=== PATIENT | male | born 1945 | race Caucasian/White ===

== ENCOUNTER 2019-02-12 09:58 | Inpatient (IN) | payer OTHER ==
[~2019-02-12] VITALS: Ht 182.9 cm; Wt 79.4 kg
[2019-02-12] MEDS ORDERED: SODIUM CHLORIDE 0.9% 1L BAG IV* STA (10:20)
[2019-02-12] MEDS ORDERED: ALBUTEROL 0.083% (NEB) 2.5 MG/3 ML AMP HHN STA (10:26)
[2019-02-12] MEDS ORDERED: METHYLPREDNISOLONE 125 MG INJ IV ONE (11:00)
[2019-02-12] MEDS ORDERED: CLOP75TA27 PO (12:46)
[2019-02-12] MEDS ORDERED: GABA100C14 PO (12:47)
[2019-02-12] MEDS ORDERED: DOCU250C58 PO (12:47)
[2019-02-12] MEDS ORDERED: LACT20SO2 PO (12:48)
[2019-02-12] MEDS ORDERED: ATOR20TA38 PO (12:49)
[2019-02-12] MEDS ORDERED: MAGN400O19 PO (12:49)
[2019-02-12] MEDS ORDERED: METF500T24 PO (12:49)
[2019-02-12] MEDS ORDERED: SENN-120 PO (12:50)
[2019-02-12] MEDS ORDERED: TERA1CAP3 PO (12:51)
[2019-02-12] MEDS ORDERED: ONDA4TAB14 PO (12:52)
[2019-02-12] MEDS ORDERED: ALBUTEROL 0.5% (NEB) 2.5 MG/0.5 ML AMP INH STA (12:53)
[2019-02-12] MEDS ORDERED: IPRATROPIUM (NEB) 0.5 MG/2.5 ML AMP INH STA (12:53)
[2019-02-12] MEDS ORDERED: SERT100T PO (12:55)
[2019-02-12] MEDS ORDERED: AMIN30LI PO (12:57)
[2019-02-12] MEDS ORDERED: URSO250T10 PO (12:57)
[2019-02-12] MEDS ORDERED: RANI300T3 PO (12:58)
[2019-02-12] MEDS ORDERED: ACET-2047 PO (12:58)
[2019-02-12] MEDS ORDERED: ATEN50TA PO (12:59)
[2019-02-12] MEDS ORDERED: BISA10SU55 RC (13:00)
[2019-02-12] MEDS ORDERED: NA P133E10 RC (13:01)
[2019-02-12] MEDS ORDERED: VANCOMYCIN 1 GM (PMX) 250 ML IVPB STA (13:11)
[2019-02-12] MEDS ORDERED: PIPER-TAZO 3.375 GM IV (PMX) 100 ML IVPB STA (13:11)
[2019-02-12] MEDS ORDERED: ACETAMINOPHEN 325 MG TAB PO PRN ×2 (14:00→14:30)
[2019-02-12] MEDS ORDERED: ONDANSETRON 4 MG INJ IV PRN (14:00)
[2019-02-12] MEDS ORDERED: morphine 2 MG INJ IV PRN (14:30)
[2019-02-12] MEDS ORDERED: ALBUTEROL/IPRATROPIUM (NEB) 3 ML AMP HHN PRN (14:30)
[2019-02-12] MEDS ORDERED: HYDROCODONE/APAP (5/325) TAB PO PRN (14:30)
[2019-02-12] MEDS ORDERED: NACL 0.9% 3 ML SYG IV SCH (14:30)
[2019-02-12] MEDS ORDERED: ASPIRIN 325 MG TAB PO ONE (14:30)
[2019-02-12] MEDS ORDERED: NITROGLYCERIN (SL) 0.4 MG TAB SL PRN (14:30)
--- NOTE | 2019-02-12 14:38 | ERD ---
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 The patient presented to the emergency department from [facility]. The patient was in severe respiratory distress. The patient had experienced desaturation and became acutely hypoxic satting at 78%. His blood sugar at that time was 267. His blood pressure was 120/64. Nursing staff placed the patient on 4 L nasal cannula. This did not improve his pulse ox and therefore he was placed on a nonrebreather at 15 L and improved his pulse ox to 93%. Patient has a history of aspiration pneumonia. The patient is also DO NOT RESUSCITATE with comfort measures only ROS All systems reviewed and are negative except as per history of present illness. Medications Home Meds Reported Medications Na Phos,M-B/Na Phos,Di-Ba (ENEMA [id number]) 133 Ml Enema, 133 ML RC EVERY 48 HOURS PRN for CONSTIPATION, ENEMA 02/12/19 Bisacodyl (Dulcolax) 10 Mg Supp.rect, 10 MG RC EVERY 48 HOURS PRN for CONSTIPATION, SUPP.RECT 02/12/19 Atenolol* (Atenolol*) 50 Mg Tablet, 50 MG PO BID, #60 TAB HOLD FOR SBP<110 OR HR <60 02/12/19 Acetaminophen* (Acetaminophen*) 650 Mg Tablet, 650 MG PO Q6H PRN for MILD PAIN LEVEL 1-3, #30 TAB 02/12/19 Ranitidine Hcl* (Zantac*) 300 Mg Tablet, 300 MG PO HS, #30 TAB 02/12/19 Amino Acids/Protein Hydrolys (PRO-STAT LIQUID) 30 Ml Liquid.pkt, 30 ML PO DAILY 02/12/19 Ursodiol* (Ursodiol*) 250 Mg Tablet, 250 MG PO BID, TAB 02/12/19 Sertraline Hcl* (Zoloft*) 100 Mg Tablet, 150 MG PO DAILY, #30 TAB 02/12/19 Ondansetron (Ondansetron Odt) 4 Mg Tab.rapdis, 4 MG PO Q6H PRN for NAUSEA AND/OR VOMITING, TAB 02/12/19 Terazosin Hcl* (Terazosin Hcl*) 1 Mg Capsule, 1 MG PO BID, CAP 02/12/19 Sennosides* (Senna Lax*) 8.6 Mg Tablet, 1 TAB PO QHS, TAB 02/12/19 Magnesium Hydroxide* (Milk Of Magnesia*) 400 Mg/5 Ml Oral.susp, 30 ML PO DAILY PRN for CONSTIPATION, ML 02/12/19 Metformin Hcl* (Metformin Hcl*) 500 Mg Tablet, 500 MG PO WITH BREAKFAST DINNE, #60 TAB 02/12/19 Atorvastatin Calcium* (Atorvastatin Calcium*) 20 Mg Tablet, 20 MG PO QHS, #30 TAB 02/12/19 Lactulose* (Lactulose*) 20 Gm/30 Ml Solution, 20 GM PO DAILY, ML 02/12/19 Gabapentin* (Gabapentin*) 100 Mg Capsule, 100 MG PO TID, #90 CAP 02/12/19 Docusate Sodium* (Colace*) 250 Mg Capsule, 250 MG PO BID, #60 CAP 02/12/19 Clopidogrel Bisulfate (Clopidogrel) 75 Mg Tablet, 75 MG PO DAILY, #30 TAB 02/12/19 Allergies Allergies: Coded Allergies: alendronate sodium (Unverified Allergy, Unknown, 02/12/19) cholecalciferol (vitamin D3) (Unverified Allergy, Unknown, 02/12/19) PMhx/Soc History of Surgery: Yes (left below knee amputation ) Hx Respiratory Disorders: Yes (copd ) Hx Cardiac Disorders: Yes (htn, chf, pvd) Hx Miscellaneous Medical Probl: Yes (bladder ca, generalized weakness, DM, chronic kidney disease ) Hx Alcohol Use: No Hx Substance Use: No Hx Tobacco Use: No Smoking Status: Never smoker Physical Exam Vitals Vital Signs Date Temp Pulse Resp B/P (MAP) Pulse Ox O2 O2 Flow FiO2 Time Delivery Rate 02/12/19 92 26 96 13:42 02/12/19 96 100 12:49 02/12/19 87 29 98/59 (72) 97 11:26 02/12/19 Simple 11:17 Mask 02/12/19 88 100 11:14 02/12/19 86 36 86 Non 15.0 100 10:52 Rebreather Mask 02/12/19 98.9 91 24 92/60 (71) 88 Non 15.0 10:17 Rebreather 02/12/19 Non 15.0 10:12 Rebreather 02/12/19 98.8 91 28 104/64 88 10:11 (77) Physical Exam Constitutional:Well-developed. Patient in severe respiratory distress HEENT:Normocephalic. Atraumatic.Pupils were equal round reactive to light. Moist mucous membranes.No tonsillar exudates. Neck: No nuchal rigidity. No lymphadenopathy. No posterior cervical spine tenderness or step-offs. Respiratory: Patient using accessory muscles of respiration. Unable to speak due to severe respiratory distress. Wheezing on end auscultation bilaterally. No stridor. Cardiovascular: Tachycardic with regular rhythm.No murmurs. No rubs were appreci ated.S1, S2 normal. Distal pulses are palpable 2+ on the right lower extreme knee. Patient has a left below the knee amputation GI: Abdomen was soft. Nontender. Non Distended. No pulsatile abdominal masses or bruits. No rebound. No guarding. Bowel sounds were present and normal. Muscle skeletal: Patient has a left below the knee amputation and stump is clean dry and intact. Patient is full range of motion the bilateral upper extremities. Skin: No petechia, no purpura. No lesions on the palms or the soles of the feet. No maculopapular rash. NEURO: Patient was alert, awake, to person place and time. Gait not observed. Result Diagram: 02/12/19 1012 02/12/19 1012 Results 24 hrs Laboratory Tests Test 02/12/19 10:12 02/12/19 10:14 02/12/19 10:26 02/12/19 14:12 White Blood Count 12.9 10^3/ul Red Blood Count 5.69 10^6/ul Hemoglobin 15.9 g/dl Hematocrit 49.5 % Mean Corpuscular 87.0 fl Volume Mean Corpuscular 27.9 pg Hemoglobin Mean Corpuscular 32.1 g/dl Hemoglobin Concen t Red Cell 14.2 % Distribution Width Platelet Count 227 10^3/UL Mean Platelet 10.6 fl Volume Immature 0.200 % Granulocytes % Neutrophils % 82.7 % Segmented 47 % Neutrophils % (Manual) Band Neutrophils 31 % % (Manual) Lymphocytes % 5.8 % Lymphocytes % 5 % (Manual) Reactive 1 % Lymphocytes % (Manual) Monocytes % 10.8 % Monocytes % 16 % (Manual) Eosinophils % 0.0 % Basophils % 0.5 % Nucleated Red 0.0 /100WBC Blood Cells % Immature 0.030 10^3/ul Granulocytes # Neutrophils # 10.6 10^3/ul Neutrophils # 6.6 10^3/ul (Manual) Band Neutrophils 3.9 10^3/ul # Lymphocytes 0.6 10^3/ul (Manual) Lymphocytes # 0.7 10^3/ul Reactive 0.1 10^3/ul Lymphocytes # Monocytes # 1.4 10^3/ul Monocytes # 2.0 10^3/ul (Manual) Eosinophils # 0.0 10^3/ul Basophils # 0.1 10^3/ul Nucleated Red 0.0 10^3/ul Blood Cells # Platelet Estimate NORMAL Giant Platelets 3 % Poikilocytosis 1+ Anisocytosis 1+ Microcytosis 1+ Prothrombin Time 13.5 Sec Prothrombin Time 1.1 Ratio INR International 1.02 Normalized Ratio Activated 34.2 Sec Partial Thrombopl ast Time Sodium Level 140 mmol/L Potassium Level 4.3 mmol/L Chloride Level 103 mmol/L Carbon Dioxide 22 mmol/L Level Anion Gap 15 Blood Urea 31 mg/dl Nitrogen Creatinine 1.43 mg/dl Est Glomerular mL/min Filtrat Rate mL/min Glucose Level 334 mg/dl Calcium Level 10.2 mg/dl Total Bilirubin 0.4 mg/dl Direct Bilirubin 0.00 mg/dl Indirect 0.4 mg/dl Bilirubin Aspartate Amino 18 IU/L Transf (AST/SGOT) Alanine 12 IU/L Aminotransferase (ALT/SGPT) Alkaline 107 IU/L Phosphatase Troponin I 0.531 ng/ml B-Type 6430 PG/ML Natriuretic Peptide Total Protein 8.1 g/dl Albumin 4.4 g/dl Globulin 3.70 g/dl Albumin/Globulin 1.18 Ratio POC Venous 2.4 mmol/L 3.4 mmol/L Lactate Blood Gas Blood arterial Specimen Source Arterial Blood 02/12/2019 11:16:02 Date Drawn AM Arterial Blood pH 7.392 (Temp corrected) Arterial Blood 35.9 mmhg pCO2 (Temp correct) Arterial Blood 68.2 mmHG pO2 (Temp corrected) Arterial Blood 21.3 mmol/L HCO3 Arterial Blood -2.9 mmol/L Base Excess Arterial Blood 93.9 mmHG Oxygen Saturation Caesar Test ACCEPTAB Arterial Blood Right Brachial Gas Puncture Site Arterial 0.5 % Blood Carboxyhemo globin Arterial Blood 0.2 % Methemoglobin Blood Gas A-a O2 608.9 mmHg Differential Oxyhemoglobin 93.2 % Percent Blood Gas 37.0 C Temperature Blood Gas Actual 35 Respiration Rate Blood Gas HFNC Modality FiO2 100.0 % Blood Gas MarlonYADIEL RT Notified Whom Blood Gas 02/12/2019 11:32:52 Notified Time AM Test 02/12/19 14:15 02/12/19 14:20 02/12/19 15:08 Lactic Acid Level 4.6 mmol/L Bedside Urine pH 6.0 (LAB) Bedside Urine 1+ Protein (LAB) Bedside Urine Negative Glucose (UA) Bedside Urine 3+ Ketones (LAB) Bedside Urine 2+ Blood Bedside Urine Negative Nitrite (LAB) Bedside Urine Trace Leukocyte Esteras e (L White Blood Count Pending Red Blood Count Pending Hemoglobin Pending Hematocrit Pending Mean Corpuscular Pending Volume Mean Corpuscular Pending Hemoglobin Mean Corpuscular Pending Hemoglobin Concen t Red Cell Pending Distribution Width Platelet Count Pending Mean Platelet Pending Volume Current Medications Medications Dose Sig/Moriah Start Time Status Last (Trade) Ordered Route PRN Stop Time Admin Dose Reason Admin Sodium 2,520 ml BOLUS OVER 2 02/12/19 DC 02/12/19 Chloride HOURS STAT 10:20 02/12/19 10:59 (NS) IV* 10:44 Albuterol 10 mg ONCE STAT 02/12/19 DC 02/12/19 (Proventil HHN 10:26 02/12/19 10:51 0.083% (Neb)) 10:44 125 mg ONCE ONCE 02/12/19 DC 02/12/19 Methylprednis IV 11:00 02/12/19 10:59 olone Sodium 11:01 Succinate (Solu-Medrol) Albuterol 10 mg ONCE STAT 02/12/19 DC (Proventil INH 12:53 02/12/19 0.5% (Neb)) 12:57 Ipratropium 1 mg ONCE STAT 02/12/19 DC [place] INH 12:53 02/12/19 (Atrovent 12:57 0.02% (Neb)) Vancomycin 250 ml @ ONCE STAT 02/12/19 DC 02/12/19 HCl 125 mls/hr IVPB 13:11 02/12/19 15:19 15:10 Piperacillin 100 ml @ ONCE STAT 02/12/19 DC 02/12/19 Sod/ 200 mls/hr IVPB 13:11 02/12/19 13:53 Tazobactam 13:40 Sod Ondansetron 4 mg BRIDGE ORDER 02/12/19 HCl (Zofran PRN IV 14:00 02/13/19 Inj) NAUSEA/VOMITI 13:59 NG 650 mg ER BRIDGE 02/12/19 DC Acetaminophen PRN PO 14:00 02/12/19 (Tylenol .MILD PAIN 14:53 Tab) 1-3 OR TEMP IV Flush 3 ml PER 02/12/19 (NS 3 ml) PROTOCOL IV 14:30 1 tab Q5M PRN 02/12/19 Nitroglycerin SL .CHEST 14:30 PAIN (Nitroglyceri n (Sl Tab) 0.4 Mg) 650 mg Q6H PRN 02/12/19 Acetaminophen PO .PAIN 1-3 14:30 (Tylenol OR TEMP Tab) 1 tab Q6H PRN 02/12/19 Acetaminophen PO .PAIN 4-6 14:30 / Hydrocodone Bitart (Sallis (5/325)) Morphine 2 mg Q4H PRN 02/12/19 Sulfate IV .PAIN 14:30 (morphine) 7-10 40 mg DAILY@06 02/13/19 Pantoprazole IV 06:00 (Protonix Iv) 80 mg QHS PO 02/12/19 Atorvastatin 21:00 Calcium (Lipitor) Clopidogrel 75 mg DAILY PO 02/13/19 Bisulfate 09:00 (plaVIX) Docusate 250 mg BID PO 02/12/19 Sodium 21:00 (Colace) Sertraline 150 mg DAILY PO 02/13/19 HCl 09:00 (Zoloft) Terazosin 1 mg BID PO 02/12/19 HCl 21:00 (Hytrin) Ursodiol 250 mg BID PO 02/12/19 (Pili) 21:00 Aspirin 325 mg ONCE ONCE 02/12/19 DC (Aspirin) PO 14:30 02/12/19 14:54 Aspirin 81 mg DAILY PO 02/13/19 (Aspirin) 09:00 Piperacillin 100 ml @ Q6 IVPB 02/12/19 Sod/ 200 mls/hr 18:00 Tazobactam Sod Albuterol/ 3 ml Q6HWA RESP 02/12/19 Ipratropium THERAPY HHN 20:00 (Duoneb) Albuterol/ 3 ml Q2H RESP 02/12/19 Ipratropium THERAPY PRN 14:30 (Duoneb) HHN shortness of breath Budesonide 0.5 mg BID RESP 02/12/19 (Pulmicort THERAPY HHN 20:00 (Neb)) Discontinue ONCE ONCE 02/12/19 DC Miscellaneous current oral XX 15:00 02/12/19 sulfonylur... 15:01 Information (* Miscellaneous Pharmacy Order) Diagnostic 1 ea 02 XX 02/13/19 Test (Pha) 02:00 (Accu-Chek) ONCE ONCE 02/12/19 DC Miscellaneous HYPOGLYCEMIA XX 15:00 02/12/19 PROTOCOL 15:01 Information w... (* Miscellaneous Pharmacy Order) Insulin NOVOLOG WITH MEALS 02/12/19 Aspart *MILD* BEDTIME SC 18:00 (Novolog ALGORITHM Insulin Pen) Discontinue ONCE ONCE 02/12/19 DC Miscellaneous all previ... XX 15:00 02/12/19 15:01 Information (* Miscellaneous Pharmacy Order) DC ONCE ONCE 02/12/19 DC Miscellaneous previous XX 15:00 02/12/19 hepa... 15:01 Information (* Miscellaneous Pharmacy Order) Heparin 4,000 unit ONCE ONCE 02/12/19 DC Sodium IV 15:00 02/12/19 (Porcine) 15:01 (Heparin (1000 Units/ml)) Heparin 4,000 unit PER PROTOCOL 02/12/19 Sodium PRN IV 15:00 (Porcine) aPTT<47 (Heparin (1000 Units/ml)) Heparin 250 ml @ 0 PER 02/12/19 Sodium mls/hr PROTOCOL IV 15:00 (Porcine) 1 ea NOTE XX 02/12/19 Miscellaneous 15:00 Information Glucose 15 gm Q15M PRN 02/12/19 (Glutose) PO DECREASED 15:00 GLUCOSE Glucose 22.5 gm Q15M PRN 02/12/19 (Glutose) PO DECREASED 15:00 GLUCOSE Dextrose 25 ml Q15M PRN 02/12/19 (D50w IV DECREASED 15:00 Syringe) GLUCOSE Dextrose 50 ml Q15M PRN 02/12/19 (D50w IV DECREASED 15:00 Syringe) GLUCOSE Glucagon 1 mg Q15M PRN 02/12/19 (Glucagen) IM DECREASED 15:00 GLUCOSE Glucose 15 gm Q15M PRN 02/12/19 (Glutose) BUCCAL 15:00 DECREASED GLUCOSE Procedures/MDM The patient presented to the emergency department with dyspnea. My differential diagnosis included but was not limited to upper airway obstruction, CHF, pulmonary embolism, cardiac ischemia, pneumonia, pneumothorax, anemia, drug overdose, pulmonary edema, COPD or asthma. The patient was immediately placed on a hospital monitor continuous pulse oximetry and IV access was established by nursing staff. 12 Lead EKG tracing ordered and reviewed by myself showed: Normal sinus rhythm of 85 bpm and no arrhythmia. ND interval normal. QRS duration widened at 144 ms with an RSR prime pattern in lead V1 V2 consistent with a right bundle branch block No ST segment elevation No ST segment depression. No changes consistent with acute ischemia. I obtained a 1 view chest radiograph and there is no infiltrates no pneumothorax or pleural effusions. There is no pulmonary edema. I did feel the patient symptoms could be a result of a severe COPD exacerbation. He was immediately placed on BiPAP continuous nebulizer treatment and also given 125 mg of Solu- Medrol. The patient did meet Sirs criteria. His lactic acid was elevated. The patient therefore was treated for sepsis. The concern for the patient's source of sepsis was suspected aspiration pneumonia as the patient did have an episode of non-bloody nonbilious emesis in the emergency department. Therefore BiPAP was not placed on to the patient but rather Vapotherm. The patient was hyperglycemic without ketosis. This was treated with IV fluids. Patient's infectious symptoms have not stabilized and the patient is at risk of rapid decompensation. The patient will be admitted for careful hydration, antibiotic therapy, and infectious source control. Severe Sepsis Assessment: Infectious Source: Aspiration pneumonia End organ damage indicated by: Lactate > 2.0 mmol/L Hypotension( SBP < 90 or >40 mmHG drop or MAP < 65) Severe Sepsis Managment: Blood Cultures X 2 before broad spectrum antibiotics initiated within 3 hours of recognition. 30 ml/kg NS bolus Completed Initial Lactate: 2.4 Repeat Lactate 3.4 Septic Shock Assessment (1 hour post 30 ml/kg fluid bolus): Hypotension (SBP < 90 or 40 mmHg drop, MAP < 65): No Lactic acid > 4.0 No I considered further perfusion assessment with CVP measurement, SCVO2, bedside ultrasound volume assessment, passive leg raise, trial of further fluid bolus. And preceded with IV fluids The patient had an elevated troponin of 0.531. The patient was given aspirin. He never complained of any chest discomfort. The patient's BNP was also elevated at 6430. I spoke with the [facility]. He indicates that the patient does not have a history of congestive heart failure. The patient had an echocardiogram performed roughly 1 year ago with a map of 55%. Therefore the patient was treated with a 30 cc/kg bolus of normal saline as there was low risk for fluid overload. The patient had acute kidney injury with BUN of 31 and a creatinine of 1.43. Please note when the patient initially arrived orders have been placed by nursing staff for sepsis given that he had Sirs criteria with a POC lactate that was elevated. I currently was the only physician on staff at the time and had a CODE BLUE, and subcutaneously when this patient initially arrived and speaking with family of another patient who had . Therefore I had nursing staff place a sepsis order bundle for me. However the antibiotics had not been ordered. Therefore there will be a delay in the antibiotics being administered as I had accidentally not placed in order for the antibiotics. Once I realize the antibiotcis had not been ordered I immediately ordered vancomycin and Zosyn for the patient for suspected aspiration pneumonia. I also spoke with [facility]. They did not feel the patient was stable enough for transfer and did give authorization for the patient to be admitted to our panel physician. The pulse form is on the patient's chart that indicates comfort measures only with no shock no pressors no CPR no intubation but did agree for IV fluids and IV antibiotics. The patient became much more alert awake and was now talking after receiving the Vapotherm treatment. His arterial blood gas did not show a severe respiratory acidosis. Critical Care: Time: 70 minutes Treatments/Evaluations: Close monitoring and treatment of unstable vital signs, cardiorespiratory, and neurologic status, while maintaining tight balance of fluid, respiratory, and cardiac interventions. Time does not include performing any of the above billable procedures. Departure Diagnosis: Primary Impression: Sepsis Sepsis type: sepsis due to unspecified organism Qualified Codes: A41.9 - Sepsis, unspecified organism Additional Impressions: Aspiration pneumonia Aspiration pneumonia type: due to vomit Laterality: unspecified laterality Lung location: unspecified part of lung Qualified Codes: J69.0 - Pneumonitis due to inhalation of food and vomit Hyperglycemia without ketosis Condition: Serious DONATO WINTER MD February 12, 2019 14:27
--- NOTE | 2019-02-12 14:54 | HP ---
Date/Time of Note Date/Time of Note DATE: 02/12/19 TIME: 14:53 Assessment/Plan VTE Prophylaxis Pharmacological prophylaxis: other Lines/Catheters IV Catheter Type (from Nrs): Saline Lock Assessment/Plan Hospital Course Patient is a male with a past medical history significant for left BKA, diabetes mellitus, hypertension, COPD, CVA with residual left-sided weakness who presents to [facility] for hypoxia. Patient was at his jail facility, had an episode of emesis and subsequently had hypoxia. Currently patient is doing well on high flow nasal cannula with no respiratory issues as long as the high flow is on. Patient is DO NOT RESUSCITATE but will continue all full medical treatment. Currently patient denies any shortness of breath, chest pain, dizziness, abdominal pain, leg pain. Objective Physical exam General: Patient is laying in bed and answers questions appropriately Mentation: Patient is alert and oriented 3, Head: Normocephalic atraumatic Eyes: EOMI, pupils reactive to light Neck: Supple, nontender, midline Respiratory: mildly coarse to auscultation bilaterally Cardiovascular: regular rate, no obvious murmurs Gastrointestinal: non-tender to palpation, bowel sounds heard. Neurological: Moves all extremities spontaneously, left lower extremity BKA, left upper extremity moderately weaker than right Skin: No new skin lesions Assessment and plan Acute hypoxic respiratory distress -Doing well on high flow nasal cannula -Occurred after emesis event at jail facility, patient likely aspirated -Pulmonary on board, Likely aspiration pneumonia -IV antibiotic -Cultures -Nebulizers COPD exacerbation -Likely secondary to above possible aspiration pneumonia -Hold off on beta-ignacio Sepsis -IV fluid, however will need to be careful as patient's BNP is elevated and poss ible volume overload -IV antibiotic -Cultures Non-ST elevated myocardial infarction -Cardiology consulted, Dr. Chambers -Trend troponins -Statin -Aspirin -Heparin drip -According to son at bedside, patient does not have any bleeding disorders that would contraindicate heparin drip. Diabetes mellitus -Insulin while in house Hypertension -Continue home meds, holding beta-ignacio due to possible COPD exacerbation History of CVA -Residual left sided weakness, patient can eat with his right hand -Mild chronic encephalopathy but more or less oriented per son Acute kidney injury versus chronic kidney disease -Possibly baseline however will follow up with creatinine tomorrow morning Disposition -We will stabilize, cardiology to see patient, trend troponins, will transfer to [facility] when patient is stable for transfer. -Patient is DO NOT RESUSCITATE, however medical measures are okay. Patient is not comfort measures only Result Diagram: 02/12/19 1012 02/12/19 1012 Results 24hrs Laboratory Tests Test 02/12/19 10:12 02/12/19 10:14 02/12/19 10:26 02/12/19 14:12 White Blood Count 12.9 H Red Blood Count 5.69 Hemoglobin 15.9 Hematocrit 49.5 Mean Corpuscular 87.0 Volume Mean Corpuscular 27.9 L Hemoglobin Mean Corpuscular 32.1 Hemoglobin Concent Red Cell 14.2 Distribution Width Platelet Count 227 Mean Platelet 10.6 H Volume Immature 0.200 Granulocytes % Neutrophils % 82.7 H Segmented 47 Neutrophils % (Manual) Band Neutrophils % 31 H (Manual) Lymphocytes % 5.8 L Lymphocytes % 5 L (Manual) Reactive 1 H Lymphocytes % (Manual) Monocytes % 10.8 Monocytes % 16 H (Manual) Eosinophils % 0.0 Basophils % 0.5 Nucleated Red 0.0 Blood Cells % Immature 0.030 Granulocytes # Neutrophils # 10.6 H Neutrophils # 6.6 (Manual) Band Neutrophils # 3.9 H Lymphocytes 0.6 L (Manual) Lymphocytes # 0.7 L Reactive 0.1 H Lymphocytes # Monocytes # 1.4 H Monocytes # 2.0 H (Manual) Eosinophils # 0.0 Basophils # 0.1 Nucleated Red 0.0 Blood Cells # Platelet Estimate NORMAL Giant Platelets 3 H Poikilocytosis 1+ Anisocytosis 1+ Microcytosis 1+ Prothrombin Time 13.5 Prothrombin Time 1.1 Ratio INR International 1.02 Normalized Ratio Activated 34.[address] Time Sodium Level 140 Potassium Level 4.3 Chloride Level 103 Carbon Dioxide 22 Level Anion Gap 15 H Blood Urea 31 H Nitrogen Creatinine 1.43 H Est Glomerular Filtrat Rate mL/min Glucose Level 334 H Calcium Level 10.2 Total Bilirubin 0.4 Direct Bilirubin 0.00 Indirect Bilirubin 0.4 Aspartate Amino 18 Transf (AST/SGOT) Alanine 12 L Aminotransferase ( ALT/SGPT) Alkaline 107 Phosphatase Troponin I 0.531 *H B-Type Natriuretic 6430 H Peptide Total Protein 8.1 Albumin 4.4 Globulin 3.70 H Albumin/Globulin 1.18 Ratio POC Venous Lactate 2.4 *H 3.4 *H Blood Gas Specimen Blood arterial Source Arterial Blood 02/12/2019 11:16:02 Date Drawn AM Arterial Blood pH 7.392 (Temp corrected) Arterial Blood 35.9 pCO2 (Temp correct) Arterial Blood pO2 68.2 L (Temp corrected) Arterial Blood 21.3 L HCO3 Arterial Blood -2.9 Base Excess Arterial Blood 93.9 L Oxygen Saturation Caesar Test ACCEPTAB Arterial Blood Gas Right Brachial Puncture Site Arterial 0.5 Blood Carboxyhemog lobin Arterial Blood 0.2 Methemoglobin Blood Gas A-a O2 608.9 H Differential Oxyhemoglobin 93.2 Percent Blood Gas 37.0 Temperature Blood Gas Actual 35 Respiration Rate Blood Gas Modality HFNC FiO2 100.0 Blood Gas Notified CRISTIANO HINDS Whom Blood Gas Notified 02/12/2019 11:32:52 Time AM Test 02/12/19 14:15 02/12/19 14:20 Lactic Acid Level 4.6 *H Bedside Urine pH 6.0 (LAB) Bedside Urine 1+ H Protein (LAB) Bedside Urine Negative Glucose (UA) Bedside Urine 3+ H Ketones (LAB) Bedside Urine 2+ H Blood Bedside Urine Negative Nitrite (LAB) Bedside Urine Trace H Leukocyte Esterase (L HPI/ROS Admit Date/Time Admit Date/Time PMH/Family/Social Past Medical History Medications Current Medications Vancomycin HCl 250 ml @ 125 mls/hr ONCE STAT IVPB ; Start 02/12/19 at 13:11; Stop 02/12/19 at 15:10 Ondansetron HCl (Zofran Inj) 4 mg BRIDGE ORDER PRN IV NAUSEA/VOMITING; Start 02/12/19 at 14:00; Stop 02/13/19 at 13:59 Acetaminophen (Tylenol Tab) 650 mg ER BRIDGE PRN PO .MILD PAIN 1-3 OR TEMP; Start 02/12/19 at 14:00; Stop 02/13/19 at 13:59 IV Flush (NS 3 ml) 3 ml PER PROTOCOL IV ; Start 02/12/19 at 14:30; Status UNV Nitroglycerin (Nitroglycerin (Sl Tab) 0.4 Mg) 1 tab Q5M PRN SL .CHEST PAIN; Start 02/12/19 at 14:30; Status UNV Acetaminophen (Tylenol Tab) 650 mg Q6H PRN PO .PAIN 1-3 OR TEMP; Start 02/12/19 at 14:30; Status UNV Acetaminophen/ Hydrocodone Bitart ([place] (5/325)) 1 tab Q6H PRN PO .PAIN 4-6; Start 02/12/19 at 14:30; Status UNV Morphine Sulfate (morphine) 2 mg Q4H PRN IV .PAIN 7-10; Start 02/12/19 at 14:30; Status UNV Pantoprazole (Protonix Iv) 40 mg DAILY@06 IV ; Start 02/13/19 at 06:00; Status UNV Atorvastatin Calcium (Lipitor) 80 mg QHS PO ; Start 02/12/19 at 21:00; Status UNV Clopidogrel Bisulfate (plaVIX) 75 mg DAILY PO ; Start 02/13/19 at 09:00; Status UNV Docusate Sodium (Colace) 250 mg BID PO ; Start 02/12/19 at 21:00; Status UNV Sertraline HCl (Zoloft) 150 mg DAILY PO ; Start 02/13/19 at 09:00; Status UNV Terazosin HCl (Hytrin) 1 mg BID PO ; Start 02/12/19 at 21:00; Status UNV Ursodiol (Pili) 250 mg BID PO ; Start 02/12/19 at 21:00; Status UNV Aspirin (Aspirin) 325 mg ONCE ONCE PO ; Start 02/12/19 at 14:30; Stop 02/12/19 at 14:31; Status UNV Aspirin (Aspirin) 81 mg DAILY PO ; Start 02/13/19 at 09:00; Status UNV Coded Allergies: alendronate sodium (Unverified Allergy, Unknown, 02/12/19) cholecalciferol (vitamin D3) (Unverified Allergy, Unknown, 02/12/19) Social History Smoking Status: Never smoker Exam/Review of Systems Vital Signs Vitals Vital Signs Date Temp Pulse Resp B/P (MAP) Pulse Ox O2 O2 Flow FiO2 Time Delivery Rate 02/12/19 92 26 96 13:42 02/12/19 100 12:49 02/12/19 98/59 (72) 11:26 02/12/19 Simple 11:17 Mask 02/12/19 15.0 10:52 02/12/19 98.9 10:17 YOLETTE RICH February 12, 2019 14:53
[2019-02-12] MEDS ORDERED: HEPARIN 1000 UNITS/ML 10 ML INJ IV PRN (15:00)
[2019-02-12] MEDS ORDERED: DEXTROSE 50% 50 ML SYRINGE IV PRN ×2 (15:00)
[2019-02-12] MEDS ORDERED: HEPARIN 1000 UNITS/ML 10 ML INJ IV ONE (15:00)
[2019-02-12] MEDS ORDERED: GLUCAGON 1 MG INJ IM PRN (15:00)
[2019-02-12] MEDS ORDERED: GLUCOSE GEL 15 GRAM TUBE PO PRN ×2 (15:00)
[2019-02-12] MEDS ORDERED: HEPARIN 25000 UNITS/250 ML 250 ML IV SCH (15:00)
[2019-02-12] MEDS ORDERED: GLUCOSE GEL 15 GRAM TUBE BUCCAL PRN (15:00)
--- NOTE | 2019-02-12 15:57 | CONS ---
Assessment/Plan Assessment/Plan Hospital Course (Demo Recall) Mildly abnormal troponin: Consistent with non-ST elevation myocardial infarction probably type II Acute hypoxemic respiratory failure History of multiple CVA diabetes hypertension History of severe peripheral vascular disease History of congestive heart failure: currently does not appear to be fluid overloaded to Dyslipidemia Peripheral vascular disease status post BKA Encephalopathy Renal insufficiency Recommendations: We will repeat the cardiac enzymes including ck ckmb cont home plavix will hold off on heparin now that pt has no angina cont resp care O2 abx as per IM REC CONT DM control echo Thank you for this referral. We will continue to follow along with you PIPPA MACIAS MD FAC Consultation Date/Type/Reason Admit Date/Time Date of Consultation: February 12, 2019 Type of Consult Cardiology Reason for Consultation + trop Requesting Provider: YOLETTE RICH Date/Time of Note DATE: 02/12/19 TIME: 15:48 Hx of Present Illness Interventional cardiology consultation note Chief complaint: Hypoxemia Reason for consult: Abnormal troponin History of present illness: Thank you for this referral. History was obtained from the patient from discussion with his son view of his old chart This is a pleasant 73-year-old gentleman multiple complicated medical history was past referred from his detention because of hypoxemia according to the son patient apparently choked on eating and has been short of breath since then. Noted patient was severely hypoxemic. He denies any left-sided chest pain or pressure to me but was noted to be having slightly abnormal troponin. CODE STATUS is DNR. 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 Diabetes Dyslipidemia Diabetic retinopathy Congestive heart failure COPD Review of system: Patient denies all others except for above-mentioned Past Medical History Home Meds Reported Medications Na Phos,M-B/Na Phos,Di-Ba (ENEMA [id number]) 133 Ml Enema, 133 ML RC EVERY 48 HOURS PRN for CONSTIPATION, ENEMA 02/12/19 Bisacodyl (Dulcolax) 10 Mg Supp.rect, 10 MG RC EVERY 48 HOURS PRN for CONSTIPATION, SUPP.RECT 02/12/19 Atenolol* (Atenolol*) 50 Mg Tablet, 50 MG PO BID, #60 TAB HOLD FOR SBP<110 OR HR <60 02/12/19 Acetaminophen* (Acetaminophen*) 650 Mg Tablet, 650 MG PO Q6H PRN for MILD PAIN LEVEL 1-3, #30 TAB 02/12/19 Ranitidine Hcl* (Zantac*) 300 Mg Tablet, 300 MG PO HS, #30 TAB 02/12/19 Amino Acids/Protein Hydrolys (PRO-STAT LIQUID) 30 Ml Liquid.pkt, 30 ML PO DAILY 02/12/19 Ursodiol* (Ursodiol*) 250 Mg Tablet, 250 MG PO BID, TAB 02/12/19 Sertraline Hcl* (Zoloft*) 100 Mg Tablet, 150 MG PO DAILY, #30 TAB 02/12/19 Ondansetron (Ondansetron Odt) 4 Mg Tab.rapdis, 4 MG PO Q6H PRN for NAUSEA AND/OR VOMITING, TAB 02/12/19 Terazosin Hcl* (Terazosin Hcl*) 1 Mg Capsule, 1 MG PO BID, CAP 02/12/19 Sennosides* (Senna Lax*) 8.6 Mg Tablet, 1 TAB PO QHS, TAB 02/12/19 Magnesium Hydroxide* (Milk Of Magnesia*) 400 Mg/5 Ml Oral.susp, 30 ML PO DAILY PRN for CONSTIPATION, ML 02/12/19 Metformin Hcl* (Metformin Hcl*) 500 Mg Tablet, 500 MG PO WITH BREAKFAST DINNE, #60 TAB 02/12/19 Atorvastatin Calcium* (Atorvastatin Calcium*) 20 Mg Tablet, 20 MG PO QHS, #30 TAB 02/12/19 Lactulose* (Lactulose*) 20 Gm/30 Ml Solution, 20 GM PO DAILY, ML 02/12/19 Gabapentin* (Gabapentin*) 100 Mg Capsule, 100 MG PO TID, #90 CAP 02/12/19 Docusate Sodium* (Colace*) 250 Mg Capsule, 250 MG PO BID, #60 CAP 02/12/19 Clopidogrel Bisulfate (Clopidogrel) 75 Mg Tablet, 75 MG PO DAILY, #30 TAB 02/12/19 Medications Current Medications Ondansetron HCl (Zofran Inj) 4 mg BRIDGE ORDER PRN IV NAUSEA/VOMITING; Start 02/12/19 at 14:00; Stop 02/13/19 at 13:59 IV Flush (NS 3 ml) 3 ml PER PROTOCOL IV ; Start 02/12/19 at 14:30 Nitroglycerin (Nitroglycerin (Sl Tab) 0.4 Mg) 1 tab Q5M PRN SL .CHEST PAIN; Start 02/12/19 at 14:30 Acetaminophen (Tylenol Tab) 650 mg Q6H PRN PO .PAIN 1-3 OR TEMP; Start 02/12/19 at 14:30 Acetaminophen/ Hydrocodone Bitart ([place] (5/325)) 1 tab Q6H PRN PO .PAIN 4-6; Start 02/12/19 at 14:30 Morphine Sulfate (morphine) 2 mg Q4H PRN IV .PAIN 7-10; Start 02/12/19 at 14:30 Pantoprazole (Protonix Iv) 40 mg DAILY@06 IV ; Start 02/13/19 at 06:00 Atorvastatin Calcium (Lipitor) 80 mg QHS PO ; Start 02/12/19 at 21:00 Clopidogrel Bisulfate (plaVIX) 75 mg DAILY PO ; Start 02/13/19 at 09:00 Docusate Sodium (Colace) 250 mg BID PO ; Start 02/12/19 at 21:00 Sertraline HCl (Zoloft) 150 mg DAILY PO ; Start 02/13/19 at 09:00 Terazosin HCl (Hytrin) 1 mg BID PO ; Start 02/12/19 at 21:00 Ursodiol (Pili) 250 mg BID PO ; Start 02/12/19 at 21:00 Aspirin (Aspirin) 81 mg DAILY PO ; Start 02/13/19 at 09:00 Piperacillin Sod/ Tazobactam Sod 100 ml @ 200 mls/hr Q6 IVPB ; Start 02/12/19 at 18:00 Albuterol/ Ipratropium (Duoneb) 3 ml Q6HWA RESP THERAPY HHN ; Start 02/12/19 at 20:00 Albuterol/ Ipratropium (Duoneb) 3 ml Q2H RESP THERAPY PRN HHN shortness of raj th; Start 02/12/19 at 14:30 Budesonide (Pulmicort (Neb)) 0.5 mg BID RESP THERAPY HHN ; Start 02/12/19 at 20:00 Diagnostic Test (Pha) (Accu-Chek) 1 ea 02 XX ; Start 02/13/19 at 02:00 Insulin Aspart (Novolog Insulin Pen) NOVOLOG *MILD* ALGORITHM WITH MEALS BEDTIME SC ; Start 02/12/19 at 18:00 Heparin Sodium (Porcine) (Heparin (1000 Units/ml)) 4,000 unit PER PROTOCOL PRN IV aPTT<47; Start 02/12/19 at 15:00 Heparin Sodium (Porcine) 250 ml @ 0 mls/hr PER PROTOCOL IV ; Start 02/12/19 at 15:00 Miscellaneous Information 1 ea NOTE XX ; Start 02/12/19 at 15:00 Glucose (Glutose) 15 gm Q15M PRN PO DECREASED GLUCOSE; Start 02/12/19 at 15:00 Glucose (Glutose) 22.5 gm Q15M PRN PO DECREASED GLUCOSE; Start 02/12/19 at 15:00 Dextrose (D50w Syringe) 25 ml Q15M PRN IV DECREASED GLUCOSE; Start 02/12/19 at 15:00 Dextrose (D50w Syringe) 50 ml Q15M PRN IV DECREASED GLUCOSE; Start 02/12/19 at 15:00 Glucagon (Glucagen) 1 mg Q15M PRN IM DECREASED GLUCOSE; Start 02/12/19 at 15:00 Glucose (Glutose) 15 gm Q15M PRN BUCCAL DECREASED GLUCOSE; Start 02/12/19 at 15:00 Allergies: Coded Allergies: alendronate sodium (Unverified Allergy, Unknown, 02/12/19) cholecalciferol (vitamin D3) (Unverified Allergy, Unknown, 02/12/19) Social History Smoking Status: Never smoker Exam/Review of Systems Vital Signs Vitals Vital Signs Date Temp Pulse Resp B/P (MAP) Pulse Ox O2 O2 Flow FiO2 Time Delivery Rate 02/12/19 92 26 96 13:42 02/12/19 100 12:49 02/12/19 98/59 (72) 11:26 02/12/19 Simple 11:17 Mask 02/12/19 15.0 10:52 02/12/19 98.9 10:17 Exam Exam General: no acute distress but on high flow oxygen 100% HEENT: NC/AT. pupils are equal. round. NECK: NO JVD. no stridor. CV: RRR. systolic murmur; no gallop or rubs. PULM: no wheezing or rhonchi. GI: SOFT, NT, ND, no rebound or guarding Extremity: Left BKA neuro: awake and alert, OX2. Psych: calm and pleasant rectal: deferred EKG normal sinus rhythm right bundle branch with nonspecific ST-T wave abnormalities X-ray done 02/12/2019 shows: No acute disease. Calcified aorta consistent with atherosclerotic disease. Labs Result Diagram: 02/12/19 1508 02/12/19 1012 Results 24hrs Laboratory Tests Test 02/12/19 10:12 02/12/19 10:14 02/12/19 10:26 02/12/19 14:12 White Blood Count 12.9 H Red Blood Count 5.69 Hemoglobin 15.9 Hematocrit 49.5 Mean Corpuscular 87.0 Volume Mean Corpuscular 27.9 L Hemoglobin Mean Corpuscular 32.1 Hemoglobin Concent Red Cell 14.2 Distribution Width Platelet Count 227 Mean Platelet 10.6 H Volume Immature 0.200 Granulocytes % Neutrophils % 82.7 H Segmented 47 Neutrophils % (Manual) Band Neutrophils % 31 H (Manual) Lymphocytes % 5.8 L Lymphocytes % 5 L (Manual) Reactive 1 H Lymphocytes % (Manual) Monocytes % 10.8 Monocytes % 16 H (Manual) Eosinophils % 0.0 Basophils % 0.5 Nucleated Red 0.0 Blood Cells % Immature 0.030 Granulocytes # Neutrophils # 10.6 H Neutrophils # 6.6 (Manual) Band Neutrophils # 3.9 H Lymphocytes 0.6 L (Manual) Lymphocytes # 0.7 L Reactive 0.1 H Lymphocytes # Monocytes # 1.4 H Monocytes # 2.0 H (Manual) Eosinophils # 0.0 Basophils # 0.1 Nucleated Red 0.0 Blood Cells # Platelet Estimate NORMAL Giant Platelets 3 H Poikilocytosis 1+ Anisocytosis 1+ Microcytosis 1+ Prothrombin Time 13.5 Prothrombin Time 1.1 Ratio INR International 1.02 Normalized Ratio Activated 34.[address] Time Sodium Level 140 Potassium Level 4.3 Chloride Level 103 Carbon Dioxide 22 Level Anion Gap 15 H Blood Urea 31 H Nitrogen Creatinine 1.43 H Est Glomerular Filtrat Rate mL/min Glucose Level 334 H Calcium Level 10.2 Total Bilirubin 0.4 Direct Bilirubin 0.00 Indirect Bilirubin 0.4 Aspartate Amino 18 Transf (AST/SGOT) Alanine 12 L Aminotransferase ( ALT/SGPT) Alkaline 107 Phosphatase Troponin I 0.531 *H B-Type Natriuretic 6430 H Peptide Total Protein 8.1 Albumin 4.4 Globulin 3.70 H Albumin/Globulin 1.18 Ratio POC Venous Lactate 2.4 *H 3.4 *H Blood Gas Specimen Blood arterial Source Arterial Blood 02/12/2019 11:16:02 Date Drawn AM Arterial Blood pH 7.392 (Temp corrected) Arterial Blood 35.9 pCO2 (Temp correct) Arterial Blood pO2 68.2 L (Temp corrected) Arterial Blood 21.3 L HCO3 Arterial Blood -2.9 Base Excess Arterial Blood 93.9 L Oxygen Saturation Caesar Test ACCEPTAB Arterial Blood Gas Right Brachial Puncture Site Arterial 0.5 Blood Carboxyhemog lobin Arterial Blood 0.2 Methemoglobin Blood Gas A-a O2 608.9 H Differential Oxyhemoglobin 93.2 Percent Blood Gas 37.0 Temperature Blood Gas Actual 35 Respiration Rate Blood Gas Modality HFNC FiO2 100.0 Blood Gas Notified CRISTIANO RT Whom Blood Gas Notified 02/12/2019 11:32:52 Time AM Test 02/12/19 14:15 02/12/19 14:20 02/12/19 15:02 02/12/19 15:08 Lactic Acid Level 4.6 *H Bedside Urine pH 6.0 (LAB) Bedside Urine 1+ H Protein (LAB) Bedside Urine Negative Glucose (UA) Bedside Urine 3+ H Ketones (LAB) Bedside Urine 2+ H Blood Bedside Urine Negative Nitrite (LAB) Bedside Urine Trace H Leukocyte Esterase (L Creatine Kinase 53 Creatine Kinase Pending Index Creatinine Kinase Pending MB (Mass) Troponin I Pending White Blood Count 11.2 H Red Blood Count 5.58 Hemoglobin 15.5 Hematocrit 51.6 Mean Corpuscular 92.5 Volume Mean Corpuscular 27.8 L Hemoglobin Mean Corpuscular 30.0 L Hemoglobin Concent Red Cell 14.4 Distribution Width Platelet Count 180 # Mean Platelet 10.6 H Volume Immature 0.300 Granulocytes % Neutrophils % Lymphocytes % Monocytes % Eosinophils % Basophils % Nucleated Red 0.0 Blood Cells % Immature 0.030 Granulocytes # Neutrophils # Lymphocytes # Monocytes # Eosinophils # Basophils # Nucleated Red Blood Cells # Medications Medications Current Medications Ondansetron HCl (Zofran Inj) 4 mg BRIDGE ORDER PRN IV NAUSEA/VOMITING; Start 02/12/19 at 14:00; Stop 02/13/19 at 13:59 IV Flush (NS 3 ml) 3 ml PER PROTOCOL IV ; Start 02/12/19 at 14:30 Nitroglycerin (Nitroglycerin (Sl Tab) 0.4 Mg) 1 tab Q5M PRN SL .CHEST PAIN; Start 02/12/19 at 14:30 Acetaminophen (Tylenol Tab) 650 mg Q6H PRN PO .PAIN 1-3 OR TEMP; Start 02/12/19 at 14:30 Acetaminophen/ Hydrocodone Bitart ([place] (5/325)) 1 tab Q6H PRN PO .PAIN 4-6; Start 02/12/19 at 14:30 Morphine Sulfate (morphine) 2 mg Q4H PRN IV .PAIN 7-10; Start 02/12/19 at 14:30 Pantoprazole (Protonix Iv) 40 mg DAILY@06 IV ; Start 02/13/19 at 06:00 Atorvastatin Calcium (Lipitor) 80 mg QHS PO ; Start 02/12/19 at 21:00 Clopidogrel Bisulfate (plaVIX) 75 mg DAILY PO ; Start 02/13/19 at 09:00 Docusate Sodium (Colace) 250 mg BID PO ; Start 02/12/19 at 21:00 Sertraline HCl (Zoloft) 150 mg DAILY PO ; Start 02/13/19 at 09:00 Terazosin HCl (Hytrin) 1 mg BID PO ; Start 02/12/19 at 21:00 Ursodiol (Pili) 250 mg BID PO ; Start 02/12/19 at 21:00 Aspirin (Aspirin) 81 mg DAILY PO ; Start 02/13/19 at 09:00 Piperacillin Sod/ Tazobactam Sod 100 ml @ 200 mls/hr Q6 IVPB ; Start 02/12/19 at 18:00 Albuterol/ Ipratropium (Duoneb) 3 ml Q6HWA RESP THERAPY HHN ; Start 02/12/19 at 20:00 Albuterol/ Ipratropium (Duoneb) 3 ml Q2H RESP THERAPY PRN HHN shortness of breath; Start 02/12/19 at 14:30 Budesonide (Pulmicort (Neb)) 0.5 mg BID RESP THERAPY HHN ; Start 02/12/19 at 20:00 Diagnostic Test (Pha) (Accu-Chek) 1 ea 02 XX ; Start 02/13/19 at 02:00 Insulin Aspart (Novolog Insulin Pen) NOVOLOG *MILD* ALGORITHM WITH MEALS BEDTIM E SC ; Start 02/12/19 at 18:00 Heparin Sodium (Porcine) (Heparin (1000 Units/ml)) 4,000 unit PER PROTOCOL PRN IV aPTT<47; Start 02/12/19 at 15:00 Heparin Sodium (Porcine) 250 ml @ 0 mls/hr PER PROTOCOL IV ; Start 02/12/19 at 15:00 Miscellaneous Information 1 ea NOTE XX ; Start 02/12/19 at 15:00 Glucose (Glutose) 15 gm Q15M PRN PO DECREASED GLUCOSE; Start 02/12/19 at 15:00 Glucose (Glutose) 22.5 gm Q15M PRN PO DECREASED GLUCOSE; Start 02/12/19 at 15:00 Dextrose (D50w Syringe) 25 ml Q15M PRN IV DECREASED GLUCOSE; Start 02/12/19 at 15:00 Dextrose (D50w Syringe) 50 ml Q15M PRN IV DECREASED GLUCOSE; Start 02/12/19 at 15:00 Glucagon (Glucagen) 1 mg Q15M PRN IM DECREASED GLUCOSE; Start 02/12/19 at 15:00 Glucose (Glutose) 15 gm Q15M PRN BUCCAL DECREASED GLUCOSE; Start 02/12/19 at 15:00 PIPPA MACIAS MD February 12, 2019 15:57
[2019-02-12] MEDS: INSULIN ASPART [NOVOLOG] 3 ML PEN SC SCH ×2 (18:00→22:23)
--- NOTE | 2019-02-12 18:45 | RADRPT ---
Echocardiogram Report Patient Name: PIERO DUARTEPatient ID: [id number] : 1945 (73y 3m)Study Date: 02/12/2019 3:54:26 PM Gender: MAccession #: [id number] Tech: Oswaldo Sampson [facility] Location: [facility] Ref.Physician: PIPPA CHAMBERS Height(Cm): BSA: Weight(Kg): Quality: Technically Difficult StudyAccount #: Procedures: Echocardiographic Report: Transthoracic echocardiogram with complete 2D, M-Mode, and doppler examination. Indications: Positive troponin. Measurements: 2D/M Mode Doppler Measurement Value Normal Range Measurement Value Normal Range LVIDd 2D 4.4 [ 4.2 - 5.8 ] cm AV Peak Christos 1.0 [ 100.0 - 170.0 ] cm/sec LVIDs 2D 3.0 [ 2.5 - 4.0 ] cm AV Peak PG 4.0 [ 2.0 - 9.0 ] mmHg LVPWd 2D 0.9 [ 0.6 - 1.0 ] cm LVOT Peak Christos 0.8 [ 70.0 - 110.0 ] cm/sec IVSd 2D 1.6 [ 0.6 - 1.0 ] cm LVOT Peak PG 3.0 [ 2.0 - 6.0 ] mmHg AoR Diam 2D 2.7 [ 2.6 - 3.4 ] cm MV E Peak Christos 0.5 [ 60.0 - 130.0 ] cm/sec EDV 2D 89.6 [ 62.0 - 150.0 ] ml MV A Peak Christos 0.8 [ 100.0 - 120.0 ] cm/sec ESV 2D 34.4 [ 21.0 - 61.0 ] ml MV E/A 0.7 [ 0.8 - 1.5 ] ratio EF 2D 61.6 [ 52.0 - 72.0 ] percent MV Decel Time 268 [ 104 - 258 ] msec LA Dimen 2D 4.0 [ 3.0 - 4.0 ] cm Lat E` Christos 0.1 [ 10.0 - 15.0 ] cm/sec Lateral E/E` 6.5 [ 1.0 - 2.0 ] ratio MV E/A 0.7 [ 0.8 - 1.5 ] ratio TR Peak Christos 1.8 [ 100.0 - 280.0 ] cm/sec TR Peak PG 13.0 mmHg RVSP 23.0 [ 10.0 - 36.0 ] mmHg Findings: Left Ventricle: Normal left ventricular systolic function. Normal left ventricular cavity size. Moderate asymmetric septal hypertrophy. Ejection fraction is visually estimated at 55-60 %. Tissue Doppler/Mitral Doppler indices are consistent with impaired relaxation (Stage I diastolic dysfunction). Right Ventricle: Normal right ventricular size. Normal right ventricular systolic function. Left Atrium: The left atrium is normal in size. Right Atrium: The right atrium is normal in size. Mitral Valve: Mild mitral leaflet calcification. Mild mitral annular calcification. Trace mitral regurgitation. Aortic Valve: Aortic sclerosis without significant stenosis. Tricuspid Valve: Normal appearance of the tricuspid valve. Estimated peak PA systolic pressure 23 mmHg. There is trace tricuspid regurgitation. Pulmonic Valve: Pulmonic valve not well visualized. Pericardium: Normal pericardium with no significant pericardial effusion. Aorta: Normal aortic root. IVC: Inferior vena cava without respiratory collapse, however, patient on ventilator. Conclusions: Normal left ventricular systolic function. Normal left ventricular cavity size. Moderate asymmetric septal hypertrophy. Ejection fraction is visually estimated at 55-60 %. Tissue Doppler/Mitral Doppler indices are consistent with impaired relaxation (Stage I diastolic dysfunction). ). The left atrium is normal in size. Mild mitral leaflet calcification. Mild mitral annular calcification. Trace mitral regurgitation. Aortic sclerosis without significant stenosis. Normal appearance of the tricuspid valve. Estimated peak PA systolic pressure 23 mmHg. There is trace tricuspid regurgitation. Electronically Signed By: Pippa Chambers 2019-02-12 18:44:28 PDT
[2019-02-12] MEDS: BUDESONIDE (NEB) 0.5MG/2ML AMP HHN SCH (20:00)
[2019-02-12] MEDS: ALBUTEROL/IPRATROPIUM (NEB) 3 ML AMP HHN SCH (20:00)
[2019-02-12] MEDS: PIPER-TAZO 3.375 GM IV (PMX) 100 ML IVPB SCH (20:06)
[2019-02-12 20:49] VITALS: PULSE 69
[2019-02-12 21:00] VITALS: Ht 182.9 cm; Wt 79.4 kg
[2019-02-12] MEDS: URSODIOL 250 MG TAB PO SCH (21:00)
[2019-02-12] MEDS: TERAZOSIN 1 MG CAP PO SCH (21:00)
[2019-02-12 21:19] VITALS: BP 98/53; PULSE 72; RESP 20
[2019-02-12] MEDS: DOCUSATE SODIUM 250 MG CAP PO SCH (21:25)
[2019-02-12] MEDS: ATORVASTATIN 20 MG TAB PO SCH (21:26)
[2019-02-13] VITALS (15 sets, daily range): BP systolic 109–202; BP diastolic 53–88; PULSE 63–123; RESP 18–49
[2019-02-13] MEDS: PIPER-TAZO 3.375 GM IV (PMX) 100 ML IVPB SCH ×4 (00:31→18:22)
[2019-02-13] MEDS ORDERED: ACCU-CHEK XX SCH (02:00)
[2019-02-13] MEDS: PANTOPRAZOLE 40 MG INJ IV SCH (06:28)
--- NOTE | 2019-02-13 07:15 | CONS ---
Assessment/Plan Assessment/Plan Assessment/Plan (Daily) Acute hypoxic respiratory distress Appears end stage -aspiration pneumonia COPD exacerbation History of CVA Dementia Malnutrition deconditioning Establish code status with proxy Consultation Date/Type/Reason Admit Date/Time Date/Time of Note DATE: 02/13/19 TIME: 07:13 Hx of Present Illness . This is a 73-year-old gentleman I am asked to see in palliative care consultation. Patient was transferred to [facility] [place] with hypoxemia after an episode of emesis. Currently on 80% fio2 and a nono histori an. all information taken from medical records.Pt with a history of CVA, COPD an dementia.He is a full code but appears to be very debilitated and appropriate for consideration for a lower level of care in the this admit or at the time of dc. Past Medical History Home Meds Reported Medications Na Phos,M-B/Na Phos,Di-Ba (ENEMA [id number]) 133 Ml Enema, 133 ML RC EVERY 48 HOURS PRN for CONSTIPATION, ENEMA 02/12/19 Bisacodyl (Dulcolax) 10 Mg Supp.rect, 10 MG RC EVERY 48 HOURS PRN for CONSTIPATION, SUPP.RECT 02/12/19 Atenolol* (Atenolol*) 50 Mg Tablet, 50 MG PO BID, #60 TAB HOLD FOR SBP<110 OR HR <60 02/12/19 Acetaminophen* (Acetaminophen*) 650 Mg Tablet, 650 MG PO Q6H PRN for MILD PAIN LEVEL 1-3, #30 TAB 02/12/19 Ranitidine Hcl* (Zantac*) 300 Mg Tablet, 300 MG PO HS, #30 TAB 02/12/19 Amino Acids/Protein Hydrolys (PRO-STAT LIQUID) 30 Ml Liquid.pkt, 30 ML PO DAILY 02/12/19 Ursodiol* (Ursodiol*) 250 Mg Tablet, 250 MG PO BID, TAB 02/12/19 Sertraline Hcl* (Zoloft*) 100 Mg Tablet, 150 MG PO DAILY, #30 TAB 02/12/19 Ondansetron (Ondansetron Odt) 4 Mg Tab.rapdis, 4 MG PO Q6H PRN for NAUSEA AND/OR VOMITING, TAB 02/12/19 Terazosin Hcl* (Terazosin Hcl*) 1 Mg Capsule, 1 MG PO BID, CAP 02/12/19 Sennosides* (Senna Lax*) 8.6 Mg Tablet, 1 TAB PO QHS, TAB 02/12/19 Magnesium Hydroxide* (Milk Of Magnesia*) 400 Mg/5 Ml Oral.susp, 30 ML PO DAILY PRN for CONSTIPATION, ML 02/12/19 Metformin Hcl* (Metformin Hcl*) 500 Mg Tablet, 500 MG PO WITH BREAKFAST DINNE, #60 TAB 02/12/19 Atorvastatin Calcium* (Atorvastatin Calcium*) 20 Mg Tablet, 20 MG PO QHS, #30 TAB 02/12/19 Lactulose* (Lactulose*) 20 Gm/30 Ml Solution, 20 GM PO DAILY, ML 02/12/19 Gabapentin* (Gabapentin*) 100 Mg Capsule, 100 MG PO TID, #90 CAP 02/12/19 Docusate Sodium* (Colace*) 250 Mg Capsule, 250 MG PO BID, #60 CAP 02/12/19 Clopidogrel Bisulfate (Clopidogrel) 75 Mg Tablet, 75 MG PO DAILY, #30 TAB 02/12/19 Medications Current Medications Ondansetron HCl (Zofran Inj) 4 mg BRIDGE ORDER PRN IV NAUSEA/VOMITING; Start at 14:00; Stop 02/13/19 at 13:59 IV Flush (NS 3 ml) 3 ml PER PROTOCOL IV ; Start 02/12/19 at 14:30 Nitroglycerin (Nitroglycerin (Sl Tab) 0.4 Mg) 1 tab Q5M PRN SL .CHEST PAIN; Start 02/12/19 at 14:30 Acetaminophen (Tylenol Tab) 650 mg Q6H PRN PO .PAIN 1-3 OR TEMP; Start 02/12/19 at 14:30 Acetaminophen/ Hydrocodone Bitart ([place] (5/325)) 1 tab Q6H PRN PO .PAIN 4-6; Start 02/12/19 at 14:30 Morphine Sulfate (morphine) 2 mg Q4H PRN IV .PAIN 7-10; Start 02/12/19 at 14:30 Pantoprazole (Protonix Iv) 40 mg DAILY@06 IV Last administered on 02/13/19at 06:28; Admin Dose 40 MG; Start 02/13/19 at 06:00 Atorvastatin Calcium (Lipitor) 80 mg QHS PO Last administered on 02/12/19at 21:26; Admin Dose 80 MG; Start 02/12/19 at 21:00 Clopidogrel Bisulfate (plaVIX) 75 mg DAILY PO ; Start 02/13/19 at 09:00 Docusate Sodium (Colace) 250 mg BID PO Last administered on 02/12/19at 21:25; Admin Dose 250 MG; Start 02/12/19 at 21:00 Sertraline HCl (Zoloft) 150 mg DAILY PO ; Start 02/13/19 at 09:00 Terazosin HCl (Hytrin) 1 mg BID PO ; Start 02/12/19 at 21:00 Ursodiol (Pili) 250 mg BID PO ; Start 02/12/19 at 21:00 Aspirin (Aspirin) 81 mg DAILY PO ; Start 02/13/19 at 09:00 Piperacillin Sod/ Tazobactam Sod 100 ml @ 200 mls/hr Q6 IVPB Last administered on 02/13/19at 06:28; Admin Dose 200 MLS/HR; Start 02/12/19 at 18:00 Albuterol/ Ipratropium (Duoneb) 3 ml Q6HWA RESP THERAPY HHN ; Start 02/12/19 at 20:00 Albuterol/ Ipratropium (Duoneb) 3 ml Q2H RESP THERAPY PRN HHN shortness of breath; Start 02/12/19 at 14:30 Budesonide (Pulmicort (Neb)) 0.5 mg BID RESP THERAPY HHN ; Start 02/12/19 at 20:00 Diagnostic Test (Pha) (Accu-Chek) 1 ea 02 XX Last administered on 02/13/19at 01:35; Admin Dose 1 EA; Start 02/13/19 at 02:00 Insulin Aspart (Novolog Insulin Pen) NOVOLOG *MILD* ALGORITHM WITH MEALS BEDTIME SC Last administered on 02/12/19at 22:23; Admin Dose 2 UNIT; Start 02/12/19 at 18:00 Miscellaneous Information 1 ea NOTE XX ; Start 02/12/19 at 15:00 Glucose (Glutose) 15 gm Q15M PRN PO DECREASED GLUCOSE; Start 02/12/19 at 15:00 Glucose (Glutose) 22.5 gm Q15M PRN PO DECREASED GLUCOSE; Start 02/12/19 at 15:00 Dextrose (D50w Syringe) 25 ml Q15M PRN IV DECREASED GLUCOSE; Start 02/12/19 at 15:00 Dextrose (D50w Syringe) 50 ml Q15M PRN IV DECREASED GLUCOSE; Start 02/12/19 at 15:00 Glucagon (Glucagen) 1 mg Q15M PRN IM DECREASED GLUCOSE; Start 02/12/19 at 15:00 Glucose (Glutose) 15 gm Q15M PRN BUCCAL DECREASED GLUCOSE; Start 02/12/19 at 15:00 Allergies: Coded Allergies: alendronate sodium (Unverified Allergy, Unknown, 02/12/19) cholecalciferol (vitamin D3) (Unverified Allergy, Unknown, 02/12/19) Social History Smoking Status: Former smoker Exam/Review of Systems Exam Vitals Vital Signs Date Temp Pulse Resp B/P (MAP) Pulse Ox O2 O2 Flow FiO2 Time Delivery Rate 02/13/19 98.0 66 20 122/57 94 High Flow 04:41 (78) 02/13/19 80 00:27 02/12/19 15.0 20:26 Intake and Output 02/12/19 02/12/19 02/13/19 1515:00 23:00 07:00 IntakeIntake Total 1350 ml 200 ml BalanceBalance 1350 ml 200 ml Constitutional: frail Psych: anxiety, confusion Head: normocephalic, atraumatic Eyes: nl conjunctiva, EOMI, nl lids, nl sclera, PERRL ENMT: nl external ears & nose, nl lips & teeth, nl nasal mucosa & septum Neck: supple, non-tender; No jvd, No bruits, No masses, No thyromegaly, No nuchal rigidity, No other Respiratory: congested cough, crackles/rales, diminished breath sounds Cardiovascular: regular rate and rhythm, nl pulses Gastrointestinal: soft, nl liver, spleen, non-tender; No ascites, No bowel sounds, No distended, No firm, No hepatomegaly, No mass, No rebound or guarding, No splenomegaly, No surgical scars, No tender, No other Neurological: PARENT [employer]ACH II-XII intact, nl speech, confused Results Result Diagram: 02/12/19 1508 02/12/19 1012 Results 24hrs Laboratory Tests Test 02/12/19 10:12 02/12/19 10:14 02/12/19 10:26 02/12/19 14:12 White Blood Count 12.9 H Red Blood Count 5.69 Hemoglobin 15.9 Hematocrit 49.5 Mean Corpuscular 87.0 Volume Mean Corpuscular 27.9 L Hemoglobin Mean Corpuscular 32.1 Hemoglobin Concent Red Cell 14.2 Distribution Width Platelet Count 227 Mean Platelet 10.6 H Volume Immature 0.200 Granulocytes % Neutrophils % 82.7 H Segmented 47 Neutrophils % (Manual) Band Neutrophils % 31 H (Manual) Lymphocytes % 5.8 L Lymphocytes % 5 L (Manual) Reactive 1 H Lymphocytes % (Manual) Monocytes % 10.8 Monocytes % 16 H (Manual) Eosinophils % 0.0 Basophils % 0.5 Nucleated Red 0.0 Blood Cells % Immature 0.030 Granulocytes # Neutrophils # 10.6 H Neutrophils # 6.6 (Manual) Band Neutrophils # 3.9 H Lymphocytes 0.6 L (Manual) Lymphocytes # 0.7 L Reactive 0.1 H Lymphocytes # Monocytes # 1.4 H Monocytes # 2.0 H (Manual) Eosinophils # 0.0 Basophils # 0.1 Nucleated Red 0.0 Blood Cells # Platelet Estimate NORMAL Giant Platelets 3 H Poikilocytosis 1+ Anisocytosis 1+ Microcytosis 1+ Prothrombin Time 13.5 Prothrombin Time 1.1 Ratio INR International 1.02 Normalized Ratio Activated 34.[address] Time Sodium Level 140 Potassium Level 4.3 Chloride Level 103 Carbon Dioxide 22 Level Anion Gap 15 H Blood Urea 31 H Nitrogen Creatinine 1.43 H Est Glomerular Filtrat Rate mL/min Glucose Level 334 H Calcium Level 10.2 Total Bilirubin 0.4 Direct Bilirubin 0.00 Indirect Bilirubin 0.4 Aspartate Amino 18 Transf (AST/SGOT) Alanine 12 L Aminotransferase ( ALT/SGPT) Alkaline 107 Phosphatase Troponin I 0.531 *H B-Type Natriuretic 6430 H Peptide Total Protein 8.1 Albumin 4.4 Globulin 3.70 H Albumin/Globulin 1.18 Ratio POC Venous Lactate 2.4 *H 3.4 *H Blood Gas Specimen Blood arterial Source Arterial Blood 02/12/2019 11:16:02 Date Drawn AM Arterial Blood pH 7.392 (Temp corrected) Arterial Blood 35.9 pCO2 (Temp correct) Arterial Blood pO2 68.2 L (Temp corrected) Arterial Blood 21.3 L HCO3 Arterial Blood -2.9 Base Excess Arterial Blood 93.9 L Oxygen Saturation Caesar Test ACCEPTAB Arterial Blood Gas Right Brachial Puncture Site Arterial 0.5 Blood Carboxyhemog lobin Arterial Blood 0.2 Methemoglobin Blood Gas A-a O2 608.9 H Differential Oxyhemoglobin 93.2 Percent Blood Gas 37.0 Temperature Blood Gas Actual 35 Respiration Rate Blood Gas Modality HFNC FiO2 100.0 Blood Gas Notified CRISTIANO RT Whom Blood Gas Notified 02/12/2019 11:32:52 Time AM Test 02/12/19 14:15 02/12/19 14:20 02/12/19 15:02 02/12/19 15:08 Lactic Acid Level 4.6 *H Bedside Urine pH 6.0 (LAB) Bedside Urine 1+ H Protein (LAB) Bedside Urine Negative Glucose (UA) Bedside Urine 3+ H Ketones (LAB) Bedside Urine 2+ H Blood Bedside Urine Negative Nitrite (LAB) Bedside Urine Trace H Leukocyte Esterase (L Creatine Kinase 53 Creatine Kinase 2.6 Index Creatinine Kinase 1.38 MB (Mass) Troponin I 0.935 *H White Blood Count 11.2 H Red Blood Count 5.58 Hemoglobin 15.5 Hematocrit 51.6 Mean Corpuscular 92.5 Volume Mean Corpuscular 27.8 L Hemoglobin Mean Corpuscular 30.0 L Hemoglobin Concent Red Cell 14.4 Distribution Width Platelet Count 180 # Mean Platelet 10.6 H Volume Immature 0.300 Granulocytes % Neutrophils % Segmented 52 Neutrophils % (Manual) Band Neutrophils % 37 H (Manual) Lymphocytes % Lymphocytes % 5 L (Manual) Monocytes % Monocytes % 4 (Manual) Eosinophils % Basophils % Metamyelocytes % 2 H (manual) Nucleated Red 0.0 Blood Cells % Immature 0.030 Granulocytes # Neutrophils # Neutrophils # 6.3 (Manual) Band Neutrophils # 4.1 H Lymphocytes 0.5 L (Manual) Lymphocytes # Monocytes # Monocytes # 0.4 (Manual) Eosinophils # Basophils # Metamyelocytes # 0.2 H Nucleated Red Blood Cells # Platelet Estimate NORMAL Giant Platelets 5 H Prothrombin Time 13.6 Prothrombin Time 1.1 Ratio INR International 1.03 Normalized Ratio Activated 36.[address] Time Test 02/12/19 22:11 02/12/19 22:19 02/13/19 01:32 Troponin I 1.040 *H Bedside Glucose 250 H 235 H Medications Medication Current Medications Ondansetron HCl (Zofran Inj) 4 mg BRIDGE ORDER PRN IV NAUSEA/VOMITING; Start 02/12/19 at 14:00; Stop 02/13/19 at 13:59 IV Flush (NS 3 ml) 3 ml PER PROTOCOL IV ; Start 02/12/19 at 14:30 Nitroglycerin (Nitroglycerin (Sl Tab) 0.4 Mg) 1 tab Q5M PRN SL .CHEST PAIN; Start 02/12/19 at 14:30 Acetaminophen (Tylenol Tab) 650 mg Q6H PRN PO .PAIN 1-3 OR TEMP; Start 02/12/19 at 14:30 Acetaminophen/ Hydrocodone Bitart ([place] (5/325)) 1 tab Q6H PRN PO .PAIN 4-6; Start 02/12/19 at 14:30 Morphine Sulfate (morphine) 2 mg Q4H PRN IV .PAIN 7-10; Start 02/12/19 at 14:30 Pantoprazole (Protonix Iv) 40 mg DAILY@06 IV Last administered on 02/13/19at 06:28; Admin Dose 40 MG; Start 02/13/19 at 06:00 Atorvastatin Calcium (Lipitor) 80 mg QHS PO Last administered on 02/12/19at 21:26; Admin Dose 80 MG; Start 02/12/19 at 21:00 Clopidogrel Bisulfate (plaVIX) 75 mg DAILY PO ; Start 02/13/19 at 09:00 Docusate Sodium (Colace) 250 mg BID PO Last administered on 02/12/19at 21:25; Admin Dose 250 MG; Start 02/12/19 at 21:00 Sertraline HCl (Zoloft) 150 mg DAILY PO ; Start 02/13/19 at 09:00 Terazosin HCl (Hytrin) 1 mg BID PO ; Start 02/12/19 at 21:00 Ursodiol (Pili) 250 mg BID PO ; Start 02/12/19 at 21:00 Aspirin (Aspirin) 81 mg DAILY PO ; Start 02/13/19 at 09:00 Piperacillin Sod/ Tazobactam Sod 100 ml @ 200 mls/hr Q6 IVPB Last administered on 02/13/19at 06:28; Admin Dose 200 MLS/HR; Start 02/12/19 at 18:00 Albuterol/ Ipratropium (Duoneb) 3 ml Q6HWA RESP THERAPY HHN ; Start 02/12/19 at 20:00 Albuterol/ Ipratropium (Duoneb) 3 ml Q2H RESP THERAPY PRN HHN shortness of breath; Start 02/12/19 at 14:30 Budesonide (Pulmicort (Neb)) 0.5 mg BID RESP THERAPY HHN ; Start 02/12/19 at 20:00 Diagnostic Test (Pha) (Accu-Chek) 1 ea 02 XX Last administered on 02/13/19at 01:35; Admin Dose 1 EA; Start 02/13/19 at 02:00 Insulin Aspart (Novolog Insulin Pen) NOVOLOG *MILD* ALGORITHM WITH MEALS BEDTIME SC Last administered on 02/12/19at 22:23; Admin Dose 2 UNIT; Start 02/12/19 at 18:00 Miscellaneous Information 1 ea NOTE XX ; Start 02/12/19 at 15:00 Glucose (Glutose) 15 gm Q15M PRN PO DECREASED GLUCOSE; Start 02/12/19 at 15:00 Glucose (Glutose) 22.5 gm Q15M PRN PO DECREASED GLUCOSE; Start 02/12/19 at 15:00 Dextrose (D50w Syringe) 25 ml Q15M PRN IV DECREASED GLUCOSE; Start 02/12/19 at 15:00 Dextrose (D50w Syringe) 50 ml Q15M PRN IV DECREASED GLUCOSE; Start 02/12/19 at 15:00 Glucagon (Glucagen) 1 mg Q15M PRN IM DECREASED GLUCOSE; Start 02/12/19 at 15:00 Glucose (Glutose) 15 gm Q15M PRN BUCCAL DECREASED GLUCOSE; Start 02/12/19 at 15:00 AUDRA BECKETT February 13, 2019 07:15
[2019-02-13] MEDS: ALBUTEROL/IPRATROPIUM (NEB) 3 ML AMP HHN SCH ×3 (08:00→20:28)
[2019-02-13] MEDS: TERAZOSIN 1 MG CAP PO SCH ×2 (08:14→21:33)
[2019-02-13] MEDS: SERTRALINE 100 MG TAB PO SCH (08:14)
[2019-02-13] MEDS: DOCUSATE SODIUM 250 MG CAP PO SCH ×2 (08:15→21:28)
[2019-02-13] MEDS: ASPIRIN 81 MG TAB PO SCH (08:15)
[2019-02-13] MEDS: CLOPIDOGREL 75 MG TAB PO SCH (08:15)
[2019-02-13] MEDS: BUDESONIDE (NEB) 0.5MG/2ML AMP HHN SCH ×2 (09:00→20:29)
[2019-02-13] MEDS: URSODIOL 250 MG TAB PO SCH ×2 (09:00→21:00)
[2019-02-13] MEDS: INSULIN ASPART [NOVOLOG] 3 ML PEN SC SCH ×4 (10:14→22:02)
--- NOTE | 2019-02-13 10:17 | CONS ---
Consult Date/Type/Reason Admit Date/Time February 12, 2019 at 13:35 Initial Consult Date 02/12/19 Type of Consultation: cv Requesting Provider: YOLETTE RICH Date/Time of Note DATE: 02/13/19 TIME: 10:14 Subjective Cardiology follow-up progress note Subjective: Case discussed with staff telemetry was reviewed patient remains in normal sinus rhythm has occasional PAC and PVCs He denies any left-sided chest pain or pressure to me. He is still on high flow oxygen Objective: General: no acute distress but on high flow oxygen 80% HEENT: NC/AT. pupils are equal. round. NECK: NO JVD. no stridor. CV: RRR. systolic murmur; no gallop or rubs. PULM: no wheezing or rhonchi. GI: SOFT, NT, ND, no rebound or guarding Extremity: Left BKA neuro: awake and alert, OX2. Psych: calm and pleasant rectal: deferred EKG normal sinus rhythm right bundle branch with nonspecific ST-T wave abnormalities X-ray done 02/12/2019 shows: No acute disease. Calcified aorta consistent with atherosclerotic disease. Echocardiogram done February 12, 2019 which was personally reviewed shows: Normal left ventricular systolic function. Normal left ventricular cavity size. Moderate asymmetric septal hypertrophy. Ejection fraction is visually estimated at 55-60 %. Tissue Doppler/Mitral Doppler indices are consistent with impaired relaxation (Stage I diastolic dysfunction). The left atrium is normal in size. Mild mitral leaflet calcification. Mild mitral annular calcification. Trace mitral regurgitation. Aortic sclerosis without significant stenosis. Normal appearance of the tricuspid valve. Estimated peak PA systolic pressure 23 mmHg. There is trace tricuspid regurgitation. Objective Vitals Vital Signs Date Temp Pulse Resp B/P (MAP) Pulse Ox O2 O2 Flow FiO2 Time Delivery Rate 02/13/19 98.0 67 18 124/60 98 08:01 (81) 02/13/19 High Flow 04:41 02/13/19 80 00:27 02/12/19 15.0 20:26 Intake and Output 02/12/19 02/12/19 02/13/19 1515:00 23:00 07:00 IntakeIntake Total 1350 ml 200 ml BalanceBalance 1350 ml 200 ml Results/Medications Result Diagram: 02/13/19 0704 02/13/19 0704 Results 24 hrs Laboratory Tests Test 02/12/19 10:26 02/12/19 14:12 02/12/19 14:15 02/12/19 14:20 Blood Gas Specimen Blood arterial Source Arterial Blood 02/12/2019 11:16:02 Date Drawn AM Arterial Blood pH 7.392 (Temp corrected) Arterial Blood 35.9 pCO2 (Temp correct) Arterial Blood pO2 68.2 L (Temp corrected) Arterial Blood 21.3 L HCO3 Arterial Blood -2.9 Base Excess Arterial Blood 93.9 L Oxygen Saturation Caesar Test ACCEPTAB Arterial Blood Gas Right Brachial Puncture Site Arterial 0.5 Blood Carboxyhemog lobin Arterial Blood 0.2 Methemoglobin Blood Gas A-a O2 608.9 H Differential Oxyhemoglobin 93.2 Percent Blood Gas 37.0 Temperature Blood Gas Actual 35 Respiration Rate Blood Gas Modality HFNC FiO2 100.0 Blood Gas Notified CRISTIANO RT Whom Blood Gas Notified 02/12/2019 11:32:52 Time AM POC Venous Lactate 3.4 *H Lactic Acid Level 4.6 *H Bedside Urine pH 6.0 (LAB) Bedside Urine 1+ H Protein (LAB) Bedside Urine Negative Glucose (UA) Bedside Urine 3+ H Ketones (LAB) Bedside Urine 2+ H Blood Bedside Urine Negative Nitrite (LAB) Bedside Urine Trace H Leukocyte Esterase (L Test 02/12/19 15:02 02/12/19 15:08 02/12/19 22:11 02/12/19 22:19 Creatine Kinase 53 Creatine Kinase 2.6 Index Creatinine Kinase 1.38 MB (Mass) Troponin I 0.935 *H 1.040 *H White Blood Count 11.2 H Red Blood Count 5.58 Hemoglobin 15.5 Hematocrit 51.6 Mean Corpuscular 92.5 Volume Mean Corpuscular 27.8 L Hemoglobin Mean Corpuscular 30.0 L Hemoglobin Concent Red Cell 14.4 Distribution Width Platelet Count 180 # Mean Platelet 10.6 H Volume Immature 0.300 Granulocytes % Neutrophils % Segmented 52 Neutrophils % (Manual) Band Neutrophils % 37 H (Manual) Lymphocytes % Lymphocytes % 5 L (Manual) Monocytes % Monocytes % 4 (Manual) Eosinophils % Basophils % Metamyelocytes % 2 H (manual) Nucleated Red 0.0 Blood Cells % Immature 0.030 Granulocytes # Neutrophils # Neutrophils # 6.3 (Manual) Band Neutrophils # 4.1 H Lymphocytes 0.5 L (Manual) Lymphocytes # Monocytes # Monocytes # 0.4 (Manual) Eosinophils # Basophils # Metamyelocytes # 0.2 H Nucleated Red Blood Cells # Platelet Estimate NORMAL Giant Platelets 5 H Prothrombin Time 13.6 Prothrombin Time 1.1 Ratio INR International 1.03 Normalized Ratio Activated 36.[address] Time Bedside Glucose 250 H Test 02/13/19 01:32 02/13/19 07:04 02/13/19 08:53 Bedside Glucose 235 H 187 White Blood Count 9.4 Red Blood Count 5.42 Hemoglobin 14.9 Hematocrit 46.9 Mean Corpuscular 86.5 Volume Mean Corpuscular 27.5 L Hemoglobin Mean Corpuscular 31.8 L Hemoglobin Concent Red Cell 14.9 H Distribution Width Platelet Count 200 Mean Platelet 10.6 H Volume Immature 0.300 Granulocytes % Neutrophils % 78.5 H Segmented 28 L Neutrophils % (Manual) Band Neutrophils % 51 H (Manual) Lymphocytes % 8.1 L Lymphocytes % 11 L (Manual) Reactive 4 H Lymphocytes % (Manual) Monocytes % 12.4 H Monocytes % 6 (Manual) Eosinophils % 0.4 Basophils % 0.3 Nucleated Red 0.0 Blood Cells % Immature 0.030 Granulocytes # Neutrophils # 7.3 Neutrophils # 3.1 (Manual) Band Neutrophils # 4.7 H Lymphocytes 1.0 (Manual) Lymphocytes # 0.8 Reactive 0.3 H Lymphocytes # Monocytes # 1.2 H Monocytes # 0.5 (Manual) Eosinophils # 0.0 Basophils # 0.0 Nucleated Red 0.0 Blood Cells # Platelet Estimate NORMAL Polychromasia 3+ Poikilocytosis 1+ Anisocytosis 2+ Microcytosis 2+ Spherocytes 1+ Sodium Level 142 Potassium Level 4.0 Chloride Level 106 Carbon Dioxide 24 Level Anion Gap 12 Blood Urea 50 H Nitrogen Creatinine 1.96 H Est Glomerular Filtrat Rate mL/min Glucose Level 197 # Hemoglobin A1c 8.0 H Calcium Level 9.3 Magnesium Level 1.8 Total Bilirubin 0.3 Direct Bilirubin 0.00 Indirect Bilirubin 0.3 Aspartate Amino 19 Transf (AST/SGOT) Alanine 8 L Aminotransferase ( ALT/SGPT) Alkaline 66 Phosphatase Total Protein 6.9 # Albumin 3.7 Globulin 3.20 Albumin/Globulin 1.15 Ratio Triglycerides 118 Level Cholesterol Level 104 LDL Cholesterol, 45 Calculated HDL Cholesterol 35 Cholesterol/HDL 2.9 Ratio Thyroid 1.320 Stimulating Hormone (TSH) Home Meds Reported Medications Na Phos,M-B/Na Phos,Di-Ba (ENEMA [id number]) 133 Ml Enema, 133 ML RC EVERY 48 HOURS PRN for CONSTIPATION, ENEMA 02/12/19 Bisacodyl (Dulcolax) 10 Mg Supp.rect, 10 MG RC EVERY 48 HOURS PRN for CONSTIPATION, SUPP.RECT 02/12/19 Atenolol* (Atenolol*) 50 Mg Tablet, 50 MG PO BID, #60 TAB HOLD FOR SBP<110 OR HR <60 02/12/19 Acetaminophen* (Acetaminophen*) 650 Mg Tablet, 650 MG PO Q6H PRN for MILD PAIN LEVEL 1-3, #30 TAB 02/12/19 Ranitidine Hcl* (Zantac*) 300 Mg Tablet, 300 MG PO HS, #30 TAB 02/12/19 Amino Acids/Protein Hydrolys (PRO-STAT LIQUID) 30 Ml Liquid.pkt, 30 ML PO DAILY 02/12/19 Ursodiol* (Ursodiol*) 250 Mg Tablet, 250 MG PO BID, TAB 02/12/19 Sertraline Hcl* (Zoloft*) 100 Mg Tablet, 150 MG PO DAILY, #30 TAB 02/12/19 Ondansetron (Ondansetron Odt) 4 Mg Tab.rapdis, 4 MG PO Q6H PRN for NAUSEA AND/OR VOMITING, TAB 02/12/19 Terazosin Hcl* (Terazosin Hcl*) 1 Mg Capsule, 1 MG PO BID, CAP 02/12/19 Sennosides* (Senna Lax*) 8.6 Mg Tablet, 1 TAB PO QHS, TAB 02/12/19 Magnesium Hydroxide* (Milk Of Magnesia*) 400 Mg/5 Ml Oral.susp, 30 ML PO DAILY PRN for CONSTIPATION, ML 02/12/19 Metformin Hcl* (Metformin Hcl*) 500 Mg Tablet, 500 MG PO WITH BREAKFAST DINNE, #60 TAB 02/12/19 Atorvastatin Calcium* (Atorvastatin Calcium*) 20 Mg Tablet, 20 MG PO QHS, #30 TAB 02/12/19 Lactulose* (Lactulose*) 20 Gm/30 Ml Solution, 20 GM PO DAILY, ML 02/12/19 Gabapentin* (Gabapentin*) 100 Mg Capsule, 100 MG PO TID, #90 CAP 02/12/19 Docusate Sodium* (Colace*) 250 Mg Capsule, 250 MG PO BID, #60 CAP 02/12/19 Clopidogrel Bisulfate (Clopidogrel) 75 Mg Tablet, 75 MG PO DAILY, #30 TAB 02/12/19 Medications Current Medications Ondansetron HCl (Zofran Inj) 4 mg BRIDGE ORDER PRN IV NAUSEA/VOMITING; Start 02/12/19 at 14:00; Stop 02/13/19 at 13:59 IV Flush (NS 3 ml) 3 ml PER PROTOCOL IV ; Start 02/12/19 at 14:30 Nitroglycerin (Nitroglycerin (Sl Tab) 0.4 Mg) 1 tab Q5M PRN SL .CHEST PAIN; Start 02/12/19 at 14:30 Acetaminophen (Tylenol Tab) 650 mg Q6H PRN PO .PAIN 1-3 OR TEMP; Start 02/12/19 at 14:30 Acetaminophen/ Hydrocodone Bitart ([place] (5/325)) 1 tab Q6H PRN PO .PAIN 4-6; Start 02/12/19 at 14:30 Morphine Sulfate (morphine) 2 mg Q4H PRN IV .PAIN 7-10; Start 02/12/19 at 14:30 Pantoprazole (Protonix Iv) 40 mg DAILY@06 IV Last administered on 02/13/19at 06:28; Admin Dose 40 MG; Start 02/13/19 at 06:00 Atorvastatin Calcium (Lipitor) 80 mg QHS PO Last administered on 02/12/19at 21:26; Admin Dose 80 MG; Start 02/12/19 at 21:00 Clopidogrel Bisulfate (plaVIX) 75 mg DAILY PO Last administered on 02/13/19at 08:15; Admin Dose 75 MG; Start 02/13/19 at 09:00 Docusate Sodium (Colace) 250 mg BID PO Last administered on 02/13/19at 08:15; Admin Dose 250 MG; Start 02/12/19 at 21:00 Sertraline HCl (Zoloft) 150 mg DAILY PO Last administered on 02/13/19at 08:14; Admin Dose 150 MG; Start 02/13/19 at 09:00 Terazosin HCl (Hytrin) 1 mg BID PO Last administered on 02/13/19at 08:14; Admin Dose 1 MG; Start 02/12/19 at 21:00 Ursodiol (Pili) 250 mg BID PO ; Start 02/12/19 at 21:00 Aspirin (Aspirin) 81 mg DAILY PO Last administered on 02/13/19at 08:15; Admin Dose 81 MG; Start 02/13/19 at 09:00 Piperacillin Sod/ Tazobactam Sod 100 ml @ 200 mls/hr Q6 IVPB Last administered on 02/13/19at 06:28; Admin Dose 200 MLS/HR; Start 02/12/19 at 18:00 Albuterol/ Ipratropium (Duoneb) 3 ml Q6HWA RESP THERAPY HHN ; Start 02/12/19 at 20:00 Albuterol/ Ipratropium (Duoneb) 3 ml Q2H RESP THERAPY PRN HHN shortness of breath; Start 02/12/19 at 14:30 Budesonide (Pulmicort (Neb)) 0.5 mg BID RESP THERAPY HHN ; Start 02/12/19 at 20:00 Diagnostic Test (Pha) (Accu-Chek) 1 ea 02 XX Last administered on 02/13/19at 01:35; Admin Dose 1 EA; Start 02/13/19 at 02:00 Insulin Aspart (Novolog Insulin Pen) NOVOLOG *MILD* ALGORITHM WITH MEALS BEDTIME SC Last administered on 02/12/19at 22:23; Admin Dose 2 UNIT; Start 02/12/19 at 18:00 Miscellaneous Information 1 ea NOTE XX ; Start 02/12/19 at 15:00 Glucose (Glutose) 15 gm Q15M PRN PO DECREASED GLUCOSE; Start 02/12/19 at 15:00 Glucose (Glutose) 22.5 gm Q15M PRN PO DECREASED GLUCOSE; Start 02/12/19 at 15:00 Dextrose (D50w Syringe) 25 ml Q15M PRN IV DECREASED GLUCOSE; Start 02/12/19 at 15:00 Dextrose (D50w Syringe) 50 ml Q15M PRN IV DECREASED GLUCOSE; Start 02/12/19 at 15:00 Glucagon (Glucagen) 1 mg Q15M PRN IM DECREASED GLUCOSE; Start 02/12/19 at 15:00 Glucose (Glutose) 15 gm Q15M PRN BUCCAL DECREASED GLUCOSE; Start 02/12/19 at 15:00 Assessment/Plan Hospital Course (Demo Recall) Mildly abnormal troponin: Consistent with non-ST elevation myocardial infarction probably type II Acute hypoxemic respiratory failure History of multiple CVA diabetes hypertension History of congestive heart failure: currently does not appear to be fluid overloaded to Dyslipidemia Peripheral vascular disease status post BKA Encephalopathy Renal insufficiency; probably acute on chronic Recommendations: cont home plavix will hold off on heparin now that pt has no angina cont resp care O2 abx as per IM REC CONT DM control echo shows normal LV systolic function Medical therapy from the cardiac standpoint is recommended at this point given the fact that the patient has normal ejection fraction no angina is and is DNR Thank you for this referral. We will continue to follow along with you PIPPA MACIAS MD [facility] PIPPA MACIAS MD February 13, 2019 10:17
--- NOTE | 2019-02-13 14:07 | PN ---
Date/Time of Note Date/Time of Note DATE: 02/13/19 TIME: 14:05 Objective Vitals Vital Signs Date Temp Pulse Resp B/P (MAP) Pulse Ox O2 O2 Flow FiO2 Time Delivery Rate 02/13/19 90 116/55 13:25 (75) 02/13/19 98.0 18 98 12:39 02/13/19 Nasal 08:15 Cannula 02/13/19 80 00:27 02/12/19 15.0 20:26 Intake and Output 02/12/19 02/12/19 02/13/19 1515:00 23:00 07:00 IntakeIntake Total 1350 ml 200 ml BalanceBalance 1350 ml 200 ml Results Result Diagram: 02/13/1904 02/13/19 07 Medications Medications Current Medications IV Flush (NS 3 ml) 3 ml PER PROTOCOL IV ; Start 02/12/19 at 14:30 Nitroglycerin (Nitroglycerin (Sl Tab) 0.4 Mg) 1 tab Q5M PRN SL .CHEST PAIN; Start 02/12/19 at 14:30 Acetaminophen (Tylenol Tab) 650 mg Q6H PRN PO .PAIN 1-3 OR TEMP; Start 02/12/19 at 14:30 Acetaminophen/ Hydrocodone Bitart ([place] (5/325)) 1 tab Q6H PRN PO .PAIN 4-6; Start 02/12/19 at 14:30 Morphine Sulfate (morphine) 2 mg Q4H PRN IV .PAIN 7-10; Start 02/12/19 at 14:30 Pantoprazole (Protonix Iv) 40 mg DAILY@06 IV Last administered on 02/13/19at 06:28; Admin Dose 40 MG; Start 02/13/19 at 06:00 Atorvastatin Calcium (Lipitor) 80 mg QHS PO Last administered on 02/12/19at 21:26; Admin Dose 80 MG; Start 02/12/19 at 21:00 Clopidogrel Bisulfate (plaVIX) 75 mg DAILY PO Last administered on 02/13/19at 08:15; Admin Dose 75 MG; Start 02/13/19 at 09:00 Docusate Sodium (Colace) 250 mg BID PO Last administered on 02/13/19at 08:15; Admin Dose 250 MG; Start 02/12/19 at 21:00 Sertraline HCl (Zoloft) 150 mg DAILY PO Last administered on 02/13/19at 08:14; Admin Dose 150 MG; Start 02/13/19 at 09:00 Terazosin HCl (Hytrin) 1 mg BID PO Last administered on 02/13/19at 08:14; Admin Dose 1 MG; Start 02/12/19 at 21:00 Ursodiol (Pili) 250 mg BID PO ; Start 02/12/19 at 21:00 Aspirin (Aspirin) 81 mg DAILY PO Last administered on 02/13/19at 08:15; Admin Dose 81 MG; Start 02/13/19 at 09:00 Piperacillin Sod/ Tazobactam Sod 100 ml @ 200 mls/hr Q6 IVPB Last administered on 02/13/19at 12:34; Admin Dose 200 MLS/HR; Start 02/12/19 at 18:00 Albuterol/ Ipratropium (Duoneb) 3 ml Q6HWA RESP THERAPY HHN ; Start 02/12/19 at 20:00 Albuterol/ Ipratropium (Duoneb) 3 ml Q2H RESP THERAPY PRN HHN shortness of breath; Start 02/12/19 at 14:30 Budesonide (Pulmicort (Neb)) 0.5 mg BID RESP THERAPY HHN ; Start 02/12/19 at 20:00 Diagnostic Test (Pha) (Accu-Chek) 1 ea 02 XX Last administered on 02/13/19at 01:35; Admin Dose 1 EA; Start 02/13/19 at 02:00 Insulin Aspart (Novolog Insulin Pen) NOVOLOG *MILD* ALGORITHM WITH MEALS BEDTIME SC Last administered on 02/13/19at 11:10; Admin Dose 2 UNIT; Start 02/12/19 at 18:00 Miscellaneous Information 1 ea NOTE XX ; Start 02/12/19 at 15:00 Glucose (Glutose) 15 gm Q15M PRN PO DECREASED GLUCOSE; Start 02/12/19 at 15:00 Glucose (Glutose) 22.5 gm Q15M PRN PO DECREASED GLUCOSE; Start 02/12/19 at 15:00 Dextrose (D50w Syringe) 25 ml Q15M PRN IV DECREASED GLUCOSE; Start 02/12/19 at 15:00 Dextrose (D50w Syringe) 50 ml Q15M PRN IV DECREASED GLUCOSE; Start 02/12/19 at 15:00 Glucagon (Glucagen) 1 mg Q15M PRN IM DECREASED GLUCOSE; Start 02/12/19 at 15:00 Glucose (Glutose) 15 gm Q15M PRN BUCCAL DECREASED GLUCOSE; Start 02/12/19 at 15:00 VTE Prophylaxis Risk score (from Ns)>0 risk: 8 SCD applied (from [facility] [place]): Yes Lines/Catheters IV Catheter Type: Kim in Place: No Assessment/Plan Hospital Course Subjective Patient doing well, no chest pain, no shortness of breath, on high flow nasal cannula Objective Physical exam General: Patient is laying in bed and answers questions appropriately Mentation: Patient is alert and oriented 3, Head: Normocephalic atraumatic Eyes: EOMI, pupils reactive to light Neck: Supple, nontender, midline Respiratory: mildly coarse to auscultation bilaterally Cardiovascular: regular rate, no obvious murmurs Gastrointestinal: non-tender to palpation, bowel sounds heard. Neurological: Moves all extremities spontaneously, left lower extremity BKA, l eft upper extremity moderately weaker than right Skin: No new skin lesions Assessment and plan Acute hypoxic respiratory distress -Doing well on high flow nasal cannula -Occurred after emesis event at [facility] facility, patient likely aspirated -Pulmonary on board, Likely aspiration pneumonia -IV antibiotic -Cultures -Nebulizers COPD exacerbation -Likely secondary to above possible aspiration pneumonia -Hold off on beta-ignacio Sepsis -IV fluid, however will need to be careful as patient's BNP is elevated and possible volume overload -IV antibiotic -Cultures Non-ST elevated myocardial infarction -Cardiology consulted, Dr. Chambers -Troponins noted, -Statin -Aspirin -Heparin drip stopped per cardiology as patient has no angina. Diabetes mellitus -Insulin while in house Hypertension -Continue home meds, holding beta-ignacio due to possible COPD exacerbation History of CVA -Residual left sided weakness, patient can eat with his right hand -Mild chronic encephalopathy but more or less oriented per son Acute kidney injury versus chronic kidney disease -Nephrology on board Disposition -Continue follow-up from pulmonology, transfer when patient on better respiratory status. -Patient is DO NOT RESUSCITATE, however medical measures are okay. Patient is not comfort measures only YOLETTE RICH February 13, 2019 14:07
[2019-02-13] MEDS: METHYLPREDNISOLONE 125 MG INJ IV SCH ×2 (14:34→18:22)
--- NOTE | 2019-02-13 15:30 | CONS ---
DATE OF ADMISSION: 02/12/2019 DATE OF CONSULTATION: TYPE OF CONSULTATION: Pulmonary. REASON FOR CONSULTATION: Shortness of breath. Thank you, Dr. Rich, for this consultation. HISTORY OF PRESENT ILLNESS: This is with a 73-year-old gentleman admitted from home yesterday with i ncreasing respiratory distress, congestion, hypoxemia, found to minimal changes on chest x-ray; [facility], profound hypoxemia was noted. Currently on high flow O2. Of note, the patient also had an aspir ation event. On arrival, the patient was noted to be DNR/DNI. PAST MEDICAL HISTORY: Includes CVA, hypertension, hyperlipidemia, diabetes mellitus. MEDICATIONS: Per chart. ALLERGIES: NONE. SOCIAL HISTORY: Nonsmoker, no alcohol, no history of drug use. FAMILY HISTORY: Noncontributory. SYSTEMS REVIEW: A 12-point review of systems was negative other than that mentioned above. PHYSICAL EXAMINATION: GENERAL: Well-nourished, well-developed gentleman, appears comfortable at rest on high flow O2. VITAL SIGNS: Currently afebrile, pulse is 90, blood pressure 116/55, O2 saturation 96% on high flow. NECK: Supple. No JVD or lymphadenopathy. CARDIAC: S1, S2. No added sounds or murmurs. CHEST: Diminished air entry bilaterally with few rales. ABDOMEN: Soft, nontender. No guarding or rebound. EXTREMITIES: No cyanosis, clubbing or edema. NEUROLOGIC: Generalized weakness. LABORATORY DATA: White count 9.4, hemoglobin 14.9. BUN 50, creatinine 1.96. INR 1.03. IMPRESSION AND PLAN: 1. Possible aspiration pneumonitis. 2. Acute hypoxemic respiratory failure. 3. History of cerebrovascular accident. 4. Questionable underlying disease. 5. Questionable pulmonary embolus. The patient will require: 1. Antibiotics. 2. Bronchodilators. 3. Trial of steroids. 4. DVT and GI prophylaxis. 5. Lower extremity Dopplers to rule out DVT. Dictated By: FREDDIE MURILLO MD SV/LOREN Conf#: [id number] DID#: [id number] CC: YOLETTE RICH MD;*EndCC*
[2019-02-13] MEDS ORDERED: ONDANSETRON 4 MG INJ IV PRN (16:30)
[2019-02-13] MEDS: LABETALOL HCL 20MG INJ IV PRN (16:47)
[2019-02-13] MEDS: ATORVASTATIN 20 MG TAB PO SCH (21:27)
[2019-02-14] VITALS (12 sets, daily range): BP systolic 126–163; BP diastolic 58–77; PULSE 58–94; RESP 2–22
[2019-02-14] MEDS: METHYLPREDNISOLONE 125 MG INJ IV SCH ×5 (00:24→23:22)
[2019-02-14] MEDS: PIPER-TAZO 3.375 GM IV (PMX) 100 ML IVPB SCH ×3 (00:24→11:26)
[2019-02-14] MEDS: ACCU-CHEK XX SCH (01:47)
[2019-02-14] MEDS: PANTOPRAZOLE 40 MG INJ IV SCH (05:46)
--- NOTE | 2019-02-14 06:52 | CONS ---
DATE OF ADMISSION: 02/12/2019 DATE OF CONSULTATION: 02/13/2019 TYPE OF CONSULTATION: Renal. REASON FOR CONSULTATION: Acute kidney injury and chronic kidney disease. REQUESTING PHYSICIAN: Wyatt Mixon MD HISTORY OF PRESENT ILLNESS: This is a 73-year-old male with a past medical history of diabetes, hist ory of peripheral vascular disease, status post left BKA, history of hypertension, COPD, history of C VA with left-sided residual weakness, who presents to [facility] for shortness of b reath. The patient was at a skilled nurse facility where he had episodes of emesis and subsequent hy poxia, as a result was transferred to [facility]. Upon arrival, patient had a ches t x-ray which showed findings of no acute disease. The patient in the Emergency Room was hypoxemic. He was placed on nasal cannula and eventually high flow oxygen, admitted to telemetry. While on tel emetry, the patient was started on antibiotic therapy for sepsis and possible aspiration pneumonia. The patient is also receiving nebulizers for COPD exacerbation. In terms of patient's renal history, on admission, the patient had a creatinine of 1.43 mg/dL. The p atient's creatinine increased to 1.9 mg/dL q.24h. The patient noted to have episodes of hemodynamic fluctuations. There was no hemoptysis, hematemesis or hematochezia. The patient's urinary output cabrera s been unmeasured as he is incontinent. PAST MEDICAL HISTORY: History of chronic obstructive pulmonary disease, history of diabetes, history of peripheral vascular disease, history of hypertension, history of CVA. PAST SURGICAL HISTORY: Status post left below the knee amputation. FAMILY HISTORY: No family history of kidney disease. SOCIAL HISTORY: Former smoker. MEDICATIONS: The patient's medications have been reviewed. ALLERGIES: Have been reviewed. REVIEW OF SYSTEMS: A 14-point review of systems conducted. Pertinent positives stated in HPI, other carmona negative. PHYSICAL EXAMINATION: VITAL SIGNS: Blood pressure is 115/55, respiration 18, pulse 80, temperature 98.0. HEENT: Head is normocephalic. NECK: Supple. HEART: Regular rate. LUNGS: Show diminished breath sounds at base. ABDOMEN: Soft, nontender to palpation without rebound or guarding. EXTREMITIES: Negative for clubbing, cyanosis, trace edema. DERMATOLOGIC: No rashes. MUSCULOSKELETAL: No joint effusions. NEUROLOGIC: Neurologically, patient has left-sided nataly-deficit. LABORATORY DATA: Has been reviewed. IMAGING STUDIES: Have been reviewed. ABG was reviewed. Urinalysis was reviewed. ASSESSMENT AND PLAN: This is a 73-year-old male who presents with: 1. Nonoliguric acute kidney injury with unknown baseline creatinine, possible chronic disease. Etio logy of acute kidney injury is unclear, possibly hemodynamics, possible tubular injury. Other possib ilities such as interstitial nephritis is a consideration. Plan at this point is to do a full evalua tion. Will repeat a UA with microanalysis, urine under microscopy. We will check a renal ultrasound renal parenchyma. Would otherwise continue , renally dose all meds, consider adjusting antibiotic regimen, possible to discontinue vancomycin without any acute kidney injury. 3. Mineral bone disorder, monitor calcium and phosphorus levels. 4. Acute hypoxemic respiratory failure. Etiology is likely secondary to chronic obstructive pulmona ry disease exacerbation. Continue current medical management. Continue nebulizers. Continue high f low oxygen. Continue antibiotic therapy. 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 5. Systemic inflammatory response syndrome, secondary to pneumonia. Continue current antibiotic reg imen as stated above. Continue vancomycin. Follow up cultures. 6. Non-ST elevation myocardial infarction. Continue current medical management. Followup troponin. Cardiology is following. 2D echo was reviewed. 7. Diabetes. Continue current insulin regimen. 8. Hypertension. Continue blood pressure regimen. 9. CVA. Continue medical management. 10. Peripheral vascular disease. . Continue to monitor. Thank you, Dr. Mixon, for this interesting consult. It will be a pleasure to follow patient with you t hroughout the hospital course. Dictated By: BRANDY CLEVELAND DO NR/NTS Conf#: [id number] DID#: [id number]
[2019-02-14] MEDS: INSULIN ASPART [NOVOLOG] 3 ML PEN SC SCH ×5 (08:14→21:25)
[2019-02-14] MEDS: ALBUTEROL/IPRATROPIUM (NEB) 3 ML AMP HHN SCH ×3 (08:49→19:50)
[2019-02-14] MEDS: URSODIOL 250 MG TAB PO SCH ×3 (09:00→23:36)
[2019-02-14] MEDS: DOCUSATE SODIUM 250 MG CAP PO SCH ×2 (09:07→21:13)
[2019-02-14] MEDS: SERTRALINE 100 MG TAB PO SCH (09:07)
[2019-02-14] MEDS: CLOPIDOGREL 75 MG TAB PO SCH (09:08)
[2019-02-14] MEDS: TERAZOSIN 1 MG CAP PO SCH ×2 (09:08→21:14)
[2019-02-14] MEDS: ASPIRIN 81 MG TAB PO SCH (09:08)
--- NOTE | 2019-02-14 09:13 | PN ---
DATE: 02/14/2019 SUBJECTIVE: The patient is stable, remains on high flow oxygen. No other acute events noted overnig ht. No fevers, chills, nausea, or vomiting. OBJECTIVE: VITAL SIGNS: Blood pressure is 132/77, respirations 22, pulse 94, temperature 98.9. HEENT: Head is normocephalic. NECK: Supple. HEART: Regular rate. LUNGS: Show diminished breath sounds at the base. ABDOMEN: Soft, nontender to palpation without rebound or guarding. EXTREMITIES: Negative for clubbing, cyanosis, no edema. DERMATOLOGIC: No rashes. MUSCULOSKELETAL: No joint effusion. NEUROLOGIC: No change in exam. MEDICATIONS: Reviewed. LABORATORY DATA: Reviewed. Urinalysis was reviewed. ASSESSMENT AND PLAN: 1. Nonoliguric acute kidney injury with unknown baseline creatinine. Etiology of acute kidney injur y is secondary to hemodynamics, possible volume depletion. The patient's urinalysis shows FENa less than 1%. However, there is noted pyuria, which can also be seen in urinary tract infection, intersti tial nephritis. The patient's renal panel is pending for this morning. Recommendation is to continu e current medical management. Continue supportive care, continue to renally dose all medicines. We will give the patient a gentle fluid challenge as he clinically appears to be euvolemic to hypovolemi c. Otherwise, continue supportive care, renally dose all medicines. 2. Mineral bone disorder. Monitor calcium and phosphorus levels. 3. Acute hypoxemic respiratory failure, etiology is secondary to chronic obstructive pulmonary disea se exacerbation. Continue medical management. Continue nebulizers, high flow oxygen. Continue anti biotic therapy. 3. Systemic inflammatory response syndrome, possible sepsis secondary to pneumonia. Continue curren t antibiotic regimen. 4. Non-ST elevation myocardial infarction. Continue medical management. Followup with cardiology. 5. Diabetes. Continue current insulin regimen. 6. Hypertension. Blood pressure is controlled. 7. History of cerebrovascular accident. Continue medical management. 8. History of peripheral vascular disease. Continue current treatment plan. Dictated By: BRANDY CLEVELAND DO NR/NTS Conf#: [id number] DID#: [id number] CC: YOLETTE RICH MD; FREDDIE MURILLO MD;*End*
--- NOTE | 2019-02-14 09:15 | CONS ---
Consult Date/Type/Reason Admit Date/Time February 12, 2019 at 13:35 Initial Consult Date 02/12/19 Type of Consultation: cv Requesting Provider: YOLETTE RICH Date/Time of Note DATE: 02/14/19 TIME: 09:14 Subjective Cardiology follow-up progress note Subjective: Case discussed with staff telemetry was reviewed patient remains in normal sinus rhythm has occasional PAC and PVCs and short episode of proximal atrial fibrillation noted as well He denies any left-sided chest pain or pressure to me. He is still on high flow oxygen Objective: General: no acute distress but on high flow oxygen 75% HEENT: NC/AT. pupils are equal. round. NECK: NO JVD. no stridor. CV: RRR. systolic murmur; no gallop or rubs. PULM: no wheezing or rhonchi. GI: SOFT, NT, ND, no rebound or guarding Extremity: Left BKA neuro: awake and alert, OX2. Psych: calm and pleasant rectal: deferred EKG normal sinus rhythm right bundle branch with nonspecific ST-T wave abnormalities X-ray done 02/12/2019 shows: No acute disease. Calcified aorta consistent with atherosclerotic disease. Echocardiogram done February 12, 2019 which was personally reviewed shows: Normal left ventricular systolic function. Normal left ventricular cavity size. Moderate asymmetric septal hypertrophy. Ejection fraction is visually estimated at 55-60 %. Tissue Doppler/Mitral Doppler indices are consistent with impaired relaxation (Stage I diastolic dysfunction). The left atrium is normal in size. Mild mitral leaflet calcification. Mild mitral annular calcification. Trace mitral regurgitation. Aortic sclerosis without significant stenosis. Normal appearance of the tricuspid valve. Estimated peak PA systolic pressure 23 mmHg. There is trace tricuspid regurgitation. Objective Vitals Vital Signs Date Temp Pulse Resp B/P (MAP) Pulse Ox O2 O2 Flow FiO2 Time Delivery Rate 02/14/19 73 09:10 02/14/19 24 98 08:59 02/14/19 98.9 132/77 08:00 (95) 02/14/19 Nasal 07:27 Cannula 02/14/19 100 05:22 02/12/19 15.0 20:26 Intake and Output 02/13/19 02/13/19 02/14/19 1515:00 23:00 07:00 IntakeIntake Total 700 ml BalanceBalance 700 ml Results/Medications Result Diagram: 02/13/19 0704 02/13/19 0704 Results 24 hrs Laboratory Tests Test 02/13/19 11:04 02/13/19 15:00 02/13/19 15:05 02/13/19 17:12 Bedside Glucose 194 260 H Blood Gas Specimen Blood arterial Source Arterial Blood 02/13/2019 4:20:01 Date Drawn PM Arterial Blood pH 7.283 *L (Temp corrected) Arterial Blood 52.4 H pCO2 (Temp correct) Arterial Blood pO2 85.4 (Temp corrected) Arterial Blood 24.2 HCO3 Arterial Blood -3.3 L Base Excess Arterial Blood 95.7 Oxygen Saturation Caesar Test ACCEPTAB Arterial Blood Gas Right Radial Puncture Site Arterial 0.4 Blood Carboxyhemog lobin Arterial Blood 0.2 Methemoglobin Blood Gas A-a O2 575.2 H Differential Oxyhemoglobin 95.1 Percent Blood Gas 37.0 Temperature Blood Gas Modality HFNC FiO2 100.0 Blood Gas Critical Rj BAÑUELOS [employer] Value Read Back Blood Gas Notified Hamida VALENZUELA RCP Whom Blood Gas Notified 02/13/2019 4:39:14 Time PM Troponin I 0.552 *H Test 02/13/19 21:27 02/14/19 00:37 02/14/19 01:39 02/14/19 08:11 Bedside Glucose 248 H 297 H 270 H Urine Color YELLOW Urine Clarity CLOUDY A Urine pH 5.0 Urine Specific 1.024 [place] Urine Ketones NEGATIVE Urine Nitrite NEGATIVE Urine Bilirubin NEGATIVE Urine Urobilinogen NEGATIVE Urine Leukocyte 2+ H Esterase Urine Microscopic 2 RBC Urine Microscopic 66 H WBC Urine Amorphous FEW A Crystals Urine Bacteria FEW A Urine Hemoglobin 1+ H Urine Random 121.52 Creatinine Urine Random 16 L Sodium Urine Glucose NEGATIVE Urine Total 157.0 H Protein Home Meds Reported Medications Na Phos,M-B/Na Phos,Di-Ba (ENEMA [id number]) 133 Ml Enema, 133 ML RC EVERY 48 HOURS PRN for CONSTIPATION, ENEMA 02/12/19 Bisacodyl (Dulcolax) 10 Mg Supp.rect, 10 MG RC EVERY 48 HOURS PRN for CONSTIPATION, SUPP.RECT 02/12/19 Atenolol* (Atenolol*) 50 Mg Tablet, 50 MG PO BID, #60 TAB HOLD FOR SBP<110 OR HR <60 02/12/19 Acetaminophen* (Acetaminophen*) 650 Mg Tablet, 650 MG PO Q6H PRN for MILD PAIN LEVEL 1-3, #30 TAB 02/12/19 Ranitidine Hcl* (Zantac*) 300 Mg Tablet, 300 MG PO HS, #30 TAB 02/12/19 Amino Acids/Protein Hydrolys (PRO-STAT LIQUID) 30 Ml Liquid.pkt, 30 ML PO DAILY 02/12/19 Ursodiol* (Ursodiol*) 250 Mg Tablet, 250 MG PO BID, TAB 02/12/19 Sertraline Hcl* (Zoloft*) 100 Mg Tablet, 150 MG PO DAILY, #30 TAB 02/12/19 Ondansetron (Ondansetron Odt) 4 Mg Tab.rapdis, 4 MG PO Q6H PRN for NAUSEA AND/OR VOMITING, TAB 02/12/19 Terazosin Hcl* (Terazosin Hcl*) 1 Mg Capsule, 1 MG PO BID, CAP 02/12/19 Sennosides* (Senna Lax*) 8.6 Mg Tablet, 1 TAB PO QHS, TAB 02/12/19 Magnesium Hydroxide* (Milk Of Magnesia*) 400 Mg/5 Ml Oral.susp, 30 ML PO DAILY PRN for CONSTIPATION, ML 02/12/19 Metformin Hcl* (Metformin Hcl*) 500 Mg Tablet, 500 MG PO WITH BREAKFAST DINNE, #60 TAB 02/12/19 Atorvastatin Calcium* (Atorvastatin Calcium*) 20 Mg Tablet, 20 MG PO QHS, #30 TAB 02/12/19 Lactulose* (Lactulose*) 20 Gm/30 Ml Solution, 20 GM PO DAILY, ML 02/12/19 Gabapentin* (Gabapentin*) 100 Mg Capsule, 100 MG PO TID, #90 CAP 02/12/19 Docusate Sodium* (Colace*) 250 Mg Capsule, 250 MG PO BID, #60 CAP 02/12/19 Clopidogrel Bisulfate (Clopidogrel) 75 Mg Tablet, 75 MG PO DAILY, #30 TAB 02/12/19 Medications Current Medications IV Flush (NS 3 ml) 3 ml PER PROTOCOL IV ; Start 02/12/19 at 14:30 Nitroglycerin (Nitroglycerin (Sl Tab) 0.4 Mg) 1 tab Q5M PRN SL .CHEST PAIN; Start 02/12/19 at 14:30 Acetaminophen (Tylenol Tab) 650 mg Q6H PRN PO .PAIN 1-3 OR TEMP Last administered on 02/13/19 16:30; Admin Dose 650 MG; Start 02/12/19 at 14:30 Acetaminophen/ Hydrocodone Bitart ([place] (5/325)) 1 tab Q6H PRN PO .PAIN 4-6; Start 02/12/19 at 14:30 Morphine Sulfate (morphine) 2 mg Q4H PRN IV .PAIN 7-10; Start 02/12/19 at 14:30 Pantoprazole (Protonix Iv) 40 mg DAILY@06 IV Last administered on 02/14/19 05:46; Admin Dose 40 MG; Start 02/13/19 at 06:00 Atorvastatin Calcium (Lipitor) 80 mg QHS PO Last administered on 02/13/19 21:27; Admin Dose 80 MG; Start 02/12/19 at 21:00 Clopidogrel Bisulfate (plaVIX) 75 mg DAILY PO Last administered on 02/14/19 09:08; Admin Dose 75 MG; Start 02/13/19 at 09:00 Docusate Sodium (Colace) 250 mg BID PO Last administered on 02/14/19 09:07; Admin Dose 250 MG; Start 02/12/19 at 21:00 Sertraline HCl (Zoloft) 150 mg DAILY PO Last administered on 02/14/19 09:07; Admin Dose 150 MG; Start 02/13/19 at 09:00 Terazosin HCl (Hytrin) 1 mg BID PO Last administered on 02/14/19 09:08; Admin Dose 1 MG; Start 02/12/19 at 21:00 Ursodiol (Pili) 250 mg BID PO ; Start 02/12/19 at 21:00 Aspirin (Aspirin) 81 mg DAILY PO Last administered on 02/14/19 09:08; Admin Dose 81 MG; Start 02/13/19 at 09:00 Piperacillin Sod/ Tazobactam Sod 100 ml @ 200 mls/hr Q6 IVPB Last administered on 02/14/19 05:50; Admin Dose 200 MLS/HR; Start 02/12/19 at 18:00 Albuterol/ Ipratropium (Duoneb) 3 ml Q6HWA RESP THERAPY HHN Last administered on 02/14/19 08:49; Admin Dose 3 ML; Start 02/12/19 at 20:00 Albuterol/ Ipratropium (Duoneb) 3 ml Q2H RESP THERAPY PRN HHN shortness of breath; Start 02/12/19 at 14:30 Budesonide (Pulmicort (Neb)) 0.5 mg BID RESP THERAPY HHN Last administered on 02/13/19at 20:29; Admin Dose 0.5 MG; Start 02/12/19 at 20:00 Miscellaneous Information 1 ea NOTE XX ; Start 02/12/19 at 15:00 Glucose (Glutose) 15 gm Q15M PRN PO DECREASED GLUCOSE; Start 02/12/19 at 15:00 Glucose (Glutose) 22.5 gm Q15M PRN PO DECREASED GLUCOSE; Start 02/12/19 at 15:00 Dextrose (D50w Syringe) 25 ml Q15M PRN IV DECREASED GLUCOSE; Start 02/12/19 at 15:00 Dextrose (D50w Syringe) 50 ml Q15M PRN IV DECREASED GLUCOSE; Start 02/12/19 at 15:00 Glucagon (Glucagen) 1 mg Q15M PRN IM DECREASED GLUCOSE; Start 02/12/19 at 15:00 Glucose (Glutose) 15 gm Q15M PRN BUCCAL DECREASED GLUCOSE; Start 02/12/19 at 15:00 Methylprednisolone Sodium Succinate (Solu-Medrol) 60 mg Q6 IV Last administered on 02/14/19at 05:47; Admin Dose 60 MG; Start 02/13/19 at 14:21 Ondansetron HCl (Zofran Inj) 4 mg Q6H PRN IV NAUSEA AND/OR VOMITING; Start 02/13/19 at 16:30 Diagnostic Test (Pha) (Accu-Chek) 1 ea 02 XX Last administered on 02/14/19at 01:47; Admin Dose 1 EA; Start 02/14/19 at 02:00 Insulin Aspart (Novolog Insulin Pen) NOVOLOG *MODERATE* ALGORITHM WITH MEALS BEDTIME SC Last administered on 02/14/19at 08:14; Admin Dose 8 UNIT; Start 02/13/19 at 17:55 Labetalol HCl (Labetalol) 10 mg Q4H PRN IV sbp >160 Last administered on 02/13/19at 16:47; Admin Dose 10 MG; Start 02/13/19 at 16:42 Assessment/Plan Hospital Course (Demo Recall) Mildly abnormal troponin: Consistent with non-ST elevation myocardial infarction probably type II Acute hypoxemic respiratory failure History of multiple CVA diabetes hypertension History of congestive heart failure: currently does not appear to be fluid overloaded to Dyslipidemia Peripheral vascular disease status post BKA Encephalopathy Renal insufficiency; probably acute on chronic Paroxysmal atrial fibrillation Recommendations: cont home plavix. I will add Eliquis 2.5 mg p.o. twice daily given his short episode of maximal atrial fibrillation will hold off on heparin now that pt has no angina cont resp care O2 abx as per IM REC CONT DM control echo shows normal LV systolic function Medical therapy from the cardiac standpoint is recommended at this point given the fact that the patient has normal ejection fraction no angina is and is DNR Thank you for this referral. We will continue to follow along with you PIPPA MACIAS MD [facility] PIPPA MACIAS MD February 14, 2019 09:15
[2019-02-14] MEDS: BUDESONIDE (NEB) 0.5MG/2ML AMP HHN SCH ×2 (09:33→19:50)
--- NOTE | 2019-02-14 12:04 | CONS ---
Consult Date/Type/Reason Admit Date/Time February 12, 2019 at 13:35 Initial Consult Date 02/12/19 Type of Consult Pulmonary Requesting Provider: YOLETTE RICH Date/Time of Note DATE: 02/14/19 TIME: 12:02 Subjective Patient slowly improving. Decreased oxygen requirements more awake and alert. Objective Vital Signs Date Temp Pulse Resp B/P (MAP) Pulse Ox O2 O2 Flow FiO2 Time Delivery Rate 02/14/19 95 80 11:30 02/14/19 73 09:10 02/14/19 24 08:59 02/14/19 98.9 132/77 08:00 (95) 02/14/19 Nasal 07:27 Cannula 02/12/19 15.0 20:26 Intake and Output 02/13/19 02/13/19 02/14/19 1515:00 23:00 07:00 IntakeIntake Total 700 ml BalanceBalance 700 ml Exam PHYSICAL EXAMINATION: GENERAL: Well-nourished, well-developed gentleman, appears comfortable at rest on high flow O2. VITAL SIGNS: NECK: Supple. No JVD or lymphadenopathy. CARDIAC: S1, S2. No added sounds or murmurs. CHEST: Diminished air entry bilaterally with few rales. ABDOMEN: Soft, nontender. No guarding or rebound. EXTREMITIES: No cyanosis, clubbing or edema. NEUROLOGIC: Generalized weakness. . Vent Setting Fraction of Inspired Oxygen pe: 80 Results/Medications Result Diagram: 02/13/19 0704 02/14/19 0737 Results 24 hrs Laboratory Tests Test 02/13/19 15:00 02/13/19 15:05 02/13/19 17:12 02/13/19 21:27 Blood Gas Specimen Blood arterial Source Arterial Blood 02/13/2019 4:20:01 Date Drawn PM Arterial Blood pH 7.283 *L (Temp corrected) Arterial Blood 52.4 H pCO2 (Temp correct) Arterial Blood pO2 85.4 (Temp corrected) Arterial Blood 24.2 HCO3 Arterial Blood -3.3 L Base Excess Arterial Blood 95.7 Oxygen Saturation Caesar Test ACCEPTAB Arterial Blood Gas Right Radial Puncture Site Arterial 0.4 Blood Carboxyhemog lobin Arterial Blood 0.2 Methemoglobin Blood Gas A-a O2 575.2 H Differential Oxyhemoglobin 95.1 Percent Blood Gas 37.0 Temperature Blood Gas Modality HFNC FiO2 100.0 Blood Gas Critical Rj BAÑUELOS [facility] Value Read Back Blood Gas Notified HarinderBianca VALENZUELA [facility] Whom Blood Gas Notified 02/13/2019 4:39:14 Time PM Troponin I 0.552 *H Bedside Glucose 260 H 248 H Test 02/14/19 00:37 02/14/19 01:39 02/14/19 07:37 02/14/19 08:11 Urine Color YELLOW Urine Clarity CLOUDY A Urine pH 5.0 Urine Specific 1.024 [place] Urine Ketones NEGATIVE Urine Nitrite NEGATIVE Urine Bilirubin NEGATIVE Urine Urobilinogen NEGATIVE Urine Leukocyte 2+ H Esterase Urine Microscopic 2 RBC Urine Microscopic 66 H WBC Urine Amorphous FEW A Crystals Urine Bacteria FEW A Urine Hemoglobin 1+ H Urine Random 121.52 Creatinine Urine Random 16 L Sodium Urine Glucose NEGATIVE Urine Total 157.0 H Protein Bedside Glucose 297 H 270 H Sodium Level 143 Potassium Level 4.0 Chloride Level 106 Carbon Dioxide 24 Level Anion Gap 13 Blood Urea 59 H Nitrogen Creatinine 2.20 H Est Glomerular Filtrat Rate mL/min Glucose Level 294 H Calcium Level 9.1 Phosphorus Level 4.1 Magnesium Level 2.1 Test 02/14/19 10:00 02/14/19 11:27 Blood Gas Specimen Blood arterial Source Arterial Blood 02/14/2019 10:06:15 Date Drawn AM Arterial Blood pH 7.382 (Temp corrected) Arterial Blood 35.4 pCO2 (Temp correct) Arterial Blood pO2 92.3 H (Temp corrected) Arterial Blood 20.6 L HCO3 Arterial Blood -3.8 L Base Excess Arterial Blood 97.2 Oxygen Saturation Caesar Test N/A Arterial Blood Gas LB Puncture Site Arterial 0.2 Blood Carboxyhemog lobin Arterial Blood 0.2 Methemoglobin Blood Gas A-a O2 368.8 H Differential Oxyhemoglobin 96.8 Percent Blood Gas 37.0 Temperature Blood Gas Modality HFNC FiO2 70.0 Blood Gas Notified TM Whom Blood Gas Notified 02/14/2019 10:16:55 Time AM Bedside Glucose 307 H Medications Current Medications IV Flush (NS 3 ml) 3 ml PER PROTOCOL IV ; Start 02/12/19 at 14:30 Nitroglycerin (Nitroglycerin (Sl Tab) 0.4 Mg) 1 tab Q5M PRN SL .CHEST PAIN; Start 02/12/19 at 14:30 Acetaminophen (Tylenol Tab) 650 mg Q6H PRN PO .PAIN 1-3 OR TEMP Last administered on 5/7/19at 16:30; Admin Dose 650 MG; Start 02/12/19 at 14:30 Acetaminophen/ Hydrocodone Bitart ([place] (5/325)) 1 tab Q6H PRN PO .PAIN 4-6; Start 02/12/19 at 14:30 Morphine Sulfate (morphine) 2 mg Q4H PRN IV .PAIN 7-10; Start 02/12/19 at 14:30 Pantoprazole (Protonix Iv) 40 mg DAILY@06 IV Last administered on 02/14/19 05:46; Admin Dose 40 MG; Start 02/13/19 at 06:00 Atorvastatin Calcium (Lipitor) 80 mg QHS PO Last administered on 02/13/19 21:27; Admin Dose 80 MG; Start 02/12/19 at 21:00 Clopidogrel Bisulfate (plaVIX) 75 mg DAILY PO Last administered on 02/14/19 09 :08; Admin Dose 75 MG; Start 02/13/19 at 09:00 Docusate Sodium (Colace) 250 mg BID PO Last administered on 02/14/19 09:07; Admin Dose 250 MG; Start 02/12/19 at 21:00 Sertraline HCl (Zoloft) 150 mg DAILY PO Last administered on 02/14/19 09:07; Admin Dose 150 MG; Start 02/13/19 at 09:00 Terazosin HCl (Hytrin) 1 mg BID PO Last administered on 02/14/19 09:08; Admin Dose 1 MG; Start 02/12/19 at 21:00 Ursodiol (Pili) 250 mg BID PO ; Start 02/12/19 at 21:00 Piperacillin Sod/ Tazobactam Sod 100 ml @ 200 mls/hr Q6 IVPB Last administered on 02/14/19 11:26; Admin Dose 200 MLS/HR; Start 02/12/19 at 18:00 Albuterol/ Ipratropium (Duoneb) 3 ml Q6HWA RESP THERAPY HHN Last administered on 02/14/19 08:49; Admin Dose 3 ML; Start 02/12/19 at 20:00 Albuterol/ Ipratropium (Duoneb) 3 ml Q2H RESP THERAPY PRN HHN shortness of breath; Start 02/12/19 at 14:30 Budesonide (Pulmicort (Neb)) 0.5 mg BID RESP THERAPY HHN Last administered on 02/14/19at 09:33; Admin Dose 0.5 MG; Start 02/12/19 at 20:00 Miscellaneous Information 1 ea NOTE XX ; Start 02/12/19 at 15:00 Glucose (Glutose) 15 gm Q15M PRN PO DECREASED GLUCOSE; Start 02/12/19 at 15:00 Glucose (Glutose) 22.5 gm Q15M PRN PO DECREASED GLUCOSE; Start 02/12/19 at 15:00 Dextrose (D50w Syringe) 25 ml Q15M PRN IV DECREASED GLUCOSE; Start 02/12/19 at 15:00 Dextrose (D50w Syringe) 50 ml Q15M PRN IV DECREASED GLUCOSE; Start 02/12/19 at 15:00 Glucagon (Glucagen) 1 mg Q15M PRN IM DECREASED GLUCOSE; Start 02/12/19 at 15:00 Glucose (Glutose) 15 gm Q15M PRN BUCCAL DECREASED GLUCOSE; Start 02/12/19 at 15:00 Methylprednisolone Sodium Succinate (Solu-Medrol) 60 mg Q6 IV Last administered on 02/14/19at 11:26; Admin Dose 60 MG; Start 02/13/19 at 14:21 Ondansetron HCl (Zofran Inj) 4 mg Q6H PRN IV NAUSEA AND/OR VOMITING; Start 02/13/19 at 16:30 Diagnostic Test (Pha) (Accu-Chek) 1 ea 02 XX Last administered on 02/14/19at 01:47; Admin Dose 1 EA; Start 02/14/19 at 02:00 Insulin Aspart (Novolog Insulin Pen) NOVOLOG *MODERATE* ALGORITHM WITH MEALS BEDTIME SC Last administered on 02/14/19at 11:30; Admin Dose 10 UNIT; Start 02/13/19 at 17:55 Labetalol HCl (Labetalol) 10 mg Q4H PRN IV sbp >160 Last administered on 02/13/19at 16:47; Admin Dose 10 MG; Start 02/13/19 at 16:42 Apixaban (Eliquis) 2.5 mg BID PO ; Start 02/14/19 at 21:00 Insulin Glargine (Lantus) 10 units DAILY@0800 SC ; Start 02/15/19 at 08:00; Status UNV Insulin Glargine (Lantus) 10 units ONCE ONCE SC ; Start 02/14/19 at 12:00; Stop 02/14/19 at 12:01; Status UNV Insulin Aspart (Novolog Insulin Pen) 4 unit WITH MEALS SC ; Start 02/14/19 at 17:55; Status UNV Assessment/Plan Hospital Course (Demo Recall) IMPRESSION AND PLAN: 1. Possible aspiration pneumonitis. Possible component of COPD exacerbation 2. Acute hypoxemic respiratory failure. Slowly improving 3. History of cerebrovascular accident. 4. Questionable underlying disease. 5. Acute on chronic kidney disease Plan 1. Antibiotics. 2. Bronchodilators. 3. Trial of steroids. 4. DVT and GI prophylaxis. 5. Dopplers negative for deep vein thrombosis 6. Renal recommendations FREDDIE MURILLO MD, [facility] February 14, 2019 12:04
[2019-02-14] MEDS ORDERED: INSULIN GLARGINE [LANTus] (100 UNITS/ML) SYG SC ONE (13:30)
--- NOTE | 2019-02-14 15:09 | PN ---
Date/Time of Note Date/Time of Note DATE: 02/14/19 TIME: 15:08 Objective Vitals Vital Signs Date Temp Pulse Resp B/P (MAP) Pulse Ox O2 O2 Flow FiO2 Time Delivery Rate 02/14/19 95 75 13:29 02/14/19 79 20 13:29 02/14/19 98.0 131/58 High Flow 12:06 (82) 02/12/19 15.0 20:26 Intake and Output 02/13/19 02/13/19 02/14/19 1414:59 22:59 06:59 IntakeIntake Total 700 ml BalanceBalance 700 ml Results Result Diagram: 02/13/19 0704 02/14/19 0737 Medications Medications Current Medications IV Flush (NS 3 ml) 3 ml PER PROTOCOL IV ; Start 02/12/19 at 14:30 Nitroglycerin (Nitroglycerin (Sl Tab) 0.4 Mg) 1 tab Q5M PRN SL .CHEST PAIN; Start 02/12/19 at 14:30 Acetaminophen (Tylenol Tab) 650 mg Q6H PRN PO .PAIN 1-3 OR TEMP Last administered on 02/13/19at 16:30; Admin Dose 650 MG; Start 02/12/19 at 14:30 Acetaminophen/ Hydrocodone Bitart ([place] (5/325)) 1 tab Q6H PRN PO .PAIN 4-6; Start 02/12/19 at 14:30 Morphine Sulfate (morphine) 2 mg Q4H PRN IV .PAIN 7-10; Start 02/12/19 at 14:30 Pantoprazole (Protonix Iv) 40 mg DAILY@06 IV Last administered on 02/14/19at 05:46; Admin Dose 40 MG; Start 02/13/19 at 06:00 Atorvastatin Calcium (Lipitor) 80 mg QHS PO Last administered on 02/13/19at 21:27; Admin Dose 80 MG; Start 02/12/19 at 21:00 Clopidogrel Bisulfate (plaVIX) 75 mg DAILY PO Last administered on 02/14/19at 09:08; Admin Dose 75 MG; Start 02/13/19 at 09:00 Docusate Sodium (Colace) 250 mg BID PO Last administered on 02/14/19at 09:07; Admin Dose 250 MG; Start 02/12/19 at 21:00 Sertraline HCl (Zoloft) 150 mg DAILY PO Last administered on 02/14/19 09:07; Admin Dose 150 MG; Start 02/13/19 at 09:00 Terazosin HCl (Hytrin) 1 mg BID PO Last administered on 02/14/19 09:08; Admin Dose 1 MG; Start 02/12/19 at 21:00 Ursodiol (Pili) 250 mg BID PO ; Start 02/12/19 at 21:00 Piperacillin Sod/ Tazobactam Sod 100 ml @ 200 mls/hr Q6 IVPB Last administered on 02/14/19 11:26; Admin Dose 200 MLS/HR; Start 02/12/19 at 18:00 Albuterol/ Ipratropium (Duoneb) 3 ml Q6HWA RESP THERAPY HHN Last administered on 02/14/19 13:18; Admin Dose 3 ML; Start 02/12/19 at 20:00 Albuterol/ Ipratropium (Duoneb) 3 ml Q2H RESP THERAPY PRN HHN shortness of breath; Start 02/12/19 at 14:30 Budesonide (Pulmicort (Neb)) 0.5 mg BID RESP THERAPY HHN Last administered on 02/14/19 09:33; Admin Dose 0.5 MG; Start 02/12/19 at 20:00 Miscellaneous Information 1 ea NOTE XX ; Start 02/12/19 at 15:00 Glucose (Glutose) 15 gm Q15M PRN PO DECREASED GLUCOSE; Start 02/12/19 at 15:00 Glucose (Glutose) 22.5 gm Q15M PRN PO DECREASED GLUCOSE; Start 02/12/19 at 15:00 Dextrose (D50w Syringe) 25 ml Q15M PRN IV DECREASED GLUCOSE; Start 02/12/19 at 15:00 Dextrose (D50w Syringe) 50 ml Q15M PRN IV DECREASED GLUCOSE; Start 02/12/19 at 15:00 Glucagon (Glucagen) 1 mg Q15M PRN IM DECREASED GLUCOSE; Start 02/12/19 at 15:00 Glucose (Glutose) 15 gm Q15M PRN BUCCAL DECREASED GLUCOSE; Start 02/12/19 at 15:00 Methylprednisolone Sodium Succinate (Solu-Medrol) 60 mg Q6 IV Last administered on 02/14/19 11:26; Admin Dose 60 MG; Start 02/13/19 at 14:21 Ondansetron HCl (Zofran Inj) 4 mg Q6H PRN IV NAUSEA AND/OR VOMITING; Start 02/13/19 at 16:30 Diagnostic Test (Pha) (Accu-Chek) 1 ea 02 XX Last administered on 02/14/19at 01:47; Admin Dose 1 EA; Start 02/14/19 at 02:00 Insulin Aspart (Novolog Insulin Pen) NOVOLOG *MODERATE* ALGORITHM WITH MEALS BEDTIME SC Last administered on 02/14/19at 11:30; Admin Dose 10 UNIT; Start 02/13/19 at 17:55 Labetalol HCl (Labetalol) 10 mg Q4H PRN IV sbp >160 Last administered on 02/13/19at 16:47; Admin Dose 10 MG; Start 02/13/19 at 16:42 Apixaban (Eliquis) 2.5 mg BID PO ; Start 02/14/19 at 21:00 Insulin Glargine (Lantus) 10 units DAILY@0800 SC ; Start 02/15/19 at 08:00 Insulin Aspart (Novolog Insulin Pen) 4 unit WITH MEALS SC ; Start 02/14/19 at 17:55 VTE Prophylaxis Risk score (from Nsg)>0 risk: 8 SCD applied (from Nsg): Yes Lines/Catheters IV Catheter Type: Kim in Place: No Assessment/Plan Hospital Course Subjective Patient doing well, no chest pain, no shortness of breath, on high flow nasal cannula Objective Physical exam General: Patient is laying in bed and answers questions appropriately Mentation: Patient is alert and oriented 3, Head: Normocephalic atraumatic Eyes: EOMI, pupils reactive to light Neck: Supple, nontender, midline Respiratory: mildly coarse to auscultation bilaterally Cardiovascular: regular rate, no obvious murmurs Gastrointestinal: non-tender to palpation, bowel sounds heard. Neurological: Moves all extremities spontaneously, left lower extremity BKA, left upper extremity moderately weaker than right Skin: No new skin lesions Assessment and plan Acute hypoxic respiratory distress, resolving -Doing well on high flow nasal cannula -Occurred after emesis event at intermediate facility, patient likely aspirated -Pulmonary on board, Likely aspiration pneumonia -IV antibiotic -Cultures -Nebulizers COPD exacerbation -Likely secondary to above possible aspiration pneumonia -Hold off on beta-ignacio -Steroids Sepsis -IV fluids stopped -IV antibiotic -Cultures Non-ST elevated myocardial infarction -Cardiology consulted, Dr. Chambers -Troponins noted, -Statin -Aspirin -Heparin drip stopped per cardiology as patient has no angina. No immediate karen ns for cardiac catheterization Diabetes mellitus -Insulin while in house Hypertension -Continue home meds, holding beta-ignacio due to possible COPD exacerbation History of CVA -Residual left sided weakness, patient can eat with his right hand -Mild chronic encephalopathy but more or less oriented per son Acute kidney injury versus chronic kidney disease -Nephrology on board Disposition -Continue follow-up from pulmonology, transfer when patient on better respiratory status. -Patient is DO NOT RESUSCITATE, however medical measures are okay. DO NOT INTUBATE as indicated in patients DNR form and as well as confirmed with patient and patient's son. YOLETTE RICH February 14, 2019 15:09
[2019-02-14] MEDS: PIPER-TAZO 2.25 GM (PMX) 50 ML IVPB SCH ×2 (17:30→23:24)
[2019-02-14] MEDS: ATORVASTATIN 20 MG TAB PO SCH (21:13)
[2019-02-14] MEDS: APIXABAN 5 MG TABLET PO SCH (21:15)
[2019-02-14] MEDS: LABETALOL HCL 20MG INJ IV PRN (23:35)
[2019-02-15] VITALS (12 sets, daily range): BP systolic 138–166; BP diastolic 63–79; PULSE 64–85; RESP 16–19
[2019-02-15] MEDS: ACCU-CHEK XX SCH (00:38)
[2019-02-15] MEDS: METHYLPREDNISOLONE 125 MG INJ IV SCH ×3 (05:16→18:09)
[2019-02-15] MEDS: PANTOPRAZOLE 40 MG INJ IV SCH (05:17)
[2019-02-15] MEDS: PIPER-TAZO 2.25 GM (PMX) 50 ML IVPB SCH ×3 (05:20→18:33)
[2019-02-15] MEDS ORDERED: INSULIN GLARGINE [LANTus] (100 UNITS/ML) SYG SC SCH (08:00)
[2019-02-15] MEDS: DOCUSATE SODIUM 250 MG CAP PO SCH ×2 (08:09→21:20)
[2019-02-15] MEDS: TERAZOSIN 1 MG CAP PO SCH ×2 (08:09→21:21)
[2019-02-15] MEDS: APIXABAN 5 MG TABLET PO SCH ×2 (08:09→21:20)
[2019-02-15] MEDS: CLOPIDOGREL 75 MG TAB PO SCH (08:09)
[2019-02-15] MEDS: URSODIOL 250 MG TAB PO SCH ×2 (08:10→21:20)
[2019-02-15] MEDS: SERTRALINE 100 MG TAB PO SCH (08:10)
[2019-02-15] MEDS: INSULIN ASPART [NOVOLOG] 3 ML PEN SC SCH ×7 (08:20→21:36)
[2019-02-15] MEDS ORDERED: SOD CHLORIDE 0.9% 1,000 ML IV SCH (08:30)
--- NOTE | 2019-02-15 08:54 | CONS ---
Consult Date/Type/Reason Admit Date/Time February 12, 2019 at 13:35 Initial Consult Date 02/12/19 Type of Consultation: cv Requesting Provider: YOLETTE RICH Date/Time of Note DATE: 02/15/19 TIME: 08:49 Subjective Cardiology follow-up progress note Subjective: Case discussed with staff telemetry was reviewed patient remains in normal sinus rhythm has occasional PAC and PVCs He denies any left-sided chest pain or pressure to me. He is still on high flow oxygen Objective: General: no acute distress but on high flow oxygen 80% HEENT: NC/AT. pupils are equal. round. NECK: NO JVD. no stridor. CV: RRR. systolic murmur; no gallop or rubs. PULM: no wheezing or rhonchi. GI: SOFT, NT, ND, no rebound or guarding Extremity: Left BKA neuro: awake and alert, OX2. Psych: calm and pleasant rectal: deferred EKG normal sinus rhythm right bundle branch with nonspecific ST-T wave abnormalities X-ray done 02/12/2019 shows: No acute disease. Calcified aorta consistent with atherosclerotic disease. Echocardiogram done February 12, 2019 which was personally reviewed shows: Normal left ventricular systolic function. Normal left ventricular cavity size. Moderate asymmetric septal hypertrophy. Ejection fraction is visually estimated at 55-60 %. Tissue Doppler/Mitral Doppler indices are consistent with impaired relaxation (Stage I diastolic dysfunction). The left atrium is normal in size. Mild mitral leaflet calcification. Mild mitral annular calcification. Trace mitral regurgitation. Aortic sclerosis without significant stenosis. Normal appearance of the tricuspid valve. Estimated peak PA systolic pressure 23 mmHg. There is trace tricuspid regurgitation. Objective Vitals Vital Signs Date Temp Pulse Resp B/P (MAP) Pulse Ox O2 O2 Flow FiO2 Time Delivery Rate 02/15/19 98.1 64 16 148/70 94 High Flow 07:43 (96) 02/15/19 60 04:10 02/12/19 15.0 20:26 Intake and Output 02/14/19 02/14/19 02/15/19 1414:59 22:59 06:59 IntakeIntake Total 300 ml 1080 ml 400 ml OutputOutput Total 300 ml BalanceBalance 0 ml 1080 ml 400 ml Results/Medications Result Diagram: 02/13/19 0704 02/14/19 0737 Results 24 hrs Laboratory Tests Test 02/14/19 10:00 02/14/19 11:27 02/14/19 17:28 02/14/19 21:12 Blood Gas Specimen Blood arterial Source Arterial Blood 02/14/2019 10:06:15 Date Drawn AM Arterial Blood pH 7.382 (Temp corrected) Arterial Blood 35.4 pCO2 (Temp correct) Arterial Blood pO2 92.3 H (Temp corrected) Arterial Blood 20.6 L HCO3 Arterial Blood -3.8 L Base Excess Arterial Blood 97.2 Oxygen Saturation Caesar Test N/A Arterial Blood Gas LB Puncture Site Arterial 0.2 Blood Carboxyhemog lobin Arterial Blood 0.2 Methemoglobin Blood Gas A-a O2 368.8 H Differential Oxyhemoglobin 96.8 Percent Blood Gas 37.0 Temperature Blood Gas Modality HFNC FiO2 70.0 Blood Gas Notified TM Whom Blood Gas Notified 02/14/2019 10:16:55 Time AM Bedside Glucose 307 H 314 H 249 H Test 02/15/19 00:32 02/15/19 08:07 Bedside Glucose 258 H 302 H Home Meds Reported Medications Na Phos,M-B/Na Phos,Di-Ba (ENEMA [id number]) 133 Ml Enema, 133 ML RC EVERY 48 HOURS PRN for CONSTIPATION, ENEMA 02/12/19 Bisacodyl (Dulcolax) 10 Mg Supp.rect, 10 MG RC EVERY 48 HOURS PRN for CONSTIPATION, SUPP.RECT 02/12/19 Atenolol* (Atenolol*) 50 Mg Tablet, 50 MG PO BID, #60 TAB HOLD FOR SBP<110 OR HR <60 02/12/19 Acetaminophen* (Acetaminophen*) 650 Mg Tablet, 650 MG PO Q6H PRN for MILD PAIN LEVEL 1-3, #30 TAB 02/12/19 Ranitidine Hcl* (Zantac*) 300 Mg Tablet, 300 MG PO HS, #30 TAB 02/12/19 Amino Acids/Protein Hydrolys (PRO-STAT LIQUID) 30 Ml Liquid.pkt, 30 ML PO DAILY 02/12/19 Ursodiol* (Ursodiol*) 250 Mg Tablet, 250 MG PO BID, TAB 02/12/19 Sertraline Hcl* (Zoloft*) 100 Mg Tablet, 150 MG PO DAILY, #30 TAB 02/12/19 Ondansetron (Ondansetron Odt) 4 Mg Tab.rapdis, 4 MG PO Q6H PRN for NAUSEA AND/OR VOMITING, TAB 02/12/19 Terazosin Hcl* (Terazosin Hcl*) 1 Mg Capsule, 1 MG PO BID, CAP 02/12/19 Sennosides* (Senna Lax*) 8.6 Mg Tablet, 1 TAB PO QHS, TAB 02/12/19 Magnesium Hydroxide* (Milk Of Magnesia*) 400 Mg/5 Ml Oral.susp, 30 ML PO DAILY PRN for CONSTIPATION, ML 02/12/19 Metformin Hcl* (Metformin Hcl*) 500 Mg Tablet, 500 MG PO WITH BREAKFAST DINNE, #60 TAB 02/12/19 Atorvastatin Calcium* (Atorvastatin Calcium*) 20 Mg Tablet, 20 MG PO QHS, #30 TAB 02/12/19 Lactulose* (Lactulose*) 20 Gm/30 Ml Solution, 20 GM PO DAILY, ML 02/12/19 Gabapentin* (Gabapentin*) 100 Mg Capsule, 100 MG PO TID, #90 CAP 02/12/19 Docusate Sodium* (Colace*) 250 Mg Capsule, 250 MG PO BID, #60 CAP 02/12/19 Clopidogrel Bisulfate (Clopidogrel) 75 Mg Tablet, 75 MG PO DAILY, #30 TAB 02/12/19 Medications Current Medications IV Flush (NS 3 ml) 3 ml PER PROTOCOL IV ; Start 02/12/19 at 14:30 Nitroglycerin (Nitroglycerin (Sl Tab) 0.4 Mg) 1 tab Q5M PRN SL .CHEST PAIN; Start 02/12/19 at 14:30 Acetaminophen (Tylenol Tab) 650 mg Q6H PRN PO .PAIN 1-3 OR TEMP Last administered on 02/13/19at 16:30; Admin Dose 650 MG; Start 02/12/19 at 14:30 Acetaminophen/ Hydrocodone Bitart ([place] (5/325)) 1 tab Q6H PRN PO .PAIN 4-6; Start 02/12/19 at 14:30 Morphine Sulfate (morphine) 2 mg Q4H PRN IV .PAIN 7-10; Start 02/12/19 at 14:30 Pantoprazole (Protonix Iv) 40 mg DAILY@06 IV Last administered on 02/15/19at 05:17; Admin Dose 40 MG; Start 02/13/19 at 06:00 Atorvastatin Calcium (Lipitor) 80 mg QHS PO Last administered on 02/14/19 21:13; Admin Dose 80 MG; Start 02/12/19 at 21:00 Clopidogrel Bisulfate (plaVIX) 75 mg DAILY PO Last administered on 02/15/19 08:09; Admin Dose 75 MG; Start 02/13/19 at 09:00 Docusate Sodium (Colace) 250 mg BID PO Last administered on 02/15/19 08:09; Admin Dose 250 MG; Start 02/12/19 at 21:00 Sertraline HCl (Zoloft) 150 mg DAILY PO Last administered on 02/15/19 08:10; A dmin Dose 150 MG; Start 02/13/19 at 09:00 Terazosin HCl (Hytrin) 1 mg BID PO Last administered on 02/15/19 08:09; Admin Dose 1 MG; Start 02/12/19 at 21:00 Ursodiol (Pili) 250 mg BID PO Last administered on 02/15/19 08:10; Admin Dose 250 MG; Start 02/12/19 at 21:00 Albuterol/ Ipratropium (Duoneb) 3 ml Q6HWA RESP THERAPY HHN Last administered on 02/14/19 19:50; Admin Dose 3 ML; Start 02/12/19 at 20:00 Albuterol/ Ipratropium (Duoneb) 3 ml Q2H RESP THERAPY PRN HHN shortness of breath; Start 02/12/19 at 14:30 Budesonide (Pulmicort (Neb)) 0.5 mg BID RESP THERAPY HHN Last administered on 02/14/19 19:50; Admin Dose 0.5 MG; Start 02/12/19 at 20:00 Miscellaneous Information 1 ea NOTE XX ; Start 02/12/19 at 15:00 Glucose (Glutose) 15 gm Q15M PRN PO DECREASED GLUCOSE; Start 02/12/19 at 15:00 Glucose (Glutose) 22.5 gm Q15M PRN PO DECREASED GLUCOSE; Start 02/12/19 at 15:00 Dextrose (D50w Syringe) 25 ml Q15M PRN IV DECREASED GLUCOSE; Start 02/12/19 at 15:00 Dextrose (D50w Syringe) 50 ml Q15M PRN IV DECREASED GLUCOSE; Start 02/12/19 at 15:00 Glucagon (Glucagen) 1 mg Q15M PRN IM DECREASED GLUCOSE; Start 02/12/19 at 15:00 Glucose (Glutose) 15 gm Q15M PRN BUCCAL DECREASED GLUCOSE; Start 02/12/19 at 1 5:00 Methylprednisolone Sodium Succinate (Solu-Medrol) 60 mg Q6 IV Last administered on 02/15/19 05:16; Admin Dose 60 MG; Start 02/13/19 at 14:21 Ondansetron HCl (Zofran Inj) 4 mg Q6H PRN IV NAUSEA AND/OR VOMITING; Start 02/13/19 at 16:30 Diagnostic Test (Pha) (Accu-Chek) 1 ea 02 XX Last administered on 02/15/19at 00:38; Admin Dose 1 EA; Start 02/14/19 at 02:00 Insulin Aspart (Novolog Insulin Pen) NOVOLOG *MODERATE* ALGORITHM WITH MEALS BEDTIME SC Last administered on 02/15/19 08:20; Admin Dose 10 UNIT; Start 02/13/19 at 17:55 Labetalol HCl (Labetalol) 10 mg Q4H PRN IV sbp >160 Last administered on 02/14/19at 23:35; Admin Dose 10 MG; Start 02/13/19 at 16:42 Apixaban (Eliquis) 2.5 mg BID PO Last administered on 02/15/19 08:09; Admin Dose 2.5 MG; Start 02/14/19 at 21:00 Insulin Glargine (Lantus) 10 units DAILY@0800 SC Last administered on 02/15/19 08:13; Admin Dose 10 UNITS; Start 02/15/19 at 08:00 Insulin Aspart (Novolog Insulin Pen) 4 unit WITH MEALS SC Last administered on 02/15/19 08:24; Admin Dose 4 UNIT; Start 02/14/19 at 17:55 Piperacillin Sod/ Tazobactam Sod 50 ml @ 200 mls/hr Q6 IVPB Last administered on 02/15/19 05:20; Admin Dose 200 MLS/HR; Start 02/14/19 at 18:00 Sodium Chloride 1,000 ml @ 50 mls/hr Q20H IV ; Start 02/15/19 at 08:30; Status UNV Assessment/Plan Hospital Course (Demo Recall) Mildly abnormal troponin: Consistent with non-ST elevation myocardial infarction probably type II Acute hypoxemic respiratory failure History of multiple CVA diabetes hypertension History of congestive heart failure: currently does not appear to be fluid overloaded to Dyslipidemia Peripheral vascular disease status post BKA Encephalopathy Renal insufficiency; probably acute on chronic Paroxysmal atrial fibrillation Recommendations: cont home plavix. CONT Eliquis 2.5 mg p.o. twice daily given his short episode of P atrial fibrillation AND HX OF CVA will hold off on heparin now that pt has no angina cont resp care O2 abx as per IM REC CONT DM control echo shows normal LV systolic function Medical therapy from the cardiac standpoint is recommended at this point given the fact that the patient has normal ejection fraction no angina is and is DNR Thank you for this referral. We will continue to follow along with you PIPPA MACIAS MD [facility] PIPPA MACIAS MD February 15, 2019 08:54
[2019-02-15] MEDS ORDERED: POTASSIUM CHLORIDE (SR) 20 MEQ TAB PO STA (09:41)
[2019-02-15] MEDS: ALBUTEROL/IPRATROPIUM (NEB) 3 ML AMP HHN SCH ×3 (09:48→19:26)
[2019-02-15] MEDS: BUDESONIDE (NEB) 0.5MG/2ML AMP HHN SCH ×2 (10:05→19:26)
--- NOTE | 2019-02-15 10:32 | PN ---
DATE: 02/15/2019 SUBJECTIVE: The patient remains stable. No events overnight. No fevers, chills, nausea, vomiting. OBJECTIVE: VITAL SIGNS: Blood pressure is 148/70, respirations 16, pulse 64, temperature 98.1. HEENT: Head is normocephalic. NECK: Supple. HEART: Regular rate. LUNGS: Show diminished breath sounds at the base. ABDOMEN: Soft, nontender to palpation without rebound or guarding. EXTREMITIES: Negative for clubbing, cyanosis. No edema. DERMATOLOGIC: No rashes. MUSCULOSKELETAL: No joint effusions. Positive BKA is noted. NEUROLOGIC: No change in exam. MEDICATIONS: Reviewed. LABORATORY DATA: Has been reviewed. The patient's urinalysis reviewed. It shows FENa less than 1%. ASSESSMENT AND PLAN: 1. Nonoliguric acute kidney injury with unknown baseline creatinine. Etiology of acute kidney injur y is secondary to hemodynamics, possible volume depletion. The patient's urinalysis, urine electroly last were reviewed. The patient's renal function continues to decline. Plan is to give the patient a fluid challenge. Will start the patient on normal saline. Will monitor renal function and electrol ytes closely. 2. Mineral bone disorder. Monitor calcium and phosphorus levels. 3. Acute hypoxemic respiratory failure secondary to chronic obstructive pulmonary disease exacerbati on. Continue medical management. Continue nebulizers. Continue high-flow oxygen. 4. SIRS secondary to sepsis, pneumonia. Continue current antibiotic regimen. 5. Non-ST elevation myocardial infarction. Continue medical management. 6. Diabetes. Continue current insulin regimen. 7. Hypertension. Continue current blood pressure regimen. 8. History of CVA. 9. Peripheral vascular disease. Continue medical management. Dictated By: BRANDY CLEVELAND DO NR/NTS Conf#: [id number] DID#: [id number] CC: YOLETTE RICH MD;*EndCC*
[2019-02-15] MEDS: ALBUMIN HUMAN 25% 100 ML IV SCH ×2 (10:50→18:09)
--- NOTE | 2019-02-15 12:27 | PN ---
Date/Time of Note Date/Time of Note DATE: 02/15/19 TIME: 12:25 Objective Vitals Vital Signs Date Temp Pulse Resp B/P (MAP) Pulse Ox O2 O2 Flow FiO2 Time Delivery Rate 02/15/19 97 80 11:00 02/15/19 83 16 10:06 02/15/19 98.1 148/70 High Flow 07:43 (96) 02/12/19 15.0 20:26 Intake and Output 02/14/19 02/14/19 02/15/19 1515:00 23:00 07:00 IntakeIntake Total 300 ml 1080 ml 400 ml OutputOutput Total 300 ml BalanceBalance 0 ml 1080 ml 400 ml Results Result Diagram: 02/15/1944 02/15/1944 Medications Medications Current Medications IV Flush (NS 3 ml) 3 ml PER PROTOCOL IV ; Start 02/12/19 at 14:30 Nitroglycerin (Nitroglycerin (Sl Tab) 0.4 Mg) 1 tab Q5M PRN SL .CHEST PAIN; Start 02/12/19 at 14:30 Acetaminophen (Tylenol Tab) 650 mg Q6H PRN PO .PAIN 1-3 OR TEMP Last administered on 02/13/19at 16:30; Admin Dose 650 MG; Start 02/12/19 at 14:30 Acetaminophen/ Hydrocodone Bitart ([place] (5/325)) 1 tab Q6H PRN PO .PAIN 4-6; Start 02/12/19 at 14:30 Morphine Sulfate (morphine) 2 mg Q4H PRN IV .PAIN 7-10; Start 02/12/19 at 14:30 Pantoprazole (Protonix Iv) 40 mg DAILY@06 IV Last administered on 02/15/19at 05:17; Admin Dose 40 MG; Start 02/13/19 at 06:00 Atorvastatin Calcium (Lipitor) 80 mg QHS PO Last administered on 02/14/19at 21:13; Admin Dose 80 MG; Start 02/12/19 at 21:00 Clopidogrel Bisulfate (plaVIX) 75 mg DAILY PO Last administered on 02/15/19at 08:09; Admin Dose 75 MG; Start 02/13/19 at 09:00 Docusate Sodium (Colace) 250 mg BID PO Last administered on 02/15/19at 08:09; Admin Dose 250 MG; Start 02/12/19 at 21:00 Sertraline HCl (Zoloft) 150 mg DAILY PO Last administered on 02/15/19 08:10; Admin Dose 150 MG; Start 02/13/19 at 09:00 Terazosin HCl (Hytrin) 1 mg BID PO Last administered on 02/15/19at 08:09; Admin Dose 1 MG; Start 02/12/19 at 21:00 Ursodiol (Pili) 250 mg BID PO Last administered on 02/15/19at 08:10; Admin Dose 250 MG; Start 02/12/19 at 21:00 Albuterol/ Ipratropium (Duoneb) 3 ml Q6HWA RESP THERAPY HHN Last administered on 02/15/19at 09:48; Admin Dose 3 ML; Start 02/12/19 at 20:00 Albuterol/ Ipratropium (Duoneb) 3 ml Q2H RESP THERAPY PRN HHN shortness of breath; Start 02/12/19 at 14:30 Budesonide (Pulmicort (Neb)) 0.5 mg BID RESP THERAPY HHN Last administered on 02/15/19at 10:05; Admin Dose 0.5 MG; Start 02/12/19 at 20:00 Miscellaneous Information 1 ea NOTE XX ; Start 02/12/19 at 15:00 Glucose (Glutose) 15 gm Q15M PRN PO DECREASED GLUCOSE; Start 02/12/19 at 15:00 Glucose (Glutose) 22.5 gm Q15M PRN PO DECREASED GLUCOSE; Start 02/12/19 at 15:00 Dextrose (D50w Syringe) 25 ml Q15M PRN IV DECREASED GLUCOSE; Start 02/12/19 at 15:00 Dextrose (D50w Syringe) 50 ml Q15M PRN IV DECREASED GLUCOSE; Start 02/12/19 at 15:00 Glucagon (Glucagen) 1 mg Q15M PRN IM DECREASED GLUCOSE; Start 02/12/19 at 15:00 Glucose (Glutose) 15 gm Q15M PRN BUCCAL DECREASED GLUCOSE; Start 02/12/19 at 15:00 Methylprednisolone Sodium Succinate (Solu-Medrol) 60 mg Q6 IV Last administered on 02/15/19at 05:16; Admin Dose 60 MG; Start 02/13/19 at 14:21 Ondansetron HCl (Zofran Inj) 4 mg Q6H PRN IV NAUSEA AND/OR VOMITING; Start 02/13/19 at 16:30 Diagnostic Test (Pha) (Accu-Chek) 1 ea 02 XX Last administered on 02/15/19at 00:38; Admin Dose 1 EA; Start 02/14/19 at 02:00 Insulin Aspart (Novolog Insulin Pen) NOVOLOG *MODERATE* ALGORITHM WITH MEALS BEDTIME SC Last administered on 02/15/19 11:52; Admin Dose 10 UNIT; Start 02/13/19 at 17:55 Labetalol HCl (Labetalol) 10 mg Q4H PRN IV sbp >160 Last administered on 02/14/19 23:35; Admin Dose 10 MG; Start 02/13/19 at 16:42 Apixaban (Eliquis) 2.5 mg BID PO Last administered on 02/15/19 08:09; Admin Dose 2.5 MG; Start 02/14/19 at 21:00 Piperacillin Sod/ Tazobactam Sod 50 ml @ 200 mls/hr Q6 IVPB Last administered on 02/15/19 05:20; Admin Dose 200 MLS/HR; Start 02/14/19 at 18:00 Albumin Human 100 ml @ 100 mls/hr Q8H IV Last administered on 02/15/19at 10:50; Admin Dose 100 MLS/HR; Start 02/15/19 at 10:00; Stop 02/16/19 at 02:59 Insulin Aspart (Novolog Insulin Pen) 7 unit WITH MEALS SC Last administered on 02/15/19at 11:52; Admin Dose 7 UNIT; Start 02/15/19 at 11:50 Insulin Glargine (Lantus) 15 units DAILY@0800 SC ; Start 02/16/19 at 08:00 Insulin Glargine (Lantus) 5 units ONCE ONCE SC ; Start 02/15/19 at 12:30; Stop 02/15/19 at 12:31 VTE Prophylaxis Risk score (from Nsg)>0 risk: 8 SCD applied (from Nsg): Yes Lines/Catheters IV Catheter Type: Kim in Place: No Assessment/Plan Hospital Course Subjective Patient doing well, no chest pain Objective Physical exam General: Patient is laying in bed and answers questions appropriately Mentation: Patient is alert and oriented 3, Head: Normocephalic atraumatic Eyes: EOMI, pupils reactive to light Neck: Supple, nontender, midline Respiratory: mildly coarse to auscultation bilaterally Cardiovascular: regular rate, no obvious murmurs Gastrointestinal: non-tender to palpation, bowel sounds heard. Neurological: Moves all extremities spontaneously, left lower extremity BKA, left upper extremity moderately weaker than right Skin: No new skin lesions Assessment and plan Acute hypoxic respiratory distress, resolving -Doing well on high flow nasal cannula -Occurred [facility], patient likely aspirated -Pulmonary on board, -CT was ordered a few days ago stat, was done today, barrier according to nursing staff was high O2 requirement with high flow, CT done however official read not done. Will await Likely aspiration pneumonia -IV antibiotic -Cultures -Nebulizers COPD exacerbation -Likely secondary to above possible aspiration pneumonia -Hold off on beta-ignacio -Steroids Sepsis -IV fluids stopped -IV antibiotic -Cultures Non-ST elevated myocardial infarction -Cardiology consulted, Dr. Chambers -Troponins noted, -Statin -Aspirin -Heparin drip stopped per cardiology as patient has no angina, DNR, normal ejection fraction. No immediate plans for cardiac catheterization here [facility] Atrial fibrillation -Eliquis started per cardiology Diabetes mellitus -Insulin while in house Hypertension -Continue home meds, holding beta-ignacio due to possible COPD exacerbation History of CVA -Residual left sided weakness, patient can eat with his right hand -Mild chronic encephalopathy but more or less oriented per son Acute kidney injury versus chronic kidney disease -Nephrology on board Disposition -Continue follow-up from pulmonology, transfer when patient on better respiratory status. -Patient is DO NOT RESUSCITATE, however medical measures are okay. DO NOT INTUBATE as indicated in patients DNR form and as well as confirmed with patient and patient's son. YOLETTE RICH February 15, 2019 12:27
[2019-02-15] MEDS ORDERED: INSULIN GLARGINE [LANTus] (100 UNITS/ML) SYG SC ONE (12:30)
--- NOTE | 2019-02-15 12:50 | CONS ---
Consult Date/Type/Reason Admit Date/Time February 12, 2019 at 13:35 Initial Consult Date 02/12/19 Type of Consult Pulmonary Requesting Provider: YOLETTE RICH Date/Time of Note DATE: 02/15/19 TIME: 12:49 Subjective Patient states he feels better today. CT chest demonstrates bilateral infiltrates right greater than left. No significant pleural effusion. Objective Vital Signs Date Temp Pulse Resp B/P (MAP) Pulse Ox O2 O2 Flow FiO2 Time Delivery Rate 02/15/19 97 80 11:00 02/15/19 83 16 10:06 02/15/19 98.1 148/70 High Flow 07:43 (96) 02/12/19 15.0 20:26 Intake and Output 02/14/19 02/14/19 02/15/19 1515:00 23:00 07:00 IntakeIntake Total 300 ml 1080 ml 400 ml OutputOutput Total 300 ml BalanceBalance 0 ml 1080 ml 400 ml Exam PHYSICAL EXAMINATION: GENERAL: Well-nourished, well-developed gentleman, appears comfortable at rest on high flow O2. VITAL SIGNS: NECK: Supple. No JVD or lymphadenopathy. CARDIAC: S1, S2. No added sounds or murmurs. CHEST: Diminished air entry bilaterally with few rales. ABDOMEN: Soft, nontender. No guarding or rebound. EXTREMITIES: No cyanosis, clubbing or edema. NEUROLOGIC: Generalized weakness. . Vent Setting Fraction of Inspired Oxygen pe: 80 Results/Medications Result Diagram: 02/15/19 0844 02/15/19 0844 Results 24 hrs Laboratory Tests Test 02/14/19 17:28 02/14/19 21:12 02/15/19 00:32 02/15/19 08:07 Bedside Glucose 314 H 249 H 258 H 302 H Test 02/15/19 08:44 02/15/19 11:41 White Blood Count 14.0 #H Red Blood Count 5.04 Hemoglobin 13.8 L Hematocrit 43.7 Mean Corpuscular Volume 86.7 Mean Corpuscular 27.4 L Hemoglobin Mean Corpuscular 31.6 L Hemoglobin Concent Red Cell Distribution 14.8 H Width Platelet Count 236 Mean Platelet Volume 10.6 H Immature Granulocytes % 0.900 H Neutrophils % Segmented Neutrophils 68 % (Manual) Band Neutrophils % 19 H (Manual) Lymphocytes % Lymphocytes % (Manual) 6 L Monocytes % Monocytes % (Manual) 7 Eosinophils % Basophils % Nucleated Red Blood 0.0 Cells % Immature Granulocytes # 0.120 H Neutrophils # Neutrophils # (Manual) 9.9 H Band Neutrophils # 2.6 H Lymphocytes (Manual) 0.8 Lymphocytes # Monocytes # Monocytes # (Manual) 0.9 Eosinophils # Basophils # Nucleated Red Blood Cells # Platelet Estimate NORMAL Polychromasia 3+ Poikilocytosis 3+ Anisocytosis 2+ Microcytosis 1+ Macrocytosis 2+ Sodium Level 140 Potassium Level 3.4 L Chloride Level 103 Carbon Dioxide Level 26 Anion Gap 11 Blood Urea Nitrogen 68 H Creatinine 2.09 H Est Glomerular Filtrat Rate mL/min Glucose Level 325 H Calcium Level 9.0 Phosphorus Level 3.4 Magnesium Level 2.2 Bedside Glucose 327 H Medications Current Medications IV Flush (NS 3 ml) 3 ml PER PROTOCOL IV ; Start 02/12/19 at 14:30 Nitroglycerin (Nitroglycerin (Sl Tab) 0.4 Mg) 1 tab Q5M PRN SL .CHEST PAIN; Start 02/12/19 at 14:30 Acetaminophen (Tylenol Tab) 650 mg Q6H PRN PO .PAIN 1-3 OR TEMP Last administered on 02/13/19at 16:30; Admin Dose 650 MG; Start 02/12/19 at 14:30 Acetaminophen/ Hydrocodone Bitart ([place] (5/325)) 1 tab Q6H PRN PO .PAIN 4-6; Start 02/12/19 at 14:30 Morphine Sulfate (morphine) 2 mg Q4H PRN IV .PAIN 7-10; Start 02/12/19 at 14:30 Pantoprazole (Protonix Iv) 40 mg DAILY@06 IV Last administered on 02/15/19at 05:17; Admin Dose 40 MG; Start 02/13/19 at 06:00 Atorvastatin Calcium (Lipitor) 80 mg QHS PO Last administered on 02/14/19at 21:13; Admin Dose 80 MG; Start 02/12/19 at 21:00 Clopidogrel Bisulfate (plaVIX) 75 mg DAILY PO Last administered on 02/15/19at 08:09; Admin Dose 75 MG; Start 02/13/19 at 09:00 Docusate Sodium (Colace) 250 mg BID PO Last administered on 02/15/19at 08:09; Admin Dose 250 MG; Start 02/12/19 at 21:00 Sertraline HCl (Zoloft) 150 mg DAILY PO Last administered on 02/15/19 08:10; Admin Dose 150 MG; Start 02/13/19 at 09:00 Terazosin HCl (Hytrin) 1 mg BID PO Last administered on 02/15/19 08:09; Admin Dose 1 MG; Start 02/12/19 at 21:00 Ursodiol (Pili) 250 mg BID PO Last administered on 02/15/19 08:10; Admin Dose 250 MG; Start 02/12/19 at 21:00 Albuterol/ Ipratropium (Duoneb) 3 ml Q6HWA RESP THERAPY HHN Last administered on 02/15/19 09:48; Admin Dose 3 ML; Start 02/12/19 at 20:00 Albuterol/ Ipratropium (Duoneb) 3 ml Q2H RESP THERAPY PRN HHN shortness of breath; Start 02/12/19 at 14:30 Budesonide (Pulmicort (Neb)) 0.5 mg BID RESP THERAPY HHN Last administered on 02/15/19at 10:05; Admin Dose 0.5 MG; Start 02/12/19 at 20:00 Miscellaneous Information 1 ea NOTE XX ; Start 02/12/19 at 15:00 Glucose (Glutose) 15 gm Q15M PRN PO DECREASED GLUCOSE; Start 02/12/19 at 15:00 Glucose (Glutose) 22.5 gm Q15M PRN PO DECREASED GLUCOSE; Start 02/12/19 at 15:00 Dextrose (D50w Syringe) 25 ml Q15M PRN IV DECREASED GLUCOSE; Start 02/12/19 at 15:00 Dextrose (D50w Syringe) 50 ml Q15M PRN IV DECREASED GLUCOSE; Start 02/12/19 at 15:00 Glucagon (Glucagen) 1 mg Q15M PRN IM DECREASED GLUCOSE; Start 02/12/19 at 15:00 Glucose (Glutose) 15 gm Q15M PRN BUCCAL DECREASED GLUCOSE; Start 02/12/19 at 15:00 Methylprednisolone Sodium Succinate (Solu-Medrol) 60 mg Q6 IV Last administered on 02/15/19at 12:39; Admin Dose 60 MG; Start 02/13/19 at 14:21 Ondansetron HCl (Zofran Inj) 4 mg Q6H PRN IV NAUSEA AND/OR VOMITING; Start 02/13/19 at 16:30 Diagnostic Test (Pha) (Accu-Chek) 1 ea 02 XX Last administered on 02/15/19at 00:38; Admin Dose 1 EA; Start 02/14/19 at 02:00 Insulin Aspart (Novolog Insulin Pen) NOVOLOG *MODERATE* ALGORITHM WITH MEALS BEDTIME SC Last administered on 02/15/19 11:52; Admin Dose 10 UNIT; Start 02/13/19 at 17:55 Labetalol HCl (Labetalol) 10 mg Q4H PRN IV sbp >160 Last administered on 02/14/19at 23:35; Admin Dose 10 MG; Start 02/13/19 at 16:42 Apixaban (Eliquis) 2.5 mg BID PO Last administered on 02/15/19 08:09; Admin Dose 2.5 MG; Start 02/14/19 at 21:00 Piperacillin Sod/ Tazobactam Sod 50 ml @ 200 mls/hr Q6 IVPB Last administered on 02/15/19at 05:20; Admin Dose 200 MLS/HR; Start 02/14/19 at 18:00 Albumin Human 100 ml @ 100 mls/hr Q8H IV Last administered on 02/15/19at 10:50; Admin Dose 100 MLS/HR; Start 02/15/19 at 10:00; Stop 02/16/19 at 02:59 Insulin Aspart (Novolog Insulin Pen) 7 unit WITH MEALS SC Last administered on 02/15/19at 11:52; Admin Dose 7 UNIT; Start 02/15/19 at 11:50 Insulin Glargine (Lantus) 15 units DAILY@0800 SC ; Start 02/16/19 at 08:00 Assessment/Plan Hospital Course (Demo Recall) IMPRESSION AND PLAN: 1. Possible aspiration pneumonitis. Possible component of COPD exacerbation 2. Acute hypoxemic respiratory failure. Slowly improving 3. History of cerebrovascular accident. 4. Questionable underlying disease. 5. Acute on chronic kidney disease Plan 1. Antibiotics. 2. Bronchodilators. 3. Continue steroids transfer to [facility] once FiO2 less than 50%. 4. DVT and GI prophylaxis. 5. Dopplers negative for deep vein thrombosis 6. Renal recommendations FREDDIE MURILLO MD, [facility] February 15, 2019 12:50
[2019-02-15] MEDS: ATORVASTATIN 20 MG TAB PO SCH (21:21)
[2019-02-15] MEDS: LABETALOL HCL 20MG INJ IV PRN (23:59)
[2019-02-16] VITALS (12 sets, daily range): BP systolic 134–179; BP diastolic 63–86; PULSE 68–87; RESP 19–20
[2019-02-16] MEDS: METHYLPREDNISOLONE 125 MG INJ IV SCH ×4 (00:01→17:19)
[2019-02-16] MEDS: PIPER-TAZO 2.25 GM (PMX) 50 ML IVPB SCH ×4 (00:04→17:19)
[2019-02-16] MEDS: ALBUMIN HUMAN 25% 100 ML IV SCH (01:45)
[2019-02-16] MEDS: ACCU-CHEK XX SCH (01:57)
[2019-02-16] MEDS ORDERED: hydrALAzine 20 MG INJ IV ONE (02:00)
[2019-02-16] MEDS: LABETALOL HCL 20MG INJ IV PRN (05:02)
[2019-02-16] MEDS: PANTOPRAZOLE (EC) 40 MG TAB PO SCH (05:06)
[2019-02-16] MEDS: ALBUTEROL/IPRATROPIUM (NEB) 3 ML AMP HHN SCH ×3 (08:01→20:05)
[2019-02-16] MEDS: SERTRALINE 100 MG TAB PO SCH (08:12)
[2019-02-16] MEDS: DOCUSATE SODIUM 250 MG CAP PO SCH ×2 (08:12→21:19)
[2019-02-16] MEDS: APIXABAN 5 MG TABLET PO SCH ×2 (08:13→21:19)
[2019-02-16] MEDS: CLOPIDOGREL 75 MG TAB PO SCH (08:13)
[2019-02-16] MEDS: TERAZOSIN 1 MG CAP PO SCH ×2 (08:14→21:20)
[2019-02-16] MEDS: INSULIN GLARGINE [LANTus] (100 UNITS/ML) SYG SC SCH (08:21)
[2019-02-16] MEDS: INSULIN ASPART [NOVOLOG] 3 ML PEN SC SCH ×7 (08:21→22:07)
[2019-02-16] MEDS: URSODIOL 250 MG TAB PO SCH ×2 (08:22→21:20)
--- NOTE | 2019-02-16 09:14 | CONS ---
Consult Date/Type/Reason Admit Date/Time February 12, 2019 at 13:35 Initial Consult Date 02/12/19 Type of Consultation: cv Requesting Provider: YOLETTE RICH Date/Time of Note DATE: 02/16/19 TIME: 09:10 Subjective Cardiology follow-up progress note Subjective: Case discussed with staff telemetry was reviewed patient remains in normal sinus rhythm has occasional PAC and PVCs He denies any left-sided chest pain or pressure to me. He is still on high flow oxygen Objective: General: no acute distress but on high flow oxygen 60% HEENT: NC/AT. pupils are equal. round. NECK: NO JVD. no stridor. CV: RRR. systolic murmur; no gallop or rubs. PULM: no wheezing or rhonchi. GI: SOFT, NT, ND, no rebound or guarding Extremity: Left BKA neuro: awake and alert, OX2. Psych: calm and pleasant rectal: deferred EKG normal sinus rhythm right bundle branch with nonspecific ST-T wave abnormalities X-ray done 02/12/2019 shows: No acute disease. Calcified aorta consistent with atherosclerotic disease. Echocardiogram done February 12, 2019 which was personally reviewed shows: Normal left ventricular systolic function. Normal left ventricular cavity size. Moderate asymmetric septal hypertrophy. Ejection fraction is visually estimated at 55-60 %. Tissue Doppler/Mitral Doppler indices are consistent with impaired relaxation (Stage I diastolic dysfunction). The left atrium is normal in size. Mild mitral leaflet calcification. Mild mitral annular calcification. Trace mitral regurgitation. Aortic sclerosis without significant stenosis. Normal appearance of the tricuspid valve. Estimated peak PA systolic pressure 23 mmHg. There is trace tricuspid regurgitation. Objective Vitals Vital Signs Date Temp Pulse Resp B/P (MAP) Pulse Ox O2 O2 Flow FiO2 Time Delivery Rate 02/16/19 79 16 95 Nasal 60 08:06 Cannula 02/16/19 98.6 134/63 07:55 (86) 02/12/19 15.0 20:26 Intake and Output 02/15/19 02/15/19 02/16/19 1515:00 23:00 07:00 IntakeIntake Total 1150 ml 300 ml BalanceBalance 1150 ml 300 ml Results/Medications Result Diagram: 02/16/19 0657 02/16/19 0656 Results 24 hrs Laboratory Tests Test 02/15/19 11:41 02/15/19 17:52 02/15/19 21:26 02/16/19 01:56 Bedside Glucose 327 H 202 260 H 255 H Test 02/16/19 06:56 02/16/19 06:57 02/16/19 07:46 Sodium Level 140 Potassium Level 3.8 Chloride Level 105 Carbon Dioxide Level 22 Anion Gap 13 Blood Urea Nitrogen 61 H Creatinine 1.64 H Est Glomerular Filtrat Rate mL/min Glucose Level 290 H Calcium Level 9.3 Phosphorus Level 2.3 #L Magnesium Level 2.2 Total Bilirubin 0.2 Direct Bilirubin 0.00 Indirect Bilirubin 0.2 Aspartate Amino 25 Transf (AST/SGOT) Alanine 12 L Aminotransferase (AL T/SGPT) Alkaline Phosphatase 69 B-Type Natriuretic 8870 H Peptide Total Protein 6.7 Albumin 3.5 Globulin 3.20 Albumin/Globulin 1.09 Ratio White Blood Count 15.3 H Red Blood Count 4.74 Hemoglobin 13.1 L Hematocrit 40.0 L Mean Corpuscular 84.4 Volume Mean Corpuscular 27.6 L Hemoglobin Mean Corpuscular 32.8 Hemoglobin Concent Red Cell 14.6 H Distribution Width Platelet Count 238 Mean Platelet Volume 10.7 H Immature 2.500 H Granulocytes % Neutrophils % 86.4 H Lymphocytes % 3.3 L Monocytes % 7.3 Eosinophils % 0.0 Basophils % 0.5 Nucleated Red Blood 0.0 Cells % Immature 0.380 H Granulocytes # Neutrophils # 13.3 H Lymphocytes # 0.5 L Monocytes # 1.1 H Eosinophils # 0.0 Basophils # 0.1 Nucleated Red Blood 0.0 Cells # Bedside Glucose 294 H Home Meds Reported Medications Na Phos,M-B/Na Phos,Di-Ba (ENEMA [id number]) 133 Ml Enema, 133 ML RC EVERY 48 HOURS PRN for CONSTIPATION, ENEMA 02/12/19 Bisacodyl (Dulcolax) 10 Mg Supp.rect, 10 MG RC EVERY 48 HOURS PRN for CONSTIP ATION, SUPP.RECT 02/12/19 Atenolol* (Atenolol*) 50 Mg Tablet, 50 MG PO BID, #60 TAB HOLD FOR SBP<110 OR HR <60 02/12/19 Acetaminophen* (Acetaminophen*) 650 Mg Tablet, 650 MG PO Q6H PRN for MILD PAIN LEVEL 1-3, #30 TAB 02/12/19 Ranitidine Hcl* (Zantac*) 300 Mg Tablet, 300 MG PO HS, #30 TAB 02/12/19 Amino Acids/Protein Hydrolys (PRO-STAT LIQUID) 30 Ml Liquid.pkt, 30 ML PO DAILY 02/12/19 Ursodiol* (Ursodiol*) 250 Mg Tablet, 250 MG PO BID, TAB 02/12/19 Sertraline Hcl* (Zoloft*) 100 Mg Tablet, 150 MG PO DAILY, #30 TAB 02/12/19 Ondansetron (Ondansetron Odt) 4 Mg Tab.rapdis, 4 MG PO Q6H PRN for NAUSEA AND/OR VOMITING, TAB 02/12/19 Terazosin Hcl* (Terazosin Hcl*) 1 Mg Capsule, 1 MG PO BID, CAP 02/12/19 Sennosides* (Senna Lax*) 8.6 Mg Tablet, 1 TAB PO QHS, TAB 02/12/19 Magnesium Hydroxide* (Milk Of Magnesia*) 400 Mg/5 Ml Oral.susp, 30 ML PO DAILY PRN for CONSTIPATION, ML 02/12/19 Metformin Hcl* (Metformin Hcl*) 500 Mg Tablet, 500 MG PO WITH BREAKFAST DINNE, #60 TAB 02/12/19 Atorvastatin Calcium* (Atorvastatin Calcium*) 20 Mg Tablet, 20 MG PO QHS, #30 T AB 02/12/19 Lactulose* (Lactulose*) 20 Gm/30 Ml Solution, 20 GM PO DAILY, ML 02/12/19 Gabapentin* (Gabapentin*) 100 Mg Capsule, 100 MG PO TID, #90 CAP 02/12/19 Docusate Sodium* (Colace*) 250 Mg Capsule, 250 MG PO BID, #60 CAP 02/12/19 Clopidogrel Bisulfate (Clopidogrel) 75 Mg Tablet, 75 MG PO DAILY, #30 TAB 02/12/19 Medications Current Medications IV Flush (NS 3 ml) 3 ml PER PROTOCOL IV ; Start 02/12/19 at 14:30 Nitroglycerin (Nitroglycerin (Sl Tab) 0.4 Mg) 1 tab Q5M PRN SL .CHEST PAIN; Start 02/12/19 at 14:30 Acetaminophen (Tylenol Tab) 650 mg Q6H PRN PO .PAIN 1-3 OR TEMP Last administered on 02/13/19at 16:30; Admin Dose 650 MG; Start 02/12/19 at 14:30 Acetaminophen/ Hydrocodone Bitart ([place] (5/325)) 1 tab Q6H PRN PO .PAIN 4-6; Start 02/12/19 at 14:30 Morphine Sulfate (morphine) 2 mg Q4H PRN IV .PAIN 7-10; Start 02/12/19 at 14:30 Atorvastatin Calcium (Lipitor) 80 mg QHS PO Last administered on 02/15/19 21:21; Admin Dose 80 MG; Start 02/12/19 at 21:00 Clopidogrel Bisulfate (plaVIX) 75 mg DAILY PO Last administered on 02/16/19 08:13; Admin Dose 75 MG; Start 02/13/19 at 09:00 Docusate Sodium (Colace) 250 mg BID PO Last administered on 02/16/19 08:12; Admin Dose 250 MG; Start 02/12/19 at 21:00 Sertraline HCl (Zoloft) 150 mg DAILY PO Last administered on 02/16/19 08:12; Admin Dose 150 MG; Start 02/13/19 at 09:00 Terazosin HCl (Hytrin) 1 mg BID PO Last administered on 02/16/19 08:14; Admin Dose 1 MG; Start 02/12/19 at 21:00 Ursodiol (Pili) 250 mg BID PO Last administered on 02/16/19 08:22; Admin Dose 250 MG; Start 02/12/19 at 21:00 Albuterol/ Ipratropium (Duoneb) 3 ml Q6HWA RESP THERAPY HHN Last administered on 02/16/19 08:01; Admin Dose 3 ML; Start 02/12/19 at 20:00 Albuterol/ Ipratropium (Duoneb) 3 ml Q2H RESP THERAPY PRN HHN shortness of breath; Start 02/12/19 at 14:30 Budesonide (Pulmicort (Neb)) 0.5 mg BID RESP THERAPY HHN Last administered on 02/15/19 19:26; Admin Dose 0.5 MG; Start 02/12/19 at 20:00 Miscellaneous Information 1 ea NOTE XX ; Start 02/12/19 at 15:00 Glucose (Glutose) 15 gm Q15M PRN PO DECREASED GLUCOSE; Start 02/12/19 at 15:00 Glucose (Glutose) 22.5 gm Q15M PRN PO DECREASED GLUCOSE; Start 02/12/19 at 15:00 Dextrose (D50w Syringe) 25 ml Q15M PRN IV DECREASED GLUCOSE; Start 02/12/19 at 15:00 Dextrose (D50w Syringe) 50 ml Q15M PRN IV DECREASED GLUCOSE; Start 02/12/19 at 15:00 Glucagon (Glucagen) 1 mg Q15M PRN IM DECREASED GLUCOSE; Start 02/12/19 at 15:00 Glucose (Glutose) 15 gm Q15M PRN BUCCAL DECREASED GLUCOSE; Start 02/12/19 at 15:00 Methylprednisolone Sodium Succinate (Solu-Medrol) 60 mg Q6 IV Last administered on 02/16/19 05:02; Admin Dose 60 MG; Start 02/13/19 at 14:21 Ondansetron HCl (Zofran Inj) 4 mg Q6H PRN IV NAUSEA AND/OR VOMITING; Start 02/13/19 at 16:30 Diagnostic Test (Pha) (Accu-Chek) 1 ea 02 XX Last administered on 02/16/19at 01:57; Admin Dose 1 EA; Start 02/14/19 at 02:00 Insulin Aspart (Novolog Insulin Pen) NOVOLOG *MODERATE* ALGORITHM WITH MEALS BEDTIME SC Last administered on 02/16/19 08:22; Admin Dose 8 UNIT; Start 02/13/19 at 17:55 Labetalol HCl (Labetalol) 10 mg Q4H PRN IV sbp >160 Last administered on 02/16/19 05:02; Admin Dose 10 MG; Start 02/13/19 at 16:42 Apixaban (Eliquis) 2.5 mg BID PO Last administered on 02/16/19 08:13; Admin Dose 2.5 MG; Start 02/14/19 at 21:00 Piperacillin Sod/ Tazobactam Sod 50 ml @ 200 mls/hr Q6 IVPB Last administered on 02/16/19 05:05; Admin Dose 200 MLS/HR; Start 02/14/19 at 18:00 Insulin Aspart (Novolog Insulin Pen) 7 unit WITH MEALS SC Last administered on 02/16/19 08:21; Admin Dose 7 UNIT; Start 02/15/19 at 11:50 Insulin Glargine (Lantus) 15 units DAILY@0800 SC Last administered on 02/16/19at 08:21; Admin Dose 15 UNITS; Start 02/16/19 at 08:00 Pantoprazole (Protonix Tab) 40 mg DAILY@06 PO Last administered on 02/16/19at 05:06; Admin Dose 40 MG; Start 02/16/19 at 06:00 Nifedipine (Procardia Xl) 30 mg DAILY PO ; Start 02/16/19 at 09:00 Assessment/Plan Hospital Course (Demo Recall) Mildly abnormal troponin: Consistent with non-ST elevation myocardial infarction probably type II Acute hypoxemic respiratory failure History of multiple CVA diabetes hypertension History of congestive heart failure: currently does not appear to be fluid overloaded to Dyslipidemia Peripheral vascular disease status post BKA Encephalopathy Renal insufficiency; probably acute on chronic Paroxysmal atrial fibrillation Recommendations: cont home plavix. CONT Eliquis 2.5 mg p.o. twice daily given his short episode of P atrial fibrillation AND HX OF CVA cont resp care O2 abx as per IM REC CONT DM control echo shows normal LV systolic function Medical therapy from the cardiac standpoint is recommended at this point given the fact that the patient has normal ejection fraction no angina is and is DNR Thank you for this referral. We will continue to follow along with you PIPPA MACIAS MD [facility] PIPPA MACIAS MD February 16, 2019 09:14
--- NOTE | 2019-02-16 09:19 | PN ---
DATE: 02/16/2019 SUBJECTIVE: The patient was noted to be hypertensive overnight. No acute events noted. No hemoptys is, hematemesis, hematochezia. OBJECTIVE: VITAL SIGNS: Blood pressure is 134/63, respirations 20, pulse 75, temperature 98.6. HEENT: Head is normocephalic. NECK: Supple. HEART: Regular rate. LUNGS: Show diminished breath sounds at the base. ABDOMEN: Soft, nontender to palpation without rebound or guarding. EXTREMITIES: Negative for clubbing, cyanosis, no edema. DERMATOLOGIC: No rashes. MUSCULOSKELETAL: No joint effusion. NEUROLOGIC: No change in exam. MEDICATIONS: Have been reviewed. LABORATORY DATA: Has been reviewed. ASSESSMENT AND PLAN: 1. Nonoliguric acute kidney injury with unknown baseline creatinine. Etiology of acute kidney injur y is secondary to hemodynamics, questionable volume depletion. The patient's renal function has impr cruz after a course of IV fluids. At this point, would continue current treatment plans, supportive care, renally dose all meds. 2. Mineral bone disorder, monitor calcium and phosphorus levels. 3. Hypertension. Blood pressure is elevated. We will adjust blood pressure medication. The patien t will be started on a calcium channel ignacio. Defer SILVER inhibitor or ARB at this time in the setti ng of acute kidney injury. 4. Acute hypoxemic respiratory failure secondary to chronic obstructive pulmonary disease exacerbati on. Continue medical management. Continue nebulizers, continue high flow oxygen. 5. Sepsis secondary to pneumonia. Continue current antibiotic regimen. 6. Coronary artery disease. Continue medical management. 7. Diabetes. Continue current insulin regimen. 8. History of cerebrovascular accident. Continue current treatment plan. 9. History of peripheral vascular disease. Continue current medical management. Dictated By: BRANDY CLEVELAND DO NR/NTS Conf#: [id number] DID#: [id number] CC: YOLETTE RICH MD;*End*
[2019-02-16] MEDS: BUDESONIDE (NEB) 0.5MG/2ML AMP HHN SCH ×2 (10:03→20:06)
[2019-02-16] MEDS: NIFEdipine (XL) 30 MG TAB PO SCH (10:13)
--- NOTE | 2019-02-16 12:24 | PN ---
Date/Time of Note Date/Time of Note DATE: 02/16/19 TIME: 12:23 Objective Vitals Vital Signs Date Temp Pulse Resp B/P (MAP) Pulse Ox O2 O2 Flow FiO2 Time Delivery Rate 02/16/19 98.1 72 20 145/65 96 High Flow 11:25 (91) 02/16/19 60 11:00 02/12/19 15.0 20:26 Intake and Output 02/15/19 02/15/19 02/16/19 1515:00 23:00 07:00 IntakeIntake Total 1150 ml 300 ml BalanceBalance 1150 ml 300 ml Results Result Diagram: 02/16/19 0657 02/16/19 0656 Medications Medications Current Medications IV Flush (NS 3 ml) 3 ml PER PROTOCOL IV ; Start 02/12/19 at 14:30 Nitroglycerin (Nitroglycerin (Sl Tab) 0.4 Mg) 1 tab Q5M PRN SL .CHEST PAIN; Start 02/12/19 at 14:30 Acetaminophen (Tylenol Tab) 650 mg Q6H PRN PO .PAIN 1-3 OR TEMP Last administered on 02/13/19at 16:30; Admin Dose 650 MG; Start 02/12/19 at 14:30 Acetaminophen/ Hydrocodone Bitart ([place] (5/325)) 1 tab Q6H PRN PO .PAIN 4-6; Start 02/12/19 at 14:30 Morphine Sulfate (morphine) 2 mg Q4H PRN IV .PAIN 7-10; Start 02/12/19 at 14:30 Atorvastatin Calcium (Lipitor) 80 mg QHS PO Last administered on 02/15/19at 21:21; Admin Dose 80 MG; Start 02/12/19 at 21:00 Clopidogrel Bisulfate (plaVIX) 75 mg DAILY PO Last administered on 02/16/19at 08:13; Admin Dose 75 MG; Start 02/13/19 at 09:00 Docusate Sodium (Colace) 250 mg BID PO Last administered on 02/16/19at 08:12; Admin Dose 250 MG; Start 02/12/19 at 21:00 Sertraline HCl (Zoloft) 150 mg DAILY PO Last administered on 02/16/19at 08:12; Admin Dose 150 MG; Start 02/13/19 at 09:00 Terazosin HCl (Hytrin) 1 mg BID PO Last administered on 02/16/19 08:14; Admin Dose 1 MG; Start 02/12/19 at 21:00 Ursodiol (Pili) 250 mg BID PO Last administered on 02/16/19 08:22; Admin Dose 250 MG; Start 02/12/19 at 21:00 Albuterol/ Ipratropium (Duoneb) 3 ml Q6HWA RESP THERAPY HHN Last administered on 02/16/19 08:01; Admin Dose 3 ML; Start 02/12/19 at 20:00 Albuterol/ Ipratropium (Duoneb) 3 ml Q2H RESP THERAPY PRN HHN shortness of breath; Start 02/12/19 at 14:30 Budesonide (Pulmicort (Neb)) 0.5 mg BID RESP THERAPY HHN Last administered on 02/16/19 10:03; Admin Dose 0.5 MG; Start 02/12/19 at 20:00 Miscellaneous Information 1 ea NOTE XX ; Start 02/12/19 at 15:00 Glucose (Glutose) 15 gm Q15M PRN PO DECREASED GLUCOSE; Start 02/12/19 at 15:00 Glucose (Glutose) 22.5 gm Q15M PRN PO DECREASED GLUCOSE; Start 02/12/19 at 15:00 Dextrose (D50w Syringe) 25 ml Q15M PRN IV DECREASED GLUCOSE; Start 02/12/19 at 15:00 Dextrose (D50w Syringe) 50 ml Q15M PRN IV DECREASED GLUCOSE; Start 02/12/19 at 15:00 Glucagon (Glucagen) 1 mg Q15M PRN IM DECREASED GLUCOSE; Start 02/12/19 at 15:00 Glucose (Glutose) 15 gm Q15M PRN BUCCAL DECREASED GLUCOSE; Start 02/12/19 at 15:00 Methylprednisolone Sodium Succinate (Solu-Medrol) 60 mg Q6 IV Last administered on 02/16/19 05:02; Admin Dose 60 MG; Start 02/13/19 at 14:21 Ondansetron HCl (Zofran Inj) 4 mg Q6H PRN IV NAUSEA AND/OR VOMITING; Start 02/13/19 at 16:30 Diagnostic Test (Pha) (Accu-Chek) 1 ea 02 XX Last administered on 02/16/19at 01:57; Admin Dose 1 EA; Start 02/14/19 at 02:00 Insulin Aspart (Novolog Insulin Pen) NOVOLOG *MODERATE* ALGORITHM WITH MEALS BEDTIME SC Last administered on 02/16/19 08:22; Admin Dose 8 UNIT; Start 02/13/19 at 17:55 Labetalol HCl (Labetalol) 10 mg Q4H PRN IV sbp >160 Last administered on 02/16/19 05:02; Admin Dose 10 MG; Start 02/13/19 at 16:42 Apixaban (Eliquis) 2.5 mg BID PO Last administered on 02/16/19 08:13; Admin Dose 2.5 MG; Start 02/14/19 at 21:00 Piperacillin Sod/ Tazobactam Sod 50 ml @ 200 mls/hr Q6 IVPB Last administered on 02/16/19 05:05; Admin Dose 200 MLS/HR; Start 02/14/19 at 18:00 Insulin Aspart (Novolog Insulin Pen) 7 unit WITH MEALS SC Last administered on 02/16/19 08:21; Admin Dose 7 UNIT; Start 02/15/19 at 11:50 Insulin Glargine (Lantus) 15 units DAILY@0800 SC Last administered on 02/16/19 08:21; Admin Dose 15 UNITS; Start 02/16/19 at 08:00 Pantoprazole (Protonix Tab) 40 mg DAILY@06 PO Last administered on 02/16/19 05:06; Admin Dose 40 MG; Start 02/16/19 at 06:00 Nifedipine (Procardia Xl) 30 mg DAILY PO Last administered on 02/16/19 10:13; Admin Dose 30 MG; Start 02/16/19 at 09:00 VTE Prophylaxis Risk score (from Nsg)>0 risk: 8 SCD applied (from Ns): Yes Lines/Catheters IV Catheter Type: Kim in Place: No Assessment/Plan Hospital Course Subjective Patient doing well, no chest pain Objective Physical exam General: Patient is laying in bed and answers questions appropriately Mentation: Patient is alert and oriented 3, Head: Normocephalic atraumatic Eyes: EOMI, pupils reactive to light Neck: Supple, nontender, midline Respiratory: mildly coarse to auscultation bilaterally Cardiovascular: regular rate, no obvious murmurs Gastrointestinal: non-tender to palpation, bowel sounds heard. Neurological: Moves all extremities spontaneously, left lower extremity BKA, left upper extremity moderately weaker than right Skin: No new skin lesions Assessment and plan Acute hypoxic respiratory distress, resolving -Doing well on high flow nasal cannula -Occurred after emesis event at halfway facility, patient likely aspirated -Pulmonary on board, -CT was ordered a few days ago stat, was done today, barrier according to nursing staff was high O2 requirement with high flow, CT done however official read not done. Will await Likely aspiration pneumonia -IV antibiotic -Cultures -Nebulizers COPD exacerbation -Likely secondary to above possible aspiration pneumonia -Hold off on beta-ignacio -Steroids Sepsis -IV fluids stopped -IV antibiotic -Cultures Non-ST elevated myocardial infarction -Cardiology consulted, Dr. Chambers -Troponins noted, -Statin -Aspirin -Heparin drip stopped per cardiology as patient has no angina, DNR, normal ejection fraction. No immediate plans for cardiac catheterization here [facility] Atrial fibrillation -Eliquis started per cardiology Diabetes mellitus -Insulin while in house Hypertension -Continue home meds, holding beta-ignacio due to possible COPD exacerbation History of CVA -Residual left sided weakness, patient can eat with his right hand -Mild chronic encephalopathy but more or less oriented per son Acute kidney injury versus chronic kidney disease -Nephrology on board Disposition -Continue follow-up from pulmonology, transfer when patient on better respiratory status. -Patient is DO NOT RESUSCITATE, however medical measures are okay. DO NOT INTUBATE as indicated in patients DNR form and as well as confirmed with patient and patient's son. YOLETTE IRCH February 16, 2019 12:24
--- NOTE | 2019-02-16 14:56 | PN ---
DATE: 02/16/2019 SUBJECTIVE: Chart reviewed. Consultants noted. The patient still on 60% FIO2 high flow, saturating 96%. PHYSICAL EXAMINATION: VITAL SIGNS: Blood pressure 145/65, pulse 72, respirations 20, temperature 98.1. HEENT: Pupils are equal and react to light. NECK: Supple, no JVD noted, no cervical adenopathy noted. LUNGS: Decreased breath sounds at the bases with few rales. CARDIOVASCULAR: S1, S2 normal. ABDOMEN: Soft, nontender, no megaly or masses noted. EXTREMITIES: No clubbing, cyanosis, or edema. NEUROLOGIC: Generalized weakness. LABORATORY DATA: WBC 15.3, hemoglobin 13.1, hematocrit 40, platelets 238. Sodium 140, potassium 3.8 , chloride 105, CO2 22, BUN 61, creatinine 1.64, glucose 290. BNP 8870. CT scan of the chest shows bilateral perihilar infiltrates suggestive of pulmonary edema. There is also consolidation of the ri ght lung base, suggestive of pneumonia. IMPRESSION: 1. Acute hypoxemic respiratory failure. 2. Most likely aspiration pneumonia. 3. Chronic obstructive pulmonary disease exacerbation. 4. History of cerebrovascular accident. 5. Acute on chronic kidney disease. PLAN: 1. Continue antibiotics. 2. Bronchodilators. 3. Steroids. 4. Oxygen. 5. Nephrology noted. 6. Once patient is more stable, the patient will be transferred to [facility] for further care. Dictated By: PERLA WHELAN MD, MA/LOREN Conf#: [id number] DID#: [id number] CC: YOLETTE RICH MD;*EndCC*
[2019-02-16] MEDS: ATORVASTATIN 20 MG TAB PO SCH (21:20)
[2019-02-17] VITALS (12 sets, daily range): BP systolic 158–192; BP diastolic 65–92; PULSE 66–83; RESP 16–22
[2019-02-17] MEDS: METHYLPREDNISOLONE 125 MG INJ IV SCH ×4 (00:43→17:16)
[2019-02-17] MEDS: PIPER-TAZO 2.25 GM (PMX) 50 ML IVPB SCH ×4 (00:43→17:16)
[2019-02-17] MEDS: ACCU-CHEK XX SCH (01:57)
[2019-02-17] MEDS: PANTOPRAZOLE (EC) 40 MG TAB PO SCH (06:23)
[2019-02-17] MEDS: INSULIN GLARGINE [LANTus] (100 UNITS/ML) SYG SC SCH (08:05)
[2019-02-17] MEDS: INSULIN ASPART [NOVOLOG] 3 ML PEN SC SCH ×6 (08:05→22:04)
[2019-02-17] MEDS: ALBUTEROL/IPRATROPIUM (NEB) 3 ML AMP HHN SCH ×3 (09:27→19:46)
[2019-02-17] MEDS: BUDESONIDE (NEB) 0.5MG/2ML AMP HHN SCH ×2 (09:27→19:46)
[2019-02-17] MEDS: SERTRALINE 100 MG TAB PO SCH (10:06)
[2019-02-17] MEDS: CLOPIDOGREL 75 MG TAB PO SCH (10:06)
[2019-02-17] MEDS: DOCUSATE SODIUM 250 MG CAP PO SCH ×2 (10:06→20:33)
[2019-02-17] MEDS: APIXABAN 5 MG TABLET PO SCH ×2 (10:08→20:33)
[2019-02-17] MEDS: TERAZOSIN 1 MG CAP PO SCH ×2 (10:08→20:34)
[2019-02-17] MEDS: NIFEdipine (XL) 30 MG TAB PO SCH (10:08)
[2019-02-17] MEDS: URSODIOL 250 MG TAB PO SCH ×2 (10:12→20:32)
--- NOTE | 2019-02-17 11:50 | CONS ---
Consult Date/Type/Reason Admit Date/Time February 12, 2019 at 13:35 Initial Consult Date 02/12/19 Type of Consultation: cv Requesting Provider: YOLETTE RICH Date/Time of Note DATE: 02/17/19 TIME: 11:48 Subjective Cardiology follow-up progress note Subjective: Case discussed with staff telemetry was reviewed patient remains in normal sinus rhythm has occasional PAC and PVCs He denies any left-sided chest pain or pressure to me. He is still on high flow oxygen Objective: General: no acute distress but on high flow oxygen HEENT: NC/AT. pupils are equal. round. NECK: NO JVD. no stridor. CV: RRR. systolic murmur; no gallop or rubs. PULM: no wheezing + diffuse rhonchi. GI: SOFT, NT, ND, no rebound or guarding Extremity: Left BKA neuro: awake and alert, OX2. Psych: calm and pleasant rectal: deferred EKG normal sinus rhythm right bundle branch with nonspecific ST-T wave abnormalities X-ray done 02/12/2019 shows: No acute disease. Calcified aorta consistent with atherosclerotic disease. Echocardiogram done February 12, 2019 which was personally reviewed shows: Normal left ventricular systolic function. Normal left ventricular cavity size. Moderate asymmetric septal hypertrophy. Ejection fraction is visually estimated at 55-60 %. Tissue Doppler/Mitral Doppler indices are consistent with impaired relaxation (Stage I diastolic dysfunction). The left atrium is normal in size. Mild mitral leaflet calcification. Mild mitral annular calcification. Trace mitral regurgitation. Aortic sclerosis without significant stenosis. Normal appearance of the tricuspid valve. Estimated peak PA systolic pressure 23 mmHg. There is trace tricuspid regurgitation. Objective Vitals Vital Signs Date Temp Pulse Resp B/P (MAP) Pulse Ox O2 O2 Flow FiO2 Time Delivery Rate 02/17/19 95 55 11:17 02/17/19 78 22 09:28 02/17/19 98.4 192/92 08:08 (125) 02/17/19 Vapotherm 07:40 Intake and Output 02/16/19 02/16/19 02/17/19 1515:00 23:00 07:00 IntakeIntake Total 960 ml BalanceBalance 960 ml Results/Medications Result Diagram: 02/16/19 0657 02/17/19 0544 Results 24 hrs Laboratory Tests Test 02/16/19 12:08 02/16/19 17:06 02/16/19 21:25 02/17/19 01:51 Bedside Glucose 186 228 H 287 H 256 H Test 02/17/19 05:44 02/17/19 07:55 Sodium Level 138 Potassium Level 4.0 Chloride Level 102 Carbon Dioxide Level 26 Anion Gap 10 Blood Urea Nitrogen 46 #H Creatinine 1.21 Est Glomerular Filtrat Rate mL/min Glucose Level 268 H Calcium Level 9.4 Phosphorus Level 2.5 Magnesium Level 2.2 Bedside Glucose 240 H Home Meds Reported Medications Na Phos,M-B/Na Phos,Di-Ba (ENEMA [id number]) 133 Ml Enema, 133 ML RC EVERY 48 HOURS PRN for CONSTIPATION, ENEMA 02/12/19 Bisacodyl (Dulcolax) 10 Mg Supp.rect, 10 MG RC EVERY 48 HOURS PRN for CON STIPATION, SUPP.RECT 02/12/19 Atenolol* (Atenolol*) 50 Mg Tablet, 50 MG PO BID, #60 TAB HOLD FOR SBP<110 OR HR <60 02/12/19 Acetaminophen* (Acetaminophen*) 650 Mg Tablet, 650 MG PO Q6H PRN for MILD PAIN LEVEL 1-3, #30 TAB 02/12/19 Ranitidine Hcl* (Zantac*) 300 Mg Tablet, 300 MG PO HS, #30 TAB 02/12/19 Amino Acids/Protein Hydrolys (PRO-STAT LIQUID) 30 Ml Liquid.pkt, 30 ML PO DAILY 02/12/19 Ursodiol* (Ursodiol*) 250 Mg Tablet, 250 MG PO BID, TAB 02/12/19 Sertraline Hcl* (Zoloft*) 100 Mg Tablet, 150 MG PO DAILY, #30 TAB 02/12/19 Ondansetron (Ondansetron Odt) 4 Mg Tab.rapdis, 4 MG PO Q6H PRN for NAUSEA AND/OR VOMITING, TAB 02/12/19 Terazosin Hcl* (Terazosin Hcl*) 1 Mg Capsule, 1 MG PO BID, CAP 02/12/19 Sennosides* (Senna Lax*) 8.6 Mg Tablet, 1 TAB PO QHS, TAB 02/12/19 Magnesium Hydroxide* (Milk Of Magnesia*) 400 Mg/5 Ml Oral.susp, 30 ML PO DAILY PRN for CONSTIPATION, ML 02/12/19 Metformin Hcl* (Metformin Hcl*) 500 Mg Tablet, 500 MG PO WITH BREAKFAST DINNE, #60 TAB 02/12/19 Atorvastatin Calcium* (Atorvastatin Calcium*) 20 Mg Tablet, 20 MG PO QHS, #30 TAB 02/12/19 Lactulose* (Lactulose*) 20 Gm/30 Ml Solution, 20 GM PO DAILY, ML 02/12/19 Gabapentin* (Gabapentin*) 100 Mg Capsule, 100 MG PO TID, #90 CAP 02/12/19 Docusate Sodium* (Colace*) 250 Mg Capsule, 250 MG PO BID, #60 CAP 02/12/19 Clopidogrel Bisulfate (Clopidogrel) 75 Mg Tablet, 75 MG PO DAILY, #30 TAB 02/12/19 Medications Current Medications IV Flush (NS 3 ml) 3 ml PER PROTOCOL IV ; Start 02/12/19 at 14:30 Nitroglycerin (Nitroglycerin (Sl Tab) 0.4 Mg) 1 tab Q5M PRN SL .CHEST PAIN; Start 02/12/19 at 14:30 Acetaminophen (Tylenol Tab) 650 mg Q6H PRN PO .PAIN 1-3 OR TEMP Last administered on 02/13/19at 16:30; Admin Dose 650 MG; Start 02/12/19 at 14:30 Acetaminophen/ Hydrocodone Bitart ([place] (5/325)) 1 tab Q6H PRN PO .PAIN 4-6; Start 02/12/19 at 14:30 Morphine Sulfate (morphine) 2 mg Q4H PRN IV .PAIN 7-10; Start 02/12/19 at 14:30 Atorvastatin Calcium (Lipitor) 80 mg QHS PO Last administered on 02/16/19at 21:20; Admin Dose 80 MG; Start 02/12/19 at 21:00 Clopidogrel Bisulfate (plaVIX) 75 mg DAILY PO Last administered on 02/17/19at 10:06; Admin Dose 75 MG; Start 02/13/19 at 09:00 Docusate Sodium (Colace) 250 mg BID PO Last administered on 02/17/19 10:06; Admin Dose 250 MG; Start 02/12/19 at 21:00 Sertraline HCl (Zoloft) 150 mg DAILY PO Last administered on 02/17/19at 10:06; Admin Dose 150 MG; Start 02/13/19 at 09:00 Terazosin HCl (Hytrin) 1 mg BID PO Last administered on 02/17/19 10:08; Admin Dose 1 MG; Start 02/12/19 at 21:00 Ursodiol (Pili) 250 mg BID PO Last administered on 02/17/19 10:12; Admin Dose 250 MG; Start 02/12/19 at 21:00 Albuterol/ Ipratropium (Duoneb) 3 ml Q6HWA RESP THERAPY HHN Last administered on 02/17/19 09:27; Admin Dose 3 ML; Start 02/12/19 at 20:00 Albuterol/ Ipratropium (Duoneb) 3 ml Q2H RESP THERAPY PRN HHN shortness of b reath; Start 02/12/19 at 14:30 Budesonide (Pulmicort (Neb)) 0.5 mg BID RESP THERAPY HHN Last administered on 02/17/19 09:27; Admin Dose 0.5 MG; Start 02/12/19 at 20:00 Miscellaneous Information 1 ea NOTE XX ; Start 02/12/19 at 15:00 Glucose (Glutose) 15 gm Q15M PRN PO DECREASED GLUCOSE; Start 02/12/19 at 15:00 Glucose (Glutose) 22.5 gm Q15M PRN PO DECREASED GLUCOSE; Start 02/12/19 at 15:00 Dextrose (D50w Syringe) 25 ml Q15M PRN IV DECREASED GLUCOSE; Start 02/12/19 at 15:00 Dextrose (D50w Syringe) 50 ml Q15M PRN IV DECREASED GLUCOSE; Start 02/12/19 at 15:00 Glucagon (Glucagen) 1 mg Q15M PRN IM DECREASED GLUCOSE; Start 02/12/19 at 15:00 Glucose (Glutose) 15 gm Q15M PRN BUCCAL DECREASED GLUCOSE; Start 02/12/19 at 15:00 Methylprednisolone Sodium Succinate (Solu-Medrol) 60 mg Q6 IV Last administered on 02/17/19 06:25; Admin Dose 60 MG; Start 02/13/19 at 14:21 Ondansetron HCl (Zofran Inj) 4 mg Q6H PRN IV NAUSEA AND/OR VOMITING; Start 02/13/19 at 16:30 Diagnostic Test (Pha) (Accu-Chek) 1 ea 02 XX Last administered on 02/16/19 01:57; Admin Dose 1 EA; Start 02/14/19 at 02:00 Insulin Aspart (Novolog Insulin Pen) NOVOLOG *MODERATE* ALGORITHM WITH MEALS BEDTIME SC Last administered on 02/17/19 08:05; Admin Dose 6 UNIT; Start 02/13/19 at 17:55 Labetalol HCl (Labetalol) 10 mg Q4H PRN IV sbp >160 Last administered on 02/16/19 05:02; Admin Dose 10 MG; Start 02/13/19 at 16:42 Apixaban (Eliquis) 2.5 mg BID PO Last administered on 02/17/19 10:08; Admin Dose 2.5 MG; Start 02/14/19 at 21:00 Piperacillin Sod/ Tazobactam Sod 50 ml @ 200 mls/hr Q6 IVPB Last administered on 02/17/19 06:23; Admin Dose 200 MLS/HR; Start 02/14/19 at 18:00 Insulin Aspart (Novolog Insulin Pen) 7 unit WITH MEALS SC Last administered on 02/17/19 08:05; Admin Dose 7 UNIT; Start 02/15/19 at 11:50 Insulin Glargine (Lantus) 15 units DAILY@0800 SC Last administered on 02/17/19 08:05; Admin Dose 15 UNITS; Start 02/16/19 at 08:00 Pantoprazole (Protonix Tab) 40 mg DAILY@06 PO Last administered on 02/17/19 06 :23; Admin Dose 40 MG; Start 02/16/19 at 06:00 Nifedipine (Procardia Xl) 30 mg DAILY PO Last administered on 02/17/19 10:08; Admin Dose 30 MG; Start 02/16/19 at 09:00 Assessment/Plan Hospital Course (Demo Recall) Mildly abnormal troponin: Consistent with non-ST elevation myocardial infarction probably type II Acute hypoxemic respiratory failure History of multiple CVA diabetes hypertension History of congestive heart failure: currently does not appear to be fluid overloaded to Dyslipidemia Peripheral vascular disease status post BKA Encephalopathy Renal insufficiency; probably acute on chronic Paroxysmal atrial fibrillation Recommendations: cont home plavix. CONT Eliquis 2.5 mg p.o. twice daily given his short episode of P atrial fibrillation AND HX OF CVA cont resp care O2 abx as per IM REC CONT DM control echo shows normal LV systolic function add toprol xl now that BP is elevated Medical therapy from the cardiac standpoint is recommended at this point given the fact that the patient has normal ejection fraction no angina is and is DNR Thank you for this referral. We will continue to follow along with you PIPPA MACIAS MD [facility] PIPPA MACIAS MD February 17, 2019 11:50
--- NOTE | 2019-02-17 12:05 | CONS ---
Assessment/Plan Assessment/Plan Hospital Course (Demo Recall) 1. Nonoliguric acute kidney injury with unknown baseline creatinine. Etiology of acute kidney injury is secondary to hemodynamics. s/p IVF. improving renal function. At this point, would continue current treatment plans, supportive care, renally dose all meds. 2. Mineral bone disorder, monitor calcium and phosphorus levels. 3. Hypertension. Blood pressure is elevated. We will adjust blood pressure medication. The patient will be started on a calcium channel ignacio. Defer SILVER inhibitor or ARB at this time in the setting of acute kidney injury. 4. Acute hypoxemic respiratory failure secondary to chronic obstructive pulmonary disease exacerbation. Continue medical management. Continue nebulizers, continue high flow oxygen. 5. Sepsis secondary to pneumonia. Continue current antibiotic regimen. 6. Coronary artery disease. Continue medical management. 7. Diabetes. Continue current insulin regimen. 8. History of cerebrovascular accident. Continue current treatment plan. 9. History of peripheral vascular disease. Continue current medical management. Consultation Date/Type/Reason Admit Date/Time February 12, 2019 at 13:35 Initial Consult Date 02/12/19 Requesting Provider: YOLETTE RICH Date/Time of Note DATE: 02/17/19 TIME: 12:04 24 HR Interval Summary Free Text/Dictation denies shortness of breath, n/v or urinary issues gen nad cv rrr pulm ctab abd soft, nd ,nt +bs ext: no edema Exam/Review of Systems Exam Vitals Vital Signs Date Temp Pulse Resp B/P (MAP) Pulse Ox O2 O2 Flow FiO2 Time Delivery Rate 02/17/19 95 55 11:17 02/17/19 78 22 09:28 02/17/19 98.4 192/92 08:08 (125) 02/17/19 Vapotherm 07:40 Intake and Output 02/16/19 02/16/19 02/17/19 1515:00 23:00 07:00 IntakeIntake Total 960 ml BalanceBalance 960 ml Results Result Diagram: 02/16/19 0657 02/17/19 0544 Results 24hrs Laboratory Tests Test 02/16/19 12:08 02/16/19 17:06 02/16/19 21:25 02/17/19 01:51 Bedside Glucose 186 228 H 287 H 256 H Test 02/17/19 05:44 02/17/19 07:55 Sodium Level 138 Potassium Level 4.0 Chloride Level 102 Carbon Dioxide Level 26 Anion Gap 10 Blood Urea Nitrogen 46 #H Creatinine 1.21 Est Glomerular Filtrat Rate mL/min Glucose Level 268 H Calcium Level 9.4 Phosphorus Level 2.5 Magnesium Level 2.2 Bedside Glucose 240 H Medications Medication Current Medications IV Flush (NS 3 ml) 3 ml PER PROTOCOL IV ; Start 02/12/19 at 14:30 Nitroglycerin (Nitroglycerin (Sl Tab) 0.4 Mg) 1 tab Q5M PRN SL .CHEST PAIN; Start 02/12/19 at 14:30 Acetaminophen (Tylenol Tab) 650 mg Q6H PRN PO .PAIN 1-3 OR TEMP Last administered on 02/13/19 16:30; Admin Dose 650 MG; Start 02/12/19 at 14:30 Acetaminophen/ Hydrocodone Bitart ([place] (5/325)) 1 tab Q6H PRN PO .PAIN 4-6; Start 02/12/19 at 14:30 Morphine Sulfate (morphine) 2 mg Q4H PRN IV .PAIN 7-10; Start 02/12/19 at 14:30 Atorvastatin Calcium (Lipitor) 80 mg QHS PO Last administered on 02/16/19 21:20; Admin Dose 80 MG; Start 02/12/19 at 21:00 Clopidogrel Bisulfate (plaVIX) 75 mg DAILY PO Last administered on 02/17/19 10:06; Admin Dose 75 MG; Start 02/13/19 at 09:00 Docusate Sodium (Colace) 250 mg BID PO Last administered on 02/17/19 10:06; Admin Dose 250 MG; Start 02/12/19 at 21:00 Sertraline HCl (Zoloft) 150 mg DAILY PO Last administered on 02/17/19 10:06; Admin Dose 150 MG; Start 02/13/19 at 09:00 Terazosin HCl (Hytrin) 1 mg BID PO Last administered on 02/17/19 10:08; Admin Dose 1 MG; Start 02/12/19 at 21:00 Ursodiol (Pili) 250 mg BID PO Last administered on 02/17/19 10:12; Admin Dose 250 MG; Start 02/12/19 at 21:00 Albuterol/ Ipratropium (Duoneb) 3 ml Q6HWA RESP THERAPY HHN Last administered on 02/17/19 09:27; Admin Dose 3 ML; Start 02/12/19 at 20:00 Albuterol/ Ipratropium (Duoneb) 3 ml Q2H RESP THERAPY PRN HHN shortness of breath; Start 02/12/19 at 14:30 Budesonide (Pulmicort (Neb)) 0.5 mg BID RESP THERAPY HHN Last administered on 02/17/19 09:27; Admin Dose 0.5 MG; Start 02/12/19 at 20:00 Miscellaneous Information 1 ea NOTE XX ; Start 02/12/19 at 15:00 Glucose (Glutose) 15 gm Q15M PRN PO DECREASED GLUCOSE; Start 02/12/19 at 15:00 Glucose (Glutose) 22.5 gm Q15M PRN PO DECREASED GLUCOSE; Start 02/12/19 at 15:00 Dextrose (D50w Syringe) 25 ml Q15M PRN IV DECREASED GLUCOSE; Start 02/12/19 at 15:00 Dextrose (D50w Syringe) 50 ml Q15M PRN IV DECREASED GLUCOSE; Start 02/12/19 at 15:00 Glucagon (Glucagen) 1 mg Q15M PRN IM DECREASED GLUCOSE; Start 02/12/19 at 15:00 Glucose (Glutose) 15 gm Q15M PRN BUCCAL DECREASED GLUCOSE; Start 02/12/19 at 15:00 Methylprednisolone Sodium Succinate (Solu-Medrol) 60 mg Q6 IV Last administered on 02/17/19at 06:25; Admin Dose 60 MG; Start 02/13/19 at 14:21 Ondansetron HCl (Zofran Inj) 4 mg Q6H PRN IV NAUSEA AND/OR VOMITING; Start 02/13/19 at 16:30 Diagnostic Test (Pha) (Accu-Chek) 1 ea 02 XX Last administered on 02/16/19at 01:57; Admin Dose 1 EA; Start 02/14/19 at 02:00 Insulin Aspart (Novolog Insulin Pen) NOVOLOG *MODERATE* ALGORITHM WITH MEALS BEDTIME SC Last administered on 02/17/19 08:05; Admin Dose 6 UNIT; Start 02/13/19 at 17:55 Labetalol HCl (Labetalol) 10 mg Q4H PRN IV sbp >160 Last administered on 5/10/19at 05:02; Admin Dose 10 MG; Start 02/13/19 at 16:42 Apixaban (Eliquis) 2.5 mg BID PO Last administered on 02/17/19at 10:08; Admin Dose 2.5 MG; Start 02/14/19 at 21:00 Piperacillin Sod/ Tazobactam Sod 50 ml @ 200 mls/hr Q6 IVPB Last administered on 02/17/19at 06:23; Admin Dose 200 MLS/HR; Start 02/14/19 at 18:00 Insulin Aspart (Novolog Insulin Pen) 7 unit WITH MEALS SC Last administered on 02/17/19 08:05; Admin Dose 7 UNIT; Start 02/15/19 at 11:50 Insulin Glargine (Lantus) 15 units DAILY@0800 SC Last administered on 02/17/19at 08:05; Admin Dose 15 UNITS; Start 02/16/19 at 08:00 Pantoprazole (Protonix Tab) 40 mg DAILY@06 PO Last administered on 02/17/19at 06:23; Admin Dose 40 MG; Start 02/16/19 at 06:00 Nifedipine (Procardia Xl) 30 mg DAILY PO Last administered on 02/17/19at 10:08; Admin Dose 30 MG; Start 02/16/19 at 09:00 Metoprolol Succinate (Toprol Xl) 25 mg BID PO ; Start 02/17/19 at 12:00; Status CHANA PARRA MD February 17, 2019 12:05
[2019-02-17] MEDS: METOPROLOL (XL) 25 MG TAB PO SCH ×2 (12:52→20:33)
--- NOTE | 2019-02-17 14:14 | PN ---
Date/Time of Note Date/Time of Note DATE: 02/17/19 TIME: 14:14 Objective Vitals Vital Signs Date Temp Pulse Resp B/P (MAP) Pulse Ox O2 O2 Flow FiO2 Time Delivery Rate 02/17/19 72 20 95 50 13:58 02/17/19 98.1 162/74 12:08 (103) 02/17/19 Vapotherm 07:40 Intake and Output 02/16/19 02/16/19 02/17/19 1414:59 22:59 06:59 IntakeIntake Total 960 ml BalanceBalance 960 ml Results Result Diagram: 02/16/19 0657 02/17/19 0544 Medications Medications Current Medications IV Flush (NS 3 ml) 3 ml PER PROTOCOL IV ; Start 02/12/19 at 14:30 Nitroglycerin (Nitroglycerin (Sl Tab) 0.4 Mg) 1 tab Q5M PRN SL .CHEST PAIN; Start 02/12/19 at 14:30 Acetaminophen (Tylenol Tab) 650 mg Q6H PRN PO .PAIN 1-3 OR TEMP Last administered on 02/13/19at 16:30; Admin Dose 650 MG; Start 02/12/19 at 14:30 Acetaminophen/ Hydrocodone Bitart ([place] (5/325)) 1 tab Q6H PRN PO .PAIN 4-6; Start 02/12/19 at 14:30 Morphine Sulfate (morphine) 2 mg Q4H PRN IV .PAIN 7-10; Start 02/12/19 at 14:30 Atorvastatin Calcium (Lipitor) 80 mg QHS PO Last administered on 02/16/19at 21:20; Admin Dose 80 MG; Start 02/12/19 at 21:00 Clopidogrel Bisulfate (plaVIX) 75 mg DAILY PO Last administered on 02/17/19 10:06; Admin Dose 75 MG; Start 02/13/19 at 09:00 Docusate Sodium (Colace) 250 mg BID PO Last administered on 02/17/19 10:06; Admin Dose 250 MG; Start 02/12/19 at 21:00 Sertraline HCl (Zoloft) 150 mg DAILY PO Last administered on 02/17/19 10:06; Admin Dose 150 MG; Start 02/13/19 at 09:00 Terazosin HCl (Hytrin) 1 mg BID PO Last administered on 5/11/19at 10:08; Admin Dose 1 MG; Start 02/12/19 at 21:00 Ursodiol (Pili) 250 mg BID PO Last administered on 02/17/19 10:12; Admin Dose 250 MG; Start 02/12/19 at 21:00 Albuterol/ Ipratropium (Duoneb) 3 ml Q6HWA RESP THERAPY HHN Last administered on 02/17/19at 13:58; Admin Dose 3 ML; Start 02/12/19 at 20:00 Albuterol/ Ipratropium (Duoneb) 3 ml Q2H RESP THERAPY PRN HHN shortness of breath; Start 02/12/19 at 14:30 Budesonide (Pulmicort (Neb)) 0.5 mg BID RESP THERAPY HHN Last administered on 02/17/19 09:27; Admin Dose 0.5 MG; Start 02/12/19 at 20:00 Miscellaneous Information 1 ea NOTE XX ; Start 02/12/19 at 15:00 Glucose (Glutose) 15 gm Q15M PRN PO DECREASED GLUCOSE; Start 02/12/19 at 15:00 Glucose (Glutose) 22.5 gm Q15M PRN PO DECREASED GLUCOSE; Start 02/12/19 at 15:00 Dextrose (D50w Syringe) 25 ml Q15M PRN IV DECREASED GLUCOSE; Start 02/12/19 at 15:00 Dextrose (D50w Syringe) 50 ml Q15M PRN IV DECREASED GLUCOSE; Start 02/12/19 at 15:00 Glucagon (Glucagen) 1 mg Q15M PRN IM DECREASED GLUCOSE; Start 02/12/19 at 15:00 Glucose (Glutose) 15 gm Q15M PRN BUCCAL DECREASED GLUCOSE; Start 02/12/19 at 15:00 Methylprednisolone Sodium Succinate (Solu-Medrol) 60 mg Q6 IV Last administered on 02/17/19at 11:59; Admin Dose 60 MG; Start 02/13/19 at 14:21 Ondansetron HCl (Zofran Inj) 4 mg Q6H PRN IV NAUSEA AND/OR VOMITING; Start 02/13/19 at 16:30 Diagnostic Test (Pha) (Accu-Chek) 1 ea 02 XX Last administered on 02/16/19at 01:57; Admin Dose 1 EA; Start 02/14/19 at 02:00 Insulin Aspart (Novolog Insulin Pen) NOVOLOG *MODERATE* ALGORITHM WITH MEALS BEDTIME SC Last administered on 02/17/19at 12:41; Admin Dose 8 UNIT; Start 02/13/19 at 17:55 Labetalol HCl (Labetalol) 10 mg Q4H PRN IV sbp >160 Last administered on 02/16/19at 05:02; Admin Dose 10 MG; Start 02/13/19 at 16:42 Apixaban (Eliquis) 2.5 mg BID PO Last administered on 02/17/19at 10:08; Admin Dose 2.5 MG; Start 02/14/19 at 21:00 Piperacillin Sod/ Tazobactam Sod 50 ml @ 200 mls/hr Q6 IVPB Last administered on 02/17/19at 11:59; Admin Dose 200 MLS/HR; Start 02/14/19 at 18:00 Pantoprazole (Protonix Tab) 40 mg DAILY@06 PO Last administered on 02/17/19at 06:23; Admin Dose 40 MG; Start 02/16/19 at 06:00 Nifedipine (Procardia Xl) 30 mg DAILY PO Last administered on 02/17/19at 10:08; Admin Dose 30 MG; Start 02/16/19 at 09:00 Metoprolol Succinate (Toprol Xl) 25 mg BID PO Last administered on 02/17/19at 12:52; Admin Dose 25 MG; Start 02/17/19 at 12:00 Insulin Aspart (Novolog Insulin Pen) 9 unit WITH MEALS SC ; Start 02/17/19 at 17:55 Insulin Glargine (Lantus) 20 units DAILY@0800 SC ; Start 02/18/19 at 08:00 VTE Prophylaxis Risk score (from Nsg)>0 risk: 8 SCD applied (from Nsg): Yes Lines/Catheters IV Catheter Type: Kim in Place: No Assessment/Plan Hospital Course Subjective Patient doing well, no chest pain Objective Physical exam General: Patient is laying in bed and answers questions appropriately Mentation: Patient is alert and oriented 3, Head: Normocephalic atraumatic Eyes: EOMI, pupils reactive to light Neck: Supple, nontender, midline Respiratory: mildly coarse to auscultation bilaterally Cardiovascular: regular rate, no obvious murmurs Gastrointestinal: non-tender to palpation, bowel sounds heard. Neurological: Moves all extremities spontaneously, left lower extremity BKA, left upper extremity moderately weaker than right Skin: No new skin lesions Assessment and plan Acute hypoxic respiratory distress, resolving -Doing well on high flow nasal cannula -Occurred after emesis event at residential facility, patient likely aspirated -Pulmonary on board, -CT was ordered a few days ago stat, was done today, barrier according to nursing staff was high O2 requirement with high flow, CT done however official read not done. Will await Likely aspiration pneumonia -IV antibiotic -Cultures -Nebulizers COPD exacerbation -Likely secondary to above possible aspiration pneumonia -Hold off on beta-ignacio -Steroids Sepsis -IV fluids stopped -IV antibiotic -Cultures Non-ST elevated myocardial infarction -Cardiology consulted, Dr. Chambers -Troponins noted, -Statin -Aspirin -Heparin drip stopped per cardiology as patient has no angina, DNR, normal ejection fraction. No immediate plans for cardiac catheterization here at [facility] Atrial fibrillation -Eliquis started per cardiology Diabetes mellitus -Insulin while in house Hypertension -Continue home meds, holding beta-ignacio due to possible COPD exacerbation History of CVA -Residual left sided weakness, patient can eat with his right hand -Mild chronic encephalopathy but more or less oriented per son Acute kidney injury versus chronic kidney disease -Nephrology on board Disposition -Continue follow-up from pulmonology, transfer when patient on better respiratory status. -Patient is DO NOT RESUSCITATE, however medical measures are okay. DO NOT INTUBATE as indicated in patients DNR form and as well as confirmed with patient and patient's son. YOLETTE RICH February 17, 2019 14:14
[2019-02-17] MEDS: ATORVASTATIN 20 MG TAB PO SCH (20:33)
--- NOTE | 2019-02-17 22:22 | CONS ---
Consult Date/Type/Reason Admit Date/Time February 12, 2019 at 13:35 Initial Consult Date 02/12/19 Type of Consultation: Pulm Requesting Provider: YOLETTE RICH Date/Time of Note DATE: 02/17/19 TIME: 22:19 Subjective No events. Remains on high flow oxygen. Objective Vitals Vital Signs Date Temp Pulse Resp B/P (MAP) Pulse Ox O2 O2 Flow FiO2 Time Delivery Rate 02/17/19 98.3 72 18 159/72 95 20:11 (101) 02/17/19 50 19:46 02/17/19 Vapotherm 07:40 Intake and Output 02/16/19 02/16/19 02/17/19 1515:00 23:00 07:00 IntakeIntake Total 960 ml BalanceBalance 960 ml Exam HEENT: Neck supple; no JVD; no LAD CVS: RRR, S1 and S2 CHEST: Coarse rhonchi b/l ABD: Soft, NT, + BS EXT: No c/c/e Results/Medications Result Diagram: 02/16/19 0657 02/17/19 0544 Results 24 hrs Laboratory Tests Test 02/17/19 01:51 02/17/19 05:44 02/17/19 07:55 02/17/19 12:04 Bedside Glucose 256 H 240 H 300 H Sodium Level 138 Potassium Level 4.0 Chloride Level 102 Carbon Dioxide Level 26 Anion Gap 10 Blood Urea Nitrogen 46 #H Creatinine 1.21 Est Glomerular Filtrat Rate mL/min Glucose Level 268 H Calcium Level 9.4 Phosphorus Level 2.5 Magnesium Level 2.2 Test 02/17/19 17:22 02/17/19 20:29 Bedside Glucose 172 268 H Home Meds Reported Medications Na Phos,M-B/Na Phos,Di-Ba (ENEMA [id number]) 133 Ml Enema, 133 ML RC EVERY 48 HOURS PRN for CONSTIPATION, ENEMA 02/12/19 Bisacodyl (Dulcolax) 10 Mg Supp.rect, 10 MG RC EVERY 48 HOURS PRN for CONSTIPATION, SUPP.RECT 02/12/19 Atenolol* (Atenolol*) 50 Mg Tablet, 50 MG PO BID, #60 TAB HOLD FOR SBP<110 OR HR <60 02/12/19 Acetaminophen* (Acetaminophen*) 650 Mg Tablet, 650 MG PO Q6H PRN for MILD PAIN LEVEL 1-3, #30 TAB 02/12/19 Ranitidine Hcl* (Zantac*) 300 Mg Tablet, 300 MG PO HS, #30 TAB 02/12/19 Amino Acids/Protein Hydrolys (PRO-STAT LIQUID) 30 Ml Liquid.pkt, 30 ML PO DAILY 02/12/19 Ursodiol* (Ursodiol*) 250 Mg Tablet, 250 MG PO BID, TAB 02/12/19 Sertraline Hcl* (Zoloft*) 100 Mg Tablet, 150 MG PO DAILY, #30 TAB 02/12/19 Ondansetron (Ondansetron Odt) 4 Mg Tab.rapdis, 4 MG PO Q6H PRN for NAUSEA AND/OR VOMITING, TAB 02/12/19 Terazosin Hcl* (Terazosin Hcl*) 1 Mg Capsule, 1 MG PO BID, CAP 02/12/19 Sennosides* (Senna Lax*) 8.6 Mg Tablet, 1 TAB PO QHS, TAB 02/12/19 Magnesium Hydroxide* (Milk Of Magnesia*) 400 Mg/5 Ml Oral.susp, 30 ML PO DAILY PRN for CONSTIPATION, ML 02/12/19 Metformin Hcl* (Metformin Hcl*) 500 Mg Tablet, 500 MG PO WITH BREAKFAST DINNE, #60 TAB 02/12/19 Atorvastatin Calcium* (Atorvastatin Calcium*) 20 Mg Tablet, 20 MG PO QHS, #30 TAB 02/12/19 Lactulose* (Lactulose*) 20 Gm/30 Ml Solution, 20 GM PO DAILY, ML 02/12/19 Gabapentin* (Gabapentin*) 100 Mg Capsule, 100 MG PO TID, #90 CAP 02/12/19 Docusate Sodium* (Colace*) 250 Mg Capsule, 250 MG PO BID, #60 CAP 02/12/19 Clopidogrel Bisulfate (Clopidogrel) 75 Mg Tablet, 75 MG PO DAILY, #30 TAB 02/12/19 Medications Current Medications IV Flush (NS 3 ml) 3 ml PER PROTOCOL IV ; Start 02/12/19 at 14:30 Nitroglycerin (Nitroglycerin (Sl Tab) 0.4 Mg) 1 tab Q5M PRN SL .CHEST PAIN; S tart 02/12/19 at 14:30 Acetaminophen (Tylenol Tab) 650 mg Q6H PRN PO .PAIN 1-3 OR TEMP Last administe red on 02/13/19 16:30; Admin Dose 650 MG; Start 02/12/19 at 14:30 Acetaminophen/ Hydrocodone Bitart ([place] (5/325)) 1 tab Q6H PRN PO .PAIN 4-6; Start 02/12/19 at 14:30 Morphine Sulfate (morphine) 2 mg Q4H PRN IV .PAIN 7-10; Start 02/12/19 at 14:30 Atorvastatin Calcium (Lipitor) 80 mg QHS PO Last administered on 02/17/19 20:33; Admin Dose 80 MG; Start 02/12/19 at 21:00 Clopidogrel Bisulfate (plaVIX) 75 mg DAILY PO Last administered on 02/17/19 10:06; Admin Dose 75 MG; Start 02/13/19 at 09:00 Docusate Sodium (Colace) 250 mg BID PO Last administered on 02/17/19 10:06; Admin Dose 250 MG; Start 02/12/19 at 21:00 Sertraline HCl (Zoloft) 150 mg DAILY PO Last administered on 02/17/19 10:06; Admin Dose 150 MG; Start 02/13/19 at 09:00 Terazosin HCl (Hytrin) 1 mg BID PO Last administered on 02/17/19 20:34; Admin Dose 1 MG; Start 02/12/19 at 21:00 Ursodiol (Pili) 250 mg BID PO Last administered on 02/17/19 20:32; Admin Dose 250 MG; Start 02/12/19 at 21:00 Albuterol/ Ipratropium (Duoneb) 3 ml Q6HWA RESP THERAPY HHN Last administered on 02/17/19 19:46; Admin Dose 3 ML; Start 02/12/19 at 20:00 Albuterol/ Ipratropium (Duoneb) 3 ml Q2H RESP THERAPY PRN HHN shortness of breath; Start 02/12/19 at 14:30 Budesonide (Pulmicort (Neb)) 0.5 mg BID RESP THERAPY HHN Last administered on 02/17/19 19:46; Admin Dose 0.5 MG; Start 02/12/19 at 20:00 Miscellaneous Information 1 ea NOTE XX ; Start 02/12/19 at 15:00 Glucose (Glutose) 15 gm Q15M PRN PO DECREASED GLUCOSE; Start 02/12/19 at 15:00 Glucose (Glutose) 22.5 gm Q15M PRN PO DECREASED GLUCOSE; Start 02/12/19 at 15:00 Dextrose (D50w Syringe) 25 ml Q15M PRN IV DECREASED GLUCOSE; Start 02/12/19 at 15:00 Dextrose (D50w Syringe) 50 ml Q15M PRN IV DECREASED GLUCOSE; Start 02/12/19 at 15:00 Glucagon (Glucagen) 1 mg Q15M PRN IM DECREASED GLUCOSE; Start 02/12/19 at 15:00 Glucose (Glutose) 15 gm Q15M PRN BUCCAL DECREASED GLUCOSE; Start 02/12/19 at 15:00 Methylprednisolone Sodium Succinate (Solu-Medrol) 60 mg Q6 IV Last administered on 02/17/19 17:16; Admin Dose 60 MG; Start 02/13/19 at 14:21 Ondansetron HCl (Zofran Inj) 4 mg Q6H PRN IV NAUSEA AND/OR VOMITING; Start 02/13/19 at 16:30 Diagnostic Test (Pha) (Accu-Chek) 1 ea 02 XX Last administered on 02/16/19at 01:57; Admin Dose 1 EA; Start 02/14/19 at 02:00 Insulin Aspart (Novolog Insulin Pen) NOVOLOG *MODERATE* ALGORITHM WITH MEALS BEDTIME SC Last administered on 02/17/19 22:04; Admin Dose 3 UNIT; Start 02/13/19 at 17:55 Labetalol HCl (Labetalol) 10 mg Q4H PRN IV sbp >160 Last administered on 02/16/19at 05:02; Admin Dose 10 MG; Start 02/13/19 at 16:42 Apixaban (Eliquis) 2.5 mg BID PO Last administered on 02/17/19 20:33; Admin Dose 2.5 MG; Start 02/14/19 at 21:00 Piperacillin Sod/ Tazobactam Sod 50 ml @ 200 mls/hr Q6 IVPB Last administered on 02/17/19 17:16; Admin Dose 200 MLS/HR; Start 02/14/19 at 18:00 Pantoprazole (Protonix Tab) 40 mg DAILY@06 PO Last administered on 02/17/19 06:23; Admin Dose 40 MG; Start 02/16/19 at 06:00 Nifedipine (Procardia Xl) 30 mg DAILY PO Last administered on 02/17/19at 10:08; Admin Dose 30 MG; Start 02/16/19 at 09:00 Metoprolol Succinate (Toprol Xl) 25 mg BID PO Last administered on 02/17/19at 20:33; Admin Dose 25 MG; Start 02/17/19 at 12:00 Insulin Aspart (Novolog Insulin Pen) 9 unit WITH MEALS SC Last administered on 02/17/19at 17:34; Admin Dose 9 UNIT; Start 02/17/19 at 17:55 Insulin Glargine (Lantus) 20 units DAILY@0800 SC ; Start 02/18/19 at 08:00 Assessment/Plan Assessment/Plan (Daily) IMP: 1. Acute hypoxemic respiratory failure 2. Most likely aspiration pneumonia. 3. Chronic obstructive pulmonary disease exacerbation 4. History of cerebrovascular accident 5. Acute on chronic kidney disease PLAN: 1. Continue antibiotics. 2. Bronchodilators. 3. Steroids--> taper 4. Titrate FiO2 as tolerated 5. Aspiration precautions 6. BD's/CPT MIRA VARELA MD February 17, 2019 22:22
[2019-02-18] VITALS (12 sets, daily range): BP systolic 128–196; BP diastolic 60–87; PULSE 61–87; RESP 16–20
[2019-02-18] MEDS: PIPER-TAZO 2.25 GM (PMX) 50 ML IVPB SCH ×4 (00:20→17:03)
[2019-02-18] MEDS: METHYLPREDNISOLONE 125 MG INJ IV SCH ×4 (00:20→21:08)
[2019-02-18] MEDS: ACCU-CHEK XX SCH (02:00)
[2019-02-18] MEDS: PANTOPRAZOLE (EC) 40 MG TAB PO SCH (05:19)
[2019-02-18] MEDS ORDERED: INSULIN GLARGINE [LANTus] (100 UNITS/ML) SYG SC SCH (08:00)
[2019-02-18] MEDS: DOCUSATE SODIUM 250 MG CAP PO SCH ×2 (08:03→21:00)
[2019-02-18] MEDS: TERAZOSIN 1 MG CAP PO SCH ×2 (08:03→21:06)
[2019-02-18] MEDS: URSODIOL 250 MG TAB PO SCH ×2 (08:03→21:06)
[2019-02-18] MEDS: CLOPIDOGREL 75 MG TAB PO SCH (08:04)
[2019-02-18] MEDS: NIFEdipine (XL) 30 MG TAB PO SCH (08:04)
[2019-02-18] MEDS: SERTRALINE 100 MG TAB PO SCH (08:04)
[2019-02-18] MEDS: APIXABAN 5 MG TABLET PO SCH ×2 (08:04→21:05)
[2019-02-18] MEDS: METOPROLOL (XL) 25 MG TAB PO SCH ×2 (08:05→21:07)
[2019-02-18] MEDS: INSULIN ASPART [NOVOLOG] 3 ML PEN SC SCH ×7 (08:10→21:00)
[2019-02-18] MEDS: BUDESONIDE (NEB) 0.5MG/2ML AMP HHN SCH ×2 (08:59→20:38)
[2019-02-18] MEDS: ALBUTEROL/IPRATROPIUM (NEB) 3 ML AMP HHN SCH ×3 (08:59→20:38)
[2019-02-18] MEDS ORDERED: NIFEdipine (XL) 30 MG TAB PO ONE (09:30)
--- NOTE | 2019-02-18 11:38 | CONS ---
Assessment/Plan Assessment/Plan Hospital Course (Demo Recall) 1. Nonoliguric acute kidney injury with unknown baseline creatinine. Etiology of acute kidney injury is secondary to hemodynamics. s/p IVF. improving renal function. At this point, would continue current treatment plans, supportive care, renally dose all meds. 2. Mineral bone disorder, monitor calcium and phosphorus levels. 3. Hypertension. Blood pressure is elevated. We will adjust blood pressure medication. The patient will be started on a calcium channel ignacio. Defer SILVER inhibitor or ARB at this time in the setting of acute kidney injury. 4. Acute hypoxemic respiratory failure secondary to chronic obstructive pulmonary disease exacerbation. Continue medical management. Continue nebulizers, continue high flow oxygen. 5. Sepsis secondary to pneumonia. Continue current antibiotic regimen. 6. Coronary artery disease. Continue medical management. 7. Diabetes. Continue current insulin regimen. 8. History of cerebrovascular accident. Continue current treatment plan. 9. History of peripheral vascular disease. Continue current medical management. Consultation Date/Type/Reason Admit Date/Time February 12, 2019 at 13:35 Initial Consult Date 02/12/19 Requesting Provider: YOLETTE RCIH Date/Time of Note DATE: 02/18/19 TIME: 11:37 24 HR Interval Summary Free Text/Dictation denies shortness of breath, n/v no urinary issues gen nad cv rrr pulm ctab abd soft, nd,nt +bs ext: no edema Exam/Review of Systems Exam Vitals Vital Signs Date Temp Pulse Resp B/P (MAP) Pulse Ox O2 O2 Flow FiO2 Time Delivery Rate 02/18/19 98.2 82 16 128/60 95 11:30 (82) 02/18/19 45 09:04 02/18/19 Vapotherm 07:24 Intake and Output 02/17/19 02/17/19 02/18/19 1515:00 23:00 07:00 IntakeIntake Total 750 ml 450 ml OutputOutput Total 200 ml BalanceBalance 550 ml 450 ml Results Result Diagram: 02/16/19 0657 02/18/19 0617 Results 24hrs Laboratory Tests Test 02/17/19 12:04 02/17/19 17:22 02/17/19 20:29 02/18/19 03:07 Bedside Glucose 300 H 172 268 H 172 Test 02/18/19 06:17 02/18/19 07:36 Sodium Level 137 Potassium Level 4.2 Chloride Level 103 Carbon Dioxide Level 26 Anion Gap 8 Blood Urea Nitrogen 39 H Creatinine 0.98 Est Glomerular Filtrat Rate mL/min Glucose Level 245 H Calcium Level 9.3 Magnesium Level 2.0 Total Bilirubin 0.3 Direct Bilirubin 0.00 Indirect Bilirubin 0.3 Aspartate Amino 19 Transf (AST/SGOT) Alanine 12 L Aminotransferase (AL T/SGPT) Alkaline Phosphatase 56 B-Type Natriuretic 3600 H Peptide Total Protein 6.3 Albumin 3.1 L Globulin 3.20 Albumin/Globulin 0.96 Ratio Bedside Glucose 223 H Medications Medication Current Medications IV Flush (NS 3 ml) 3 ml PER PROTOCOL IV ; Start 02/12/19 at 14:30 Nitroglycerin (Nitroglycerin (Sl Tab) 0.4 Mg) 1 tab Q5M PRN SL .CHEST PAIN; Start 02/12/19 at 14:30 Acetaminophen (Tylenol Tab) 650 mg Q6H PRN PO .PAIN 1-3 OR TEMP Last administered on 02/13/19at 16:30; Admin Dose 650 MG; Start 02/12/19 at 14:30 Acetaminophen/ Hydrocodone Bitart ([place] (5/325)) 1 tab Q6H PRN PO .PAIN 4-6; Start 02/12/19 at 14:30 Morphine Sulfate (morphine) 2 mg Q4H PRN IV .PAIN 7-10; Start 02/12/19 at 14:30 Atorvastatin Calcium (Lipitor) 80 mg QHS PO Last administered on 02/17/19at 20:33; Admin Dose 80 MG; Start 02/12/19 at 21:00 Clopidogrel Bisulfate (plaVIX) 75 mg DAILY PO Last administered on 02/18/19 08 :04; Admin Dose 75 MG; Start 02/13/19 at 09:00 Docusate Sodium (Colace) 250 mg BID PO Last administered on 02/18/19 08:03; Admin Dose 250 MG; Start 02/12/19 at 21:00 Sertraline HCl (Zoloft) 150 mg DAILY PO Last administered on 02/18/19 08:04; Admin Dose 150 MG; Start 02/13/19 at 09:00 Terazosin HCl (Hytrin) 1 mg BID PO Last administered on 02/18/19 08:03; Admin Dose 1 MG; Start 02/12/19 at 21:00 Ursodiol (Pili) 250 mg BID PO Last administered on 02/18/19at 08:03; Admin Dose 250 MG; Start 02/12/19 at 21:00 Albuterol/ Ipratropium (Duoneb) 3 ml Q6HWA RESP THERAPY HHN Last administered on 02/18/19at 08:59; Admin Dose 3 ML; Start 02/12/19 at 20:00 Albuterol/ Ipratropium (Duoneb) 3 ml Q2H RESP THERAPY PRN HHN shortness of breath; Start 02/12/19 at 14:30 Budesonide (Pulmicort (Neb)) 0.5 mg BID RESP THERAPY HHN Last administered on 02/18/19 08:59; Admin Dose 0.5 MG; Start 02/12/19 at 20:00 Miscellaneous Information 1 ea NOTE XX ; Start 02/12/19 at 15:00 Glucose (Glutose) 15 gm Q15M PRN PO DECREASED GLUCOSE; Start 02/12/19 at 15:00 Glucose (Glutose) 22.5 gm Q15M PRN PO DECREASED GLUCOSE; Start 02/12/19 at 15:00 Dextrose (D50w Syringe) 25 ml Q15M PRN IV DECREASED GLUCOSE; Start 02/12/19 at 15:00 Dextrose (D50w Syringe) 50 ml Q15M PRN IV DECREASED GLUCOSE; Start 02/12/19 at 15:00 Glucagon (Glucagen) 1 mg Q15M PRN IM DECREASED GLUCOSE; Start 02/12/19 at 15:00 Glucose (Glutose) 15 gm Q15M PRN BUCCAL DECREASED GLUCOSE; Start 02/12/19 at 15:00 Methylprednisolone Sodium Succinate (Solu-Medrol) 60 mg Q6 IV Last administered on 02/18/19at 05:19; Admin Dose 60 MG; Start 02/13/19 at 14:21 Ondansetron HCl (Zofran Inj) 4 mg Q6H PRN IV NAUSEA AND/OR VOMITING; Start 02/13/19 at 16:30 Diagnostic Test (Pha) (Accu-Chek) 1 ea 02 XX Last administered on 02/18/19at 02:00; Admin Dose 1 EA; Start 02/14/19 at 02:00 Insulin Aspart (Novolog Insulin Pen) NOVOLOG *MODERATE* ALGORITHM WITH MEALS BEDTIME SC Last administered on 02/18/19 08:10; Admin Dose 6 UNIT; Start 02/13/19 at 17:55 Labetalol HCl (Labetalol) 10 mg Q4H PRN IV sbp >160 Last administered on 02/16/19at 05:02; Admin Dose 10 MG; Start 02/13/19 at 16:42 Apixaban (Eliquis) 2.5 mg BID PO Last administered on 02/18/19at 08:04; Admin Dose 2.5 MG; Start 02/14/19 at 21:00 Piperacillin Sod/ Tazobactam Sod 50 ml @ 200 mls/hr Q6 IVPB Last administered on 02/18/19 05:19; Admin Dose 200 MLS/HR; Start 02/14/19 at 18:00 Pantoprazole (Protonix Tab) 40 mg DAILY@06 PO Last administered on 02/18/19 05:19; Admin Dose 40 MG; Start 02/16/19 at 06:00 Metoprolol Succinate (Toprol Xl) 25 mg BID PO Last administered on 02/18/19at 08:05; Admin Dose 25 MG; Start 02/17/19 at 12:00 Insulin Aspart (Novolog Insulin Pen) 9 unit WITH MEALS SC Last administered on 02/18/19 08:10; Admin Dose 9 UNIT; Start 02/17/19 at 17:55 Insulin Glargine (Lantus) 20 units DAILY@0800 SC Last administered on 02/18/19 08:10; Admin Dose 20 UNITS; Start 02/18/19 at 08:00 Nifedipine (Procardia Xl) 60 mg DAILY PO ; Start 02/19/19 at 09:00 Hydralazine HCl (Apresoline) 10 mg Q4H PRN IV sbp >160; Start 02/18/19 at 09:30 CHANA RICH MD February 18, 2019 11:38
--- NOTE | 2019-02-18 12:00 | PN ---
Date/Time of Note Date/Time of Note DATE: 02/18/19 TIME: 11:59 Objective Vitals Vital Signs Date Temp Pulse Resp B/P (MAP) Pulse Ox O2 O2 Flow FiO2 Time Delivery Rate 02/18/19 98.2 82 16 128/60 95 11:30 (82) 02/18/19 45 09:04 02/18/19 Vapotherm 07:24 Intake and Output 02/17/19 02/17/19 02/18/19 1414:59 22:59 06:59 IntakeIntake Total 750 ml 450 ml OutputOutput Total 200 ml BalanceBalance 550 ml 450 ml Results Result Diagram: 02/16/19 0657 02/18/19 0617 Medications Medications Current Medications IV Flush (NS 3 ml) 3 ml PER PROTOCOL IV ; Start 02/12/19 at 14:30 Nitroglycerin (Nitroglycerin (Sl Tab) 0.4 Mg) 1 tab Q5M PRN SL .CHEST PAIN; Start 02/12/19 at 14:30 Acetaminophen (Tylenol Tab) 650 mg Q6H PRN PO .PAIN 1-3 OR TEMP Last administered on 02/13/19at 16:30; Admin Dose 650 MG; Start 02/12/19 at 14:30 Acetaminophen/ Hydrocodone Bitart ([place] (5/325)) 1 tab Q6H PRN PO .PAIN 4-6; Start 02/12/19 at 14:30 Morphine Sulfate (morphine) 2 mg Q4H PRN IV .PAIN 7-10; Start 02/12/19 at 14:30 Atorvastatin Calcium (Lipitor) 80 mg QHS PO Last administered on 02/17/19at 20:33; Admin Dose 80 MG; Start 02/12/19 at 21:00 Clopidogrel Bisulfate (plaVIX) 75 mg DAILY PO Last administered on 02/18/19at 08:04; Admin Dose 75 MG; Start 02/13/19 at 09:00 Docusate Sodium (Colace) 250 mg BID PO Last administered on 02/18/19 08:03; Admin Dose 250 MG; Start 02/12/19 at 21:00 Sertraline HCl (Zoloft) 150 mg DAILY PO Last administered on 02/18/19 08:04; Admin Dose 150 MG; Start 02/13/19 at 09:00 Terazosin HCl (Hytrin) 1 mg BID PO Last administered on 02/18/19 08:03; Admin Dose 1 MG; Start 02/12/19 at 21:00 Ursodiol (Pili) 250 mg BID PO Last administered on 02/18/19 08:03; Admin Dose 250 MG; Start 02/12/19 at 21:00 Albuterol/ Ipratropium (Duoneb) 3 ml Q6HWA RESP THERAPY HHN Last administered on 02/18/19 08:59; Admin Dose 3 ML; Start 02/12/19 at 20:00 Albuterol/ Ipratropium (Duoneb) 3 ml Q2H RESP THERAPY PRN HHN shortness of breath; Start 02/12/19 at 14:30 Budesonide (Pulmicort (Neb)) 0.5 mg BID RESP THERAPY HHN Last administered on 02/18/19 08:59; Admin Dose 0.5 MG; Start 02/12/19 at 20:00 Miscellaneous Information 1 ea NOTE XX ; Start 02/12/19 at 15:00 Glucose (Glutose) 15 gm Q15M PRN PO DECREASED GLUCOSE; Start 02/12/19 at 15:00 Glucose (Glutose) 22.5 gm Q15M PRN PO DECREASED GLUCOSE; Start 02/12/19 at 15:00 Dextrose (D50w Syringe) 25 ml Q15M PRN IV DECREASED GLUCOSE; Start 02/12/19 at 15:00 Dextrose (D50w Syringe) 50 ml Q15M PRN IV DECREASED GLUCOSE; Start 02/12/19 at 15:00 Glucagon (Glucagen) 1 mg Q15M PRN IM DECREASED GLUCOSE; Start 02/12/19 at 15:00 Glucose (Glutose) 15 gm Q15M PRN BUCCAL DECREASED GLUCOSE; Start 02/12/19 at 15:00 Methylprednisolone Sodium Succinate (Solu-Medrol) 60 mg Q6 IV Last administered on 02/18/19 11:40; Admin Dose 60 MG; Start 02/13/19 at 14:21 Ondansetron HCl (Zofran Inj) 4 mg Q6H PRN IV NAUSEA AND/OR VOMITING; Start 02/13/19 at 16:30 Diagnostic Test (Pha) (Accu-Chek) 1 ea 02 XX Last administered on 02/18/19 02:00; Admin Dose 1 EA; Start 02/14/19 at 02:00 Insulin Aspart (Novolog Insulin Pen) NOVOLOG *MODERATE* ALGORITHM WITH MEALS B EDTIME SC Last administered on 02/18/19 08:10; Admin Dose 6 UNIT; Start 02/13/19 at 17:55 Labetalol HCl (Labetalol) 10 mg Q4H PRN IV sbp >160 Last administered on 02/16/19 05:02; Admin Dose 10 MG; Start 02/13/19 at 16:42 Apixaban (Eliquis) 2.5 mg BID PO Last administered on 02/18/19 08:04; Admin Dose 2.5 MG; Start 02/14/19 at 21:00 Piperacillin Sod/ Tazobactam Sod 50 ml @ 200 mls/hr Q6 IVPB Last administered on 02/18/19 11:44; Admin Dose 200 MLS/HR; Start 02/14/19 at 18:00 Pantoprazole (Protonix Tab) 40 mg DAILY@06 PO Last administered on 02/18/19 05:19; Admin Dose 40 MG; Start 02/16/19 at 06:00 Metoprolol Succinate (Toprol Xl) 25 mg BID PO Last administered on 02/18/19 08:05; Admin Dose 25 MG; Start 02/17/19 at 12:00 Insulin Aspart (Novolog Insulin Pen) 9 unit WITH MEALS SC Last administered on 02/18/19 08:10; Admin Dose 9 UNIT; Start 02/17/19 at 17:55 Insulin Glargine (Lantus) 20 units DAILY@0800 SC Last administered on 02/18/19 08:10; Admin Dose 20 UNITS; Start 02/18/19 at 08:00 Nifedipine (Procardia Xl) 60 mg DAILY PO ; Start 02/19/19 at 09:00 Hydralazine HCl (Apresoline) 10 mg Q4H PRN IV sbp >160; Start 02/18/19 at 09:30 VTE Prophylaxis Risk score (from Nsg)>0 risk: 8 SCD applied (from Nsg): Yes Lines/Catheters IV Catheter Type: Kim in Place: No Assessment/Plan Hospital Course Subjective Patient doing well Objective Physical exam General: Patient is laying in bed and answers questions appropriately Mentation: Patient is alert and oriented 3, Head: Normocephalic atraumatic Eyes: EOMI, pupils reactive to light Neck: Supple, nontender, midline Respiratory: mildly coarse to auscultation bilaterally Cardiovascular: regular rate, no obvious murmurs Gastrointestinal: non-tender to palpation, bowel sounds heard. Neurological: Moves all extremities spontaneously, left lower extremity BKA, left upper extremity moderately weaker than right Skin: No new skin lesions Assessment and plan Acute hypoxic respiratory distress, resolving -Doing well on high flow nasal cannula -Occurred after emesis event at nursing home facility, patient likely aspirated -Pulmonary on board, -CT was ordered a few days ago stat, was done today, barrier according to nursing staff was high O2 requirement with high flow, CT done however official read not done. Will await Likely aspiration pneumonia -IV antibiotic -Cultures -Nebulizers COPD exacerbation -Likely secondary to above possible aspiration pneumonia -Hold off on beta-ignacio -Steroids Sepsis -IV fluids stopped -IV antibiotic -Cultures Non-ST elevated myocardial infarction -Cardiology consulted, Dr. Chambers -Troponins noted, -Statin -Aspirin -Heparin drip stopped per cardiology as patient has no angina, DNR, normal ejection fraction. No immediate plans for cardiac catheterization here [facility] Atrial fibrillation -Eliquis started per cardiology Diabetes mellitus -Insulin while in house Hypertension -Continue home meds, holding beta-ignacio due to possible COPD exacerbation History of CVA -Residual left sided weakness, patient can eat with his right hand -Mild chronic encephalopathy but more or less oriented per son Acute kidney injury versus chronic kidney disease -Nephrology on board Disposition -Continue follow-up from pulmonology, transfer when patient on better respiratory status. -Patient is DO NOT RESUSCITATE, however medical measures are okay. DO NOT INTUBATE as indicated in patients DNR form and as well as confirmed with patient and patient's son. YOLETTE RICH February 18, 2019 11:59
--- NOTE | 2019-02-18 12:49 | CONS ---
Consult Date/Type/Reason Admit Date/Time February 12, 2019 at 13:35 Initial Consult Date 02/12/19 Type of Consultation: cv Requesting Provider: YOLETTE RICH Date/Time of Note DATE: 02/18/19 TIME: 12:47 Subjective Cardiology follow-up progress note Subjective: Case discussed with staff telemetry was reviewed patient remains in normal sinus rhythm has occasional PAC and PVCs He denies any left-sided chest pain or pressure to me. He is still on high flow oxygen but only 50% now Objective: General: no acute distress but on high flow oxygen HEENT: NC/AT. pupils are equal. round. NECK: NO JVD. no stridor. CV: RRR. systolic murmur; no gallop or rubs. PULM: no wheezing + diffuse rhonchi. GI: SOFT, NT, ND, no rebound or guarding Extremity: Left BKA neuro: awake and alert, OX2. Psych: calm and pleasant rectal: deferred EKG normal sinus rhythm right bundle branch with nonspecific ST-T wave abnormalities X-ray done 02/12/2019 shows: No acute disease. Calcified aorta consistent with atherosclerotic disease. Echocardiogram done February 12, 2019 which was personally reviewed shows: Normal left ventricular systolic function. Normal left ventricular cavity size. Moderate asymmetric septal hypertrophy. Ejection fraction is visually estimated at 55-60 %. Tissue Doppler/Mitral Doppler indices are consistent with impaired relaxation (Stage I diastolic dysfunction). The left atrium is normal in size. Mild mitral leaflet calcification. Mild mitral annular calcification. Trace mitral regurgitation. Aortic sclerosis without significant stenosis. Normal appearance of the tricuspid valve. Estimated peak PA systolic pressure 23 mmHg. There is trace tricuspid regurgitation. Objective Vitals Vital Signs Date Temp Pulse Resp B/P (MAP) Pulse Ox O2 O2 Flow FiO2 Time Delivery Rate 02/18/19 96 50 12:05 02/18/19 98.2 82 16 128/60 11:30 (82) 02/18/19 Vapotherm 07:24 Intake and Output 02/17/19 02/17/19 02/18/19 1515:00 23:00 07:00 IntakeIntake Total 750 ml 450 ml OutputOutput Total 200 ml BalanceBalance 550 ml 450 ml Results/Medications Result Diagram: 02/16/19 0657 02/18/19 0617 Results 24 hrs Laboratory Tests Test 02/17/19 17:22 02/17/19 20:29 02/18/19 03:07 02/18/19 06:17 Bedside Glucose 172 268 H 172 Sodium Level 137 Potassium Level 4.2 Chloride Level 103 Carbon Dioxide Level 26 Anion Gap 8 Blood Urea Nitrogen 39 H Creatinine 0.98 Est Glomerular Filtrat Rate mL/min Glucose Level 245 H Calcium Level 9.3 Magnesium Level 2.0 Total Bilirubin 0.3 Direct Bilirubin 0.00 Indirect Bilirubin 0.3 Aspartate Amino 19 Transf (AST/SGOT) Alanine 12 L Aminotransferase (AL T/SGPT) Alkaline Phosphatase 56 B-Type Natriuretic 3600 H Peptide Total Protein 6.3 Albumin 3.1 L Globulin 3.20 Albumin/Globulin 0.96 Ratio Test 02/18/19 07:36 02/18/19 11:51 Bedside Glucose 223 H 301 H Home Meds Reported Medications Na Phos,M-B/Na Phos,Di-Ba (ENEMA [id number]) 133 Ml Enema, 133 ML RC EVERY 48 HOURS PRN for CONSTIPATION, ENEMA 02/12/19 Bisacodyl (Dulcolax) 10 Mg Supp.rect, 10 MG RC EVERY 48 HOURS PRN for CONSTIPATION, SUPP.RECT 02/12/19 Atenolol* (Atenolol*) 50 Mg Tablet, 50 MG PO BID, #60 TAB HOLD FOR SBP<110 OR HR <60 02/12/19 Acetaminophen* (Acetaminophen*) 650 Mg Tablet, 650 MG PO Q6H PRN for MILD PAIN L EVEL 1-3, #30 TAB 02/12/19 Ranitidine Hcl* (Zantac*) 300 Mg Tablet, 300 MG PO HS, #30 TAB 02/12/19 Amino Acids/Protein Hydrolys (PRO-STAT LIQUID) 30 Ml Liquid.pkt, 30 ML PO DAILY 02/12/19 Ursodiol* (Ursodiol*) 250 Mg Tablet, 250 MG PO BID, TAB 02/12/19 Sertraline Hcl* (Zoloft*) 100 Mg Tablet, 150 MG PO DAILY, #30 TAB 02/12/19 Ondansetron (Ondansetron Odt) 4 Mg Tab.rapdis, 4 MG PO Q6H PRN for NAUSEA AND/OR VOMITING, TAB 02/12/19 Terazosin Hcl* (Terazosin Hcl*) 1 Mg Capsule, 1 MG PO BID, CAP 02/12/19 Sennosides* (Senna Lax*) 8.6 Mg Tablet, 1 TAB PO QHS, TAB 02/12/19 Magnesium Hydroxide* (Milk Of Magnesia*) 400 Mg/5 Ml Oral.susp, 30 ML PO DAILY PRN for CONSTIPATION, ML 02/12/19 Metformin Hcl* (Metformin Hcl*) 500 Mg Tablet, 500 MG PO WITH BREAKFAST DINNE, #60 TAB 02/12/19 Atorvastatin Calcium* (Atorvastatin Calcium*) 20 Mg Tablet, 20 MG PO QHS, #30 TAB 02/12/19 Lactulose* (Lactulose*) 20 Gm/30 Ml Solution, 20 GM PO DAILY, ML 02/12/19 Gabapentin* (Gabapentin*) 100 Mg Capsule, 100 MG PO TID, #90 CAP 02/12/19 Docusate Sodium* (Colace*) 250 Mg Capsule, 250 MG PO BID, #60 CAP 02/12/19 Clopidogrel Bisulfate (Clopidogrel) 75 Mg Tablet, 75 MG PO DAILY, #30 TAB 02/12/19 Medications Current Medications IV Flush (NS 3 ml) 3 ml PER PROTOCOL IV ; Start 02/12/19 at 14:30 Nitroglycerin (Nitroglycerin (Sl Tab) 0.4 Mg) 1 tab Q5M PRN SL .CHEST PAIN; Start 02/12/19 at 14:30 Acetaminophen (Tylenol Tab) 650 mg Q6H PRN PO .PAIN 1-3 OR TEMP Last administered on 02/13/19at 16:30; Admin Dose 650 MG; Start 02/12/19 at 14:30 Acetaminophen/ Hydrocodone Bitart ([place] (5/325)) 1 tab Q6H PRN PO .PAIN 4-6; Start 02/12/19 at 14:30 Morphine Sulfate (morphine) 2 mg Q4H PRN IV .PAIN 7-10; Start 02/12/19 at 14:30 Atorvastatin Calcium (Lipitor) 80 mg QHS PO Last administered on 02/17/19at 20 :33; Admin Dose 80 MG; Start 02/12/19 at 21:00 Clopidogrel Bisulfate (plaVIX) 75 mg DAILY PO Last administered on 02/18/19at 08:04; Admin Dose 75 MG; Start 02/13/19 at 09:00 Docusate Sodium (Colace) 250 mg BID PO Last administered on 02/18/19 08:03; Admin Dose 250 MG; Start 02/12/19 at 21:00 Sertraline HCl (Zoloft) 150 mg DAILY PO Last administered on 02/18/19 08:04; Admin Dose 150 MG; Start 02/13/19 at 09:00 Terazosin HCl (Hytrin) 1 mg BID PO Last administered on 02/18/19 08:03; Admin Dose 1 MG; Start 02/12/19 at 21:00 Ursodiol (Pili) 250 mg BID PO Last administered on 02/18/19 08:03; Admin Dose 250 MG; Start 02/12/19 at 21:00 Albuterol/ Ipratropium (Duoneb) 3 ml Q6HWA RESP THERAPY HHN Last administered on 02/18/19 08:59; Admin Dose 3 ML; Start 02/12/19 at 20:00 Albuterol/ Ipratropium (Duoneb) 3 ml Q2H RESP THERAPY PRN HHN shortness of breath; Start 02/12/19 at 14:30 Budesonide (Pulmicort (Neb)) 0.5 mg BID RESP THERAPY HHN Last administered on 02/18/19 08:59; Admin Dose 0.5 MG; Start 02/12/19 at 20:00 Miscellaneous Information 1 ea NOTE XX ; Start 02/12/19 at 15:00 Glucose (Glutose) 15 gm Q15M PRN PO DECREASED GLUCOSE; Start 02/12/19 at 15:00 Glucose (Glutose) 22.5 gm Q15M PRN PO DECREASED GLUCOSE; Start 02/12/19 at 15:00 Dextrose (D50w Syringe) 25 ml Q15M PRN IV DECREASED GLUCOSE; Start 02/12/19 at 15:00 Dextrose (D50w Syringe) 50 ml Q15M PRN IV DECREASED GLUCOSE; Start 02/12/19 at 15:00 Glucagon (Glucagen) 1 mg Q15M PRN IM DECREASED GLUCOSE; Start 02/12/19 at 15:00 Glucose (Glutose) 15 gm Q15M PRN BUCCAL DECREASED GLUCOSE; Start 02/12/19 at 15:00 Methylprednisolone Sodium Succinate (Solu-Medrol) 60 mg Q6 IV Last administered on 02/18/19 11:40; Admin Dose 60 MG; Start 02/13/19 at 14:21 Ondansetron HCl (Zofran Inj) 4 mg Q6H PRN IV NAUSEA AND/OR VOMITING; Start 02/13/19 at 16:30 Diagnostic Test (Pha) (Accu-Chek) 1 ea 02 XX Last administered on 02/18/19at 02:00; Admin Dose 1 EA; Start 02/14/19 at 02:00 Insulin Aspart (Novolog Insulin Pen) NOVOLOG *MODERATE* ALGORITHM WITH MEALS BEDTIME SC Last administered on 02/18/19at 12:13; Admin Dose 10 UNIT; Start 02/13/19 at 17:55 Labetalol HCl (Labetalol) 10 mg Q4H PRN IV sbp >160 Last administered on 02/16/19at 05:02; Admin Dose 10 MG; Start 02/13/19 at 16:42 Apixaban (Eliquis) 2.5 mg BID PO Last administered on 02/18/19at 08:04; Admin Dose 2.5 MG; Start 02/14/19 at 21:00 Piperacillin Sod/ Tazobactam Sod 50 ml @ 200 mls/hr Q6 IVPB Last administered on 02/18/19at 11:44; Admin Dose 200 MLS/HR; Start 02/14/19 at 18:00 Pantoprazole (Protonix Tab) 40 mg DAILY@06 PO Last administered on 02/18/19at 05:19; Admin Dose 40 MG; Start 02/16/19 at 06:00 Metoprolol Succinate (Toprol Xl) 25 mg BID PO Last administered on 02/18/19at 08:05; Admin Dose 25 MG; Start 02/17/19 at 12:00 Insulin Aspart (Novolog Insulin Pen) 9 unit WITH MEALS SC Last administered on 02/18/19 12:13; Admin Dose 9 UNIT; Start 02/17/19 at 17:55 Nifedipine (Procardia Xl) 60 mg DAILY PO ; Start 02/19/19 at 09:00 Hydralazine HCl (Apresoline) 10 mg Q4H PRN IV sbp >160; Start 02/18/19 at 09:30 Insulin Glargine (Lantus) 25 units DAILY@0800 SC ; Start 02/19/19 at 08:00 Assessment/Plan Hospital Course (Demo Recall) Mildly abnormal troponin: Consistent with non-ST elevation myocardial infarction probably type II Acute hypoxemic respiratory failure History of multiple CVA diabetes hypertension History of congestive heart failure: currently does not appear to be fluid overloaded to Dyslipidemia Peripheral vascular disease status post BKA Encephalopathy Renal insufficiency; probably acute on chronic Paroxysmal atrial fibrillation Recommendations: cont home plavix. CONT Eliquis 2.5 mg p.o. twice daily given his short episode of P atrial fibrillation AND HX OF CVA cont resp care O2 abx as per IM REC CONT DM control echo shows normal LV systolic function cont toprol xl now dec procardia. lasix prn Medical therapy from the cardiac standpoint is recommended at this point given the fact that the patient has normal ejection fraction no angina is and is DNR Thank you for this referral. We will continue to follow along with you PIPPA MACIAS MD [facility] PIPPA MACIAS MD February 18, 2019 12:49
[2019-02-18] MEDS ORDERED: FUROSEMIDE 20 MG INJ IV ONE (13:00)
--- NOTE | 2019-02-18 16:09 | CONS ---
Consult Date/Type/Reason Admit Date/Time February 12, 2019 at 13:35 Initial Consult Date 02/12/19 Type of Consultation: cv Requesting Provider: YOLETTE RICH Date/Time of Note DATE: 02/18/19 TIME: 16:06 Objective Vitals Vital Signs Date Temp Pulse Resp B/P (MAP) Pulse Ox O2 O2 Flow FiO2 Time Delivery Rate 02/18/19 75 20 96 50 13:47 02/18/19 98.2 128/60 11:30 (82) 02/18/19 Vapotherm 07:24 Intake and Output 02/17/19 02/17/19 02/18/19 1515:00 23:00 07:00 IntakeIntake Total 750 ml 450 ml OutputOutput Total 200 ml BalanceBalance 550 ml 450 ml Exam HEENT: Neck supple; no JVD; no LAD CVS: RRR, S1 and S2 CHEST: Coarse rhonchi b/l ABD: Soft, NT, + BS EXT: No c/c/e Results/Medications Result Diagram: 02/16/19 0657 02/18/19 0617 Results 24 hrs Laboratory Tests Test 02/17/19 17:22 02/17/19 20:29 02/18/19 03:07 02/18/19 06:17 Bedside Glucose 172 268 H 172 Sodium Level 137 Potassium Level 4.2 Chloride Level 103 Carbon Dioxide Level 26 Anion Gap 8 Blood Urea Nitrogen 39 H Creatinine 0.98 Est Glomerular Filtrat Rate mL/min Glucose Level 245 H Calcium Level 9.3 Magnesium Level 2.0 Total Bilirubin 0.3 Direct Bilirubin 0.00 Indirect Bilirubin 0.3 Aspartate Amino 19 Transf (AST/SGOT) Alanine 12 L Aminotransferase (AL T/SGPT) Alkaline Phosphatase 56 B-Type Natriuretic 3600 H Peptide Total Protein 6.3 Albumin 3.1 L Globulin 3.20 Albumin/Globulin 0.96 Ratio Test 02/18/19 07:36 02/18/19 11:51 Bedside Glucose 223 H 301 H Home Meds Reported Medications Na Phos,M-B/Na Phos,Di-Ba (ENEMA [id number]) 133 Ml Enema, 133 ML RC EVERY 48 HOURS PRN for CONSTIPATION, ENEMA 02/12/19 Bisacodyl (Dulcolax) 10 Mg Supp.rect, 10 MG RC EVERY 48 HOURS PRN for CONSTIPATION, SUPP.RECT 02/12/19 Atenolol* (Atenolol*) 50 Mg Tablet, 50 MG PO BID, #60 TAB HOLD FOR SBP<110 OR HR <60 02/12/19 Acetaminophen* (Acetaminophen*) 650 Mg Tablet, 650 MG PO Q6H PRN for MILD PAIN LEVEL 1-3, #30 TAB 02/12/19 Ranitidine Hcl* (Zantac*) 300 Mg Tablet, 300 MG PO HS, #30 TAB 02/12/19 Amino Acids/Protein Hydrolys (PRO-STAT LIQUID) 30 Ml Liquid.pkt, 30 ML PO DAILY 02/12/19 Ursodiol* (Ursodiol*) 250 Mg Tablet, 250 MG PO BID, TAB 02/12/19 Sertraline Hcl* (Zoloft*) 100 Mg Tablet, 150 MG PO DAILY, #30 TAB 02/12/19 Ondansetron (Ondansetron Odt) 4 Mg Tab.rapdis, 4 MG PO Q6H PRN for NAUSEA AND/OR VOMITING, TAB 02/12/19 Terazosin Hcl* (Terazosin Hcl*) 1 Mg Capsule, 1 MG PO BID, CAP 02/12/19 Sennosides* (Senna Lax*) 8.6 Mg Tablet, 1 TAB PO QHS, TAB 02/12/19 Magnesium Hydroxide* (Milk Of Magnesia*) 400 Mg/5 Ml Oral.susp, 30 ML PO DAILY PRN for CONSTIPATION, ML 02/12/19 Metformin Hcl* (Metformin Hcl*) 500 Mg Tablet, 500 MG PO WITH BREAKFAST DINNE, #60 TAB 02/12/19 Atorvastatin Calcium* (Atorvastatin Calcium*) 20 Mg Tablet, 20 MG PO QHS, #30 TAB 02/12/19 Lactulose* (Lactulose*) 20 Gm/30 Ml Solution, 20 GM PO DAILY, ML 02/12/19 Gabapentin* (Gabapentin*) 100 Mg Capsule, 100 MG PO TID, #90 CAP 02/12/19 Docusate Sodium* (Colace*) 250 Mg Capsule, 250 MG PO BID, #60 CAP 02/12/19 Clopidogrel Bisulfate (Clopidogrel) 75 Mg Tablet, 75 MG PO DAILY, #30 TAB 02/12/19 Medications Current Medications IV Flush (NS 3 ml) 3 ml PER PROTOCOL IV ; Start 02/12/19 at 14:30 Nitroglycerin (Nitroglycerin (Sl Tab) 0.4 Mg) 1 tab Q5M PRN SL .CHEST PAIN; Start 02/12/19 at 14:30 Acetaminophen (Tylenol Tab) 650 mg Q6H PRN PO .PAIN 1-3 OR TEMP Last administered on 02/13/19 16:30; Admin Dose 650 MG; Start 02/12/19 at 14:30 Acetaminophen/ Hydrocodone Bitart ([place] (5/325)) 1 tab Q6H PRN PO .PAIN 4-6; Start 02/12/19 at 14:30 Morphine Sulfate (morphine) 2 mg Q4H PRN IV .PAIN 7-10; Start 02/12/19 at 14:30 Atorvastatin Calcium (Lipitor) 80 mg QHS PO Last administered on 02/17/19 20:33; Admin Dose 80 MG; Start 02/12/19 at 21:00 Clopidogrel Bisulfate (plaVIX) 75 mg DAILY PO Last administered on 02/18/19 08:04; Admin Dose 75 MG; Start 02/13/19 at 09:00 Docusate Sodium (Colace) 250 mg BID PO Last administered on 02/18/19 08:03; Admin Dose 250 MG; Start 02/12/19 at 21:00 Sertraline HCl (Zoloft) 150 mg DAILY PO Last administered on 02/18/19 08:04; Admin Dose 150 MG; Start 02/13/19 at 09:00 Terazosin HCl (Hytrin) 1 mg BID PO Last administered on 02/18/19 08:03; Admin Dose 1 MG; Start 02/12/19 at 21:00 Ursodiol (Pili) 250 mg BID PO Last administered on 02/18/19 08:03; Admin Dose 250 MG; Start 02/12/19 at 21:00 Albuterol/ Ipratropium (Duoneb) 3 ml Q6HWA RESP THERAPY HHN Last administered on 02/18/19 13:46; Admin Dose 3 ML; Start 02/12/19 at 20:00 Albuterol/ Ipratropium (Duoneb) 3 ml Q2H RESP THERAPY PRN HHN shortness of breath; Start 02/12/19 at 14:30 Budesonide (Pulmicort (Neb)) 0.5 mg BID RESP THERAPY HHN Last administered on 02/18/19at 08:59; Admin Dose 0.5 MG; Start 02/12/19 at 20:00 Miscellaneous Information 1 ea NOTE XX ; Start 02/12/19 at 15:00 Glucose (Glutose) 15 gm Q15M PRN PO DECREASED GLUCOSE; Start 02/12/19 at 15:00 Glucose (Glutose) 22.5 gm Q15M PRN PO DECREASED GLUCOSE; Start 02/12/19 at 15:00 Dextrose (D50w Syringe) 25 ml Q15M PRN IV DECREASED GLUCOSE; Start 02/12/19 at 15:00 Dextrose (D50w Syringe) 50 ml Q15M PRN IV DECREASED GLUCOSE; Start 02/12/19 at 15:00 Glucagon (Glucagen) 1 mg Q15M PRN IM DECREASED GLUCOSE; Start 02/12/19 at 15:00 Glucose (Glutose) 15 gm Q15M PRN BUCCAL DECREASED GLUCOSE; Start 02/12/19 at 15:00 Methylprednisolone Sodium Succinate (Solu-Medrol) 60 mg Q6 IV Last administered on 02/18/19at 11:40; Admin Dose 60 MG; Start 02/13/19 at 14:21 Ondansetron HCl (Zofran Inj) 4 mg Q6H PRN IV NAUSEA AND/OR VOMITING; Start 02/13/19 at 16:30 Diagnostic Test (Pha) (Accu-Chek) 1 ea 02 XX Last administered on 02/18/19at 02:00; Admin Dose 1 EA; Start 02/14/19 at 02:00 Insulin Aspart (Novolog Insulin Pen) NOVOLOG *MODERATE* ALGORITHM WITH MEALS BEDTIME SC Last administered on 02/18/19at 12:13; Admin Dose 10 UNIT; Start 02/13/19 at 17:55 Labetalol HCl (Labetalol) 10 mg Q4H PRN IV sbp >160 Last administered on 02/16 05:02; Admin Dose 10 MG; Start 02/13/19 at 16:42 Apixaban (Eliquis) 2.5 mg BID PO Last administered on 02/18/19 08:04; Admin Dose 2.5 MG; Start 02/14/19 at 21:00 Piperacillin Sod/ Tazobactam Sod 50 ml @ 200 mls/hr Q6 IVPB Last administered on 02/18/19at 11:44; Admin Dose 200 MLS/HR; Start 02/14/19 at 18:00 Pantoprazole (Protonix Tab) 40 mg DAILY@06 PO Last administered on 02/18/19at 05:19; Admin Dose 40 MG; Start 02/16/19 at 06:00 Metoprolol Succinate (Toprol Xl) 25 mg BID PO Last administered on 02/18/19at 08:05; Admin Dose 25 MG; Start 02/17/19 at 12:00 Insulin Aspart (Novolog Insulin Pen) 9 unit WITH MEALS SC Last administered on 02/18/19at 12:13; Admin Dose 9 UNIT; Start 02/17/19 at 17:55 Hydralazine HCl (Apresoline) 10 mg Q4H PRN IV sbp >160; Start 02/18/19 at 09:30 Insulin Glargine (Lantus) 25 units DAILY@0800 SC ; Start 02/19/19 at 08:00 Nifedipine (Procardia Xl) 30 mg DAILY PO ; Start 02/19/19 at 09:00 Assessment/Plan Assessment/Plan (Daily) IMP: 1. Acute hypoxemic respiratory failure 2. Multifocal pneumonia--possibly aspiration 3. Chronic obstructive pulmonary disease exacerbation 4. History of cerebrovascular accident 5. Acute on chronic kidney disease RECS: 1. Continue antibiotics. 2. Bronchodilators. 3. Steroids--> taper 4. Titrate FiO2 as tolerated 5. Aspiration precautions 6. BD's/CPT MIRA VARELA MD February 18, 2019 16:09
[2019-02-18] MEDS: ATORVASTATIN 20 MG TAB PO SCH (21:06)
[2019-02-19] VITALS (11 sets, daily range): BP systolic 137–169; BP diastolic 65–78; PULSE 61–90; RESP 16–20
[2019-02-19] MEDS: PIPER-TAZO 2.25 GM (PMX) 50 ML IVPB SCH ×4 (00:55→17:16)
[2019-02-19] MEDS: ACCU-CHEK XX SCH (02:00)
[2019-02-19] MEDS: PANTOPRAZOLE (EC) 40 MG TAB PO SCH (05:25)
[2019-02-19] MEDS: ALBUTEROL/IPRATROPIUM (NEB) 3 ML AMP HHN SCH ×3 (07:47→19:36)
[2019-02-19] MEDS: METOPROLOL (XL) 25 MG TAB PO SCH ×2 (08:28→20:10)
[2019-02-19] MEDS: URSODIOL 250 MG TAB PO SCH ×2 (08:28→20:09)
[2019-02-19] MEDS: SERTRALINE 100 MG TAB PO SCH (08:28)
[2019-02-19] MEDS: TERAZOSIN 1 MG CAP PO SCH ×2 (08:28→20:10)
[2019-02-19] MEDS: APIXABAN 5 MG TABLET PO SCH ×2 (08:28→20:10)
[2019-02-19] MEDS: DOCUSATE SODIUM 250 MG CAP PO SCH ×2 (08:29→20:09)
[2019-02-19] MEDS: NIFEdipine (XL) 30 MG TAB PO SCH (08:29)
[2019-02-19] MEDS: CLOPIDOGREL 75 MG TAB PO SCH (08:29)
[2019-02-19] MEDS: METHYLPREDNISOLONE 125 MG INJ IV SCH ×2 (08:29→20:09)
--- NOTE | 2019-02-19 08:38 | PN ---
DATE: 02/19/2019 SUBJECTIVE: The patient is stable, no events overnight. OBJECTIVE: VITAL SIGNS: Blood pressure is 169/78, pulse 64, respirations 20, temperature 97.7. HEENT: Head is normocephalic. NECK: Supple. HEART: Regular rate. LUNGS: Show diminished breath sounds at base. ABDOMEN: Soft, nontender to palpation without rebound or guarding. EXTREMITIES: Negative for clubbing, cyanosis, no edema. DERMATOLOGIC: No rashes. MUSCULOSKELETAL: No joint effusion. NEUROLOGIC: No change in exam. MEDICATIONS: Reviewed. LABORATORY DATA: Has been reviewed. ASSESSMENT AND PLAN: 1. Nonoliguric acute kidney injury with unknown baseline creatinine. Etiology of acute kidney injur y is secondary to hemodynamics. The patient is status post IV fluids. Renal function has improved. At this point, continue current treatment plan, supportive care, renally dose all meds. 2. Mineral bone disorder, monitor calcium and phosphorus levels. 3. Hypertension. Continue current blood pressure regimen. Defer an SILVER inhibitor or ARB at this ti me in the setting of acute kidney injury. 4. Acute hypoxic respiratory failure secondary to chronic obstructive pulmonary disease exacerbation . Continue medical management. Continue nebulizers, high flow oxygen. Continue to taper off steroi ds. 5. Sepsis secondary to pneumonia. Continue current antibiotic regimen. 6. Coronary artery disease. Continue medical management. 7. Diabetes. Continue current insulin regimen. 8. History of cerebrovascular. 9. History of peripheral vascular disease. Dictated By: BRANDY CLEVELAND DO NR/NTS Conf#: [id number] DID#: [id number] CC: YOLETTE RICH MD;*End*
[2019-02-19] MEDS: INSULIN ASPART [NOVOLOG] 3 ML PEN SC SCH ×7 (08:46→21:10)
[2019-02-19] MEDS: INSULIN GLARGINE [LANTus] (100 UNITS/ML) SYG SC SCH (08:47)
[2019-02-19] MEDS ORDERED: NIFEdipine (XL) 30 MG TAB PO SCH (09:00)
[2019-02-19] MEDS: BUDESONIDE (NEB) 0.5MG/2ML AMP HHN SCH ×2 (09:32→19:36)
--- NOTE | 2019-02-19 16:07 | CONS ---
Consult Date/Type/Reason Admit Date/Time February 12, 2019 at 13:35 Initial Consult Date 02/12/19 Type of Consult Pulmonary Requesting Provider: YOLETTE RICH Date/Time of Note DATE: 02/19/19 TIME: 16:06 Subjective Patient comfortable on high flow to 45% Objective Vital Signs Date Temp Pulse Resp B/P (MAP) Pulse Ox O2 O2 Flow FiO2 Time Delivery Rate 02/19/19 97 45 15:02 02/19/19 66 20 15:00 02/19/19 98.3 163/68 11:36 (99) 02/19/19 Vapotherm 08:00 Intake and Output 02/18/19 02/18/19 02/19/19 1515:00 23:00 07:00 IntakeIntake Total 50 ml 800 ml 410 ml BalanceBalance 50 ml 800 ml 410 ml Exam GENERAL: Elderly gentleman on high flow O2 VITAL SIGNS: per chart NECK: Supple. No JVD or lymphadenopathy. CARDIAC EXAM: S1, S2. No added sounds or murmurs. CHEST: Diminished air entry bilaterally ABDOMEN: Soft, nontender. No guarding or rebound. EXTREMITIES: No cyanosis, clubbing or edema. NEUROLOGIC: Generalized weakness. No focal deficits. Vent Setting Fraction of Inspired Oxygen pe: 45 Results/Medications Result Diagram: 02/19/19 0613 02/19/19 0613 Results 24 hrs Laboratory Tests Test 02/18/19 17:05 02/18/19 17:39 02/18/19 21:01 02/19/19 06:13 Bedside Glucose 251 H 243 H 151 White Blood Count 20.5 #H Red Blood Count 5.26 Hemoglobin 14.3 Hematocrit 44.7 Mean Corpuscular 85.0 Volume Mean Corpuscular 27.2 L Hemoglobin Mean Corpuscular 32.0 Hemoglobin Concent Red Cell 14.7 H Distribution Width Platelet Count 311 # Mean Platelet Volume 10.4 Immature 5.700 H Granulocytes % Neutrophils % Segmented 84 H Neutrophils % (Manual) Band Neutrophils % 2 (Manual) Lymphocytes % Lymphocytes % 7 L (Manual) Monocytes % Monocytes % (Manual) 7 Eosinophils % Basophils % Nucleated Red Blood 0.0 Cells % Immature 1.170 H Granulocytes # Neutrophils # Neutrophils # 17.3 H (Manual) Band Neutrophils # 0.4 Lymphocytes (Manual) 1.4 Lymphocytes # Monocytes # Monocytes # (Manual) 1.4 H Eosinophils # Basophils # Nucleated Red Blood Cells # Platelet Estimate NORMAL Poikilocytosis 2+ Anisocytosis 1+ Sodium Level 139 Potassium Level 3.9 Chloride Level 104 Carbon Dioxide Level 26 Anion Gap 9 Blood Urea Nitrogen 43 H Creatinine 1.12 Est Glomerular Filtrat Rate mL/min Glucose Level 187 Calcium Level 8.9 Phosphorus Level 4.0 Magnesium Level 1.9 Total Bilirubin 0.4 Direct Bilirubin 0.00 Indirect Bilirubin 0.4 Aspartate Amino 16 Transf (AST/SGOT) Alanine 12 L Aminotransferase (AL T/SGPT) Alkaline Phosphatase 64 B-Type Natriuretic 1700 H Peptide Total Protein 6.2 Albumin 3.0 L Globulin 3.20 Albumin/Globulin 0.93 Ratio Test 02/19/19 07:53 02/19/19 11:54 Bedside Glucose 160 226 H Medications Current Medications IV Flush (NS 3 ml) 3 ml PER PROTOCOL IV ; Start 02/12/19 at 14:30 Nitroglycerin (Nitroglycerin (Sl Tab) 0.4 Mg) 1 tab Q5M PRN SL .CHEST PAIN; Start 02/12/19 at 14:30 Acetaminophen (Tylenol Tab) 650 mg Q6H PRN PO .PAIN 1-3 OR TEMP Last administered on 02/13/19at 16:30; Admin Dose 650 MG; Start 02/12/19 at 14:30 Acetaminophen/ Hydrocodone Bitart ([place] (5/325)) 1 tab Q6H PRN PO .PAIN 4-6; Start 02/12/19 at 14:30 Morphine Sulfate (morphine) 2 mg Q4H PRN IV .PAIN 7-10; Start 02/12/19 at 14:30 Atorvastatin Calcium (Lipitor) 80 mg QHS PO Last administered on 02/18/19at 21:06; Admin Dose 80 MG; Start 02/12/19 at 21:00 Clopidogrel Bisulfate (plaVIX) 75 mg DAILY PO Last administered on 02/19/19 08:29; Admin Dose 75 MG; Start 02/13/19 at 09:00 Docusate Sodium (Colace) 250 mg BID PO Last administered on 02/19/19 08:29; Admin Dose 250 MG; Start 02/12/19 at 21:00 Sertraline HCl (Zoloft) 150 mg DAILY PO Last administered on 02/19/19 08:28; Admin Dose 150 MG; Start 02/13/19 at 09:00 Terazosin HCl (Hytrin) 1 mg BID PO Last administered on 02/19/19at 08:28; Admin Dose 1 MG; Start 02/12/19 at 21:00 Ursodiol (Pili) 250 mg BID PO Last administered on 02/19/19at 08:28; Admin Dose 250 MG; Start 02/12/19 at 21:00 Albuterol/ Ipratropium (Duoneb) 3 ml Q6HWA RESP THERAPY HHN Last administered on 02/19/19at 14:57; Admin Dose 3 ML; Start 02/12/19 at 20:00 Albuterol/ Ipratropium (Duoneb) 3 ml Q2H RESP THERAPY PRN HHN shortness of breath; Start 02/12/19 at 14:30 Budesonide (Pulmicort (Neb)) 0.5 mg BID RESP THERAPY HHN Last administered on 02/19/19at 09:32; Admin Dose 0.5 MG; Start 02/12/19 at 20:00 Miscellaneous Information 1 ea NOTE XX ; Start 02/12/19 at 15:00 Glucose (Glutose) 15 gm Q15M PRN PO DECREASED GLUCOSE; Start 02/12/19 at 15:00 Glucose (Glutose) 22.5 gm Q15M PRN PO DECREASED GLUCOSE; Start 02/12/19 at 15:00 Dextrose (D50w Syringe) 25 ml Q15M PRN IV DECREASED GLUCOSE; Start 02/12/19 at 15:00 Dextrose (D50w Syringe) 50 ml Q15M PRN IV DECREASED GLUCOSE; Start 02/12/19 at 15:00 Glucagon (Glucagen) 1 mg Q15M PRN IM DECREASED GLUCOSE; Start 02/12/19 at 15:00 Glucose (Glutose) 15 gm Q15M PRN BUCCAL DECREASED GLUCOSE; Start 02/12/19 at 15:00 Ondansetron HCl (Zofran Inj) 4 mg Q6H PRN IV NAUSEA AND/OR VOMITING; Start 02/13/19 at 16:30 Diagnostic Test (Pha) (Accu-Chek) 1 ea 02 XX Last administered on 02/18/19at 02:00; Admin Dose 1 EA; Start 02/14/19 at 02:00 Insulin Aspart (Novolog Insulin Pen) NOVOLOG *MODERATE* ALGORITHM WITH MEALS BEDTIME SC Last administered on 02/19/19 12:18; Admin Dose 6 UNIT; Start 02/13/19 at 17:55 Labetalol HCl (Labetalol) 10 mg Q4H PRN IV sbp >160 Last administered on 02/16/19 05:02; Admin Dose 10 MG; Start 02/13/19 at 16:42 Apixaban (Eliquis) 2.5 mg BID PO Last administered on 02/19/19 08:28; Admin Dose 2.5 MG; Start 02/14/19 at 21:00 Piperacillin Sod/ Tazobactam Sod 50 ml @ 200 mls/hr Q6 IVPB Last administered on 02/19/19 11:55; Admin Dose 200 MLS/HR; Start 02/14/19 at 18:00 Pantoprazole (Protonix Tab) 40 mg DAILY@06 PO Last administered on 02/19/19 05:25; Admin Dose 40 MG; Start 02/16/19 at 06:00 Metoprolol Succinate (Toprol Xl) 25 mg BID PO Last administered on 02/19/19 08:28; Admin Dose 25 MG; Start 02/17/19 at 12:00 Insulin Aspart (Novolog Insulin Pen) 9 unit WITH MEALS SC Last administered on 02/19/19 12:17; Admin Dose 9 UNIT; Start 02/17/19 at 17:55 Hydralazine HCl (Apresoline) 10 mg Q4H PRN IV sbp >160; Start 02/18/19 at 09:30 Insulin Glargine (Lantus) 25 units DAILY@0800 SC Last administered on 02/19/19 08:47; Admin Dose 25 UNITS; Start 02/19/19 at 08:00 Nifedipine (Procardia Xl) 30 mg DAILY PO Last administered on 02/19/19 08:29; Admin Dose 30 MG; Start 02/19/19 at 09:00 Methylprednisolone Sodium Succinate (Solu-Medrol) 60 mg BID IV Last administered on 02/19/19 08:29; Admin Dose 60 MG; Start 02/18/19 at 21:00 Assessment/Plan Hospital Course (Demo Recall) IMP: 1. Acute hypoxemic respiratory failure 2. Multifocal pneumonia--possibly aspiration 3. Chronic obstructive pulmonary disease exacerbation 4. History of cerebrovascular accident 5. Acute on chronic kidney disease RECS: 1. Continue antibiotics. 2. Bronchodilators. 3. Steroids--> taper 4. Titrate FiO2 as tolerated 5. Aspiration precautions 6. BD's/CPT 7. Repeat ABG in a.m. FREDDIE MURILLO MD, [facility] February 19, 2019 16:07
--- NOTE | 2019-02-19 18:19 | PN ---
Date/Time of Note Date/Time of Note DATE: 02/19/19 TIME: 18:11 Assessment/Plan VTE Prophylaxis Risk score (from Ns)>0 risk: 9 SCD applied (from Ns): Yes Pharmacological prophylaxis: apixaban Lines/Catheters IV Catheter Type (from Nrsg): Saline Lock Urinary Cath still in place: No Assessment/Plan Assessment/Plan 1. Acute hypoxic respiratory distress- improving - most likely secondary to aspiration - will continue titrating down high flow as tolerated - Occurred after emesis event at [facility], patient likely aspirated - Pulm on board and appreciate recommendations 2. Likely aspiration pneumonia - continue current antibiotics and O2 support 3. COPD exacerbation - Continue steroid taper and check ABG in am - Pulm on board. 4. Non-ST elevated myocardial infarction - Cardiology on board and appreciate recommendations and no further intervention at this time 5. Atrial fibrillation - on Eliquis - Cardiology input appreciated 6. DM - A1c noted - ISS and accuchecks 7. HTN - continue home medications 8. History of CVA - Residual left sided weakness, patient can eat with his right hand 9. Acute kidney injury versus chronic kidney disease - Nephrology on board and appreciate recommendations. Cr normalized 10. Disposition - Continue monitoring respiratory status and depending on progress either transfer to [place] or d/c back to [facility] Result Diagram: 02/19/19 0613 02/19/1913 Results 24hrs Laboratory Tests Test 02/18/19 21:01 02/19/19 06:13 02/19/19 07:53 02/19/19 11:54 Bedside Glucose 151 160 226 H White Blood Count 20.5 #H Red Blood Count 5.26 Hemoglobin 14.3 Hematocrit 44.7 Mean Corpuscular 85.0 Volume Mean Corpuscular 27.2 L Hemoglobin Mean Corpuscular 32.0 Hemoglobin Concent Red Cell 14.7 H Distribution Width Platelet Count 311 # Mean Platelet Volume 10.4 Immature 5.700 H Granulocytes % Neutrophils % Segmented 84 H Neutrophils % (Manual) Band Neutrophils % 2 (Manual) Lymphocytes % Lymphocytes % 7 L (Manual) Monocytes % Monocytes % (Manual) 7 Eosinophils % Basophils % Nucleated Red Blood 0.0 Cells % Immature 1.170 H Granulocytes # Neutrophils # Neutrophils # 17.3 H (Manual) Band Neutrophils # 0.4 Lymphocytes (Manual) 1.4 Lymphocytes # Monocytes # Monocytes # (Manual) 1.4 H Eosinophils # Basophils # Nucleated Red Blood Cells # Platelet Estimate NORMAL Poikilocytosis 2+ Anisocytosis 1+ Sodium Level 139 Potassium Level 3.9 Chloride Level 104 Carbon Dioxide Level 26 Anion Gap 9 Blood Urea Nitrogen 43 H Creatinine 1.12 Est Glomerular Filtrat Rate mL/min Glucose Level 187 Calcium Level 8.9 Phosphorus Level 4.0 Magnesium Level 1.9 Total Bilirubin 0.4 Direct Bilirubin 0.00 Indirect Bilirubin 0.4 Aspartate Amino 16 Transf (AST/SGOT) Alanine 12 L Aminotransferase (AL T/SGPT) Alkaline Phosphatase 64 B-Type Natriuretic 1700 H Peptide Total Protein 6.2 Albumin 3.0 L Globulin 3.20 Albumin/Globulin 0.93 Ratio Test 02/19/19 17:36 Bedside Glucose 259 H Subjective 24 Hr Interval Summary Free Text/Dictation Patient still remains on FIO2 45% and denies any respiratory issues. No acute overnight events. Exam/Review of Systems Exam Vitals Vital Signs Date Temp Pulse Resp B/P (MAP) Pulse Ox O2 O2 Flow FiO2 Time Delivery Rate 02/19/19 95 45 17:20 02/19/19 98.2 64 17 146/65 16:06 (92) 02/19/19 Vapotherm 08:00 Intake and Output 02/18/19 02/18/19 02/19/19 1414:59 22:59 06:59 IntakeIntake Total 50 ml 800 ml 410 ml BalanceBalance 50 ml 800 ml 410 ml Exam General: Patient is laying in bed and answers questions appropriately Eyes: EOMI, pupils reactive to light Neck: Supple, nontender, midline Respiratory: mildly coarse to auscultation bilaterally. no wheezing appreciated Cardiovascular: regular rate and rhythm, no obvious murmurs Gastrointestinal: soft, non-tender to palpation, bowel sounds heard. Skin: no new skin lesions appreciated Results Results 24hrs Laboratory Tests Test 02/18/19 21:01 02/19/19 06:13 02/19/19 07:53 02/19/19 11:54 Bedside Glucose 151 160 226 H White Blood Count 20.5 #H Red Blood Count 5.26 Hemoglobin 14.3 Hematocrit 44.7 Mean Corpuscular 85.0 Volume Mean Corpuscular 27.2 L Hemoglobin Mean Corpuscular 32.0 Hemoglobin Concent Red Cell 14.7 H Distribution Width Platelet Count 311 # Mean Platelet Volume 10.4 Immature 5.700 H Granulocytes % Neutrophils % Segmented 84 H Neutrophils % (Manual) Band Neutrophils % 2 (Manual) Lymphocytes % Lymphocytes % 7 L (Manual) Monocytes % Monocytes % (Manual) 7 Eosinophils % Basophils % Nucleated Red Blood 0.0 Cells % Immature 1.170 H Granulocytes # Neutrophils # Neutrophils # 17.3 H (Manual) Band Neutrophils # 0.4 Lymphocytes (Manual) 1.4 Lymphocytes # Monocytes # Monocytes # (Manual) 1.4 H Eosinophils # Basophils # Nucleated Red Blood Cells # Platelet Estimate NORMAL Poikilocytosis 2+ Anisocytosis 1+ Sodium Level 139 Potassium Level 3.9 Chloride Level 104 Carbon Dioxide Level 26 Anion Gap 9 Blood Urea Nitrogen 43 H Creatinine 1.12 Est Glomerular Filtrat Rate mL/min Glucose Level 187 Calcium Level 8.9 Phosphorus Level 4.0 Magnesium Level 1.9 Total Bilirubin 0.4 Direct Bilirubin 0.00 Indirect Bilirubin 0.4 Aspartate Amino 16 Transf (AST/SGOT) Alanine 12 L Aminotransferase (AL T/SGPT) Alkaline Phosphatase 64 B-Type Natriuretic 1700 H Peptide Total Protein 6.2 Albumin 3.0 L Globulin 3.20 Albumin/Globulin 0.93 Ratio Test 02/19/19 17:36 Bedside Glucose 259 H Medications Medication Current Medications IV Flush (NS 3 ml) 3 ml PER PROTOCOL IV ; Start 02/12/19 at 14:30 Nitroglycerin (Nitroglycerin (Sl Tab) 0.4 Mg) 1 tab Q5M PRN SL .CHEST PAIN; Start 02/12/19 at 14:30 Acetaminophen (Tylenol Tab) 650 mg Q6H PRN PO .PAIN 1-3 OR TEMP Last administered on 02/13/19at 16:30; Admin Dose 650 MG; Start 02/12/19 at 14:30 Acetaminophen/ Hydrocodone Bitart (Lexa (5/325)) 1 tab Q6H PRN PO .PAIN 4-6; Start 02/12/19 at 14:30 Morphine Sulfate (morphine) 2 mg Q4H PRN IV .PAIN 7-10; Start 02/12/19 at 14:30 Atorvastatin Calcium (Lipitor) 80 mg QHS PO Last administered on 02/18/19at 21:06; Admin Dose 80 MG; Start 02/12/19 at 21:00 Clopidogrel Bisulfate (plaVIX) 75 mg DAILY PO Last administered on 02/19/19at 08:29; Admin Dose 75 MG; Start 02/13/19 at 09:00 Docusate Sodium (Colace) 250 mg BID PO Last administered on 02/19/19 08:29; Admin Dose 250 MG; Start 02/12/19 at 21:00 Sertraline HCl (Zoloft) 150 mg DAILY PO Last administered on 02/19/19 08:28; Admin Dose 150 MG; Start 02/13/19 at 09:00 Terazosin HCl (Hytrin) 1 mg BID PO Last administered on 02/19/19 08:28; Admin Dose 1 MG; Start 02/12/19 at 21:00 Ursodiol (Pili) 250 mg BID PO Last administered on 02/19/19 08:28; Admin Dose 250 MG; Start 02/12/19 at 21:00 Albuterol/ Ipratropium (Duoneb) 3 ml Q6HWA RESP THERAPY HHN Last administered on 02/19/19 14:57; Admin Dose 3 ML; Start 02/12/19 at 20:00 Albuterol/ Ipratropium (Duoneb) 3 ml Q2H RESP THERAPY PRN HHN shortness of breath; Start 02/12/19 at 14:30 Budesonide (Pulmicort (Neb)) 0.5 mg BID RESP THERAPY HHN Last administered on 02/19/19 09:32; Admin Dose 0.5 MG; Start 02/12/19 at 20:00 Miscellaneous Information 1 ea NOTE XX ; Start 02/12/19 at 15:00 Glucose (Glutose) 15 gm Q15M PRN PO DECREASED GLUCOSE; Start 02/12/19 at 15:00 Glucose (Glutose) 22.5 gm Q15M PRN PO DECREASED GLUCOSE; Start 02/12/19 at 15:00 Dextrose (D50w Syringe) 25 ml Q15M PRN IV DECREASED GLUCOSE; Start 02/12/19 at 15:00 Dextrose (D50w Syringe) 50 ml Q15M PRN IV DECREASED GLUCOSE; Start 02/12/19 at 15:00 Glucagon (Glucagen) 1 mg Q15M PRN IM DECREASED GLUCOSE; Start 02/12/19 at 15:00 Glucose (Glutose) 15 gm Q15M PRN BUCCAL DECREASED GLUCOSE; Start 02/12/19 at 15:00 Ondansetron HCl (Zofran Inj) 4 mg Q6H PRN IV NAUSEA AND/OR VOMITING; Start 02/13/19 at 16:30 Diagnostic Test (Pha) (Accu-Chek) 1 ea 02 XX Last administered on 02/18/19 02:00; Admin Dose 1 EA; Start 02/14/19 at 02:00 Insulin Aspart (Novolog Insulin Pen) NOVOLOG *MODERATE* ALGORITHM WITH MEALS BEDTIME SC Last administered on 02/19/19 17:48; Admin Dose 6 UNIT; Start 02/13/19 at 17:55 Labetalol HCl (Labetalol) 10 mg Q4H PRN IV sbp >160 Last administered on 02/16/19 05:02; Admin Dose 10 MG; Start 02/13/19 at 16:42 Apixaban (Eliquis) 2.5 mg BID PO Last administered on 02/19/19 08:28; Admin Dose 2.5 MG; Start 02/14/19 at 21:00 Piperacillin Sod/ Tazobactam Sod 50 ml @ 200 mls/hr Q6 IVPB Last administered on 02/19/19 17:16; Admin Dose 200 MLS/HR; Start 02/14/19 at 18:00 Pantoprazole (Protonix Tab) 40 mg DAILY@06 PO Last administered on 02/19/19 05:25; Admin Dose 40 MG; Start 02/16/19 at 06:00 Metoprolol Succinate (Toprol Xl) 25 mg BID PO Last administered on 02/19/19 08:28; Admin Dose 25 MG; Start 02/17/19 at 12:00 Insulin Aspart (Novolog Insulin Pen) 9 unit WITH MEALS SC Last administered on 02/19/19 17:48; Admin Dose 9 UNIT; Start 02/17/19 at 17:55 Hydralazine HCl (Apresoline) 10 mg Q4H PRN IV sbp >160; Start 02/18/19 at 09:30 Insulin Glargine (Lantus) 25 units DAILY@0800 SC Last administered on 02/19/19 08:47; Admin Dose 25 UNITS; Start 02/19/19 at 08:00 Nifedipine (Procardia Xl) 30 mg DAILY PO Last administered on 02/19/19 08:29; Admin Dose 30 MG; Start 5/13/19 at 09:00 Methylprednisolone Sodium Succinate (Solu-Medrol) 60 mg BID IV Last administered on 02/19/19at 08:29; Admin Dose 60 MG; Start 02/18/19 at 21:00 SHON CAVAZOS MD February 19, 2019 18:19
--- NOTE | 2019-02-19 19:12 | CONS ---
Consult Date/Type/Reason Admit Date/Time February 12, 2019 at 13:35 Initial Consult Date 02/12/19 Type of Consultation: cv Requesting Provider: YOLETTE RICH Date/Time of Note DATE: 02/19/19 TIME: 19:12 Subjective Cardiology follow-up progress note Subjective: Case discussed with staff telemetry was reviewed patient remains in normal sinus rhythm has occasional PAC and PVCs He denies any left-sided chest pain or pressure to me. He is still on high flow oxygen but only 45% now Objective: General: no acute distress but on high flow oxygen HEENT: NC/AT. pupils are equal. round. NECK: NO JVD. no stridor. CV: RRR. systolic murmur; no gallop or rubs. PULM: no wheezing + diffuse rhonchi. GI: SOFT, NT, ND, no rebound or guarding Extremity: Left BKA neuro: awake and alert, OX2. Psych: calm and pleasant rectal: deferred EKG normal sinus rhythm right bundle branch with nonspecific ST-T wave abnormalities X-ray done 02/12/2019 shows: No acute disease. Calcified aorta consistent with atherosclerotic disease. Echocardiogram done February 12, 2019 which was personally reviewed shows: Normal left ventricular systolic function. Normal left ventricular cavity size. Moderate asymmetric septal hypertrophy. Ejection fraction is visually estimated at 55-60 %. Tissue Doppler/Mitral Doppler indices are consistent with impaired relaxation (Stage I diastolic dysfunction). The left atrium is normal in size. Mild mitral leaflet calcification. Mild mitral annular calcification. Trace mitral regurgitation. Aortic sclerosis without significant stenosis. Normal appearance of the tricuspid valve. Estimated peak PA systolic pressure 23 mmHg. There is trace tricuspid regurgitation. Objective Vitals Vital Signs Date Temp Pulse Resp B/P (MAP) Pulse Ox O2 O2 Flow FiO2 Time Delivery Rate 02/19/19 95 45 17:20 02/19/19 98.2 64 17 146/65 16:06 (92) 02/19/19 Vapotherm 08:00 Intake and Output 02/18/19 02/18/19 02/19/19 1515:00 23:00 07:00 IntakeIntake Total 50 ml 800 ml 410 ml BalanceBalance 50 ml 800 ml 410 ml Results/Medications Result Diagram: 02/19/1913 02/19/1913 Results 24 hrs Laboratory Tests Test 02/18/19 21:01 02/19/19 06:13 02/19/19 07:53 02/19/19 11:54 Bedside Glucose 151 160 226 H White Blood Count 20.5 #H Red Blood Count 5.26 Hemoglobin 14.3 Hematocrit 44.7 Mean Corpuscular 85.0 Volume Mean Corpuscular 27.2 L Hemoglobin Mean Corpuscular 32.0 Hemoglobin Concent Red Cell 14.7 H Distribution Width Platelet Count 311 # Mean Platelet Volume 10.4 Immature 5.700 H Granulocytes % Neutrophils % Segmented 84 H Neutrophils % (Manual) Band Neutrophils % 2 (Manual) Lymphocytes % Lymphocytes % 7 L (Manual) Monocytes % Monocytes % (Manual) 7 Eosinophils % Basophils % Nucleated Red Blood 0.0 Cells % Immature 1.170 H Granulocytes # Neutrophils # Neutrophils # 17.3 H (Manual) Band Neutrophils # 0.4 Lymphocytes (Manual) 1.4 Lymphocytes # Monocytes # Monocytes # (Manual) 1.4 H Eosinophils # Basophils # Nucleated Red Blood Cells # Platelet Estimate NORMAL Poikilocytosis 2+ Anisocytosis 1+ Sodium Level 139 Potassium Level 3.9 Chloride Level 104 Carbon Dioxide Level 26 Anion Gap 9 Blood Urea Nitrogen 43 H Creatinine 1.12 Est Glomerular Filtrat Rate mL/min Glucose Level 187 Calcium Level 8.9 Phosphorus Level 4.0 Magnesium Level 1.9 Total Bilirubin 0.4 Direct Bilirubin 0.00 Indirect Bilirubin 0.4 Aspartate Amino 16 Transf (AST/SGOT) Alanine 12 L Aminotransferase (AL T/SGPT) Alkaline Phosphatase 64 B-Type Natriuretic 1700 H Peptide Total Protein 6.2 Albumin 3.0 L Globulin 3.20 Albumin/Globulin 0.93 Ratio Test 02/19/19 17:36 Bedside Glucose 259 H Home Meds Reported Medications Na Phos,M-B/Na Phos,Di-Ba (ENEMA [id number]) 133 Ml Enema, 133 ML RC EVERY 48 HOURS PRN for CONSTIPATION, ENEMA 02/12/19 Bisacodyl (Dulcolax) 10 Mg Supp.rect, 10 MG RC EVERY 48 HOURS PRN for CONSTIPATION, SUPP.RECT 02/12/19 Atenolol* (Atenolol*) 50 Mg Tablet, 50 MG PO BID, #60 TAB HOLD FOR SBP<110 OR HR <60 02/12/19 Acetaminophen* (Acetaminophen*) 650 Mg Tablet, 650 MG PO Q6H PRN for MILD PAIN LEVEL 1-3, #30 TAB 02/12/19 Ranitidine Hcl* (Zantac*) 300 Mg Tablet, 300 MG PO HS, #30 TAB 02/12/19 Amino Acids/Protein Hydrolys (PRO-STAT LIQUID) 30 Ml Liquid.pkt, 30 ML PO DAILY 02/12/19 Ursodiol* (Ursodiol*) 250 Mg Tablet, 250 MG PO BID, TAB 02/12/19 Sertraline Hcl* (Zoloft*) 100 Mg Tablet, 150 MG PO DAILY, #30 TAB 02/12/19 Ondansetron (Ondansetron Odt) 4 Mg Tab.rapdis, 4 MG PO Q6H PRN for NAUSEA AND/OR VOMITING, TAB 02/12/19 Terazosin Hcl* (Terazosin Hcl*) 1 Mg Capsule, 1 MG PO BID, CAP 02/12/19 Sennosides* (Senna Lax*) 8.6 Mg Tablet, 1 TAB PO QHS, TAB 02/12/19 Magnesium Hydroxide* (Milk Of Magnesia*) 400 Mg/5 Ml Oral.susp, 30 ML PO DAILY PRN for CONSTIPATION, ML 02/12/19 Metformin Hcl* (Metformin Hcl*) 500 Mg Tablet, 500 MG PO WITH BREAKFAST DINNE, #60 TAB 02/12/19 Atorvastatin Calcium* (Atorvastatin Calcium*) 20 Mg Tablet, 20 MG PO QHS, #30 TAB 02/12/19 Lactulose* (Lactulose*) 20 Gm/30 Ml Solution, 20 GM PO DAILY, ML 02/12/19 Gabapentin* (Gabapentin*) 100 Mg Capsule, 100 MG PO TID, #90 CAP 02/12/19 Docusate Sodium* (Colace*) 250 Mg Capsule, 250 MG PO BID, #60 CAP 02/12/19 Clopidogrel Bisulfate (Clopidogrel) 75 Mg Tablet, 75 MG PO DAILY, #30 TAB 02/12/19 Medications Current Medications IV Flush (NS 3 ml) 3 ml PER PROTOCOL IV ; Start 02/12/19 at 14:30 Nitroglycerin (Nitroglycerin (Sl Tab) 0.4 Mg) 1 tab Q5M PRN SL .CHEST PAIN; Start 02/12/19 at 14:30 Acetaminophen (Tylenol Tab) 650 mg Q6H PRN PO .PAIN 1-3 OR TEMP Last administered on 02/13/19at 16:30; Admin Dose 650 MG; Start 02/12/19 at 14:30 Acetaminophen/ Hydrocodone Bitart ([place] (5/325)) 1 tab Q6H PRN PO .PAIN 4-6; Start 02/12/19 at 14:30 Morphine Sulfate (morphine) 2 mg Q4H PRN IV .PAIN 7-10; Start 02/12/19 at 14:30 Atorvastatin Calcium (Lipitor) 80 mg QHS PO Last administered on 02/18/19 21:06; Admin Dose 80 MG; Start 02/12/19 at 21:00 Clopidogrel Bisulfate (plaVIX) 75 mg DAILY PO Last administered on 02/19/19 08:29; Admin Dose 75 MG; Start 02/13/19 at 09:00 Docusate Sodium (Colace) 250 mg BID PO Last administered on 02/19/19 08:29; Admin Dose 250 MG; Start 02/12/19 at 21:00 Sertraline HCl (Zoloft) 150 mg DAILY PO Last administered on 02/19/19 08:28; Admin Dose 150 MG; Start 02/13/19 at 09:00 Terazosin HCl (Hytrin) 1 mg BID PO Last administered on 02/19/19 08:28; Admin Dose 1 MG; Start 02/12/19 at 21:00 Ursodiol (Pili) 250 mg BID PO Last administered on 02/19/19 08:28; Admin Dose 250 MG; Start 02/12/19 at 21:00 Albuterol/ Ipratropium (Duoneb) 3 ml Q6HWA RESP THERAPY HHN Last administered on 02/19/19 14:57; Admin Dose 3 ML; Start 02/12/19 at 20:00 Albuterol/ Ipratropium (Duoneb) 3 ml Q2H RESP THERAPY PRN HHN shortness of breath; Start 02/12/19 at 14:30 Budesonide (Pulmicort (Neb)) 0.5 mg BID RESP THERAPY HHN Last administered on 02/19/19 09:32; Admin Dose 0.5 MG; Start 02/12/19 at 20:00 Miscellaneous Information 1 ea NOTE XX ; Start 02/12/19 at 15:00 Glucose (Glutose) 15 gm Q15M PRN PO DECREASED GLUCOSE; Start 02/12/19 at 15:00 Glucose (Glutose) 22.5 gm Q15M PRN PO DECREASED GLUCOSE; Start 02/12/19 at 15:00 Dextrose (D50w Syringe) 25 ml Q15M PRN IV DECREASED GLUCOSE; Start 02/12/19 at 15:00 Dextrose (D50w Syringe) 50 ml Q15M PRN IV DECREASED GLUCOSE; Start 02/12/19 at 15:00 Glucagon (Glucagen) 1 mg Q15M PRN IM DECREASED GLUCOSE; Start 02/12/19 at 15:00 Glucose (Glutose) 15 gm Q15M PRN BUCCAL DECREASED GLUCOSE; Start 02/12/19 at 15:00 Ondansetron HCl (Zofran Inj) 4 mg Q6H PRN IV NAUSEA AND/OR VOMITING; Start 02/13/19 at 16:30 Diagnostic Test (Pha) (Accu-Chek) 1 ea 02 XX Last administered on 02/18/19at 02:00; Admin Dose 1 EA; Start 02/14/19 at 02:00 Insulin Aspart (Novolog Insulin Pen) NOVOLOG *MODERATE* ALGORITHM WITH MEALS BEDTIME SC Last administered on 02/19/19at 17:48; Admin Dose 6 UNIT; Start 02/13/19 at 17:55 Labetalol HCl (Labetalol) 10 mg Q4H PRN IV sbp >160 Last administered on at 05:02; Admin Dose 10 MG; Start 02/13/19 at 16:42 Apixaban (Eliquis) 2.5 mg BID PO Last administered on 02/19/19at 08:28; Admin Dose 2.5 MG; Start 02/14/19 at 21:00 Piperacillin Sod/ Tazobactam Sod 50 ml @ 200 mls/hr Q6 IVPB Last administered on 02/19/19at 17:16; Admin Dose 200 MLS/HR; Start 02/14/19 at 18:00 Pantoprazole (Protonix Tab) 40 mg DAILY@06 PO Last administered on 02/19/19at 05:25; Admin Dose 40 MG; Start 02/16/19 at 06:00 Metoprolol Succinate (Toprol Xl) 25 mg BID PO Last administered on 02/19/19at 08:28; Admin Dose 25 MG; Start 02/17/19 at 12:00 Insulin Aspart (Novolog Insulin Pen) 9 unit WITH MEALS SC Last administered on 02/19/19 17:48; Admin Dose 9 UNIT; Start 02/17/19 at 17:55 Hydralazine HCl (Apresoline) 10 mg Q4H PRN IV sbp >160; Start 02/18/19 at 09:30 Insulin Glargine (Lantus) 25 units DAILY@0800 SC Last administered on 02/19/19 08:47; Admin Dose 25 UNITS; Start 02/19/19 at 08:00 Nifedipine (Procardia Xl) 30 mg DAILY PO Last administered on 02/19/19 08:29; Admin Dose 30 MG; Start 02/19/19 at 09:00 Methylprednisolone Sodium Succinate (Solu-Medrol) 60 mg BID IV Last administered on 02/19/19 08:29; Admin Dose 60 MG; Start 02/18/19 at 21:00 Assessment/Plan Hospital Course (Demo Recall) Mildly abnormal troponin: Consistent with non-ST elevation myocardial infarction probably type II Acute hypoxemic respiratory failure History of multiple CVA diabetes hypertension History of congestive heart failure: currently does not appear to be fluid overloaded to Dyslipidemia Peripheral vascular disease status post BKA Encephalopathy Renal insufficiency; probably acute on chronic Paroxysmal atrial fibrillation Recommendations: cont home plavix. CONT Eliquis 2.5 mg p.o. twice daily given his short episode of P atrial fibrillation AND HX OF CVA cont resp care O2 abx as per IM REC CONT DM control echo shows normal LV systolic function cont toprol xl now procardia. lasix prn . WILL ADD Aldactone Medical therapy from the cardiac standpoint is recommended at this point given the fact that the patient has normal ejection fraction no angina is and is DNR Thank you for this referral. We will continue to follow along with you PIPPA MACIAS MD [facility] PIPPA MACIAS MD February 19, 2019 19:12
[2019-02-19] MEDS: ATORVASTATIN 20 MG TAB PO SCH (20:09)
[2019-02-19] MEDS: SPIRONOLACTONE 25 MG TAB PO SCH (20:09)
[2019-02-20] VITALS (14 sets, daily range): BP systolic 115–179; BP diastolic 54–79; PULSE 60–150; RESP 17–22
[2019-02-20] MEDS: PIPER-TAZO 2.25 GM (PMX) 50 ML IVPB SCH ×5 (00:08→23:17)
[2019-02-20] MEDS: ACCU-CHEK XX SCH (01:50)
[2019-02-20] MEDS: hydrALAzine 20 MG INJ IV PRN (03:36)
[2019-02-20] MEDS: PANTOPRAZOLE (EC) 40 MG TAB PO SCH (05:12)
[2019-02-20] MEDS: ALBUTEROL/IPRATROPIUM (NEB) 3 ML AMP HHN SCH ×3 (08:03→20:41)
[2019-02-20] MEDS: BUDESONIDE (NEB) 0.5MG/2ML AMP HHN SCH ×2 (08:04→20:41)
[2019-02-20] MEDS: DOCUSATE SODIUM 250 MG CAP PO SCH ×2 (08:30→21:29)
[2019-02-20] MEDS: METOPROLOL (XL) 25 MG TAB PO SCH ×2 (08:30→21:29)
[2019-02-20] MEDS: TERAZOSIN 1 MG CAP PO SCH ×2 (08:30→21:29)
[2019-02-20] MEDS: SPIRONOLACTONE 25 MG TAB PO SCH (08:30)
[2019-02-20] MEDS: APIXABAN 5 MG TABLET PO SCH ×2 (08:30→21:29)
[2019-02-20] MEDS: METHYLPREDNISOLONE 125 MG INJ IV SCH (08:31)
[2019-02-20] MEDS: CLOPIDOGREL 75 MG TAB PO SCH (08:31)
[2019-02-20] MEDS: SERTRALINE 100 MG TAB PO SCH (08:31)
[2019-02-20] MEDS: NIFEdipine (XL) 30 MG TAB PO SCH (08:31)
[2019-02-20] MEDS: INSULIN GLARGINE [LANTus] (100 UNITS/ML) SYG SC SCH (08:33)
[2019-02-20] MEDS: INSULIN ASPART [NOVOLOG] 3 ML PEN SC SCH ×7 (08:34→21:40)
[2019-02-20] MEDS: URSODIOL 250 MG TAB PO SCH ×2 (08:44→21:30)
--- NOTE | 2019-02-20 09:04 | CONS ---
Consult Date/Type/Reason Admit Date/Time February 12, 2019 at 13:35 Initial Consult Date 02/12/19 Type of Consultation: cv Requesting Provider: YOLETTE RICH Date/Time of Note DATE: 02/20/19 TIME: 09:03 Subjective Cardiology follow-up progress note Subjective: Case discussed with staff telemetry was reviewed patient remains in normal sinus rhythm has occasional PAC and PVCs He denies any left-sided chest pain or pressure to me. He is still on high flow oxygen ON 50% now Objective: General: no acute distress but on high flow oxygen HEENT: NC/AT. pupils are equal. round. NECK: NO JVD. no stridor. CV: RRR. systolic murmur; no gallop or rubs. PULM: no wheezing + diffuse rhonchi. GI: SOFT, NT, ND, no rebound or guarding Extremity: Left BKA neuro: awake and alert, OX2. Psych: calm and pleasant rectal: deferred EKG normal sinus rhythm right bundle branch with nonspecific ST-T wave abnormalities X-ray done 02/12/2019 shows: No acute disease. Calcified aorta consistent with atherosclerotic disease. Echocardiogram done February 12, 2019 which was personally reviewed shows: Normal left ventricular systolic function. Normal left ventricular cavity size. Moderate asymmetric septal hypertrophy. Ejection fraction is visually estimated at 55-60 %. Tissue Doppler/Mitral Doppler indices are consistent with impaired relaxation (Stage I diastolic dysfunction). The left atrium is normal in size. Mild mitral leaflet calcification. Mild mitral annular calcification. Trace mitral regurgitation. Aortic sclerosis without significant stenosis. Normal appearance of the tricuspid valve. Estimated peak PA systolic pressure 23 mmHg. There is trace tricuspid regurgitation. Objective Vitals Vital Signs Date Temp Pulse Resp B/P (MAP) Pulse Ox O2 O2 Flow FiO2 Time Delivery Rate 02/20/19 65 20 97 50 08:13 02/20/19 97.5 131/61 Nasal 07:56 (84) Cannula Intake and Output 02/19/19 02/19/19 02/20/19 1515:00 23:00 07:00 IntakeIntake Total 1000 ml 450 ml BalanceBalance 1000 ml 450 ml Results/Medications Result Diagram: 02/20/19 0655 02/20/19 0655 Results 24 hrs Laboratory Tests Test 02/19/19 11:54 02/19/19 17:36 02/19/19 20:08 02/20/19 01:47 Bedside Glucose 226 H 259 H 236 H 255 H Test 02/20/19 06:55 02/20/19 08:08 White Blood Count 19.3 H Red Blood Count 5.26 Hemoglobin 14.3 Hematocrit 44.7 Mean Corpuscular 85.0 Volume Mean Corpuscular 27.2 L Hemoglobin Mean Corpuscular 32.0 Hemoglobin Concent Red Cell 15.0 H Distribution Width Platelet Count 327 Mean Platelet Volume 10.2 Immature 5.100 H Granulocytes % Neutrophils % 76.2 Lymphocytes % 9.7 L Monocytes % 7.6 Eosinophils % 1.0 Basophils % 0.4 Nucleated Red Blood 0.0 Cells % Immature 0.980 H Granulocytes # Neutrophils # 14.7 H Lymphocytes # 1.9 Monocytes # 1.5 H Eosinophils # 0.2 Basophils # 0.1 Nucleated Red Blood 0.0 Cells # Sodium Level 137 Potassium Level 4.0 Chloride Level 102 Carbon Dioxide Level 27 Anion Gap 8 Blood Urea Nitrogen 48 H Creatinine 1.19 Glucose Level 276 H Calcium Level 8.9 Phosphorus Level 3.6 Magnesium Level 1.9 B-Type Natriuretic 1170 H Peptide Albumin 3.0 L Bedside Glucose 262 H Home Meds Reported Medications Na Phos,M-B/Na Phos,Di-Ba (ENEMA [id number]) 133 Ml Enema, 133 ML RC EVERY 48 HOURS PRN for CONSTIPATION, ENEMA 02/12/19 Bisacodyl (Dulcolax) 10 Mg Supp.rect, 10 MG RC EVERY 48 HOURS PRN for CONSTIPATION, SUPP.RECT 02/12/19 Atenolol* (Atenolol*) 50 Mg Tablet, 50 MG PO BID, #60 TAB HOLD FOR SBP<110 OR HR <60 02/12/19 Acetaminophen* (Acetaminophen*) 650 Mg Tablet, 650 MG PO Q6H PRN for MILD PAIN LEVEL 1-3, #30 TAB 02/12/19 Ranitidine Hcl* (Zantac*) 300 Mg Tablet, 300 MG PO HS, #30 TAB 02/12/19 Amino Acids/Protein Hydrolys (PRO-STAT LIQUID) 30 Ml Liquid.pkt, 30 ML PO DAILY 02/12/19 Ursodiol* (Ursodiol*) 250 Mg Tablet, 250 MG PO BID, TAB 02/12/19 Sertraline Hcl* (Zoloft*) 100 Mg Tablet, 150 MG PO DAILY, #30 TAB 02/12/19 Ondansetron (Ondansetron Odt) 4 Mg Tab.rapdis, 4 MG PO Q6H PRN for NAUSEA AND/OR VOMITING, TAB 02/12/19 Terazosin Hcl* (Terazosin Hcl*) 1 Mg Capsule, 1 MG PO BID, CAP 02/12/19 Sennosides* (Senna Lax*) 8.6 Mg Tablet, 1 TAB PO QHS, TAB 02/12/19 Magnesium Hydroxide* (Milk Of Magnesia*) 400 Mg/5 Ml Oral.susp, 30 ML PO DAILY PRN for CONSTIPATION, ML 02/12/19 Metformin Hcl* (Metformin Hcl*) 500 Mg Tablet, 500 MG PO WITH BREAKFAST DINNE, #60 TAB 02/12/19 Atorvastatin Calcium* (Atorvastatin Calcium*) 20 Mg Tablet, 20 MG PO QHS, #30 TAB 02/12/19 Lactulose* (Lactulose*) 20 Gm/30 Ml Solution, 20 GM PO DAILY, ML 02/12/19 Gabapentin* (Gabapentin*) 100 Mg Capsule, 100 MG PO TID, #90 CAP 02/12/19 Docusate Sodium* (Colace*) 250 Mg Capsule, 250 MG PO BID, #60 CAP 02/12/19 Clopidogrel Bisulfate (Clopidogrel) 75 Mg Tablet, 75 MG PO DAILY, #30 TAB 02/12/19 Medications Current Medications IV Flush (NS 3 ml) 3 ml PER PROTOCOL IV ; Start 02/12/19 at 14:30 Nitroglycerin (Nitroglycerin (Sl Tab) 0.4 Mg) 1 tab Q5M PRN SL .CHEST PAIN; Start 02/12/19 at 14:30 Acetaminophen (Tylenol Tab) 650 mg Q6H PRN PO .PAIN 1-3 OR TEMP Last administered on 02/13/19at 16:30; Admin Dose 650 MG; Start 02/12/19 at 14:30 Acetaminophen/ Hydrocodone Bitart ([place] (5/325)) 1 tab Q6H PRN PO .PAIN 4-6; Start 02/12/19 at 14:30 Morphine Sulfate (morphine) 2 mg Q4H PRN IV .PAIN 7-10 Last administered on 02/20/19at 03:36; Admin Dose 2 MG; Start 02/12/19 at 14:30 Atorvastatin Calcium (Lipitor) 80 mg QHS PO Last administered on 02/19/19 20:09; Admin Dose 80 MG; Start 02/12/19 at 21:00 Clopidogrel Bisulfate (plaVIX) 75 mg DAILY PO Last administered on 02/20/19 08:31; Admin Dose 75 MG; Start 02/13/19 at 09:00 Docusate Sodium (Colace) 250 mg BID PO Last administered on 02/20/19 08:30; Admin Dose 250 MG; Start 02/12/19 at 21:00 Sertraline HCl (Zoloft) 150 mg DAILY PO Last administered on 02/20/19 08:31; Admin Dose 150 MG; Start 02/13/19 at 09:00 Terazosin HCl (Hytrin) 1 mg BID PO Last administered on 02/20/19 08:30; Admin Dose 1 MG; Start 02/12/19 at 21:00 Ursodiol (Pili) 250 mg BID PO Last administered on 02/20/19 08:44; Admin Dose 250 MG; Start 02/12/19 at 21:00 Albuterol/ Ipratropium (Duoneb) 3 ml Q6HWA RESP THERAPY HHN Last administered on 02/20/19 08:03; Admin Dose 3 ML; Start 02/12/19 at 20:00 Albuterol/ Ipratropium (Duoneb) 3 ml Q2H RESP THERAPY PRN HHN shortness of breath; Start 02/12/19 at 14:30 Budesonide (Pulmicort (Neb)) 0.5 mg BID RESP THERAPY HHN Last administered on 02/20/19 08:04; Admin Dose 0.5 MG; Start 02/12/19 at 20:00 Miscellaneous Information 1 ea NOTE XX ; Start 02/12/19 at 15:00 Glucose (Glutose) 15 gm Q15M PRN PO DECREASED GLUCOSE; Start 02/12/19 at 15:00 Glucose (Glutose) 22.5 gm Q15M PRN PO DECREASED GLUCOSE; Start 02/12/19 at 15:00 Dextrose (D50w Syringe) 25 ml Q15M PRN IV DECREASED GLUCOSE; Start 02/12/19 at 15:00 Dextrose (D50w Syringe) 50 ml Q15M PRN IV DECREASED GLUCOSE; Start 02/12/19 at 15:00 Glucagon (Glucagen) 1 mg Q15M PRN IM DECREASED GLUCOSE; Start 02/12/19 at 15:00 Glucose (Glutose) 15 gm Q15M PRN BUCCAL DECREASED GLUCOSE; Start 02/12/19 at 15:00 Ondansetron HCl (Zofran Inj) 4 mg Q6H PRN IV NAUSEA AND/OR VOMITING; Start 02/13/19 at 16:30 Diagnostic Test (Pha) (Accu-Chek) 1 ea 02 XX Last administered on 02/20/19at 01:50; Admin Dose 1 EA; Start 02/14/19 at 02:00 Insulin Aspart (Novolog Insulin Pen) NOVOLOG *MODERATE* ALGORITHM WITH MEALS BEDTIME SC Last administered on 02/20/19 08:35; Admin Dose 8 UNIT; Start 02/13/19 at 17:55 Labetalol HCl (Labetalol) 10 mg Q4H PRN IV sbp >160 Last administered on 02/16/19 05:02; Admin Dose 10 MG; Start 02/13/19 at 16:42 Apixaban (Eliquis) 2.5 mg BID PO Last administered on 02/20/19 08:30; Admin Dose 2.5 MG; Start 02/14/19 at 21:00 Piperacillin Sod/ Tazobactam Sod 50 ml @ 200 mls/hr Q6 IVPB Last administered on 02/20/19 05:13; Admin Dose 200 MLS/HR; Start 02/14/19 at 18:00 Pantoprazole (Protonix Tab) 40 mg DAILY@06 PO Last administered on 02/20/19 05:12; Admin Dose 40 MG; Start 02/16/19 at 06:00 Metoprolol Succinate (Toprol Xl) 25 mg BID PO Last administered on 02/20/19 08:30; Admin Dose 25 MG; Start 02/17/19 at 12:00 Insulin Aspart (Novolog Insulin Pen) 9 unit WITH MEALS SC Last administered on 02/20/19 08:34; Admin Dose 9 UNIT; Start 02/17/19 at 17:55 Hydralazine HCl (Apresoline) 10 mg Q4H PRN IV sbp >160 Last administered on 02/20/19 03:36; Admin Dose 10 MG; Start 02/18/19 at 09:30 Insulin Glargine (Lantus) 25 units DAILY@0800 SC Last administered on 02/20/19 08:33; Admin Dose 25 UNITS; Start 02/19/19 at 08:00 Nifedipine (Procardia Xl) 30 mg DAILY PO Last administered on 02/20/19 08:31; Admin Dose 30 MG; Start 02/19/19 at 09:00 Methylprednisolone Sodium Succinate (Solu-Medrol) 60 mg BID IV Last administered on 02/20/19 08:31; Admin Dose 60 MG; Start 02/18/19 at 21:00 Spironolactone (Aldactone) 12.5 mg DAILY PO Last administered on 02/20/19 08:30; Admin Dose 12.5 MG; Start 02/19/19 at 19:30 Assessment/Plan Hospital Course (Demo Recall) Mildly abnormal troponin: Consistent with non-ST elevation myocardial infarction probably type II Acute hypoxemic respiratory failure History of multiple CVA diabetes hypertension History of congestive heart failure: currently does not appear to be fluid overloaded to Dyslipidemia Peripheral vascular disease status post BKA Encephalopathy Renal insufficiency; probably acute on chronic: improved now Paroxysmal atrial fibrillation Recommendations: cont home plavix. CONT Eliquis 2.5 mg p.o. twice daily given his short episode of P atrial fibrillation AND HX OF CVA cont resp care O2 abx as per IM REC CONT DM control echo shows normal LV systolic function cont toprol xl now procardia. lasix prn . cont Aldactone Medical therapy from the cardiac standpoint is recommended at this point given the fact that the patient has normal ejection fraction no angina is and is DNR Thank you for this referral. We will continue to follow along with you PIPPA MACIAS MD [facility] PIPPA MACIAS MD February 20, 2019 09:04
--- NOTE | 2019-02-20 09:08 | PN ---
DATE: 02/20/2019 SUBJECTIVE: The patient is stable. No events overnight. The patient remains on high flow oxygen. OBJECTIVE: VITAL SIGNS: Blood pressure is 131/61, pulse 65, respirations 20, temperature is 97.5. HEENT: Head is normocephalic. NECK: Supple. HEART: Regular rate. LUNGS: Show diminished breath sounds at the base. ABDOMEN: Soft, nontender to palpation without rebound or guarding. EXTREMITIES: Negative for clubbing, cyanosis, no edema. DERMATOLOGIC: No rashes. MUSCULOSKELETAL: No joint effusion. NEUROLOGIC: No change in exam. MEDICATIONS: Reviewed. LABORATORY DATA: Reviewed. ASSESSMENT AND PLAN: 1. Nonoliguric acute kidney injury with unknown baseline creatinine. Etiology of acute kidney injur y is secondary to hemodynamics. Renal function is improved. Continue current treatment plan, suppor tive care, renally dose all medications. 2. Mineral bone disorder. Continue to monitor calcium and phosphorus levels. 3. Hypertension. Continue current blood pressure regimen. 4. Acute hypoxemic respiratory failure secondary to chronic obstructive pulmonary disease exacerbati on, pneumonia. Continue medical management. Continue nebulizers and high flow oxygen. Continue amparo roids. 5. Sepsis secondary to pneumonia. Continue current antibiotic regimen. 6. Coronary artery disease. Continue medical management. 7. Diabetes. Continue current insulin regimen. 8. History of cerebrovascular accident. 9. History of peripheral vascular disease. Dictated By: BRANDY CLEVELAND DO NR/NTS Conf#: [id number] DID#: [id number] CC: YOLETTE RICH MD; SHON CAVAZOS MD; FREDDIE MURILLO MD;*[facility]*
--- NOTE | 2019-02-20 10:59 | PN ---
Date/Time of Note Date/Time of Note DATE: 02/20/19 TIME: 10:59 Assessment/Plan VTE Prophylaxis Risk score (from Ns)>0 risk: 9 SCD applied (from Ns): Yes Pharmacological prophylaxis: apixaban Lines/Catheters IV Catheter Type (from Nrsg): Saline Lock Urinary Cath still in place: No Assessment/Plan Assessment/Plan 1. Acute hypoxic respiratory distress- stable - CXR results noted with new developing infiltrate in RUL. ABG within normal limits - most likely secondary to aspiration - will continue titrating down high flow as tolerated - Occurred after emesis event at [facility], patient likely aspirated - Pulm on board and appreciate recommendations 2. Likely aspiration pneumonia - continue current antibiotics and O2 support 3. COPD exacerbation - Continue steroid taper - Pulm on board. 4. Non-ST elevated myocardial infarction - Cardiology on board and appreciate recommendations and no further intervention at this time 5. Atrial fibrillation - on Eliquis - Cardiology input appreciated 6. DM - A1c noted - ISS and accuchecks 7. HTN - continue home medications 8. History of CVA - Residual left sided weakness 9. Acute kidney injury versus chronic kidney disease - Nephrology on board and appreciate recommendations. Cr normalized 10. Disposition - Repeat CXR noted with improvement in ABG. Still requiring high flow at 50% FIO2 Result Diagram: 02/20/19 0655 02/20/19 0655 Results 24hrs Laboratory Tests Test 02/19/19 11:54 02/19/19 17:36 02/19/19 20:08 02/20/19 01:47 Bedside Glucose 226 H 259 H 236 H 255 H Test 02/20/19 06:55 02/20/19 07:00 02/20/19 08:08 White Blood Count 19.3 H Red Blood Count 5.26 Hemoglobin 14.3 Hematocrit 44.7 Mean Corpuscular 85.0 Volume Mean Corpuscular 27.2 L Hemoglobin Mean Corpuscular 32.0 Hemoglobin Concen t Red Cell 15.0 H Distribution Width Platelet Count 327 Mean Platelet 10.2 Volume Immature 5.100 H Granulocytes % Neutrophils % 76.2 Lymphocytes % 9.7 L Monocytes % 7.6 Eosinophils % 1.0 Basophils % 0.4 Nucleated Red 0.0 Blood Cells % Immature 0.980 H Granulocytes # Neutrophils # 14.7 H Lymphocytes # 1.9 Monocytes # 1.5 H Eosinophils # 0.2 Basophils # 0.1 Nucleated Red 0.0 Blood Cells # Sodium Level 137 Potassium Level 4.0 Chloride Level 102 Carbon Dioxide 27 Level Anion Gap 8 Blood Urea 48 H Nitrogen Creatinine 1.19 Glucose Level 276 H Calcium Level 8.9 Phosphorus Level 3.6 Magnesium Level 1.9 B-Type 1170 H Natriuretic Peptide Albumin 3.0 L Blood Gas Blood arterial Specimen Source Arterial Blood 02/20/2019 8:50:0 Date Drawn 6 AM Arterial Blood pH 7.476 H (Temp corrected) Arterial Blood 34.0 L pCO2 (Temp correct) Arterial Blood 81.6 pO2 (Temp corrected) Arterial Blood 24.5 HCO3 Arterial Blood 1.5 Base Excess Arterial Blood 96.3 Oxygen Saturation Caesar Test ACCEPTAB Arterial Blood Right Radial Gas Puncture Site Arterial 0.1 Blood Carboxyhemo globin Arterial Blood 0.3 Methemoglobin Blood Gas A-a O2 236.7 H Differential Oxyhemoglobin 95.9 Percent Blood Gas 37.0 Temperature Blood Gas HFNC Modality FiO2 50.0 Blood Gas TM Notified Whom Blood Gas 02/20/2019 9:10:4 Notified Time 0 AM Bedside Glucose 262 H Subjective 24 Hr Interval Summary Free Text/Dictation Patient doing well and denies any acute issues. Still on high flow at 50% FIO2 but denies any shortness of breath Exam/Review of Systems Exam Vitals Vital Signs Date Temp Pulse Resp B/P (MAP) Pulse Ox O2 O2 Flow FiO2 Time Delivery Rate 02/20/19 95 50 09:36 02/20/19 65 20 08:13 02/20/19 97.5 131/61 Nasal 07:56 (84) Cannula Intake and Output 02/19/19 02/19/19 02/20/19 1515:00 23:00 07:00 IntakeIntake Total 1000 ml 450 ml BalanceBalance 1000 ml 450 ml Exam General: Patient is laying in bed and answers questions appropriately Eyes: EOMI, pupils reactive to light Neck: Supple, nontender, midline Respiratory: mildly coarse to auscultation bilaterally. no wheezing appreciated Cardiovascular: regular rate and rhythm, no obvious murmurs Gastrointestinal: soft, non-tender to palpation, bowel sounds heard. Skin: no new skin lesions appreciated Results Results 24hrs Laboratory Tests Test 02/19/19 11:54 02/19/19 17:36 02/19/19 20:08 02/20/19 01:47 Bedside Glucose 226 H 259 H 236 H 255 H Test 02/20/19 06:55 02/20/19 07:00 02/20/19 08:08 White Blood Count 19.3 H Red Blood Count 5.26 Hemoglobin 14.3 Hematocrit 44.7 Mean Corpuscular 85.0 Volume Mean Corpuscular 27.2 L Hemoglobin Mean Corpuscular 32.0 Hemoglobin Concen t Red Cell 15.0 H Distribution Width Platelet Count 327 Mean Platelet 10.2 Volume Immature 5.100 H Granulocytes % Neutrophils % 76.2 Lymphocytes % 9.7 L Monocytes % 7.6 Eosinophils % 1.0 Basophils % 0.4 Nucleated Red 0.0 Blood Cells % Immature 0.980 H Granulocytes # Neutrophils # 14.7 H Lymphocytes # 1.9 Monocytes # 1.5 H Eosinophils # 0.2 Basophils # 0.1 Nucleated Red 0.0 Blood Cells # Sodium Level 137 Potassium Level 4.0 Chloride Level 102 Carbon Dioxide 27 Level Anion Gap 8 Blood Urea 48 H Nitrogen Creatinine 1.19 Glucose Level 276 H Calcium Level 8.9 Phosphorus Level 3.6 Magnesium Level 1.9 B-Type 1170 H Natriuretic Peptide Albumin 3.0 L Blood Gas Blood arterial Specimen Source Arterial Blood 02/20/2019 8:50:0 Date Drawn 6 AM Arterial Blood pH 7.476 H (Temp corrected) Arterial Blood 34.0 L pCO2 (Temp correct) Arterial Blood 81.6 pO2 (Temp corrected) Arterial Blood 24.5 HCO3 Arterial Blood 1.5 Base Excess Arterial Blood 96.3 Oxygen Saturation Caesar Test ACCEPTAB Arterial Blood Right Radial Gas Puncture Site Arterial 0.1 Blood Carboxyhemo globin Arterial Blood 0.3 Methemoglobin Blood Gas A-a O2 236.7 H Differential Oxyhemoglobin 95.9 Percent Blood Gas 37.0 Temperature Blood Gas HFNC Modality FiO2 50.0 Blood Gas TM Notified Whom Blood Gas 02/20/2019 9:10:4 Notified Time 0 AM Bedside Glucose 262 H Medications Medication Current Medications IV Flush (NS 3 ml) 3 ml PER PROTOCOL IV ; Start 02/12/19 at 14:30 Nitroglycerin (Nitroglycerin (Sl Tab) 0.4 Mg) 1 tab Q5M PRN SL .CHEST PAIN; Start 02/12/19 at 14:30 Acetaminophen (Tylenol Tab) 650 mg Q6H PRN PO .PAIN 1-3 OR TEMP Last adm inistered on 02/13/19 16:30; Admin Dose 650 MG; Start 02/12/19 at 14:30 Acetaminophen/ Hydrocodone Bitart ([place] (5/325)) 1 tab Q6H PRN PO .PAIN 4-6; Start 02/12/19 at 14:30 Morphine Sulfate (morphine) 2 mg Q4H PRN IV .PAIN 7-10 Last administered on 02/20/19 03:36; Admin Dose 2 MG; Start 02/12/19 at 14:30 Atorvastatin Calcium (Lipitor) 80 mg QHS PO Last administered on 02/19/19 20:09; Admin Dose 80 MG; Start 02/12/19 at 21:00 Clopidogrel Bisulfate (plaVIX) 75 mg DAILY PO Last administered on 02/20/19 08:31; Admin Dose 75 MG; Start 02/13/19 at 09:00 Docusate Sodium (Colace) 250 mg BID PO Last administered on 02/20/19 08:30; Admin Dose 250 MG; Start 02/12/19 at 21:00 Sertraline HCl (Zoloft) 150 mg DAILY PO Last administered on 02/20/19 08:31; Admin Dose 150 MG; Start 02/13/19 at 09:00 Terazosin HCl (Hytrin) 1 mg BID PO Last administered on 02/20/19 08:30; Admin Dose 1 MG; Start 02/12/19 at 21:00 Ursodiol (Pili) 250 mg BID PO Last administered on 02/20/19 08:44; Admin Dose 250 MG; Start 02/12/19 at 21:00 Albuterol/ Ipratropium (Duoneb) 3 ml Q6HWA RESP THERAPY HHN Last administered on 02/20/19 08:03; Admin Dose 3 ML; Start 02/12/19 at 20:00 Albuterol/ Ipratropium (Duoneb) 3 ml Q2H RESP THERAPY PRN HHN shortness of breath; Start 02/12/19 at 14:30 Budesonide (Pulmicort (Neb)) 0.5 mg BID RESP THERAPY HHN Last administered on 02/20/19 08:04; Admin Dose 0.5 MG; Start 02/12/19 at 20:00 Miscellaneous Information 1 ea NOTE XX ; Start 02/12/19 at 15:00 Glucose (Glutose) 15 gm Q15M PRN PO DECREASED GLUCOSE; Start 02/12/19 at 15:00 Glucose (Glutose) 22.5 gm Q15M PRN PO DECREASED GLUCOSE; Start 02/12/19 at 15:00 Dextrose (D50w Syringe) 25 ml Q15M PRN IV DECREASED GLUCOSE; Start 02/12/19 at 15:00 Dextrose (D50w Syringe) 50 ml Q15M PRN IV DECREASED GLUCOSE; Start 02/12/19 at 15:00 Glucagon (Glucagen) 1 mg Q15M PRN IM DECREASED GLUCOSE; Start 02/12/19 at 15:00 Glucose (Glutose) 15 gm Q15M PRN BUCCAL DECREASED GLUCOSE; Start 02/12/19 at 15:00 Ondansetron HCl (Zofran Inj) 4 mg Q6H PRN IV NAUSEA AND/OR VOMITING; Start 02/13/19 at 16:30 Diagnostic Test (Pha) (Accu-Chek) 1 ea 02 XX Last administered on 02/20/19at 01:50; Admin Dose 1 EA; Start 02/14/19 at 02:00 Insulin Aspart (Novolog Insulin Pen) NOVOLOG *MODERATE* ALGORITHM WITH MEALS BEDTIME SC Last administered on 02/20/19at 08:35; Admin Dose 8 UNIT; Start 02/13/19 at 17:55 Labetalol HCl (Labetalol) 10 mg Q4H PRN IV sbp >160 Last administered on 02/16/19at 05:02; Admin Dose 10 MG; Start 02/13/19 at 16:42 Apixaban (Eliquis) 2.5 mg BID PO Last administered on 02/20/19at 08:30; Admin Dose 2.5 MG; Start 02/14/19 at 21:00 Piperacillin Sod/ Tazobactam Sod 50 ml @ 200 mls/hr Q6 IVPB Last administered on 02/20/19 05:13; Admin Dose 200 MLS/HR; Start 02/14/19 at 18:00 Pantoprazole (Protonix Tab) 40 mg DAILY@06 PO Last administered on 02/20/19at 05:12; Admin Dose 40 MG; Start 02/16/19 at 06:00 Metoprolol Succinate (Toprol Xl) 25 mg BID PO Last administered on 02/20/19 08:30; Admin Dose 25 MG; Start 02/17/19 at 12:00 Insulin Aspart (Novolog Insulin Pen) 9 unit WITH MEALS SC Last administered on 02/20/19 08:34; Admin Dose 9 UNIT; Start 02/17/19 at 17:55 Hydralazine HCl (Apresoline) 10 mg Q4H PRN IV sbp >160 Last administered on 02/20/19 03:36; Admin Dose 10 MG; Start 02/18/19 at 09:30 Insulin Glargine (Lantus) 25 units DAILY@0800 SC Last administered on 02/20/19 08:33; Admin Dose 25 UNITS; Start 02/19/19 at 08:00 Nifedipine (Procardia Xl) 30 mg DAILY PO Last administered on 02/20/19 08:31; Admin Dose 30 MG; Start 02/19/19 at 09:00 Methylprednisolone Sodium Succinate (Solu-Medrol) 60 mg BID IV Last administered on 02/20/19 08:31; Admin Dose 60 MG; Start 02/18/19 at 21:00 Spironolactone (Aldactone) 12.5 mg DAILY PO Last administered on 02/20/19 08:30; Admin Dose 12.5 MG; Start 02/19/19 at 19:30 SHON CAVAZOS MD February 20, 2019 10:59
--- NOTE | 2019-02-20 16:03 | CONS ---
Consult Date/Type/Reason Admit Date/Time February 12, 2019 at 13:35 Initial Consult Date 02/12/19 Type of Consult Pulmonary Requesting Provider: YOLETTE RICH Date/Time of Note DATE: 02/20/19 TIME: 16:03 Subjective Patient slowly improving less short of breath today. Objective Vital Signs Date Temp Pulse Resp B/P (MAP) Pulse Ox O2 O2 Flow FiO2 Time Delivery Rate 02/20/19 98.0 69 22 135/60 95 Nasal 15:11 (85) Cannula 02/20/19 6.0 13:57 02/20/19 50 13:47 Intake and Output 02/19/19 02/19/19 02/20/19 1515:00 23:00 07:00 IntakeIntake Total 1000 ml 450 ml BalanceBalance 1000 ml 450 ml Exam GENERAL: Elderly gentleman on 6 L nasal cannula VITAL SIGNS: per chart NECK: Supple. No JVD or lymphadenopathy. CARDIAC EXAM: S1, S2. No added sounds or murmurs. CHEST: Diminished air entry bilaterally ABDOMEN: Soft, nontender. No guarding or rebound. EXTREMITIES: No cyanosis, clubbing or edema. NEUROLOGIC: Generalized weakness. No focal deficits. Vent Setting Fraction of Inspired Oxygen pe: 50 Results/Medications Result Diagram: 02/20/19 0655 02/20/19 0655 Results 24 hrs Laboratory Tests Test 02/19/19 17:36 02/19/19 20:08 02/20/19 01:47 02/20/19 06:55 Bedside Glucose 259 H 236 H 255 H White Blood Count 19.3 H Red Blood Count 5.26 Hemoglobin 14.3 Hematocrit 44.7 Mean Corpuscular 85.0 Volume Mean Corpuscular 27.2 L Hemoglobin Mean Corpuscular 32.0 Hemoglobin Concen t Red Cell 15.0 H Distribution Width Platelet Count 327 Mean Platelet 10.2 Volume Immature 5.100 H Granulocytes % Neutrophils % 76.2 Lymphocytes % 9.7 L Monocytes % 7.6 Eosinophils % 1.0 Basophils % 0.4 Nucleated Red 0.0 Blood Cells % Immature 0.980 H Granulocytes # Neutrophils # 14.7 H Lymphocytes # 1.9 Monocytes # 1.5 H Eosinophils # 0.2 Basophils # 0.1 Nucleated Red 0.0 Blood Cells # Sodium Level 137 Potassium Level 4.0 Chloride Level 102 Carbon Dioxide 27 Level Anion Gap 8 Blood Urea 48 H Nitrogen Creatinine 1.19 Glucose Level 276 H Calcium Level 8.9 Phosphorus Level 3.6 Magnesium Level 1.9 B-Type 1170 H Natriuretic Peptide Albumin 3.0 L Test 02/20/19 07:00 02/20/19 08:08 02/20/19 12:13 Blood Gas Blood arterial Specimen Source Arterial Blood 02/20/2019 8:50:0 Date Drawn 6 AM Arterial Blood pH 7.476 H (Temp corrected) Arterial Blood 34.0 L pCO2 (Temp correct) Arterial Blood 81.6 pO2 (Temp corrected) Arterial Blood 24.5 HCO3 Arterial Blood 1.5 Base Excess Arterial Blood 96.3 Oxygen Saturation Caesar Test ACCEPTAB Arterial Blood Right Radial Gas Puncture Site Arterial 0.1 Blood Carboxyhemo globin Arterial Blood 0.3 Methemoglobin Blood Gas A-a O2 236.7 H Differential Oxyhemoglobin 95.9 Percent Blood Gas 37.0 Temperature Blood Gas HFNC Modality FiO2 50.0 Blood Gas TM Notified Whom Blood Gas 02/20/2019 9:10:4 Notified Time 0 AM Bedside Glucose 262 H 257 H Medications Current Medications IV Flush (NS 3 ml) 3 ml PER PROTOCOL IV ; Start 02/12/19 at 14:30 Nitroglycerin (Nitroglycerin (Sl Tab) 0.4 Mg) 1 tab Q5M PRN SL .CHEST PAIN; Start 02/12/19 at 14:30 Acetaminophen (Tylenol Tab) 650 mg Q6H PRN PO .PAIN 1-3 OR TEMP Last administered on 02/13/19at 16:30; Admin Dose 650 MG; Start 02/12/19 at 14:30 Acetaminophen/ Hydrocodone Bitart ([place] (5/325)) 1 tab Q6H PRN PO .PAIN 4-6; Start 02/12/19 at 14:30 Morphine Sulfate (morphine) 2 mg Q4H PRN IV .PAIN 7-10 Last administered on 02/20/19at 03:36; Admin Dose 2 MG; Start 02/12/19 at 14:30 Atorvastatin Calcium (Lipitor) 80 mg QHS PO Last administered on 02/19/19at 20:09; Admin Dose 80 MG; Start 02/12/19 at 21:00 Clopidogrel Bisulfate (plaVIX) 75 mg DAILY PO Last administered on 02/20/19at 08:31; Admin Dose 75 MG; Start 02/13/19 at 09:00 Docusate Sodium (Colace) 250 mg BID PO Last administered on 02/20/19 08:30; Admin Dose 250 MG; Start 02/12/19 at 21:00 Sertraline HCl (Zoloft) 150 mg DAILY PO Last administered on 02/20/19 08:31; Admin Dose 150 MG; Start 02/13/19 at 09:00 Terazosin HCl (Hytrin) 1 mg BID PO Last administered on 02/20/19 08:30; Admin Dose 1 MG; Start 02/12/19 at 21:00 Ursodiol (Pili) 250 mg BID PO Last administered on 02/20/19 08:44; Admin Dose 250 MG; Start 02/12/19 at 21:00 Albuterol/ Ipratropium (Duoneb) 3 ml Q6HWA RESP THERAPY HHN Last administered on 02/20/19 13:43; Admin Dose 3 ML; Start 02/12/19 at 20:00 Albuterol/ Ipratropium (Duoneb) 3 ml Q2H RESP THERAPY PRN HHN shortness of breath; Start 02/12/19 at 14:30 Budesonide (Pulmicort (Neb)) 0.5 mg BID RESP THERAPY HHN Last administered on 02/20/19 08:04; Admin Dose 0.5 MG; Start 02/12/19 at 20:00 Miscellaneous Information 1 ea NOTE XX ; Start 02/12/19 at 15:00 Glucose (Glutose) 15 gm Q15M PRN PO DECREASED GLUCOSE; Start 02/12/19 at 15:00 Glucose (Glutose) 22.5 gm Q15M PRN PO DECREASED GLUCOSE; Start 02/12/19 at 15:00 Dextrose (D50w Syringe) 25 ml Q15M PRN IV DECREASED GLUCOSE; Start 02/12/19 at 15:00 Dextrose (D50w Syringe) 50 ml Q15M PRN IV DECREASED GLUCOSE; Start 02/12/19 at 15:00 Glucagon (Glucagen) 1 mg Q15M PRN IM DECREASED GLUCOSE; Start 02/12/19 at 15:00 Glucose (Glutose) 15 gm Q15M PRN BUCCAL DECREASED GLUCOSE; Start 02/12/19 at 15:00 Ondansetron HCl (Zofran Inj) 4 mg Q6H PRN IV NAUSEA AND/OR VOMITING; Start 02/13/19 at 16:30 Diagnostic Test (Pha) (Accu-Chek) 1 ea 02 XX Last administered on 02/20/19 01:50; Admin Dose 1 EA; Start 02/14/19 at 02:00 Insulin Aspart (Novolog Insulin Pen) NOVOLOG *MODERATE* ALGORITHM WITH MEALS BEDTIME SC Last administered on 02/20/19 12:33; Admin Dose 6 UNIT; Start 02/13/19 at 17:55 Labetalol HCl (Labetalol) 10 mg Q4H PRN IV sbp >160 Last administered on 02/16/19 05:02; Admin Dose 10 MG; Start 02/13/19 at 16:42 Apixaban (Eliquis) 2.5 mg BID PO Last administered on 02/20/19 08:30; Admin Dose 2.5 MG; Start 02/14/19 at 21:00 Piperacillin Sod/ Tazobactam Sod 50 ml @ 200 mls/hr Q6 IVPB Last administered on 02/20/19 12:11; Admin Dose 200 MLS/HR; Start 02/14/19 at 18:00 Pantoprazole (Protonix Tab) 40 mg DAILY@06 PO Last administered on 02/20/19 05:12; Admin Dose 40 MG; Start 02/16/19 at 06:00 Metoprolol Succinate (Toprol Xl) 25 mg BID PO Last administered on 02/20/19 08:30; Admin Dose 25 MG; Start 02/17/19 at 12:00 Hydralazine HCl (Apresoline) 10 mg Q4H PRN IV sbp >160 Last administered on 02/20/19 03:36; Admin Dose 10 MG; Start 02/18/19 at 09:30 Nifedipine (Procardia Xl) 30 mg DAILY PO Last administered on 02/20/19 08:31; Admin Dose 30 MG; Start 02/19/19 at 09:00 Spironolactone (Aldactone) 12.5 mg DAILY PO Last administered on 02/20/19 08:30; Admin Dose 12.5 MG; Start 02/19/19 at 19:30 IV Flush (NS 10 ml) 10 ml ONCE PRN IV IV PROTOCOL; Start 02/20/19 at 14:30; Stop 02/21/19 at 14:29 Insulin Aspart (Novolog Insulin Pen) 12 unit WITH MEALS SC ; Start 02/20/19 at 17:55 Insulin Glargine (Lantus) 30 units DAILY@0800 SC ; Start 02/21/19 at 08:00 Methylprednisolone Sodium Succinate (Solu-Medrol) 40 mg BID IV ; Start 02/20/19 at 21:00 Assessment/Plan Hospital Course (Demo Recall) IMP: 1. Acute hypoxemic respiratory failure 2. Multifocal pneumonia--possibly aspiration 3. Chronic obstructive pulmonary disease exacerbation 4. History of cerebrovascular accident 5. Acute on chronic kidney disease RECS: 1. Continue antibiotics. 2. Bronchodilators. 3. Decrease steroids 4. Titrate FiO2 as tolerated 5. Aspiration precautions 6. [facility]'s[facility] 16[facility]03
--- NOTE | 2019-02-20 17:34 | PDOCDIS ---
Discharge Instructions DIAGNOSIS Discharge Diagnosis 1. Acute hypoxic respiratory distress- improving 2. Likely aspiration pneumonia 3. COPD exacerbation 4. Non-ST elevated myocardial infarction 5. Atrial fibrillation 6. DM 7. HTN 8. History of CVA 9. Acute kidney injury versus chronic kidney disease CONDITION [id number] Patient Condition: [id number] Stable HOME CARE INSTRUCTIONS: [id number] Special Diet: [id number] Diabetic diet, pureed, Boost Glucose TID FOLLOW UP/APPOINTMENTS Follow-up Plan 1. Continue current care at [facility] SHON CAVAZOS MD February 20, 2019 17:34
--- NOTE | 2019-02-20 17:47 | DS ---
Date/Time of Note Date/Time of Note DATE: 02/20/19 TIME: 17:34 Discharge Summary Admission/Discharge Info Admit Date/Time February 12, 2019 at 13:35 Discharge Date/Time 02/20/19 Discharge Diagnosis 1. Acute hypoxic respiratory distress- improving 2. Likely aspiration pneumonia 3. COPD exacerbation 4. Non-ST elevated myocardial infarction 5. Atrial fibrillation 6. DM 7. HTN 8. History of CVA 9. Acute kidney injury versus chronic kidney disease Patient Condition: Stable Consults Pulmonology- Dr. Mar Cardiology- Dr. Chambers Nephrology- Dr. Gonzáles Palliative- Dr. Valentine Procedures ECHO: Findings: Left Ventricle: Normal left ventricular systolic function. Normal left ventricular cavity size. Moderate asymmetric septal hypertrophy. Ejection fraction is visually estimated at 55-60 %. Tissue Doppler/Mitral Doppler indices are consistent with impaired relaxation (Stage I diastolic dysfunction). Right Ventricle: Normal right ventricular size. Normal right ventricular systolic function. Left Atrium: The left atrium is normal in size. Right Atrium: The right atrium is normal in size. Mitral Valve: Mild mitral leaflet calcification. Mild mitral annular calcification. Trace mitral regurgitation. Aortic Valve: Aortic sclerosis without significant stenosis. Tricuspid Valve: Normal appearance of the tricuspid valve. Estimated peak PA systolic pressure 23 mmHg. There is trace tricuspid regurgitation. Pulmonic Valve: Pulmonic valve not well visualized. Pericardium: Normal pericardium with no significant pericardial effusion. Aorta: Normal aortic root. IVC: Inferior vena cava without respiratory collapse, however, patient on ventilator. Conclusions: Normal left ventricular systolic function. Normal left ventricular cavity size. Moderate asymmetric septal hypertrophy. Ejection fraction is visually estimated at 55-60 %. Tissue Doppler/Mitral Doppler indices are consistent with impaired relaxation (Stage I diastolic dysfunction). ). The left atrium is normal in size. Mild mitral leaflet calcification. Mild mitral annular calcification. Trace mitral regurgitation. Aortic sclerosis without significant stenosis. Normal appearance of the tricuspid valve. Estimated peak PA systolic pressure 23 mmHg. There is trace tricuspid regurgitation. Electronically Signed By: Deni Chambers 2019-02-12 18:44:28 PDT Hx of Present Illness Patient is a male with a past medical history significant for left BKA, diabetes mellitus, hypertension, COPD, CVA with residual left-sided weaknes s who presents to [facility] for hypoxia. Patient was at his [facility] facility, had an episode of emesis and subsequently had hypoxia. Currently patient is doing well on high flow nasal cannula with no respiratory issues as long as the high flow is on. Patient is DO NOT RESUSCITATE but will continue all full medical treatment. Currently patient denies any shortness of breath, chest pain, dizziness, abdominal pain, leg pain. Hospital Course Patient was admitted to Telemetry and continued on high flow O2 for treatment of acute hypoxia. Pulmonology was consulted for further management and started on IV steroid and antibiotics for treatment of aspiration pneumonia and COPD exacerbation. Patient was also seen by Cardiology given elevated troponins and worked up for NSTEMI. Given the fact troponins were trending downward and patient remained asymptomatic, no further cardiac workup was warned in the setting of preserved LVEF, normal systolic function, no angina, and DNR status. Patient did develop new onset atrial fibrillation and started on Eliquis given his history of CVA in the past. Patients renal function was worsening during hospitalist and Nephrology was consulted for management with improvement after given gentle fluids. Patient was evaluated by Speech therapist given suspicion for aspiration as etiology of pneumonia and cleared for pureed diet and meds crushed in apple sauces. Patient was continued on IV antibiotics and steroid taper. He was titrated off high flow and was tolerating 5L O2 via nasal cannula without any complaints of shortness of breath. Patients renal function normalized. Patients respiratory status improved and was stable for transfer to [place]. Home Meds Reported Medications Na Phos,M-B/Na Phos,Di-Ba (ENEMA [id number]) 133 Ml Enema, 133 ML RC EVERY 48 HOURS PRN for CONSTIPATION, ENEMA 02/12/19 Bisacodyl (Dulcolax) 10 Mg Supp.rect, 10 MG RC EVERY 48 HOURS PRN for CONSTIPATION, SUPP.RECT 02/12/19 Atenolol* (Atenolol*) 50 Mg Tablet, 50 MG PO BID, #60 TAB HOLD FOR SBP<110 OR HR <60 02/12/19 Acetaminophen* (Acetaminophen*) 650 Mg Tablet, 650 MG PO Q6H PRN for MILD PAIN LEVEL 1-3, #30 TAB 02/12/19 Ranitidine Hcl* (Zantac*) 300 Mg Tablet, 300 MG PO HS, #30 TAB 02/12/19 Amino Acids/Protein Hydrolys (PRO-STAT LIQUID) 30 Ml Liquid.pkt, 30 ML PO DAILY 02/12/19 Ursodiol* (Ursodiol*) 250 Mg Tablet, 250 MG PO BID, TAB 02/12/19 Sertraline Hcl* (Zoloft*) 100 Mg Tablet, 150 MG PO DAILY, #30 TAB 02/12/19 Ondansetron (Ondansetron Odt) 4 Mg Tab.rapdis, 4 MG PO Q6H PRN for NAUSEA AND/OR VOMITING, TAB 02/12/19 Terazosin Hcl* (Terazosin Hcl*) 1 Mg Capsule, 1 MG PO BID, CAP 02/12/19 Sennosides* (Senna Lax*) 8.6 Mg Tablet, 1 TAB PO QHS, TAB 02/12/19 Magnesium Hydroxide* (Milk Of Magnesia*) 400 Mg/5 Ml Oral.susp, 30 ML PO DAILY PRN for CONSTIPATION, ML 02/12/19 Metformin Hcl* (Metformin Hcl*) 500 Mg Tablet, 500 MG PO WITH BREAKFAST DINNE, #60 TAB 02/12/19 Atorvastatin Calcium* (Atorvastatin Calcium*) 20 Mg Tablet, 20 MG PO QHS, #30 TAB 02/12/19 Lactulose* (Lactulose*) 20 Gm/30 Ml Solution, 20 GM PO DAILY, ML 02/12/19 Gabapentin* (Gabapentin*) 100 Mg Capsule, 100 MG PO TID, #90 CAP 02/12/19 Docusate Sodium* (Colace*) 250 Mg Capsule, 250 MG PO BID, #60 CAP 02/12/19 Clopidogrel Bisulfate (Clopidogrel) 75 Mg Tablet, 75 MG PO DAILY, #30 TAB 02/12/19 Follow-up Plan 1. Continue current care at [facility] Primary Care Provider Not On Staff Doctor Time spent on discharge: > 30 minutes Pending Labs Laboratory Tests Test 02/19/19 17:36 02/19/19 20:08 02/20/19 01:47 02/20/19 06:55 Bedside 259 236 255 Glucose mg/dL (70-220) mg/dL (70-220) mg/dL (70-220) White Blood 19.3 Count 10^3/ul (4.8-1 0.8) Red Blood 5.26 Count 10^6/ul (4.70- 6.10) Hemoglobin 14.3 g/dl (14.0-18. 0) Hematocrit 44.7 % (42.0-52.0) Mean 85.0 Corpuscular fl (82.0-101.0 Volume ) Mean 27.2 Corpuscular pg (29.0-33.0) Hemoglobin Mean 32.0 Corpuscular g/dl (32.0-37. Hemoglobin Conc 0) ent Red Cell 15.0 Distribution % (11.5-14.5) Width Platelet Count 327 10^3/UL (140-4 15) Mean Platelet 10.2 Volume fl (7.4-10.4) Immature 5.100 Granulocytes % % (0.001-0.429 ) Neutrophils % 76.2 % (39.0-77.0) Lymphocytes % 9.7 % (15.0-51.0) Monocytes % 7.6 % (0.0-11.0) Eosinophils % 1.0 % (0.0-7.0) Basophils % 0.4 % (0.0-2.0) Nucleated Red 0.0 Blood Cells % /100WBC (0.0-0 .0) Immature 0.980 Granulocytes # 10^3/ul (0.0-0 .031) Neutrophils # 14.7 10^3/ul (1.6-7 .5) Lymphocytes # 1.9 10^3/ul (0.8-2 .9) Monocytes # 1.5 10^3/ul (0.3-0 .9) Eosinophils # 0.2 10^3/ul (0.0-0 .5) Basophils # 0.1 10^3/ul (0.0-0 .1) Nucleated Red 0.0 Blood Cells # 10^3/ul (0.0-0 .0) Sodium Level 137 mmol/L (135-14 4) Potassium 4.0 Level mmol/L (3.5-5. 1) Chloride Level 102 mmol/L (97-110 ) Carbon Dioxide 27 Level mmol/L (21-31) Anion Gap 8 (5-13) Blood Urea 48 Nitrogen mg/dl (7-20) Creatinine 1.19 mg/dl (0.61-1. 24) Glucose Level 276 mg/dl (70-220) Calcium Level 8.9 mg/dl (8.4-10. 2) Phosphorus 3.6 Level mg/dl (2.5-4.9 ) Magnesium 1.9 Level mg/dl (1.7-2.5 ) B-Type 1170 Natriuretic PG/ML (0-125) Peptide Albumin 3.0 g/dl (3.3-4.9) Test 02/20/19 07:00 02/20/19 08:08 02/20/19 12:13 Blood Gas Blood arterial Specimen Source Arterial Blood 02/20/2019 8:50: Date Drawn 06 AM Arterial Blood 7.476 (7.350-7. pH 450) (Temp corrected ) Arterial Blood 34.0 pCO2 mmhg (35-45) (Temp correct) Arterial Blood 81.6 pO2 mmHG (80-90.0) (Temp corrected ) Arterial Blood 24.5 HCO3 mmol/L (22.0-26 .0) Arterial Blood 1.5 Base Excess mmol/L (-3.0-3) Arterial Blood 96.3 Oxygen Saturati mmHG (95.0-100. on 0) Caesar Test ACCEPTAB Arterial Blood Right Radial Gas Puncture Site Arterial 0.1 % (0.0-3.0) Blood Carboxyhe moglobin Arterial Blood 0.3 % (0.0-1.5) Methemoglobin Blood Gas A-a 236.7 O2 mmHg (7.0-24.0) Differential Oxyhemoglobin 95.9 Percent % (93.0-99.0) Blood Gas 37.0 C Temperature Blood Gas HFNC Modality FiO2 50.0 % Blood Gas TM Notified Whom Blood Gas 02/20/2019 9:10: Notified Time 40 AM Bedside 262 257 Glucose mg/dL (70-220) mg/dL (70-220) SHON CAVAZOS MD February 20, 2019 17:47
[2019-02-20] MEDS: METHYLPREDNISOLONE 40 MG INJ IV SCH (21:30)
[2019-02-20] MEDS: ATORVASTATIN 20 MG TAB PO SCH (21:30)
[2019-02-21] VITALS (10 sets, daily range): BP systolic 127–160; BP diastolic 62–74; PULSE 63–92; RESP 18–54
[2019-02-21] MEDS: ACCU-CHEK XX SCH (00:27)
[2019-02-21] MEDS: hydrALAzine 20 MG INJ IV PRN (03:45)
[2019-02-21] MEDS: PANTOPRAZOLE (EC) 40 MG TAB PO SCH (05:12)
[2019-02-21] MEDS: PIPER-TAZO 2.25 GM (PMX) 50 ML IVPB SCH ×3 (05:12→17:47)
[2019-02-21] MEDS ORDERED: INSULIN GLARGINE [LANTus] (100 UNITS/ML) SYG SC SCH (08:00)
[2019-02-21] MEDS: ALBUTEROL/IPRATROPIUM (NEB) 3 ML AMP HHN SCH ×2 (08:06→13:25)
[2019-02-21] MEDS: BUDESONIDE (NEB) 0.5MG/2ML AMP HHN SCH (08:06)
[2019-02-21] MEDS: CLOPIDOGREL 75 MG TAB PO SCH (08:15)
[2019-02-21] MEDS: SPIRONOLACTONE 25 MG TAB PO SCH (08:15)
[2019-02-21] MEDS: METHYLPREDNISOLONE 40 MG INJ IV SCH (08:16)
[2019-02-21] MEDS: DOCUSATE SODIUM 250 MG CAP PO SCH (08:17)
[2019-02-21] MEDS: TERAZOSIN 1 MG CAP PO SCH (08:17)
[2019-02-21] MEDS: METOPROLOL (XL) 25 MG TAB PO SCH (08:17)
[2019-02-21] MEDS: URSODIOL 250 MG TAB PO SCH (08:18)
[2019-02-21] MEDS: NIFEdipine (XL) 30 MG TAB PO SCH (08:19)
[2019-02-21] MEDS: SERTRALINE 100 MG TAB PO SCH (08:19)
[2019-02-21] MEDS: APIXABAN 5 MG TABLET PO SCH (08:20)
[2019-02-21] MEDS: INSULIN ASPART [NOVOLOG] 3 ML PEN SC SCH ×6 (08:25→17:52)
--- NOTE | 2019-02-21 09:26 | CONS ---
Consult Date/Type/Reason Admit Date/Time February 12, 2019 at 13:35 Initial Consult Date 02/12/19 Type of Consultation: cv Requesting Provider: YOLETTE RICH Date/Time of Note DATE: 02/21/19 TIME: 09:25 Subjective Cardiology follow-up progress note Subjective: Case discussed with staff telemetry was reviewed patient remains in normal sinus rhythm has occasional PAC and PVCs He denies any left-sided chest pain or pressure to me. He is off high flow OW Objective: General: no acute distress but on oxygen HEENT: NC/AT. pupils are equal. round. NECK: NO JVD. no stridor. CV: RRR. systolic murmur; no gallop or rubs. PULM: no wheezing MILD rhonchi. GI: SOFT, NT, ND, no rebound or guarding Extremity: Left BKA neuro: awake and alert, OX2. Psych: calm and pleasant rectal: deferred EKG normal sinus rhythm right bundle branch with nonspecific ST-T wave abnormalities X-ray done 02/12/2019 shows: No acute disease. Calcified aorta consistent with atherosclerotic disease. Echocardiogram done February 12, 2019 which was personally reviewed shows: Normal left ventricular systolic function. Normal left ventricular cavity size. Moderate asymmetric septal hypertrophy. Ejection fraction is visually estimated at 55-60 %. Tissue Doppler/Mitral Doppler indices are consistent with impaired relaxation (Stage I diastolic dysfunction). The left atrium is normal in size. Mild mitral leaflet calcification. Mild mitral annular calcification. Trace mitral regurgitation. Aortic sclerosis without significant stenosis. Normal appearance of the tricuspid valve. Estimated peak PA systolic pressure 23 mmHg. There is trace tricuspid regurgitation. Objective Vitals Vital Signs Date Temp Pulse Resp B/P (MAP) Pulse Ox O2 O2 Flow FiO2 Time Delivery Rate 02/21/19 63 08:55 02/21/19 6.0 08:06 02/21/19 20 97 Nasal 08:06 Cannula 02/21/19 98.2 127/62 07:31 (83) 02/20/19 50 13:47 Intake and Output 02/20/19 02/20/19 02/21/19 1515:00 23:00 07:00 IntakeIntake Total 880 ml 400 ml BalanceBalance 880 ml 400 ml Results/Medications Result Diagram: 02/21/1960402/21/19604 Results 24 hrs Laboratory Tests Test 02/20/19 12:13 02/20/19 17:33 02/20/19 21:27 02/21/19 00:20 Bedside Glucose 257 H 179 192 198 Test 02/21/19 06:05 02/21/19 08:08 White Blood Count 19.5 H Red Blood Count 4.70 Hemoglobin 12.8 L Hematocrit 40.0 L Mean Corpuscular 85.1 Volume Mean Corpuscular 27.2 L Hemoglobin Mean Corpuscular 32.0 Hemoglobin Concent Red Cell 14.7 H Distribution Width Platelet Count 320 Mean Platelet Volume 10.1 Immature 4.400 H Granulocytes % Neutrophils % 81.3 H Lymphocytes % 7.4 L Monocytes % 5.6 Eosinophils % 1.0 Basophils % 0.3 Nucleated Red Blood 0.0 Cells % Immature 0.860 H Granulocytes # Neutrophils # 15.8 H Lymphocytes # 1.4 Monocytes # 1.1 H Eosinophils # 0.2 Basophils # 0.1 Nucleated Red Blood 0.0 Cells # Sodium Level 138 Potassium Level 4.2 Chloride Level 104 Carbon Dioxide Level 26 Anion Gap 8 Blood Urea Nitrogen 43 H Creatinine 1.12 Glucose Level 233 H Calcium Level 8.6 Phosphorus Level 3.4 Magnesium Level 1.9 Albumin 2.9 L Bedside Glucose 209 Home Meds Reported Medications Na Phos,M-B/Na Phos,Di-Ba (ENEMA [id number]) 133 Ml Enema, 133 ML RC EVERY 48 HOURS PRN for CONSTIPATION, ENEMA 02/12/19 Bisacodyl (Dulcolax) 10 Mg Supp.rect, 10 MG RC EVERY 48 HOURS PRN for CONSTIPATION, SUPP.RECT 02/12/19 Atenolol* (Atenolol*) 50 Mg Tablet, 50 MG PO BID, #60 TAB HOLD FOR SBP<110 OR HR <60 02/12/19 Acetaminophen* (Acetaminophen*) 650 Mg Tablet, 650 MG PO Q6H PRN for MILD PAIN LEVEL 1-3, #30 TAB 02/12/19 Ranitidine Hcl* (Zantac*) 300 Mg Tablet, 300 MG PO HS, #30 TAB 02/12/19 Amino Acids/Protein Hydrolys (PRO-STAT LIQUID) 30 Ml Liquid.pkt, 30 ML PO DAILY 02/12/19 Ursodiol* (Ursodiol*) 250 Mg Tablet, 250 MG PO BID, TAB 02/12/19 Sertraline Hcl* (Zoloft*) 100 Mg Tablet, 150 MG PO DAILY, #30 TAB 02/12/19 Ondansetron (Ondansetron Odt) 4 Mg Tab.rapdis, 4 MG PO Q6H PRN for NAUSEA AND/OR VOMITING, TAB 02/12/19 Terazosin Hcl* (Terazosin Hcl*) 1 Mg Capsule, 1 MG PO BID, CAP 02/12/19 Sennosides* (Senna Lax*) 8.6 Mg Tablet, 1 TAB PO QHS, TAB 02/12/19 Magnesium Hydroxide* (Milk Of Magnesia*) 400 Mg/5 Ml Oral.susp, 30 ML PO DAILY PRN for CONSTIPATION, ML 02/12/19 Metformin Hcl* (Metformin Hcl*) 500 Mg Tablet, 500 MG PO WITH BREAKFAST DINNE, #60 TAB 02/12/19 Atorvastatin Calcium* (Atorvastatin Calcium*) 20 Mg Tablet, 20 MG PO QHS, #30 TAB 02/12/19 Lactulose* (Lactulose*) 20 Gm/30 Ml Solution, 20 GM PO DAILY, ML 02/12/19 Gabapentin* (Gabapentin*) 100 Mg Capsule, 100 MG PO TID, #90 CAP 02/12/19 Docusate Sodium* (Colace*) 250 Mg Capsule, 250 MG PO BID, #60 CAP 02/12/19 Clopidogrel Bisulfate (Clopidogrel) 75 Mg Tablet, 75 MG PO DAILY, #30 TAB 02/12/19 Medications Current Medications IV Flush (NS 3 ml) 3 ml PER PROTOCOL IV ; Start 02/12/19 at 14:30 Nitroglycerin (Nitroglycerin (Sl Tab) 0.4 Mg) 1 tab Q5M PRN SL .CHEST PAIN; Start 02/12/19 at 14:30 Acetaminophen (Tylenol Tab) 650 mg Q6H PRN PO .PAIN 1-3 OR TEMP Last administered on 02/13/19at 16:30; Admin Dose 650 MG; Start 02/12/19 at 14:30 Acetaminophen/ Hydrocodone Bitart ([place]ushing (5/325)) 1 tab Q6H PRN PO .PAIN 4-6; Start 02/12/19 at 14:30 Morphine Sulfate (morphine) 2 mg Q4H PRN IV .PAIN 7-10 Last administered on 02/20/19at 03:36; Admin Dose 2 MG; Start 02/12/19 at 14:30 Atorvastatin Calcium (Lipitor) 80 mg QHS PO Last administered on 02/20/19 21:30; Admin Dose 80 MG; Start 02/12/19 at 21:00 Clopidogrel Bisulfate (plaVIX) 75 mg DAILY PO Last administered on 02/21/19 08:15; Admin Dose 75 MG; Start 02/13/19 at 09:00 Docusate Sodium (Colace) 250 mg BID PO Last administered on 02/21/19 08:17; Admin Dose 250 MG; Start 02/12/19 at 21:00 Sertraline HCl (Zoloft) 150 mg DAILY PO Last administered on 02/21/19 08:19; Admin Dose 150 MG; Start 02/13/19 at 09:00 Terazosin HCl (Hytrin) 1 mg BID PO Last administered on 02/21/19 08:17; Admin Dose 1 MG; Start 02/12/19 at 21:00 Ursodiol (Pili) 250 mg BID PO Last administered on 02/21/19 08:18; Admin Dose 250 MG; Start 02/12/19 at 21:00 Albuterol/ Ipratropium (Duoneb) 3 ml Q6HWA RESP THERAPY HHN Last administered on 02/21/19 08:06; Admin Dose 3 ML; Start 02/12/19 at 20:00 Albuterol/ Ipratropium (Duoneb) 3 ml Q2H RESP THERAPY PRN HHN shortness of breath; Start 02/12/19 at 14:30 Budesonide (Pulmicort (Neb)) 0.5 mg BID RESP THERAPY HHN Last administered on 02/21/19 08:06; Admin Dose 0.5 MG; Start 02/12/19 at 20:00 Miscellaneous Information 1 ea NOTE XX ; Start 02/12/19 at 15:00 Glucose (Glutose) 15 gm Q15M PRN PO DECREASED GLUCOSE; Start 02/12/19 at 15:00 Glucose (Glutose) 22.5 gm Q15M PRN PO DECREASED GLUCOSE; Start 02/12/19 at 15:00 Dextrose (D50w Syringe) 25 ml Q15M PRN IV DECREASED GLUCOSE; Start 02/12/19 at 15:00 Dextrose (D50w Syringe) 50 ml Q15M PRN IV DECREASED GLUCOSE; Start 02/12/19 at 15:00 Glucagon (Glucagen) 1 mg Q15M PRN IM DECREASED GLUCOSE; Start 02/12/19 at 15:00 Glucose (Glutose) 15 gm Q15M PRN BUCCAL DECREASED GLUCOSE; Start 02/12/19 at 1 5:00 Ondansetron HCl (Zofran Inj) 4 mg Q6H PRN IV NAUSEA AND/OR VOMITING; Start 02/13/19 at 16:30 Diagnostic Test (Pha) (Accu-Chek) 1 ea 02 XX Last administered on 02/21/19 00:27; Admin Dose 1 EA; Start 02/14/19 at 02:00 Insulin Aspart (Novolog Insulin Pen) NOVOLOG *MODERATE* ALGORITHM WITH MEALS BEDTIME SC Last administered on 02/21/19 08:27; Admin Dose 4 UNIT; Start 02/13/19 at 17:55 Labetalol HCl (Labetalol) 10 mg Q4H PRN IV sbp >160 Last administered on 02/16/19at 05:02; Admin Dose 10 MG; Start 02/13/19 at 16:42 Apixaban (Eliquis) 2.5 mg BID PO Last administered on 02/21/19 08:20; Admin Dose 2.5 MG; Start 02/14/19 at 21:00 Piperacillin Sod/ Tazobactam Sod 50 ml @ 200 mls/hr Q6 IVPB Last administered on 02/21/19 05:12; Admin Dose 200 MLS/HR; Start 02/14/19 at 18:00 Pantoprazole (Protonix Tab) 40 mg DAILY@06 PO Last administered on 02/21/19 05:12; Admin Dose 40 MG; Start 02/16/19 at 06:00 Metoprolol Succinate (Toprol Xl) 25 mg BID PO Last administered on 02/21/19 08:17; Admin Dose 25 MG; Start 02/17/19 at 12:00 Hydralazine HCl (Apresoline) 10 mg Q4H PRN IV sbp >160 Last administered on 02/21/19at 03:45; Admin Dose 10 MG; Start 02/18/19 at 09:30 Nifedipine (Procardia Xl) 30 mg DAILY PO Last administered on 02/21/19 08:19; Admin Dose 30 MG; Start 02/19/19 at 09:00 Spironolactone (Aldactone) 12.5 mg DAILY PO Last administered on 02/21/19at 08:15; Admin Dose 12.5 MG; Start 02/19/19 at 19:30 IV Flush (NS 10 ml) 10 ml ONCE PRN IV IV PROTOCOL; Start 02/20/19 at 14:30; Stop 02/21/19 at 14:29 Insulin Aspart (Novolog Insulin Pen) 12 unit WITH MEALS SC Last administered on 02/21/19at 08:25; Admin Dose 12 UNIT; Start 02/20/19 at 17:55 Insulin Glargine (Lantus) 30 units DAILY@0800 SC ; Start 02/21/19 at 08:00 Methylprednisolone Sodium Succinate (Solu-Medrol) 40 mg BID IV Last administered on 02/21/19at 08:16; Admin Dose 40 MG; Start 02/20/19 at 21:00 Assessment/Plan Hospital Course (Demo Recall) Mildly abnormal troponin: Consistent with non-ST elevation myocardial infarction probably type II Acute hypoxemic respiratory failure History of multiple CVA diabetes hypertension History of congestive heart failure: currently does not appear to be fluid overloaded to Dyslipidemia Peripheral vascular disease status post BKA Encephalopathy Renal insufficiency; probably acute on chronic: improved now Paroxysmal atrial fibrillation Recommendations: cont home plavix. CONT Eliquis 2.5 mg p.o. twice daily given his short episode of P atrial fibrillation AND HX OF CVA cont resp care O2 abx as per IM REC CONT DM control echo shows normal LV systolic function cont toprol xl now procardia. lasix prn . cont Aldactone Medical therapy from the cardiac standpoint is recommended at this point given the fact that the patient has normal ejection fraction no angina is and is DNR Thank you for this referral. We will continue to follow along with you PIPPA MACIAS MD [facility] PIPPA MACIAS MD February 21, 2019 09:26
--- NOTE | 2019-02-21 10:02 | PN ---
DATE: 02/21/2019 SUBJECTIVE: The patient is stable. No events overnight. OBJECTIVE: VITAL SIGNS: Blood pressure is 127/62, pulse 71, respirations 20, temperature 98.2. HEENT: Head is normocephalic. NECK: Supple. HEART: Regular rate. LUNGS: Show diminished breath sounds at the base. ABDOMEN: Soft, nontender to palpation without rebound or guarding. EXTREMITIES: Negative for clubbing, cyanosis, no edema. DERMATOLOGIC: No rashes. MUSCULOSKELETAL: No joint effusion. NEUROLOGIC: No change in exam. MEDICATIONS: The patient's medications have been reviewed. LABORATORY DATA: Reviewed. ASSESSMENT AND PLAN: 1. Nonoliguric acute kidney injury with unknown baseline creatinine. Etiology is secondary to hemod ynamics. Renal function stabilized. Continue current treatment plan, supportive care, renally dose all medications. 2. Mineral bone disorder, monitor calcium and phosphorus levels. 3. Hypertension. Continue current blood pressure regimen. 4. Acute hypoxemic respiratory failure secondary to chronic obstructive pulmonary disease exacerbati on, pneumonia. The patient is currently improving. Continue medical management. Continue steroids. 5. Sepsis secondary to pneumonia. The patient is completing antibiotic course. 6. Coronary artery disease. Continue current medical management. 7. Diabetes. Continue current insulin regimen. 8. History of cerebrovascular accident. 9. History of peripheral vascular disease. Dictated By: BRANDY CLEVELAND DO NR/NTS Conf#: [id number] DID#: [id number] CC: SHON CAVAZOS MD; YOLETTE RICH MD; FREDDIE MURILLO MD;*End*
--- NOTE | 2019-02-21 10:14 | PN ---
Date/Time of Note Date/Time of Note DATE: 02/21/19 TIME: 10:10 Assessment/Plan VTE Prophylaxis Risk score (from Ns)>0 risk: 9 SCD applied (from Nsg): Yes Pharmacological prophylaxis: apixaban Lines/Catheters IV Catheter Type (from Nrsg): Saline Lock Urinary Cath still in place: No Assessment/Plan Assessment/Plan 1. Acute hypoxic respiratory distress- improving - Doing well on nasal cannula - CXR results noted with new developing infiltrate in RUL. ABG within normal limits - most likely secondary to aspiration - Occurred after emesis event at residential facility, patient likely aspirated - Pulm on board and appreciate recommendations 2. Likely aspiration pneumonia - continue current antibiotics and O2 support 3. COPD exacerbation - Continue steroid taper - Pulm on board. 4. Non-ST elevated myocardial infarction - Cardiology on board and appreciate recommendations and no further intervention at this time 5. Atrial fibrillation - on Eliquis - Cardiology input appreciated 6. DM - A1c noted - ISS and accuchecks 7. HTN - continue home medications 8. History of CVA - Residual left sided weakness 9. Acute kidney injury versus chronic kidney disease - Nephrology on board and appreciate recommendations. Cr normalized 10. Disposition - Doing well on nasal cannula and stable for transfer to [place] Result Diagram: 02/21/19 0605 02/21/19 0605 Results 24hrs Laboratory Tests Test 02/20/19 12:13 02/20/19 17:33 02/20/19 21:27 02/21/19 00:20 Bedside Glucose 257 H 179 192 198 Test 02/21/19 06:05 02/21/19 08:08 White Blood Count 19.5 H Red Blood Count 4.70 Hemoglobin 12.8 L Hematocrit 40.0 L Mean Corpuscular 85.1 Volume Mean Corpuscular 27.2 L Hemoglobin Mean Corpuscular 32.0 Hemoglobin Concent Red Cell 14.7 H Distribution Width Platelet Count 320 Mean Platelet Volume 10.1 Immature 4.400 H Granulocytes % Neutrophils % 81.3 H Lymphocytes % 7.4 L Monocytes % 5.6 Eosinophils % 1.0 Basophils % 0.3 Nucleated Red Blood 0.0 Cells % Immature 0.860 H Granulocytes # Neutrophils # 15.8 H Lymphocytes # 1.4 Monocytes # 1.1 H Eosinophils # 0.2 Basophils # 0.1 Nucleated Red Blood 0.0 Cells # Sodium Level 138 Potassium Level 4.2 Chloride Level 104 Carbon Dioxide Level 26 Anion Gap 8 Blood Urea Nitrogen 43 H Creatinine 1.12 Glucose Level 233 H Calcium Level 8.6 Phosphorus Level 3.4 Magnesium Level 1.9 Albumin 2.9 L Bedside Glucose 209 Subjective 24 Hr Interval Summary Free Text/Dictation Patient states he's feeling significantly better and states he has a slight cough but only to clear his throat. no acute overnight events. Exam/Review of Systems Exam Vitals Vital Signs Date Temp Pulse Resp B/P (MAP) Pulse Ox O2 O2 Flow FiO2 Time Delivery Rate 02/21/19 63 08:55 02/21/19 6.0 08:06 02/21/19 20 97 Nasal 08:06 Cannula 02/21/19 98.2 127/62 07:31 (83) 02/20/19 50 13:47 Intake and Output 02/20/19 02/20/19 02/21/19 1515:00 23:00 07:00 IntakeIntake Total 880 ml 400 ml BalanceBalance 880 ml 400 ml Exam General: Patient is laying in bed and answers questions appropriately Eyes: EOMI, pupils reactive to light Neck: Supple, nontender, midline Respiratory: Diminished bilaterally. no wheezing appreciated Cardiovascular: regular rate and rhythm, no obvious murmurs Gastrointestinal: soft, non-tender to palpation, bowel sounds heard. Skin: no new skin lesions appreciated Results Results 24hrs Laboratory Tests Test 02/20/19 12:13 02/20/19 17:33 02/20/19 21:27 02/21/19 00:20 Bedside Glucose 257 H 179 192 198 Test 02/21/19 06:05 02/21/19 08:08 White Blood Count 19.5 H Red Blood Count 4.70 Hemoglobin 12.8 L Hematocrit 40.0 L Mean Corpuscular 85.1 Volume Mean Corpuscular 27.2 L Hemoglobin Mean Corpuscular 32.0 Hemoglobin Concent Red Cell 14.7 H Distribution Width Platelet Count 320 Mean Platelet Volume 10.1 Immature 4.400 H Granulocytes % Neutrophils % 81.3 H Lymphocytes % 7.4 L Monocytes % 5.6 Eosinophils % 1.0 Basophils % 0.3 Nucleated Red Blood 0.0 Cells % Immature 0.860 H Granulocytes # Neutrophils # 15.8 H Lymphocytes # 1.4 Monocytes # 1.1 H Eosinophils # 0.2 Basophils # 0.1 Nucleated Red Blood 0.0 Cells # Sodium Level 138 Potassium Level 4.2 Chloride Level 104 Carbon Dioxide Level 26 Anion Gap 8 Blood Urea Nitrogen 43 H Creatinine 1.12 Glucose Level 233 H Calcium Level 8.6 Phosphorus Level 3.4 Magnesium Level 1.9 Albumin 2.9 L Bedside Glucose 209 Medications Medication Current Medications IV Flush (NS 3 ml) 3 ml PER PROTOCOL IV ; Start 02/12/19 at 14:30 Nitroglycerin (Nitroglycerin (Sl Tab) 0.4 Mg) 1 tab Q5M PRN SL .CHEST PAIN; Start 02/12/19 at 14:30 Acetaminophen (Tylenol Tab) 650 mg Q6H PRN PO .PAIN 1-3 OR TEMP Last administered on 02/13/19 16:30; Admin Dose 650 MG; Start 02/12/19 at 14:30 Acetaminophen/ Hydrocodone Bitart ([place] (5/325)) 1 tab Q6H PRN PO .PAIN 4-6; Start 02/12/19 at 14:30 Morphine Sulfate (morphine) 2 mg Q4H PRN IV .PAIN 7-10 Last administered on 02/20/19 03:36; Admin Dose 2 MG; Start 02/12/19 at 14:30 Atorvastatin Calcium (Lipitor) 80 mg QHS PO Last administered on 02/20/19 21:30; Admin Dose 80 MG; Start 02/12/19 at 21:00 Clopidogrel Bisulfate (plaVIX) 75 mg DAILY PO Last administered on 02/21/19 08:15; Admin Dose 75 MG; Start 02/13/19 at 09:00 Docusate Sodium (Colace) 250 mg BID PO Last administered on 02/21/19 08:17; Admin Dose 250 MG; Start 02/12/19 at 21:00 Sertraline HCl (Zoloft) 150 mg DAILY PO Last administered on 02/21/19 08:19; Admin Dose 150 MG; Start 02/13/19 at 09:00 Terazosin HCl (Hytrin) 1 mg BID PO Last administered on 02/21/19 08:17; Admin Dose 1 MG; Start 02/12/19 at 21:00 Ursodiol (Pili) 250 mg BID PO Last administered on 02/21/19 08:18; Admin Dose 250 MG; Start 02/12/19 at 21:00 Albuterol/ Ipratropium (Duoneb) 3 ml Q6HWA RESP THERAPY HHN Last administered on 02/21/19 08:06; Admin Dose 3 ML; Start 02/12/19 at 20:00 Albuterol/ Ipratropium (Duoneb) 3 ml Q2H RESP THERAPY PRN HHN shortness of breath; Start 02/12/19 at 14:30 Budesonide (Pulmicort (Neb)) 0.5 mg BID RESP THERAPY HHN Last administered on 02/21/19 08:06; Admin Dose 0.5 MG; Start 02/12/19 at 20:00 Miscellaneous Information 1 ea NOTE XX ; Start 02/12/19 at 15:00 Glucose (Glutose) 15 gm Q15M PRN PO DECREASED GLUCOSE; Start 02/12/19 at 15:00 Glucose (Glutose) 22.5 gm Q15M PRN PO DECREASED GLUCOSE; Start 02/12/19 at 15:00 Dextrose (D50w Syringe) 25 ml Q15M PRN IV DECREASED GLUCOSE; Start 02/12/19 at 15:00 Dextrose (D50w Syringe) 50 ml Q15M PRN IV DECREASED GLUCOSE; Start 02/12/19 at 15:00 Glucagon (Glucagen) 1 mg Q15M PRN IM DECREASED GLUCOSE; Start 02/12/19 at 15:00 Glucose (Glutose) 15 gm Q15M PRN BUCCAL DECREASED GLUCOSE; Start 02/12/19 at 15:00 Ondansetron HCl (Zofran Inj) 4 mg Q6H PRN IV NAUSEA AND/OR VOMITING; Start 02/13/19 at 16:30 Diagnostic Test (Pha) (Accu-Chek) 1 ea 02 XX Last administered on 02/21/19at 00:27; Admin Dose 1 EA; Start 02/14/19 at 02:00 Insulin Aspart (Novolog Insulin Pen) NOVOLOG *MODERATE* ALGORITHM WITH MEALS BEDTIME SC Last administered on 02/21/19at 08:27; Admin Dose 4 UNIT; Start 02/13/19 at 17:55 Labetalol HCl (Labetalol) 10 mg Q4H PRN IV sbp >160 Last administered on 02/16/19at 05:02; Admin Dose 10 MG; Start 02/13/19 at 16:42 Apixaban (Eliquis) 2.5 mg BID PO Last administered on 02/21/19 08:20; Admin Dose 2.5 MG; Start 02/14/19 at 21:00 Piperacillin Sod/ Tazobactam Sod 50 ml @ 200 mls/hr Q6 IVPB Last administered on 02/21/19 05:12; Admin Dose 200 MLS/HR; Start 02/14/19 at 18:00 Pantoprazole (Protonix Tab) 40 mg DAILY@06 PO Last administered on 02/21/19 05:12; Admin Dose 40 MG; Start 02/16/19 at 06:00 Metoprolol Succinate (Toprol Xl) 25 mg BID PO Last administered on 02/21/19 08:17; Admin Dose 25 MG; Start 02/17/19 at 12:00 Hydralazine HCl (Apresoline) 10 mg Q4H PRN IV sbp >160 Last administered on 02/21/19at 03:45; Admin Dose 10 MG; Start 02/18/19 at 09:30 Nifedipine (Procardia Xl) 30 mg DAILY PO Last administered on 02/21/19 08:19; Admin Dose 30 MG; Start 02/19/19 at 09:00 Spironolactone (Aldactone) 12.5 mg DAILY PO Last administered on 02/21/19 08:15; Admin Dose 12.5 MG; Start 02/19/19 at 19:30 IV Flush (NS 10 ml) 10 ml ONCE PRN IV IV PROTOCOL; Start 02/20/19 at 14:30; Stop 02/21/19 at 14:29 Insulin Aspart (Novolog Insulin Pen) 12 unit WITH MEALS SC Last administered on 02/21/19 08:25; Admin Dose 12 UNIT; Start 02/20/19 at 17:55 Insulin Glargine (Lantus) 30 units DAILY@0800 SC ; Start 02/21/19 at 08:00 Methylprednisolone Sodium Succinate (Solu-Medrol) 40 mg BID IV Last administered on 02/21/19 08:16; Admin Dose 40 MG; Start 02/20/19 at 21:00 SHON CAVAZOS MD February 21, 2019 10:14
--- NOTE | 2019-02-21 15:07 | CONS ---
Consult Date/Type/Reason Admit Date/Time February 12, 2019 at 13:35 Initial Consult Date 02/12/19 Type of Consult Pulmonary Requesting Provider: YOLETTE RICH Date/Time of Note DATE: 02/21/19 TIME: 15:06 Subjective Continues to improve on nasal cannula O2. Objective Vital Signs Date Temp Pulse Resp B/P (MAP) Pulse Ox O2 O2 Flow FiO2 Time Delivery Rate 02/21/19 71 14:27 02/21/19 20 97 Nasal 3.0 13:26 Cannula 02/21/19 98.0 137/74 11:03 (95) 02/20/19 50 13:47 Intake and Output 02/20/19 02/20/19 02/21/19 1414:59 22:59 06:59 IntakeIntake Total 880 ml 400 ml BalanceBalance 880 ml 400 ml Exam GENERAL: VITAL SIGNS: per chart NECK: Supple. No JVD or lymphadenopathy. CARDIAC EXAM: S1, S2. No added sounds or murmurs. CHEST: Diminished air entry bilaterally with rales ABDOMEN: Soft, nontender. No guarding or rebound. EXTREMITIES: No cyanosis, clubbing or edema. NEUROLOGIC: Generalized weakness. No focal deficits. Moderately obese gentleman comfortable at rest Vent Setting Fraction of Inspired Oxygen pe: 50 Results/Medications Result Diagram: 02/21/19 0602/21/19604 Results 24 hrs Laboratory Tests Test 02/20/19 17:33 02/20/19 21:27 02/21/19 00:20 02/21/19 06:05 Bedside Glucose 179 192 198 White Blood Count 19.5 H Red Blood Count 4.70 Hemoglobin 12.8 L Hematocrit 40.0 L Mean Corpuscular 85.1 Volume Mean Corpuscular 27.2 L Hemoglobin Mean Corpuscular 32.0 Hemoglobin Concent Red Cell 14.7 H Distribution Width Platelet Count 320 Mean Platelet Volume 10.1 Immature 4.400 H Granulocytes % Neutrophils % 81.3 H Lymphocytes % 7.4 L Monocytes % 5.6 Eosinophils % 1.0 Basophils % 0.3 Nucleated Red Blood 0.0 Cells % Immature 0.860 H Granulocytes # Neutrophils # 15.8 H Lymphocytes # 1.4 Monocytes # 1.1 H Eosinophils # 0.2 Basophils # 0.1 Nucleated Red Blood 0.0 Cells # Sodium Level 138 Potassium Level 4.2 Chloride Level 104 Carbon Dioxide Level 26 Anion Gap 8 Blood Urea Nitrogen 43 H Creatinine 1.12 Glucose Level 233 H Calcium Level 8.6 Phosphorus Level 3.4 Magnesium Level 1.9 Albumin 2.9 L Test 02/21/19 08:08 02/21/19 11:56 Bedside Glucose 209 222 H Medications Current Medications IV Flush (NS 3 ml) 3 ml PER PROTOCOL IV ; Start 02/12/19 at 14:30 Nitroglycerin (Nitroglycerin (Sl Tab) 0.4 Mg) 1 tab Q5M PRN SL .CHEST PAIN; Start 02/12/19 at 14:30 Acetaminophen (Tylenol Tab) 650 mg Q6H PRN PO .PAIN 1-3 OR TEMP Last a dministered on 02/13/19 16:30; Admin Dose 650 MG; Start 02/12/19 at 14:30 Acetaminophen/ Hydrocodone Bitart ([place] (5/325)) 1 tab Q6H PRN PO .PAIN 4-6; Start 02/12/19 at 14:30 Morphine Sulfate (morphine) 2 mg Q4H PRN IV .PAIN 7-10 Last administered on 02/20/19at 03:36; Admin Dose 2 MG; Start 02/12/19 at 14:30 Atorvastatin Calcium (Lipitor) 80 mg QHS PO Last administered on 02/20/19 21:30; Admin Dose 80 MG; Start 02/12/19 at 21:00 Clopidogrel Bisulfate (plaVIX) 75 mg DAILY PO Last administered on 02/21/19 08:15; Admin Dose 75 MG; Start 02/13/19 at 09:00 Docusate Sodium (Colace) 250 mg BID PO Last administered on 02/21/19 08:17; Admin Dose 250 MG; Start 02/12/19 at 21:00 Sertraline HCl (Zoloft) 150 mg DAILY PO Last administered on 02/21/19 08:19; Admin Dose 150 MG; Start 02/13/19 at 09:00 Terazosin HCl (Hytrin) 1 mg BID PO Last administered on 02/21/19 08:17; Admin Dose 1 MG; Start 02/12/19 at 21:00 Ursodiol (Pili) 250 mg BID PO Last administered on 02/21/19 08:18; Admin Dose 250 MG; Start 02/12/19 at 21:00 Albuterol/ Ipratropium (Duoneb) 3 ml Q6HWA RESP THERAPY HHN Last administered on 02/21/19at 13:25; Admin Dose 3 ML; Start 02/12/19 at 20:00 Albuterol/ Ipratropium (Duoneb) 3 ml Q2H RESP THERAPY PRN HHN shortness of breath; Start 02/12/19 at 14:30 Budesonide (Pulmicort (Neb)) 0.5 mg BID RESP THERAPY HHN Last administered on 02/21/19at 08:06; Admin Dose 0.5 MG; Start 02/12/19 at 20:00 Miscellaneous Information 1 ea NOTE XX ; Start 02/12/19 at 15:00 Glucose (Glutose) 15 gm Q15M PRN PO DECREASED GLUCOSE; Start 02/12/19 at 15:00 Glucose (Glutose) 22.5 gm Q15M PRN PO DECREASED GLUCOSE; Start 02/12/19 at 15:00 Dextrose (D50w Syringe) 25 ml Q15M PRN IV DECREASED GLUCOSE; Start 02/12/19 at 15:00 Dextrose (D50w Syringe) 50 ml Q15M PRN IV DECREASED GLUCOSE; Start 02/12/19 at 1 5:00 Glucagon (Glucagen) 1 mg Q15M PRN IM DECREASED GLUCOSE; Start 02/12/19 at 15:00 Glucose (Glutose) 15 gm Q15M PRN BUCCAL DECREASED GLUCOSE; Start 02/12/19 at 15:00 Ondansetron HCl (Zofran Inj) 4 mg Q6H PRN IV NAUSEA AND/OR VOMITING; Start 02/13/19 at 16:30 Diagnostic Test (Pha) (Accu-Chek) 1 ea 02 XX Last administered on 02/21/19at 00:27; Admin Dose 1 EA; Start 02/14/19 at 02:00 Insulin Aspart (Novolog Insulin Pen) NOVOLOG *MODERATE* ALGORITHM WITH MEALS BEDTIME SC Last administered on 02/21/19at 12:54; Admin Dose 6 UNIT; Start 02/13/19 at 17:55 Labetalol HCl (Labetalol) 10 mg Q4H PRN IV sbp >160 Last administered on 02/16/19at 05:02; Admin Dose 10 MG; Start 02/13/19 at 16:42 Apixaban (Eliquis) 2.5 mg BID PO Last administered on 02/21/19 08:20; Admin Dose 2.5 MG; Start 02/14/19 at 21:00 Piperacillin Sod/ Tazobactam Sod 50 ml @ 200 mls/hr Q6 IVPB Last administered on 02/21/19 12:02; Admin Dose 200 MLS/HR; Start 02/14/19 at 18:00 Pantoprazole (Protonix Tab) 40 mg DAILY@06 PO Last administered on 02/21/19 05:12; Admin Dose 40 MG; Start 02/16/19 at 06:00 Metoprolol Succinate (Toprol Xl) 25 mg BID PO Last administered on 02/21/19 08:17; Admin Dose 25 MG; Start 02/17/19 at 12:00 Hydralazine HCl (Apresoline) 10 mg Q4H PRN IV sbp >160 Last administered on 02/21/19 03:45; Admin Dose 10 MG; Start 02/18/19 at 09:30 Nifedipine (Procardia Xl) 30 mg DAILY PO Last administered on 02/21/19 08:19; Admin Dose 30 MG; Start 02/19/19 at 09:00 Spironolactone (Aldactone) 12.5 mg DAILY PO Last administered on 02/21/19 08:15; Admin Dose 12.5 MG; Start 02/19/19 at 19:30 Insulin Aspart (Novolog Insulin Pen) 12 unit WITH MEALS SC Last administered on 02/21/19 12:55; Admin Dose 12 UNIT; Start 02/20/19 at 17:55 Insulin Glargine (Lantus) 30 units DAILY@0800 SC Last administered on 02/21/19 10:37; Admin Dose 30 UNITS; Start 02/21/19 at 08:00 Methylprednisolone Sodium Succinate (Solu-Medrol) 40 mg BID IV Last administered on 02/21/19 08:16; Admin Dose 40 MG; Start 02/20/19 at 21:00 Assessment/Plan Hospital Course (Demo Recall) IMP: 1. Acute hypoxemic respiratory failure, now stable on nasal cannula O2 2. Multifocal pneumonia--possibly aspiration 3. Chronic obstructive pulmonary disease exacerbation 4. History of cerebrovascular accident 5. Acute on chronic kidney disease RECS: 1. Continue antibiotics. 2. Bronchodilators. 3. Decrease steroids 4. Titrate FiO2 as tolerated 5. Aspiration precautions 6. BD's[facility]T [facility] February 21, 2019 15:07
--- NOTE | 2019-02-21 16:44 | DS ---
Date/Time of Note Date/Time of Note DATE: 02/21/19 TIME: 16:41 Discharge Summary Admission/Discharge Info Admit Date/Time February 12, 2019 at 13:35 Discharge Date/Time 02/21/19 Discharge Diagnosis 1. Acute hypoxic respiratory distress- improving 2. Likely aspiration pneumonia 3. COPD exacerbation 4. Non-ST elevated myocardial infarction 5. Atrial fibrillation 6. DM 7. HTN 8. History of CVA 9. Acute kidney injury versus chronic kidney disease Patient Condition: Stable Consults Pulmonology- Dr. Mar Cardiology- Dr. Chambers Nephrology- Dr. Gonzáles Palliative- Dr. Valentine Procedures ECHO: Findings: Left Ventricle: Normal left ventricular systolic function. Normal left ventricular cavity size. Moderate asymmetric septal hypertrophy. Ejection fraction is visually estimated at 55-60 %. Tissue Doppler/Mitral Doppler indices are consistent with impaired relaxation (Stage I diastolic dysfunction). Right Ventricle: Normal right ventricular size. Normal right ventricular systolic function. Left Atrium: The left atrium is normal in size. Right Atrium: The right atrium is normal in size. Mitral Valve: Mild mitral leaflet calcification. Mild mitral annular calcification. Trace mitral regurgitation. Aortic Valve: Aortic sclerosis without significant stenosis. Tricuspid Valve: Normal appearance of the tricuspid valve. Estimated peak PA systolic pressure 23 mmHg. There is trace tricuspid regurgitation. Pulmonic Valve: Pulmonic valve not well visualized. Pericardium: Normal pericardium with no significant pericardial effusion. Aorta: Normal aortic root. IVC: Inferior vena cava without respiratory collapse, however, patient on ventilator. Conclusions: Normal left ventricular systolic function. Normal left ventricular cavity size. Moderate asymmetric septal hypertrophy. Ejection fraction is visually estimated at 55-60 %. Tissue Doppler/Mitral Doppler indices are consistent with impaired relaxation (Stage I diastolic dysfunction). ). The left atrium is normal in size. Mild mitral leaflet calcification. Mild mitral annular calcification. Trace mitral regurgitation. Aortic sclerosis without significant stenosis. Normal appearance of the tricuspid valve. Estimated peak PA systolic pressure 23 mmHg. There is trace tricuspid regurgitation. Electronically Signed By: Deni Chambers 2019-02-12 18:44:28 PDT Hx of Present Illness Patient is a male with a past medical history significant for left BKA, diabetes mellitus, hypertension, COPD, CVA with residual left-sided weaknes s who presents to [facility] for hypoxia. Patient was at his group home facility, had an episode of emesis and subsequently had hypoxia. Currently patient is doing well on high flow nasal cannula with no respiratory issues as long as the high flow is on. Patient is DO NOT RESUSCITATE but will continue all full medical treatment. Currently patient denies any shortness of breath, chest pain, dizziness, abdominal pain, leg pain. Hospital Course Patient was admitted to Telemetry and continued on high flow O2 for treatment of acute hypoxia. Pulmonology was consulted for management of diffuse pneumonia which was seen on CT scan chest and started on IV steroid and antibiotics. Patient was also seen by Cardiology given elevated troponins and worked up for NSTEMI. Given the fact troponins were trending downward and patient remained asymptomatic, no further cardiac workup was warned in the setting of preserved LVEF, normal systolic function, no angina, and DNR status. Patient did develop new onset atrial fibrillation and started on Eliquis given his history of CVA in the past. Patient converted back to sinus rhythm and was rate controlled. Patients renal function was,however, worsening during hospitalization and Nephrology was consulted with improvement after given gentle fluids. Patient was evaluated by Speech therapist given suspicion for aspiration pneumonia and cleared to start pureed diet with meds crushed in apple sauces. Patient was continued on IV antibiotics and steroid taper. He was titrated off high flow and was tolerating O2 via nasal cannula without any complaints of shortness of breath. Patients renal function normalized. Patients respiratory status improved and was stable for transfer to [place]. Home Meds Reported Medications Na Phos,M-B/Na Phos,Di-Ba (ENEMA SAMCD-FD-DRP) 133 Ml Enema, 133 ML RC EVERY 48 HOURS PRN for CONSTIPATION, ENEMA 02/12/19 Bisacodyl (Dulcolax) 10 Mg Supp.rect, 10 MG RC EVERY 48 HOURS PRN for CONSTIPATION, SUPP.RECT 02/12/19 Atenolol* (Atenolol*) 50 Mg Tablet, 50 MG PO BID, #60 TAB HOLD FOR SBP<110 OR HR <60 02/12/19 Acetaminophen* (Acetaminophen*) 650 Mg Tablet, 650 MG PO Q6H PRN for MILD PAIN LEVEL 1-3, #30 TAB 02/12/19 Ranitidine Hcl* (Zantac*) 300 Mg Tablet, 300 MG PO HS, #30 TAB 02/12/19 Amino Acids/Protein Hydrolys (PRO-STAT LIQUID) 30 Ml Liquid.pkt, 30 ML PO DAILY 02/12/19 Ursodiol* (Ursodiol*) 250 Mg Tablet, 250 MG PO BID, TAB 02/12/19 Sertraline Hcl* (Zoloft*) 100 Mg Tablet, 150 MG PO DAILY, #30 TAB 02/12/19 Ondansetron (Ondansetron Odt) 4 Mg Tab.rapdis, 4 MG PO Q6H PRN for NAUSEA AND/OR VOMITING, TAB 02/12/19 Terazosin Hcl* (Terazosin Hcl*) 1 Mg Capsule, 1 MG PO BID, CAP 02/12/19 Sennosides* (Senna Lax*) 8.6 Mg Tablet, 1 TAB PO QHS, TAB 02/12/19 Magnesium Hydroxide* (Milk Of Magnesia*) 400 Mg/5 Ml Oral.susp, 30 ML PO DAILY PRN for CONSTIPATION, ML 02/12/19 Metformin Hcl* (Metformin Hcl*) 500 Mg Tablet, 500 MG PO WITH BREAKFAST DINNE, #60 TAB 02/12/19 Atorvastatin Calcium* (Atorvastatin Calcium*) 20 Mg Tablet, 20 MG PO QHS, #30 TAB 02/12/19 Lactulose* (Lactulose*) 20 Gm/30 Ml Solution, 20 GM PO DAILY, ML 02/12/19 Gabapentin* (Gabapentin*) 100 Mg Capsule, 100 MG PO TID, #90 CAP 02/12/19 Docusate Sodium* (Colace*) 250 Mg Capsule, 250 MG PO BID, #60 CAP 02/12/19 Clopidogrel Bisulfate (Clopidogrel) 75 Mg Tablet, 75 MG PO DAILY, #30 TAB 02/12/19 Follow-up Plan 1. Continue current care at [facility] Primary Care Provider Not On Staff Doctor Time spent on discharge: > 30 minutes Pending Labs Laboratory Tests Test 02/20/19 17:33 02/20/19 21:27 02/21/19 00:20 02/21/19 06:05 Bedside 179 192 198 Glucose mg/dL (70-220) mg/dL (70-220) mg/dL (70-220) White Blood 19.5 Count 10^3/ul (4.8-1 0.8) Red Blood 4.70 Count 10^6/ul (4.70- 6.10) Hemoglobin 12.8 g/dl (14.0-18. 0) Hematocrit 40.0 % (42.0-52.0) Mean 85.1 Corpuscular fl (82.0-101.0 Volume ) Mean 27.2 Corpuscular pg (29.0-33.0) Hemoglobin Mean 32.0 Corpuscular g/dl (32.0-37. Hemoglobin Conc 0) ent Red Cell 14.7 Distribution % (11.5-14.5) Width Platelet Count 320 10^3/UL (140-4 15) Mean Platelet 10.1 Volume fl (7.4-10.4) Immature 4.400 Granulocytes % % (0.001-0.429 ) Neutrophils % 81.3 % (39.0-77.0) Lymphocytes % 7.4 % (15.0-51.0) Monocytes % 5.6 % (0.0-11.0) Eosinophils % 1.0 % (0.0-7.0) Basophils % 0.3 % (0.0-2.0) Nucleated Red 0.0 Blood Cells % /100WBC (0.0-0 .0) Immature 0.860 Granulocytes # 10^3/ul (0.0-0 .031) Neutrophils # 15.8 10^3/ul (1.6-7 .5) Lymphocytes # 1.4 10^3/ul (0.8-2 .9) Monocytes # 1.1 10^3/ul (0.3-0 .9) Eosinophils # 0.2 10^3/ul (0.0-0 .5) Basophils # 0.1 10^3/ul (0.0-0 .1) Nucleated Red 0.0 Blood Cells # 10^3/ul (0.0-0 .0) Sodium Level 138 mmol/L (135-14 4) Potassium 4.2 Level mmol/L (3.5-5. 1) Chloride Level 104 mmol/L (97-110 ) Carbon Dioxide 26 Level mmol/L (21-31) Anion Gap 8 (5-13) Blood Urea 43 Nitrogen mg/dl (7-20) Creatinine 1.12 mg/dl (0.61-1. 24) Glucose Level 233 mg/dl (70-220) Calcium Level 8.6 mg/dl (8.4-10. 2) Phosphorus 3.4 Level mg/dl (2.5-4.9 ) Magnesium 1.9 Level mg/dl (1.7-2.5 ) Albumin 2.9 g/dl (3.3-4.9) Test 02/21/19 08:08 02/21/19 11:56 Bedside 209 222 Glucose mg/dL (70-220) mg/dL (70-220) SHON CAVAZOS MD February 21, 2019 16:44
== END 2019-02-21 18:51 | disposition short-term general hospital (02) | DRG 871 ==
LOC: E/R 09:58 → TEL 13:35 → SUATTDRO 14:14 → TEL 02-13 17:36
PROVIDERS: ADMIT Internal Medicine; ATTEND Internal Medicine
DX: A41.9 Sepsis, unspecified organism (principal); J69.0 Pneumonitis due to inhalation of food and vomit; J96.01 Acute respiratory failure with hypoxia; I21.A1 Myocardial infarction type 2; J44.1 Chronic obstructive pulmonary disease with (acute) exacerbation; I69.354 Hemiplegia and hemiparesis following cerebral infarction affecting left non-dominant side; N17.9 Acute kidney failure, unspecified; G93.40 Encephalopathy, unspecified; E46 Unspecified protein-calorie malnutrition; I12.9 Hypertensive chronic kidney disease with stage 1 through stage 4 chronic kidney disease, or unspecified chronic kidney disease; N18.9 Chronic kidney disease, unspecified; Z66 Do not resuscitate; Z89.512 Acquired absence of left leg below knee; Z68.23 Body mass index [BMI] 23.0-23.9, adult; Z87.891 Personal history of nicotine dependence
CPT/HCPCS: 36415; 36600; 71045; 71250; 76775; 80048; 80053; 80061; 80069; 81001; 81003; 82043; 82550; 82553; 82803; 82962; 83036; 83605; 83735; 83880; 84100; 84155; 84300; 84443; 84484; 85025; 85610; 85730; 87086; 92526; 92610; 93005; 93306; 93970; 94640; 94644; 94664; 96374; C9113; J0360; J1644; J1815; J1940; J2270; J2405; J2543; J2920; J2930; J3370; J7030; P9047